=== PATIENT | male | born 1965 | race Caucasian/White ===

== ENCOUNTER 2020-09-17 09:24 | Emergency (ER) | payer MEDICAID, SELFPAY ==
[2020-09-17] VITALS (9 sets, daily range): BP systolic 116–136; BP diastolic 60–85; PULSE 80–105; RESP 14–22; TEMP 37.3; O2SAT 94–98; BMI 25.7
--- NOTE | 2020-09-17 09:34 | ED_ITS ---
HPI - Recheck/Abnormal Lab/Rx General Chief Complaint: Recheck/Abnormal Lab/Rx Stated Complaint: low potassium? Time Seen by Provider: 09/17/20 09:34 Source: patient Mode of arrival: ambulatory Limitations: no limitations History of Present Illness HPI narrative: patient told he has low potassium and that he needs to come in. patient is an alcoholic with a goiter Initial visit (ago): week(s) Symptoms since prior visit: no new symptoms Associated symptoms: none Related Data Allergies Allergy/AdvReac Type Severity Reaction Status Date / Time aspirin [ASPIRIN] Allergy Unknown BLOOD IN Unverified 01/10/20 17:15 STOOL Review of Systems Constitutional: Constitutional: Reports no additional constitutional complaints Eyes: Eyes: Reports no additional eye complaints ENT: Denies dizziness Cardiovascular: Cardiovascular: Reports no additional cardiovascular complaints Respiratory: Respiratory: Reports as per HPI Gastrointestinal: Gastrointestinal: Reports no additional gastrointestinal complaints Musculoskeletal: Musculoskeletal: Reports no additional musculoskeletal complaints Integumentary/Breasts: Skin/Breast: Denies rash Neurologic: Reports system reviewed and no additional complaints, except as documented, Denies dizziness and Denies Sensory deficit (Neuro) Psychiatric: Psychiatric: Denies anxiety [facility] Social History Social History Alcohol intake: current Alcohol intake frequency: a few times a week Alcohol type: beer Patient Tobacco Use Status: Never used Tobacco Use of substances other than those prescribed or required for medical reasons: No Advance Directives: Yes Advance Directives Information Provided: Yes Advance Directives on File: No Physical Exam Vital Signs: Vital Signs: Last Vital Signs Temp 99.2 F 09/17/20 14:25 Pulse 105 H 09/17/20 14:25 Resp 18 09/17/20 14:25 BP 135/82 09/17/20 14:25 Pulse Ox 98 09/17/20 14:25 Body Mass Index 25.7 Const: Other: chronically ill male with huge goiter Orientation/consciousness: oriented to person and patient oriented x3 Limitations: no limitations HENMT: Head: Yes normal to inspection Ears: external ears normal General nose exam: Normal external nose present Mouth: Normal oral and palatal mucosa present and oropharynx normal Throat: Yes posterior oropharynx normal Eyes: General: appearance normal, both eyes and all related structures Neck: Other: supple, huge goiter Chest: Chest palpation & inspection: normal inspection of the chest Resp: Auscultation: clear to auscultation bilaterally Cardio: Jugular venous distension: no JVD Rate: regular rate Rhythm: regular rhythm Heart sounds: S1 normal heart sound present and S2 normal heart sound present GI: Inspection: Yes normal to inspection Palpation (GI): Soft to palpation, nontender and No hepatosplenomegaly present Auscultation: normal bowel sounds : General: Yes no CVA tenderness Back/Spine/Pelvis: Back: no CVA tenderness Skin: General skin exam: no rashes or lesions noted Neuro: General: oriented to person and patient oriented x3 Cranial nerves: Yes CN's II-XII intact bilaterally Motor exam (neuro): 5/5 motor strength present throughout Sensory Exam: No Sensory deficit (Neuro) Extrem: Other: 3+ edema good pulses Psych: Appearance: grossly normal Course Course Course Narrative: patient looking well, resting comfortably. Awaiting repeat labs. Signed out to Dr. Urban [facility] - Recheck/Abnormal Lab/Rx Lab Data Result diagrams: 09/17/20 10:04 09/17/20 10:03 Labs: Lab Results 09/17/20 09/17/20 Range/Units 10:03 10:04 WBC 3.5 L (4.8-10.8) X10*3/uL RBC 3.37 L (4.60-5.80) X10*6/uL Hgb 12.8 L (14.0-18.0) g/dl Hct 36.6 L (42-52) % MCV 108.6 H (80-98) fL MCH 38.0 H (27.0-33.0) pg MCHC 35.0 (31.0-36.0) g/dl RDW 13.5 (11.0-16.0) % Plt Count 45 L (160-400) X10*3/uL MPV 9.5 (9.4-12.4) fL Immature Gran % (Auto) 0.6 H (0.0-0.4) % Neut % (Auto) 73.1 H (45-73) % Lymph % (Auto) 13.6 L (20-40) % [place] % (Auto) 11.6 H (2-11) % Eos % (Auto) 0.3 (0-4) % Baso % (Auto) 0.8 (0-2) % Lymph # (Auto) 0.5 L (1.2-4.9) X10*3/uL [place] # (Auto) 0.4 (0.1-1.2) X10*3/uL Eos # (Auto) 0.0 (0.0-0.4) X10*3/uL Baso # (Auto) 0.0 (0.0-0.2) X10*3/uL Abs Immat Gran (auto) 0.02 (0.00-0.03) X10*3/uL Absolute Neuts (auto) 2.6 (2.0-8.3) X10*3/uL Absolute Nucleated RBC 0.000 (0.0-0.012) X10*3/uL Nucleated RBC % (auto) 0.0 (0.0-0.2) /100WBC Smear Tech's Comments VERIFIED Sodium 138 (135-145) mmol/L Potassium 2.6 L (3.3-5.1) mmol/L Chloride 92 L (96-108) mmol/L Carbon Dioxide 30 H (22-29) mmol/L Anion Gap 19 (12-20) BUN 4 L (9-16) mg/dL Creatinine 0.63 (0.5-1.4) mg/dL Estim Creat Clear Calc TNP Estimated GFR > 60 Random Glucose 130 H (60-115) mg/dL Calcium 8.2 L (8.4-10.2) mg/dL Magnesium 1.2 L* (1.6-2.6) mg/dL Total Bilirubin 3.1 H (0.0-1.0) mg/dL Direct Bilirubin 1.6 H (0.0-0.5) mg/dL AST 170 H (5-37) U/L ALT 35 (0-40) U/L Alkaline Phosphatase 145 H (39-117) U/L Total Protein 7.0 (6.5-8.0) g/dL Albumin 3.0 L (3.5-5.0) g/dL
--- NOTE | 2020-09-17 10:00 | PC.NURSE ---
Heplock inserted in left upper forearm with a 20 gauge insyte. Blood drawn for labs, site secured and flushed with normal saline. Pt tolerated well. Pt is alert and oriented. denies any pain, fatigue, dizziness, sob or palpitations.
[2020-09-17 10:22] LABS: Basophils Percent Auto 0.8 % (0-2); Eosinophils Percent Auto 0.3 % (0-4); Hematocrit 36.6 % (42-52); Hemoglobin 12.8 g/dl (14.0-18.0); Imm Gran Abs Auto 0.02 X10*3/uL (0.00-0.03); Imm Gran Pct Auto 0.6 % (0.0-0.4); Lymphocytes Absolute Auto 0.5 X10*3/uL (1.2-4.9); Lymphocytes Percent Auto 13.6 % (20-40); MANUAL DIFF FLAG SCAN; Mean Corpuscular Volume 108.6 fL (80-98); Mean Platelet Volume 9.5 fL (9.4-12.4); Monocytes Absolute Auto 0.4 X10*3/uL (0.1-1.2); Monocytes Percent Auto 11.6 % (2-11); Neutrophils Absolute Auto 2.6 X10*3/uL (2.0-8.3); Neutrophils Percent Auto 73.1 % (45-73); Platelet Count 45 X10*3/uL (160-400); Red Blood Count 3.37 X10*6/uL (4.60-5.80); Red Cell Distribution Width 13.5 % (11.0-16.0); SCAN SMEAR FLAG 1; White Blood Count 3.5 X10*3/uL (4.8-10.8)
[2020-09-17 10:46] LABS: SLIDE REVIEW VERIFIED
[2020-09-17 10:51] LABS: Alanine Aminotransferase 35 U/L (0-40); Alkaline Phosphatase 145 U/L (39-117); Anion Gap 19 (12-20); Aspartate Amino Transferase 170 U/L (5-37); Bilirubin Direct 1.6 mg/dL (0.0-0.5); Bilirubin Total 3.1 mg/dL (0.0-1.0); Blood Urea Nitrogen 4 mg/dL (9-16); Calcium 8.2 mg/dL (8.4-10.2); Carbon Dioxide 30 mmol/L (22-29); Chloride 92 mmol/L (96-108); Estimated Glomerular Filt Rate > 60; Glucose Random 130 mg/dL (60-115); Magnesium 1.2 mg/dL (1.6-2.6); Potassium 2.6 mmol/L (3.3-5.1); Sodium 138 mmol/L (135-145)
[2020-09-17] MEDS: Magnesium Sulfate/H2O 2 GM/50 ML PIGGYBACK IV ×2 (13:00→23:28)
[2020-09-17] MEDS: KCl 40 mEq in 0.9 % Sodium Chl 40 MEQ/1,000 ML IV.SOLN 100 MEQ IVCONT ×2 (13:35→23:13)
--- NOTE | 2020-09-17 17:05 | PC.NURSE ---
Pt is resting quietly in no distress. Potassium continues to infuse. Pt denies any pain or discomfort. Blood drawn for repeat labs.
[2020-09-17 17:43] LABS: Anion Gap 13 (12-20); Blood Urea Nitrogen 4 mg/dL (9-16); Carbon Dioxide 33 mmol/L (22-29); Chloride 93 mmol/L (96-108); Creatinine Clr Calc Pharmacy 106.2; Estimated Glomerular Filt Rate > 60; Glucose Random 130 mg/dL (60-115); Magnesium 1.5 mg/dL (1.6-2.6); Potassium 2.4 mmol/L (3.3-5.1); Sodium 137 mmol/L (135-145)
--- NOTE | 2020-09-17 17:45 | ECG_ITS ---
Test Reason : ABNORMAL LABS Blood Pressure : / mmHG Vent. Rate : 100 BPM Atrial Rate : 100 BPM P-R Int : 146 ms QRS Dur : 110 ms QT Int : 414 ms P-R-T Axes : 034 -26 036 degrees QTc Int : 534 ms Sinus rhythm with occasional Premature ventricular complexes Incomplete right bundle branch block Cannot rule out Inferior infarct (cited on or before 16-NOV-2017) Prolonged QT Abnormal ECG When compared with ECG of 07-OCT-2018 09:44, Premature ventricular complexes are now Present QT has lengthened Referred By: Shaw Urban Electronically Signed By:BISI LIM
--- NOTE | 2020-09-17 17:48 | PC.NURSE ---
Doctor at bedside. Verbal order received to increase NS 1L with 40 meq of Potassium rate to 250 ml/h. Rate changed per doctors request. Pt is alert and oriented. Pt denies any pain. Pt is vomiting x2. Pt states vomiting is due to stress at home.
[2020-09-17] MEDS: Potassium Bicarbonate/Cit AC 25 MEQ TABLET.EFF 50 MEQ PO (18:01)
--- NOTE | 2020-09-17 23:28 | PC.NURSE ---
MAGNESIUM UP AND RUNNING ON PUMP, MED IS LATE D/T PREVIOUS NURSE UNABLE TO GET PUMP CONTINUALLY WORKING. SITE INTACT AND MAG RUNNING W/O DIFFICULTY.
[2020-09-18] MEDS: ondansetron HCL 4 MG/2 ML VIAL IVPUSH (00:42)
[2020-09-18 00:52] LABS: Anion Gap 12 (12-20); Blood Urea Nitrogen 5 mg/dL (9-16); Calcium 7.7 mg/dL (8.4-10.2); Carbon Dioxide 33 mmol/L (22-29); Chloride 98 mmol/L (96-108); Estimated Glomerular Filt Rate > 60; Glucose Random 145 mg/dL (60-115); Potassium 2.8 mmol/L (3.3-5.1); Sodium 140 mmol/L (135-145)
[2020-09-18] MEDS: Potassium Bicarbonate/Cit AC 25 MEQ TABLET.EFF 50 MEQ PO (01:34)
[2020-09-18] MEDS: Famotidine/PF 20 MG/2 ML VIAL IVPUSH (01:34)
[2020-09-18] MEDS: Potassium Chloride/H20 10 MEQ/100 ML PIGGYBACK 100 MEQ IV (01:34)
[2020-09-18 01:44] VITALS: BP 127/76; PULSE 96; RESP 16
[2020-09-18 02:00] VITALS: BP 122/74; PULSE 82; RESP 16
[2020-09-18 04:00] VITALS: BP 128/78; PULSE 86; RESP 16
--- NOTE | 2020-09-18 04:35 | PC.NURSE ---
COVID SWAB OBTAINED TO LAB. PT RESTING QUIETLY IN STRETCHER IN NAD.
--- NOTE | 2020-09-18 04:40 | PC.NURSE ---
COVID SWAB OBTAINED TO LAB.
--- NOTE | 2020-09-18 04:57 | PC.NURSE ---
REPEAT LABS DRAWN TO LAB FOR EVAL.
[2020-09-18 05:09] LABS: Anion Gap 12 (12-20); Carbon Dioxide 32 mmol/L (22-29); Chloride 98 mmol/L (96-108); Potassium 3.3 mmol/L (3.3-5.1); Sodium 139 mmol/L (135-145)
[2020-09-18 05:23] VITALS: BP 132/82; PULSE 87; RESP 16
== END 2020-09-18 06:55 | disposition home or self-care (01) ==
PROVIDERS: Internal Medicine; Emergency Provider Emergency Medicine; PCP Internal Medicine
DX: E04.9 Nontoxic goiter, unspecified (principal); Z79.82 Long term (current) use of aspirin; Z79.899 Other long term (current) drug therapy
CPT/HCPCS: 36415; 80048; 80051; 80076; 83735; 85025; 93005; 96361; 96365; 96375; 99285; J2405; J3475

== ENCOUNTER 2021-03-10 09:06 | Inpatient (IN) | payer MEDICAID, SELFPAY ==
[2021-03-10] VITALS (16 sets, daily range): BP systolic 82–119; BP diastolic 51–70; PULSE 85–130; RESP 12–24; TEMP 36.6–39.4; O2SAT 97–100; BMI 26.5
--- NOTE | 2021-03-10 | ECG_ITS ---
Test Reason : lightheadedness Blood Pressure : / mmHG Vent. Rate : 136 BPM Atrial Rate : 136 BPM P-R Int : 118 ms QRS Dur : 092 ms QT Int : 298 ms P-R-T Axes : 046 -15 055 degrees QTc Int : 448 ms Poor data quality Sinus tachycardia with frequent Premature ventricular complexes Inferior infarct (cited on or before 16-NOV-2017) Abnormal ECG When compared with ECG of 17-SEP-2020 17:53, Heart rate has increased Premature ventricular complexes are now more frequent Referred By: Generic ED Physician Electronically Signed By:ANDI KIDD MD
--- NOTE | ~2021-03-10 | MR_ITS ---
EXAMINATION: MRI BRAIN WITHOUT CONTRAST CLINICAL INFORMATION: Left eye hemianopsia. COMPARISON: No relevant prior imaging. TECHNIQUE: Multiplanar MR imaging of the brain was performed without contrast. FINDINGS: There are scattered nonspecific foci of T2 FLAIR show hyperintensity within the periventricular white matter. No acute territorial infarct. No pathological magnetic susceptibility artifact. Intracranial vascular flow voids are maintained. There is no intracranial mass effect or midline shift. No abnormal extra-axial collection. Lateral and third ventricles are proportionate to the subarachnoid spaces. No hydrocephalus. Midline structures including the cervicomedullary junction are normal. No acute bone marrow signal changes. There is no mastoid or middle ear effusion. Mild paranasal sinus mucosal thickening within ethmoid air cells and maxillary sinuses. Globes and orbits are symmetric. MR/MR head/brain wo con IMPRESSION: There are scattered chronic small vessel ischemic changes within the periventricular white matter. Otherwise unremarkable examination. No evidence of acute territorial infarct or hemorrhage. Symmetric deposition of subcutaneous fat within the neck may represent a manifestation of Madelung disease or exogenous corticosteroid use.
--- NOTE | ~2021-03-10 | XR_ITS ---
EXAMINATION: XR CHEST CLINICAL INFORMATION: Question pneumonia COMPARISON: Previous chest x-ray most recent April 2018 TECHNIQUE: Frontal view of the chest was obtained. FINDINGS: The cardiac and mediastinal contours are stable. The lungs are clear. There is no pleural effusion or pneumothorax. There are degenerative changes of the spine. XR/XR chest 1V IMPRESSION: No evidence for acute disease in the chest.
--- NOTE | ~2021-03-10 | CT_ITS ---
EXAMINATION: CT ABDOMEN AND PELVIS WITH CONTRAST CLINICAL INFORMATION: Abdominal pain. Past medical history of Crohn's disease and diverticulitis. COMPARISON: CT abdomen and pelvis 10/07/2018 TECHNIQUE: Multidetector volumetric images were obtained from the superior aspect of the liver through the pubic symphysis following administration 85 mL of Omnipaque 350 intravenous contrast. Sagittal and coronal reformatted images were obtained on the technologist's workstation. Oral contrast: No. This CT examination was performed using dose optimization techniques as appropriate, variously including the following: *Automated exposure control *Adjustment of mA and/or kV according to patient size (this includes techniques or standardized protocols for targeted exams where dose is matched to indication/reason for exam; i.e. extremities or head) *Use of iterative reconstruction technique DLP: 581 mGy-cm FINDINGS: LUNG BASES: The visualized lung bases are unremarkable. LIVER, GALLBLADDER, AND BILIARY TREE: The liver is mildly enlarged in AP dimension with lobulation and decreased attenuation. There is a punctate hypodensity in the right hepatic lobe segment 7, likely simple cyst. There are additional small hypodense lesions scattered in the left and right hepatic lobe, likely tiny cysts. No intrahepatic ductal dilatation. There are multiple radiopaque gallstones without wall thickening. PANCREAS: Unremarkable. SPLEEN: Unremarkable. ADRENAL GLANDS: Unremarkable. KIDNEYS AND URETERS: The kidneys are normal in size, shape, and attenuation. There is punctate 2 mm calcification midpole right kidney, likely small stone. There is no caliectasis or hydronephrosis. BLADDER: Unremarkable. GASTROINTESTINAL TRACT: There is diffuse mural thickening involving the ascending colon and sigmoid colon with a few scattered diverticula in the distal descending and sigmoid colon. The terminal ileum and ileocecal junction appears normal. The rest of the small bowel loops are normal caliber. Appendix is normal. There is a right perihepatic fluid collection and mild left pericolic fat stranding distal descending colon. ABDOMINAL WALL: There is a small umbilical hernia containing fat. LYMPH NODES: Normal. VASCULAR: There is mild arthroscopic calcification of the abdominal aorta without aneurysmal dilatation. PELVIC VISCERA: Unremarkable. OSSEOUS STRUCTURES: No lytic or sclerotic process seen. CT/CT abdomen pelvis w con IMPRESSION: There is diffuse mural thickening involving sigmoid and ascending colon suggestive of colitis likely inflammatory or infectious etiology. A few scattered diverticula are seen in the distal descending and ascending colon but diverticulitis is not suspected. Suspect mild cirrhosis with perihepatic and perisplenic small fluid collection. Cholelithiasis without wall thickening. Nonobstructive 2 mm radiopaque calculi midpole right kidney.
--- NOTE | ~2021-03-10 | US_ITS ---
EXAMINATION: US EXTRACRANIAL CAROTID DUPLEX, BILATERAL CLINICAL INFORMATION: Blurred vision-left eye. COMPARISON: None TECHNIQUE: Technically difficult study due to extreme swelling to the patient's neck. Real-time ultrasound and Doppler techniques (integrating B-mode 2-D vascular images, Doppler spectral analysis and color-flow Doppler imaging) were utilized to interrogate the extracranial carotid arteries, the vertebral arteries and proximal subclavian arteries bilaterally. The degree of stenosis is determined by criteria similar to NASCET. FINDINGS: Right Side: 1. There is no significant atherosclerotic plaque seen in the bifurcation/proximal ICA region. 2. The common carotid artery PSV proximally is 100 cm/s and distally 99 cm/s. 3. The proximal internal carotid artery velocities are 91 cm/s systolic and 18 cm/s diastolic. 4. The proximal external carotid artery PSV is 116 cm/s. 5. The vertebral artery shows antegrade flow. 6. The subclavian artery waveforms are normal. Left Side: 1. There is no significant atherosclerotic plaque seen in the bifurcation/proximal ICA region. 2. The common carotid artery PSV proximally is 101 cm/s and distally 106 cm/s. 3. The proximal internal carotid artery velocities are 72 cm/s systolic and 27 cm/s diastolic. 4. The proximal external carotid artery PSV is 98 cm/s. 5. The vertebral artery shows antegrade flow. 6. The subclavian artery waveforms are normal. US/US carotid duplex BI IMPRESSION: 1. RIGHT: Normal right internal carotid artery without atherosclerotic plaque or hemodynamically significant stenosis. 2. LEFT: Normal left internal carotid artery without atherosclerotic plaque or hemodynamically significant stenosis.
[2021-03-10] MEDS: 0.9 % Sodium Chloride 1,000 ML 999 ML IV ×2 (10:43→16:14)
[2021-03-10] MEDS: Acetaminophen 325 MG TABLET 650 MG PO (10:50)
[2021-03-10 10:51] LABS: Basophils Percent Auto 0.5 % (0-2); Hematocrit 23.3 % (42.0-52.0); Hemoglobin 7.3 g/dl (14.0-18.0); Imm Gran Abs Auto 0.05 X10*3/uL (0.00-0.03); Imm Gran Pct Auto 1.4 % (0.0-0.4); Lymphocytes Absolute Auto 0.2 X10*3/uL (1.2-4.9); Lymphocytes Percent Auto 5.4 % (20-40); MANUAL DIFF FLAG SCAN; Mean Corpuscular HGB Conc 31.3 g/dl (31.0-36.0); Mean Corpuscular Hemoglobin 34.3 pg (27.0-33.0); Mean Corpuscular Volume 109.4 fL (80.0-98.0); Mean Platelet Volume 9.1 fL (9.4-12.4); Monocytes Absolute Auto 0.1 X10*3/uL (0.1-1.2); Monocytes Percent Auto 2.5 % (2-11); Neutrophils Absolute Auto 3.3 x10*3/uL (2.0-8.3); Neutrophils Percent Auto 90.2 % (45-73); SCAN SMEAR FLAG 1; White Blood Count 3.7 X10*3/uL (4.8-10.8)
[2021-03-10 10:53] LABS: Platelet Count 61 X10*3/uL (160-400); Red Blood Count 2.13 X10*6/uL (4.60-5.80)
[2021-03-10 10:57] LABS: INTERNATIONAL NORM RATIO 2.1 (0.9-1.1); Prothrombin Time 24.2 SEC (9.9-13.0)
[2021-03-10 11:00] LABS: Partial Thromboplastin Time 28.7 SEC (24.1-38.0)
[2021-03-10 11:08] LABS: Alanine Aminotransferase 21 U/L (0-40); Alkaline Phosphatase 107 U/L (39-117); Anion Gap 21 (12-20); Aspartate Amino Transferase 64 U/L (5-37); Bilirubin Total 2.9 mg/dL (0.0-1.0); Blood Urea Nitrogen 8 mg/dL (9-16); Calcium 7.5 mg/dL (8.4-10.2); Carbon Dioxide 13 mmol/L (22-29); Chloride 103 mmol/L (96-108); Creatinine Clr Calc Pharmacy 68.3; Estimated Glomerular Filt Rate > 60; Glucose Random 94 mg/dL (60-115); Potassium 3.6 mmol/L (3.3-5.1); Sodium 133 mmol/L (135-145); Total Protein 5.5 g/dL (6.5-8.0)
[2021-03-10 11:09] LABS: Lactic Acid 11.2 mmol/L (0.5-2.0)
[2021-03-10 11:20] LABS: SLIDE REVIEW VERIFIED
[2021-03-10 11:32] LABS: TSH reflex Free T4 2.43 uIU/mL (0.32-4.0)
[2021-03-10 11:52] LABS: Influenza A PCR NEGATIVE (Negative); Influenza B PCR NEGATIVE (Negative); Resp Syncy Virus RNA Qual PCR NEGATIVE (Negative); SARS COV2 PCR INHOUSE NEGATIVE (Negative)
[2021-03-10] MEDS: iohexoL 350 MG/ML 100 ML INFUS..BTL 85 ML IV (12:10)
[2021-03-10] MEDS: methylPREDNISolone Sod Succ 125 MG/2 ML VIAL IVPUSH (12:11)
[2021-03-10] MEDS: levoFLOXacin/D5W 750 MG/150 ML PIGGYBACK 100 MG IV (12:12)
[2021-03-10] MEDS: 0.9 % Sodium Chloride 2,041.17 ML 2041.17 ML IV (12:13)
--- NOTE | 2021-03-10 12:36 | ED_ITS ---
HPI - General Adult General Chief complaint: Fever Stated complaint: dizziness, chills, weakness Time Seen by Provider: 03/10/21 10:43 Source: patient Mode of arrival: ambulatory Limitations: no limitations History of Present Illness HPI narrative: 55-year-old male with known history of goiter presents to ED for fever and lethargic. Patient denies any coughing, chest pain, shortness of breath, abdominal pain, blood in stool, diarrhea, increased swelling of the neck, drooling, shortness of breath, chest pain. Patient was not forthcoming with COVID vaccination status. In for further inquiry into medical history seems not to know much. Patient was informed by his PCP seen at goiter extraction of thyroid surgery should not be done due to risk of injury to neck vessels. Related Data Home Medications Medication Instructions Recorded Confirmed albuterol sulfate 90 mcg/actuation 2 puff INHALATION Q6H PRN 03/10/21 03/10/21 aerosol inhaler (ProAir HFA) cyanocobalamin (vitamin B-12) 1,000 mcg PO DAILY 03/10/21 03/10/21 1,000 mcg tablet famotidine 40 mg tablet 40 mg PO DAILY 03/10/21 03/10/21 fluticasone propionate 110 2 puff INHALATION BID 03/10/21 03/10/21 mcg/actuation HFA aerosol inhaler (Flovent HFA) folic acid 1 mg tablet 1 mg PO DAILY 03/10/21 03/10/21 magnesium oxide 400 mg (241.3 mg 1,200 mg PO DAILY 03/10/21 03/10/21 magnesium) tablet mesalamine 1.2 gram tablet,delayed 4 tab PO DAILY 03/10/21 03/10/21 release (Lialda) metoprolol succinate 25 mg 0.5 tab PO DAILY 03/10/21 03/10/21 tablet,extended release 24 hr potassium chloride 10 mEq 20 meq PO BEDTIME 03/10/21 03/10/21 tablet,extended release(part/cryst) potassium chloride 10 mEq 30 meq PO BID@0900,1200 03/10/21 03/10/21 tablet,extended release(part/cryst) thiamine mononitrate (vit B1) 100 100 mg PO DAILY 03/10/21 03/10/21 mg tablet (Vitamin B-1 (mononitrate)) Allergies Allergy/AdvReac Type Severity Reaction Status Date / Time aspirin [ASPIRIN] Allergy Unknown BLOOD IN Unverified 01/10/20 17:15 STOOL Review of Systems Review of Systems: Yes all other systems are reviewed and are negative Constitutional: Constitutional: Reports as per HPI, Reports no additional constitutional complaints and Reports fever(s) Comments: lethargy Eyes: Eyes: Reports as per HPI and Reports no additional eye complaints ENT: Reports system reviewed and no additional complaints, except as documented and Reports as per HPI Comments: chronic neck swelling due to goiter Cardiovascular: Cardiovascular: Reports as per HPI and Reports no additional cardiovascular complaints Respiratory: Respiratory: Reports as per HPI and Reports no additional respiratory complaints Gastrointestinal: Gastrointestinal: Reports as per HPI and Reports no additional gastrointestinal complaints Genitourinary: Genitourinary: Reports no additional male genitourinary comp laints and Reports as per HPI Musculoskeletal: Musculoskeletal: Reports no additional musculoskeletal complaints and Reports as per HPI Neurologic: Reports system reviewed and no additional complaints, except as documented and Reports as per HPI Psychiatric: Psychiatric: Reports no additional psychiatric complaints and Reports as per HPI [facility] Past Medical History Medical History (Updated 03/10/21 @ 17:27 by MAGALY Larios) Asthma Cirrhosis Liver disease Liver disease Social History Social History Alcohol intake: current Alcohol intake frequency: a few times a week Alcohol type: beer Patient Tobacco Use Status: Never used Tobacco Advance Directives: No Physical Exam Vital Signs: Vital Signs: Last Vital Signs Temp 98 F 03/10/21 16:52 Pulse 91 03/10/21 16:21 Resp 19 03/10/21 16:21 BP 96/58 L 03/10/21 16:21 Pulse Ox 100 03/10/21 16:21 Body Mass Index 26.5 Const: General: cooperative, healthy appearing, comfortable, no acute distress, well developed, alert, awake and Physically active Orientation/consciousness: patient oriented x3 HENMT: Head: Yes normal to inspection, Yes No palpable skull fracture present, Yes normocephalic, Yes atraumatic and No abrasion Eyes: General: appearance normal, both eyes and all related structures Neck: Other: Neck swollen for 2 years as per patient due to goiter. Chest: Chest palpation & inspection: normal inspection of the chest and normal palpation of entire chest wall Resp: Effort & Inspection: normal respiratory effort and able to speak in complete sentences Auscultation: clear to auscultation bilaterally Cardio: Jugular venous distension: no JVD Heart sounds: S1 normal heart sound present and S2 normal heart sound present GI: Inspection: Yes normal to inspection and No abdominal wall ecchymosis Palpation (GI): Tenderness to palpation present (GI) in the LLQ : General: No CVA tenderness and Yes no CVA tenderness Back/Spine/Pelvis: Back: no CVA tenderness, No CVA tenderness and No back tenderness Skin: General skin exam: no rashes or lesions noted and elasticity normal Neuro: General: patient oriented x3, gait normal and CN's II-XI intact bilaterally Cranial nerves: Yes CN's II-XII intact bilaterally Extrem: General: Yes normal to inspection, Yes full ROM and Yes capillary refill normal Psych: Appearance: grossly normal, well kempt and not disheveled Course Course Course Narrative: Will look for source of infection. UA, chest x-ray, COVID swab ordered. Labs ordered. And fluids. Reevaluation(s) Reevaluation #1: Patient lactic and [place]. Nurse during came informed me that patient told him that he was having abdominal pain and history of diverticulitis and Crohn's disease. Patient also informed nurse multiple episodes of diarrhea. has normal x-ray negative for pneumonia patient sent for CT scan to rule out any Crohn's abscesses or diverticulitis. Flagyl metronidazole ordered. Steroids ordered. TSH came back normal which indicates there is no thyroid storm with thyroiditis. Patient denies any neck pain or increased swelling of neck. Time: 13:04 Reevaluation #2: Patient has drop in hemoglobin/hematocrit from 12 to 7. Rectal exam negative for black stool. Rectal exam shows brown stool. Patient does have hemorrhoid with slight bleeding. Negative for black stool. Reevaluation #3: CT scan shows colitis. Case discussed with Dr. Shine wrote who states patient should receive 1 unit of blood. He states elevated MCV most likely due to B12 and folate deficiency from alcohol abuse but due to patient stating on evaluation by Dr. Shine order he felt lightheaded and weak when he walk with decrease in hemoglobin/hematocrit patient should receive 1 unit of bl ood. Patient also to be admitted for pants cytopenia. Waiting for records from coli taken since. Will consult Gastroenterology. Additional Reevaluation(s): Dr. Sotelo agreed the patient should receive 1 unit of blood and be admitted. Also recommend low-dose Protonix. Patient to be admitted hospitalist Dr. Underwood for sub the colitis and symptomatic anemia. Waiting for blood blank blood to come. Still waiting for results from include leslie hardin. 17:20. Nagi Umana since paperwork came to the ER and was evaluated by Dr. Underwood and I which shows patient has pmh of hypokalemia, portal hypertesion, cirrhosis, and hypomagnesmia. Also patient had normal MRCP. Patient sign consent for blood Medical Decision Making MDM Narrative Medical decision making narrative: Symptomatic anemia. Septic colitis. Lab Data Result diagrams: 03/10/21 10:40 03/10/21 10:40 Labs: Lab Results 03/10/21 03/10/21 03/10/21 Range/Units 10:40 10:40 10:40 WBC (4.8-10.8) X10*3/uL RBC (4.60-5.80) X10*6/uL Hgb (14.0-18.0) g/dl Hct (42.0-52.0) % MCV (80.0-98.0) fL MCH (27.0-33.0) pg MCHC (31.0-36.0) g/dl RDW (11.0-16.0) % Plt Count (160-400) X10*3/uL MPV (9.4-12.4) fL Immature Gran % (Auto) (0.0-0.4) % Neut % (Auto) (45-73) % Lymph % (Auto) (20-40) % [place] % (Auto) (2-11) % Eos % (Auto) (0-4) % Baso % (Auto) (0-2) % Lymph # (Auto) (1.2-4.9) X10*3/uL [place] # (Auto) (0.1-1.2) X10*3/uL Eos # (Auto) (0.0-0.4) X10*3/uL Baso # (Auto) (0.0-0.2) X10*3/uL Abs Immat Gran (auto) (0.00-0.03) X10*3/uL Absolute Neuts (auto) (2.0-8.3) x10*3/uL Absolute Nucleated RBC (0.0-0.012) X10*3/uL Nucleated RBC % (auto) (0.0-0.2) /100WBC Smear Tech's Comments Smear Path Review PT (9.9-13.0) SEC INR (0.9-1.1) APTT (24.1-38.0) SEC Sodium (135-145) mmol/L Potassium (3.3-5.1) mmol/L Chloride (96-108) mmol/L Carbon Dioxide (22-29) mmol/L Anion Gap (12-20) BUN (9-16) mg/dL Creatinine (0.5-1.4) mg/dL Estim Creat Clear Calc Estimated GFR Random Glucose (60-115) mg/dL Lactic Acid 11.2 H* (0.5-2.0) mmol/L Lactic Acid Fup @ 2Hr (0.5-2.0) mmol/L Calcium (8.4-10.2) mg/dL Total Bilirubin (0.0-1.0) mg/dL AST (5-37) U/L ALT (0-40) U/L Alkaline Phosphatase (39-117) U/L Total Protein (6.5-8.0) g/dL Albumin (3.5-5.0) g/dL Vitamin B12 (200-900) pg/mL Folate (> or = 4.0) ng/mL TSH 2.43 (0.32-4.0) uIU/mL Stool Occult Blood (NEGATIVE) Influenza Type A (PCR) NEGATIVE (Negative) Influenza Type B (PCR) NEGATIVE (Negative) RSV RNA Qual (PCR) NEGATIVE (Negative) SARS-CoV-2 RNA (RT-PCR) NEGATIVE (Negative) Crossmatch 03/10/21 03/10/21 03/10/21 Range/Units 10:40 10:40 10:40 WBC 3.7 L (4.8-10.8) X10*3/uL RBC 2.13 L (4.60-5.80) X10*6/uL Hgb 7.3 L (14.0-18.0) g/dl Hct 23.3 L (42.0-52.0) % MCV 109.4 H (80.0-98.0) fL MCH 34.3 H (27.0-33.0) pg MCHC 31.3 (31.0-36.0) g/dl RDW 16.0 (11.0-16.0) % Plt Count 61 L (160-400) X10*3/uL MPV 9.1 L (9.4-12.4) fL Immature Gran % (Auto) 1.4 H (0.0-0.4) % Neut % (Auto) 90.2 H (45-73) % Lymph % (Auto) 5.4 L (20-40) % [place] % (Auto) 2.5 (2-11) % Eos % (Auto) 0.0 (0-4) % Baso % (Auto) 0.5 (0-2) % Lymph # (Auto) 0.2 L (1.2-4.9) X10*3/uL [place] # (Auto) 0.1 (0.1-1.2) X10*3/uL Eos # (Auto) 0.0 (0.0-0.4) X10*3/uL Baso # (Auto) 0.0 (0.0-0.2) X10*3/uL Abs Immat Gran (auto) 0.05 H (0.00-0.03) X10*3/uL Absolute Neuts (auto) 3.3 (2.0-8.3) x10*3/uL Absolute Nucleated RBC 0.000 (0.0-0.012) X10*3/uL Nucleated RBC % (auto) 0.0 (0.0-0.2) /100WBC Smear Tech's Comments VERIFIED Smear Path Review SEE NOTE PT 24.2 H (9.9-13.0) SEC INR 2.1 H (0.9-1.1) APTT 28.7 (24.1-38.0) SEC Sodium 133 L (135-145) mmol/L Potassium 3.6 (3.3-5.1) mmol/L Chloride 103 (96-108) mmol/L Carbon Dioxide 13 L (22-29) mmol/L Anion Gap 21 H (12-20) BUN 8 L D (9-16) mg/dL Creatinine 0.96 (0.5-1.4) mg/dL Estim Creat Clear Calc 68.3 Estimated GFR > 60 Random Glucose 94 D (60-115) mg/dL Lactic Acid (0.5-2.0) mmol/L Lactic Acid Fup @ 2Hr (0.5-2.0) mmol/L Calcium 7.5 L (8.4-10.2) mg/dL Total Bilirubin 2.9 H (0.0-1.0) mg/dL AST 64 H (5-37) U/L ALT 21 (0-40) U/L Alkaline Phosphatase 107 D (39-117) U/L Total Protein 5.5 L D (6.5-8.0) g/dL Albumin 2.0 L D (3.5-5.0) g/dL Vitamin B12 (200-900) pg/mL Folate (> or = 4.0) ng/mL TSH (0.32-4.0) uIU/mL Stool Occult Blood (NEGATIVE) Influenza Type A (PCR) (Negative) Influenza Type B (PCR) (Negative) RSV RNA Qual (PCR) (Negative) SARS-CoV-2 RNA (RT-PCR) (Negative) Crossmatch 03/10/21 03/10/21 03/10/21 Range/Units 10:40 13:14 13:18 WBC (4.8-10.8) X10*3/uL RBC (4.60-5.80) X10*6/uL Hgb (14.0-18.0) g/dl Hct (42.0-52.0) % MCV (80.0-98.0) fL MCH (27.0-33.0) pg MCHC (31.0-36.0) g/dl RDW (11.0-16.0) % Plt Count (160-400) X10*3/uL MPV (9.4-12.4) fL Immature Gran % (Auto) (0.0-0.4) % Neut % (Auto) (45-73) % Lymph % (Auto) (20-40) % [place] % (Auto) (2-11) % Eos % (Auto) (0-4) % Baso % (Auto) (0-2) % Lymph # (Auto) (1.2-4.9) X10*3/uL [place] # (Auto) (0.1-1.2) X10*3/uL Eos # (Auto) (0.0-0.4) X10*3/uL Baso # (Auto) (0.0-0.2) X10*3/uL Abs Immat Gran (auto) (0.00-0.03) X10*3/uL Absolute Neuts (auto) (2.0-8.3) x10*3/uL Absolute Nucleated RBC (0.0-0.012) X10*3/uL Nucleated RBC % (auto) (0.0-0.2) /100WBC Smear Tech's Comments Smear Path Review PT (9.9-13.0) SEC INR (0.9-1.1) APTT (24.1-38.0) SEC Sodium (135-145) mmol/L Potassium (3.3-5.1) mmol/L Chloride (96-108) mmol/L Carbon Dioxide (22-29) mmol/L Anion Gap (12-20) BUN (9-16) mg/dL Creatinine (0.5-1.4) mg/dL Estim Creat Clear Calc Estimated GFR Random Glucose (60-115) mg/dL Lactic Acid (0.5-2.0) mmol/L Lactic Acid Fup @ 2Hr 6.0 H* (0.5-2.0) mmol/L Calcium (8.4-10.2) mg/dL Total Bilirubin (0.0-1.0) mg/dL AST (5-37) U/L ALT (0-40) U/L Alkaline Phosphatase (39-117) U/L Total Protein (6.5-8.0) g/dL Albumin (3.5-5.0) g/dL Vitamin B12 1678 H (200-900) pg/mL Folate > 20.0 (> or = 4.0) ng/mL TSH (0.32-4.0) uIU/mL Stool Occult Blood POSITIVE (NEGATIVE) Influenza Type A (PCR) (Negative) Influenza Type B (PCR) (Negative) RSV RNA Qual (PCR) (Negative) SARS-CoV-2 RNA (RT-PCR) (Negative) Crossmatch 03/10/21 Range/Units 16:41 WBC (4.8-10.8) X10*3/uL RBC (4.60-5.80) X10*6/uL Hgb (14.0-18.0) g/dl Hct (42.0-52.0) % MCV (80.0-98.0) fL MCH (27.0-33.0) pg MCHC (31.0-36.0) g/dl RDW (11.0-16.0) % Plt Count (160-400) X10*3/uL MPV (9.4-12.4) fL Immature Gran % (Auto) (0.0-0.4) % Neut % (Auto) (45-73) % Lymph % (Auto) (20-40) % [place] % (Auto) (2-11) % Eos % (Auto) (0-4) % Baso % (Auto) (0-2) % Lymph # (Auto) (1.2-4.9) X10*3/uL [place] # (Auto) (0.1-1.2) X10*3/uL Eos # (Auto) (0.0-0.4) X10*3/uL Baso # (Auto) (0.0-0.2) X10*3/uL Abs Immat Gran (auto) (0.00-0.03) X10*3/uL Absolute Neuts (auto) (2.0-8.3) x10*3/uL Absolute Nucleated RBC (0.0-0.012) X10*3/uL Nucleated RBC % (auto) (0.0-0.2) /100WBC Smear Tech's Comments Smear Path Review PT (9.9-13.0) SEC INR (0.9-1.1) APTT (24.1-38.0) SEC Sodium (135-145) mmol/L Potassium (3.3-5.1) mmol/L Chloride (96-108) mmol/L Carbon Dioxide (22-29) mmol/L Anion Gap (12-20) BUN (9-16) mg/dL Creatinine (0.5-1.4) mg/dL Estim Creat Clear Calc Estimated GFR Random Glucose (60-115) mg/dL Lactic Acid (0.5-2.0) mmol/L Lactic Acid Fup @ 2Hr (0.5-2.0) mmol/L Calcium (8.4-10.2) mg/dL Total Bilirubin (0.0-1.0) mg/dL AST (5-37) U/L ALT (0-40) U/L Alkaline Phosphatase (39-117) U/L Total Protein (6.5-8.0) g/dL Albumin (3.5-5.0) g/dL Vitamin B12 (200-900) pg/mL Folate (> or = 4.0) ng/mL TSH (0.32-4.0) uIU/mL Stool Occult Blood (NEGATIVE) Influenza Type A (PCR) (Negative) Influenza Type B (PCR) (Negative) RSV RNA Qual (PCR) (Negative) SARS-CoV-2 RNA (RT-PCR) (Negative) Crossmatch See Detail Discharge Plan Discharge Clinical Impression: Sepsis, Colitis, Symptomatic anemia Prescriptions: No Action famotidine 40 mg tablet 40 mg PO DAILY RF: 0 cyanocobalamin (vitamin B-12) 1,000 mcg Tablet 1,000 mcg PO DAILY RF: 0 magnesium oxide 400 mg (241.3 mg magnesium) tablet 1,200 mg PO DAILY RF: 0 folic acid 1 mg tablet 1 mg PO DAILY RF: 0 metoprolol succinate 25 mg tablet extended release 24 hr 0.5 tab PO DAILY RF: 0 albuterol sulfate [ProAir HFA] 90 mcg/actuation HFA aerosol inhaler 2 puff inhalation Q6H PRN (Reason: wheezing) RF: 0 Flovent HFA 110 mcg/actuation HFA aerosol inhaler 2 puff inhalation BID RF: 0 potassium chloride 10 mEq tablet,ER particles/crystals 30 meq PO BID@0900,1200 RF: 0 potassium chloride 10 mEq tablet,ER particles/crystals 20 meq PO BEDTIME RF: 0 mesalamine [Lialda] 1.2 gram tablet,delayed release (DR/EC) 4 tab PO DAILY RF: 0 thiamine mononitrate (vit B1) [Vitamin B-1 (mononitrate)] 100 mg tablet 100 mg PO DAILY RF: 0
[2021-03-10 12:48] LABS: Reflex Lactate? Lactic Acid Added
[2021-03-10 13:34] LABS: OBS Int Ctl Valid YES; OBS1 POSITIVE (NEGATIVE)
[2021-03-10] MEDS: metroNIDAZOLE/NS 500 MG/100 ML PIGGYBACK 100 MG IV ×2 (14:08→22:47)
--- NOTE | 2021-03-10 14:44 | PHA.MEDREC ---
Pharmacy Consult ? Medication Reconciliation Pharmacy has completed the medication reconciliation. Patient reports taking mag oxide 3 tablets once a day instead of 1 tab TID. Patient was able to confirm the rest of medications which matched his claim history. Danielle Taylor, PharmD
[2021-03-10 15:31] LABS: Reflex Lactate? 2 Y
[2021-03-10 15:34] LABS: Folate > 20.0 ng/mL (> or = 4.0); Vitamin B12 1678 pg/mL (200-900)
[2021-03-10] MEDS: Pantoprazole Sodium 40 MG/10 ML VIAL IVPUSH ×2 (15:38→20:44)
[2021-03-10 17:26] LABS: Ferritin 274 ng/mL (20-250)
--- NOTE | 2021-03-10 17:30 | PM.IMHP ---
History of Present Illness Date of Service: 03/10/21 Attending physician on admission: Christelle Underwood Chief Complaint: Sepsis, colitis, anemia symptomatic. 55-year-old male with history of liver disease with portal hypertension, alcoholic last drink was 2 weeks ago,very poor historian, hypertension, pancytopenia, Crohn disease history, asthma-he was including [facility] in December due to jaundice which was thought to be related to liver disease and alcohol use, also had MRCP-which did not show any obstruction so was given steroids for 28 days-his liver function seems to be improving afterwards, his last H&H was around January 08: Around 9.8/27.5. He says like from last few days he is feeling lightheaded, tired, pale, but did not had any vomiting with blood or any sandhya blood in the stool. He is unsure about melena, also has some on and off diarrhea but he could not provide much history about that also. he has some chills on and off from 2 days. Has abdominal pain mostly in the ascending colon area right-sided. Denies any new complaint of chest pain or shortness of breath or nausea or vomiting Denies any cough Denies any weakness or numbness. ED: In addition to abdominal pain found to have pancytopenia, mild hyponatremia, bilirubin 2.9, AST 64(which seems to be improved from December bilirubin was around 8, AST was around 160) Potassium is around 3.6, also added magnesium level CT abdomen:There is diffuse mural thickening involving sigmoid and ascending colon suggestive of colitis likely inflammatory or infectious etiology Has microcytic anemia Ferritin normal, B12 and folate also normal. Patient received antibiotics and steroids in ED-admission was requested for sepsis/colitis : In the ED was given IV fluid, antibiotics-also type and cross and PRBC ordered. As per ED physician on rectal examination noted little blood otherwise negative Review of Systems Review of Systems: As above. Yes all other systems are reviewed and are negative [facility] Medical History Asthma Cirrhosis Liver disease Liver disease Pertinent family history: His father also had Crohn disease. Social History Alcohol intake: current Alcohol intake frequency: a few times a week Alcohol type: beer Patient Tobacco Use Status: Never used Tobacco Advance Directives: No Meds Allergies Allergy/AdvReac Type Severity Reaction Status Date / Time aspirin [ASPIRIN] Allergy Unknown BLOOD IN Unverified 01/10/20 17:15 STOOL Active Medications: Current Medications Cyanocobalamin (Cyanocobalamin (Vitamin B-12) 1,000 Mcg Tablet) 1,000 mcg PO DAILY [facility] Folic Acid (Folic Acid 1 Mg Tablet) 1 mg PO DAILY [facility] Magnesium Oxide (Magnesium Oxide 400 Mg Tablet) 1,200 mg PO DAILY JOHN Non-Formulary Medication (Mesalamine [Lialda]) 4 tab PO DAILY JONH Non-Formulary Medication (Potassium Chloride) 20 meq PO BEDTIME JOHN Non-Formulary Medication (Potassium Chloride) 30 meq PO BID@0900,1200 JOHN Pantoprazole Sodium (Pantoprazole Sodium 40 Mg/10 Ml Vial) 40 mg IVPUSH BID [facility] Sodium Chloride (0.9 % Sodium Chloride Flush 3 Ml Syringe) 3 ml IVFLUSH QSHIFT [facility] Thiamine HCl (Thiamine Hcl 100 Mg Tablet) 100 mg PO DAILY [facility] Home Medications Medication Instructions Recorded Confirmed Last Taken Type albuterol sulfate 90 mcg/actuation 2 puff INHALATION Q6H PRN 03/10/21 03/10/21 03/09/21 History aerosol inhaler (ProAir HFA) cyanocobalamin (vitamin B-12) 1,000 mcg PO DAILY 03/10/21 03/10/21 03/09/21 History 1,000 mcg tablet famotidine 40 mg tablet 40 mg PO DAILY 03/10/21 03/10/21 03/09/21 History fluticasone propionate 110 2 puff INHALATION BID 03/10/21 03/10/21 03/09/21 History mcg/actuation HFA aerosol inhaler (Flovent HFA) folic acid 1 mg tablet 1 mg PO DAILY 03/10/21 03/10/21 03/09/21 History magnesium oxide 400 mg (241.3 mg 1,200 mg PO DAILY 03/10/21 03/10/21 03/09/21 History magnesium) tablet mesalamine 1.2 gram tablet,delayed 4 tab PO DAILY 03/10/21 03/10/21 03/09/21 History release (Lialda) metoprolol succinate 25 mg 0.5 tab PO DAILY 03/10/21 03/10/21 03/09/21 History tablet,extended release 24 hr potassium chloride 10 mEq 20 meq PO BEDTIME 03/10/21 03/10/21 03/09/21 History tablet,extended release(part/cryst) potassium chloride 10 mEq 30 meq PO BID@0900,1200 03/10/21 03/10/21 03/09/21 History tablet,extended release(part/cryst) thiamine mononitrate (vit B1) 100 100 mg PO DAILY 03/10/21 03/10/21 03/09/21 History mg tablet (Vitamin B-1 (mononitrate)) Physical Exam Vital Signs and Narrative: Vital Signs: Last Vital Signs Temp 98 F 03/10/21 16:52 Pulse 91 03/10/21 16:21 Resp 19 03/10/21 16:21 BP 96/58 L 03/10/21 16:21 Pulse Ox 100 03/10/21 16:21 Body Mass Index 26.5 Physical exam: Appearance: Alert.? Oriented X3.? not in distress.? Eyes: Pupils equal, round and reactive to light.? Sclera mild icteric, pale.? ENT: Pharynx normal.? Moist mucous membranes. cvs: rrr, [id number] , no murmur res: clear to auscultation ,no rhonchii or wheezing abd: no rebound or guarding , has right sided abd pain moderate, bs present. ext pulses present , no cyanosis ,Gait well balanced well coordinated. neuro: axo3 , nonfocal.` Results Labs CBC and Chem 7: 03/10/21 10:40 03/10/21 10:40 Labs: Laboratory Results - last 24 hr 03/10/21 03/10/21 03/10/21 10:40 10:40 10:40 MCV MCH MCHC RDW Plt Count MPV Immature Gran % (Auto) Neut % (Auto) Lymph % (Auto) Dickinson % (Auto) Eos % (Auto) Baso % (Auto) Lymph # (Auto) Dickinson # (Auto) Eos # (Auto) Baso # (Auto) Abs Immat Gran (auto) Absolute Neuts (auto) Absolute Nucleated RBC Nucleated RBC % (auto) Smear Tech's Comments Smear Path Review PT INR APTT Anion Gap Estim Creat Clear Calc Estimated GFR Random Glucose Lactic Acid 11.2 H* Lactic Acid Fup @ 2Hr Calcium Ferritin Total Bilirubin AST ALT Alkaline Phosphatase Total Protein Albumin Vitamin B12 Folate TSH 2.43 Stool Occult Blood Influenza Type A (PCR) NEGATIVE Influenza Type B (PCR) NEGATIVE RSV RNA Qual (PCR) NEGATIVE SARS-CoV-2 RNA (RT-PCR) NEGATIVE Blood Type Antibody Screen Crossmatch 03/10/21 03/10/21 03/10/21 10:40 10:40 10:40 MCV 109.4 H MCH 34.3 H MCHC 31.3 RDW 16.0 Plt Count 61 L MPV 9.1 L Immature Gran % (Auto) 1.4 H Neut % (Auto) 90.2 H Lymph % (Auto) 5.4 L Dickinson % (Auto) 2.5 Eos % (Auto) 0.0 Baso % (Auto) 0.5 Lymph # (Auto) 0.2 L Dickinson # (Auto) 0.1 Eos # (Auto) 0.0 Baso # (Auto) 0.0 Abs Immat Gran (auto) 0.05 H Absolute Neuts (auto) 3.3 Absolute Nucleated RBC 0.000 Nucleated RBC % (auto) 0.0 Smear Tech's Comments VERIFIED Smear Path Review SEE NOTE PT 24.2 H INR 2.1 H APTT 28.7 Anion Gap 21 H Estim Creat Clear Calc 68.3 Estimated GFR > 60 Random Glucose 94 D Lactic Acid Lactic Acid Fup @ 2Hr Calcium 7.5 L Ferritin Total Bilirubin 2.9 H AST 64 H ALT 21 Alkaline Phosphatase 107 D Total Protein 5.5 L D Albumin 2.0 L D Vitamin B12 Folate TSH Stool Occult Blood Influenza Type A (PCR) Influenza Type B (PCR) RSV RNA Qual (PCR) SARS-CoV-2 RNA (RT-PCR) Blood Type Antibody Screen Crossmatch 03/10/21 03/10/21 03/10/21 10:40 13:14 13:18 MCV MCH MCHC RDW Plt Count MPV Immature Gran % (Auto) Neut % (Auto) Lymph % (Auto) Dickinson % (Auto) Eos % (Auto) Baso % (Auto) Lymph # (Auto) Dickinson # (Auto) Eos # (Auto) Baso # (Auto) Abs Immat Gran (auto) Absolute Neuts (auto) Absolute Nucleated RBC Nucleated RBC % (auto) Smear Tech's Comments Smear Path Review PT INR APTT Anion Gap Estim Creat Clear Calc Estimated GFR Random Glucose Lactic Acid Lactic Acid Fup @ 2Hr 6.0 H* Calcium Ferritin Total Bilirubin AST ALT Alkaline Phosphatase Total Protein Albumin Vitamin B12 1678 H Folate > 20.0 TSH Stool Occult Blood POSITIVE Influenza Type A (PCR) Influenza Type B (PCR) RSV RNA Qual (PCR) SARS-CoV-2 RNA (RT-PCR) Blood Type Antibody Screen Crossmatch 03/10/21 03/10/21 16:41 16:41 MCV MCH MCHC RDW Plt Count MPV Immature Gran % (Auto) Neut % (Auto) Lymph % (Auto) Dickinson % (Auto) Eos % (Auto) Baso % (Auto) Lymph # (Auto) Dickinson # (Auto) Eos # (Auto) Baso # (Auto) Abs Immat Gran (auto) Absolute Neuts (auto) Absolute Nucleated RBC Nucleated RBC % (auto) Smear Tech's Comments Smear Path Review PT INR APTT Anion Gap Estim Creat Clear Calc Estimated GFR Random Glucose Lactic Acid Lactic Acid Fup @ 2Hr Calcium Ferritin 274 H Total Bilirubin AST ALT Alkaline Phosphatase Total Protein Albumin Vitamin B12 Folate TSH Stool Occult Blood Influenza Type A (PCR) Influenza Type B (PCR) RSV RNA Qual (PCR) SARS-CoV-2 RNA (RT-PCR) Blood Type A Positive Antibody Screen NEGATIVE Crossmatch See Detail Imaging Radiologist's Impressions: Impressions Chest X-Ray 03/10/21 10:17 IMPRESSION: No evidence for acute disease in the chest. Abdomen/Pelvis CT 03/10/21 11:20 IMPRESSION: There is diffuse mural thickening involving sigmoid and ascending colon suggestive of colitis likely inflammatory or infectious etiology. A few scattered diverticula are seen in the distal descending and ascending colon but diverticulitis is not suspected. Suspect mild cirrhosis with perihepatic and perisplenic small fluid collection. Cholelithiasis without wall thickening. Nonobstructive 2 mm radiopaque calculi midpole right kidney. Assessment and Plan (1) Sepsis: Status: Acute (2) Colitis: Status: Acute (3) Symptomatic anemia: Status: Acute 1.`sepsis sec to colitis vs crohn dis : stool studies tachycardia and fevers improving, blood cultures tsent sepsis exam completed continue iv levaquin/flagyl Lactic acidosis improving with fluids-seems multifactorial: Anemia, colitis/sepsis, decreased p.o. intake. gi eval 2. pancytopenia :? Unclear etiology FOBT positive ED had ordered blood Monitor for any bleeding, added Ppi. Hold steroids for now. May need hematology evaluation if GI workup negative. 3. htn: Hold blood pressure medications. 4. Asthma: No shortness of breath, no wheezing, stable Will use ipratropium since has lactic acidosis. DVT prophylaxis with mechanical devices. Above management discussed with the patient in detail length including code status-patient is in agreement with the plan and full code. Quality Stroke Does the patient have a stroke diagnosis?: No VTE Prior VTE?: No VTE Risk Level:: Medical - moderate - high VTE Device Contraindication: N/A - Device Ordered VTE Drug Contraindication: Treatment Not Tolerated
[2021-03-10 18:17] LABS: Magnesium 1.1 mg/dL (1.6-2.6)
[2021-03-10 18:34] LABS: ~Lactic Acid-LAB USE ONLY 3.6 mmol/L (0.5-2.0)
--- NOTE | 2021-03-10 20:04 | PM.GICN ---
History of Present Illness Data of Consult Service Date: 03/10/21 Requesting physician: Christelle Underwood Primary Care Provider: Thierno Browne MD [facility] Reason for consult: pancytopenia 55-year-old male with history of alcoholic liver disease, asthma and crohns disease who I am seeing for evaluation of anemia. Patient normally follows with [facility] at [facility] and has had many EGD and colonoscopies for his liver disease and crohns. Says he has never had needed banding and is only on Lialda for crohns but has chronic diarrhea. He now comes with general malaise and tiredness. No abdominal pain, no overt GI bleeding, and denies melena. denies fever, and does not take nsaids. He denies alcohol for 2 weeks but normally takes 7-9 beers a week. Denies chest pain or shortness of breath or nausea or vomiting. Last HGB was 9.8 g/dl 12/2020.\\ On admission: Labs: pancytopenia, mild hyponatremia, bilirubin 2.9, AST 64 (December bilirubin was around 8, AST was around 160). macrocytosis with nml ferritin, b12, folate CT imaging with difuse mural thickening of sigmoid, ascending colon suggestive of colitis. rectal exam by ED staff-- no sandhya blood, brown stool. Review of Systems Review of Systems: As above. Yes all other systems are reviewed and are negative Constitutional: Constitutional: Reports as per HPI, Reports no additional constitutional complaints and Reports fever(s) Eyes: Eyes: Reports as per HPI and Reports no additional eye complaints ENT: Reports system reviewed and no additional complaints, except as documented and Reports as per HPI Cardiovascular: Cardiovascular: Reports as per HPI and Reports no additional cardiovascular complaints Respiratory: Respiratory: Reports as per HPI and Reports no additional respiratory complaints Gastrointestinal: Gastrointestinal: Reports as per HPI and Reports no additional gastrointestinal complaints Genitourinary: Genitourinary: Reports no additional male genitourinary complaints and Reports as per HPI Musculoskeletal: Musculoskeletal: Reports no additional musculoskeletal complaints and Reports as per HPI Neurologic: Reports system reviewed and no additional complaints, except as documented and Reports as per HPI Psychiatric: Psychiatric: Reports no additional psychiatric complaints and Reports as per HPI [facility] Past Medical History Medical History Asthma Cirrhosis Liver disease Liver disease Family History Pertinent family history: His father also had Crohn disease. Social History Social History Alcohol intake: current Alcohol intake frequency: a few times a week Alcohol type: beer Patient Tobacco Use Status: Never used Tobacco Advance Directives: No Meds Allergies Allergy/AdvReac Type Severity Reaction Status Date / Time aspirin [ASPIRIN] Allergy Unknown BLOOD IN Unverified 01/10/20 17:15 STOOL Active Medications: Current Medications Cyanocobalamin (Cyanocobalamin (Vitamin B-12) 1,000 Mcg Tablet) 1,000 mcg PO DAILY JOHN Folic Acid (Folic Acid 1 Mg Tablet) 1 mg PO DAILY JOHN Levofloxacin (Levaquin) 500 mg in 100 mls @ 100 mls/hr IV Q24H JOHN Metronidazole (Flagyl) 500 mg in 100 mls @ 100 mls/hr IV Q8H JOHN Sodium Chloride (Ns) 1,000 mls @ 100 mls/hr IVCONT .Q10H JOHN Albumin Human (Kedbumin 25 %) 100 mls @ 100 mls/hr IV Q1H JOHN Stop: 03/10/21 21:14 Phytonadione 10 mg/ Sodium (Chloride) 51 mls @ 51 mls/hr IV ONCE ONE Stop: 03/10/21 20:07 Ipratropium [place] (Ipratropium [place] 0.5 Mg/2.5 Ml Solution) 0.5 mg INHALE RQ4H WHILE AWAKE [facility] Magnesium Oxide (Magnesium Oxide 400 Mg Tablet) 1,200 mg PO DAILY [facility] Non-Formulary Medication (Mesalamine [Lialda]) 4 tab PO DAILY [facility] Pantoprazole Sodium (Pantoprazole Sodium 40 Mg/10 Ml Vial) 40 mg IVPUSH BID JOHN Potassium Chloride (Potassium Chloride Er 10 Meq Capsule.Er) 20 meq PO BEDTIME JOHN Potassium Chloride (Potassium Chloride Er 10 Meq Capsule.Er) 30 meq PO BID@0900,1200 [facility] Sodium Chloride (0.9 % Sodium Chloride Flush 3 Ml Syringe) 3 ml IVFLUSH QSHIFT [facility] Thiamine HCl (Thiamine Hcl 100 Mg Tablet) 100 mg PO DAILY [facility] Home Medications Medication Instructions Recorded Confirmed Last Taken Type albuterol sulfate 90 mcg/actuation 2 puff INHALATION Q6H PRN 03/10/21 03/10/21 03/09/21 History aerosol inhaler (ProAir HFA) cyanocobalamin (vitamin B-12) 1,000 mcg PO DAILY 03/10/21 03/10/21 03/09/21 History 1,000 mcg tablet famotidine 40 mg tablet 40 mg PO DAILY 03/10/21 03/10/21 03/09/21 History fluticasone propionate 110 2 puff INHALATION BID 03/10/21 03/10/21 03/09/21 History mcg/actuation HFA aerosol inhaler (Flovent HFA) folic acid 1 mg tablet 1 mg PO DAILY 03/10/21 03/10/21 03/09/21 History magnesium oxide 400 mg (241.3 mg 1,200 mg PO DAILY 03/10/21 03/10/21 03/09/21 History magnesium) tablet mesalamine 1.2 gram tablet,delayed 4 tab PO DAILY 03/10/21 03/10/21 03/09/21 History release (Lialda) metoprolol succinate 25 mg 0.5 tab PO DAILY 03/10/21 03/10/21 03/09/21 History tablet,extended release 24 hr potassium chloride 10 mEq 20 meq PO BEDTIME 03/10/21 03/10/21 03/09/21 History tablet,extended release(part/cryst) potassium chloride 10 mEq 30 meq PO BID@0900,1200 03/10/21 03/10/21 03/09/21 History tablet,extended release(part/cryst) thiamine mononitrate (vit B1) 100 100 mg PO DAILY 03/10/21 03/10/21 03/09/21 History mg tablet (Vitamin B-1 (mononitrate)) Physical Exam Vital Signs: Vital Signs: Last Vital Signs Temp 98.6 F 03/10/21 18:40 Pulse 90 03/10/21 18:40 Resp 12 03/10/21 18:40 BP 88/59 L 03/10/21 18:40 Pulse Ox 99 03/10/21 18:01 Body Mass Index 26.5 Const: General: cooperative, comfortable, no acute distress, alert, awake and Physically active Orientation/consciousness: patient oriented x3 HENMT: Head: Yes normal to inspection, Yes No palpable skull fracture present, Yes normocephalic, Yes atraumatic and No abrasion Eyes: General: appearance normal, both eyes and all related structures Neck: Other: Neck swollen for 2 years as per patient due to goiter. Chest: Chest palpation & inspection: normal inspection of the chest and normal palpation of entire chest wall Resp: Effort & Inspection: normal respiratory effort and able to speak in complete sentences Auscultation: clear to auscultation bilaterally Cardio: Jugular venous distension: no JVD Heart sounds: S1 normal heart sound present and S2 normal heart sound present GI: Inspection: Yes normal to inspection and No abdominal wall ecchymosis Palpation (GI): Tenderness to palpation present (GI) in the LLQ : General: No CVA tenderness and Yes no CVA tenderness Back/Spine/Pelvis: Back: no CVA tenderness, No CVA tenderness and No back tenderness Skin: General skin exam: no rashes or lesions noted and elasticity normal Neuro: General: patient oriented x3, gait normal and CN's II-XI intact bilaterally Cranial nerves: Yes CN's II-XII intact bilaterally Extrem: General: Yes normal to inspection, Yes full ROM and Yes capillary refill normal Psych: Appearance: grossly normal Results Labs CBC & Chem 7: 03/10/21 10:40 03/10/21 10:40 Labs: Short CBC 03/10/21 Range/Units 10:40 WBC 3.7 L (4.8-10.8) X10*3/uL Hgb 7.3 L (14.0-18.0) g/dl Hct 23.3 L (42.0-52.0) % Plt Count 61 L (160-400) X10*3/uL BMP 03/10/21 10:40 Sodium 133 L Potassium 3.6 Chloride 103 Carbon Dioxide 13 L BUN 8 L D Creatinine 0.96 Calcium 7.5 L Liver Function 03/10/21 Range/Units 10:40 Total Bilirubin 2.9 H (0.0-1.0) mg/dL AST 64 H (5-37) U/L ALT 21 (0-40) U/L Alkaline Phosphatase 107 D (39-117) U/L Albumin 2.0 L D (3.5-5.0) g/dL Assessment and Plan (1) Colitis: Status: Acute (2) Symptomatic anemia: Status: Acute 1/ Pancytopenia with macrocytosis with nml ferritin, b12 and folate. May be due to splenic sequestration from portal HTN or hemolysis from alcoholic hepatitis or underlying hemtological d/o such as aplastic anemia. 2/ Colitis, with hx of crohns, may be contributing to 1/ above due to malabsorption or chronic blood loss from colitis. PLAN: 1/ Await erika test, consider hematology review 2/ If overt GI bleeding then EGD and possible colonoscopy 3/ check c diff, if neg and diarrhea persists then will consider colonoscopy for bx of colitis and trial of steroids, cont empirical abx for the meantime, alos check zinc level since def can be asscoiated wt anemia, check vit c level 4/ await all old notes from [facility] Date of Service Date of Service: 03/10/21
[2021-03-10] MEDS: Magnesium Sulfate/D5W 1 GM/100 ML PIGGYBACK IV (20:12)
[2021-03-10] MEDS: Magnesium Oxide 400 MG TABLET 800 MG PO (20:12)
[2021-03-10] MEDS: 0.9 % Sodium Chloride 1,000 ML 100 ML IVCONT (20:12)
[2021-03-10] MEDS: Albumin Human 25 % 100 ML IV ×2 (20:32→21:43)
[2021-03-10] MEDS: Ipratropium Bromide 0.5 MG/2.5 ML SOLUTION INHALE (21:22)
[2021-03-10] MEDS: Phytonadione (Vit K1) 10 MG in 0.9 % Sodium Chloride 50 ML 51 MG IV (21:45)
--- NOTE | 2021-03-10 22:14 | MHC.CM.PN ---
CM met with admitted patient with bed assignment pending. A&Ox3. Independent. No IMM necessary. 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 Lives with girlfriend/HCP, Rose (Aranza Fentonchristina ([phone]). HCP on file. PCP is Dr. Thierno Browne. Pt is followed by Dr. Kenney at [facility]. Fully vaccinated with Moderna. Uses no DME or services. D/C plan is home without services. Rose to provide transportation home. CM to follow for d/c needs.
[2021-03-11] VITALS (20 sets, daily range): BP systolic 80–110; BP diastolic 6–68; PULSE 67–101; RESP 14–20; TEMP 36.4–37.1; O2SAT 96–99; BMI 25.4
--- NOTE | 2021-03-11 00:54 | PC.NURSE ---
Jalen presented to the ED for evaluation of dizziness and lightheadedness, primarily with position changes. I assisted Jalen KNOX to a bedside commode. He required 1 stand by assist but was steady and able to transfer self from stretcher to commode and back with minimal assistance from me. He will remain on fall precautions here in the ED>
[2021-03-11] MEDS: 0.9 % Sodium Chloride Flush 3 ML SYRINGE IVFLUSH ×4 (01:05→20:21)
[2021-03-11 03:42] LABS: Appearance Urine CLEAR; Color Urine YELLOW; Glucose Urine UA NEG (NEG); Leukocyte Esterase Urine NEG (NEG); Specific Gravity - Urine 1.025 (1.005-1.025); Urine Blood NEG (NEG); Urine Ketones NEG (NEG); Urine Protein NEG (NEG-TRACE)
--- NOTE | 2021-03-11 03:56 | PC.NURSE ---
Since I assumed care of this patient at 1900 he has remained alert and oriented x 3, calm and cooperative, speech clear and appropriate, respirations non-labored. he has not had any complaints of chest pain or SOB. I obtained a 2nd peripheral IV access in order to infuse numerous requested meds. As I assumed care Unit #1 of [facility]'s were infusing. After additional IV access obtained the pt received 2 bottles of albumin, Vitamin K, IV Magnesium. The pt has tolerated these meds without any adverse reactions. The pt has transferred from stretcher to bedside commode twice since I assumed care. He has done this mostly independently with one stand by assist to assist with monitor cables and IV tubing. Although he admitted to some mild lightheadedness upon sitting from a supin position, his gait was steady [facility] NSR remained on bedside monitor throughout. Pt has had two episodes of a small amount of liquid brown stool. Spec obtained and sent to lab. pt has been voiding into urinal - urine appears dark michael. Spec obtained and sent to lab.Nursing report has been given to [facility] and pt is en route to inpatient bed assignment,.
[2021-03-11 04:01] LABS: Nitrite Urine NEG (NEG); UACC Culture Trigger NO
[2021-03-11 04:31] LABS: Leukocytes Stool Qualitative MOD: 3-9/OIF (NEGATIVE)
--- NOTE | 2021-03-11 04:48 | PC.NURSE ---
received pt on the unit at approx 0315. When getting report from ED RN there was an order for FFP that was placed at 1900 and had not been given. When I asked about this the RN said he did not see it. Blood bank notified, to which they reported the previous shift had not told them about it. Blood consent had been signed, currently awaiting plasma to thaw in order to administer.
[2021-03-11 05:36] LABS: CDiff Toxin Negative (Negative)
[2021-03-11 05:37] LABS: CDIFF Internal ctrl Dots and bkg OK (V)
[2021-03-11 05:39] LABS: CDiff Gene PCR POSITIVE (Negative)
[2021-03-11] MEDS: 0.9 % Sodium Chloride 1,000 ML 100 ML IVCONT ×2 (05:58→16:53)
[2021-03-11] MEDS: metroNIDAZOLE/NS 500 MG/100 ML PIGGYBACK 100 MG IV ×3 (05:58→22:19)
[2021-03-11] MEDS: vancomycin HCL 125 MG CAPSULE PO ×4 (06:06→20:21)
[2021-03-11 06:50] LABS: Mean Corpuscular Volume 106.4 fL (80.0-98.0); Mean Platelet Volume 9.7 fL (9.4-12.4); Red Blood Count 1.88 X10*6/uL (4.60-5.80); Red Cell Distribution Width 17.7 % (11.0-16.0); White Blood Count 5.2 X10*3/uL (4.8-10.8)
[2021-03-11 07:09] LABS: Anion Gap 14 (12-20); Blood Urea Nitrogen 10 mg/dL (9-16); Calcium 7.3 mg/dL (8.4-10.2); Carbon Dioxide 16 mmol/L (22-29); Chloride 108 mmol/L (96-108); Creatinine Clr Calc Pharmacy 86.3; Estimated Glomerular Filt Rate > 60; Glucose Random 115 mg/dL (60-115); Magnesium 1.5 mg/dL (1.6-2.6); Potassium 3.8 mmol/L (3.3-5.1); Sodium 134 mmol/L (135-145)
[2021-03-11 07:16] LABS: Hemoglobin 6.4 g/dl (14.0-18.0); Platelet Count 47 X10*3/uL (160-400)
--- NOTE | 2021-03-11 07:57 | P.CDIC_ITS ---
CDI Concurrent Query Documentation Clarification: PHYSICIAN'S DOCUMENTATION REQUEST Date of Query: 03/11/21 0758 Patient Name: Jalen Pemberton Admit Date: 03/10/21 Dear Doctor, A review of the medical record indicates additional documentation may be needed. Please review below and update the documentation accordingly. Clinical Indicators: Risk Factors/Clinical Indicators/Treatments LAB FINDINGS: magnesium 1.1 1.5 IV Magnesium sulfate/D5w Based on the above, could you clarify in the Progress Notes the appropriate diagnosis, if significant, that supports the above abnormalities and additional evaluation, monitoring, and/or treatment rendered: LABS: Hypomagnesemia Electrolyte deficiency or other * Labs indicate a diagnosis of (please specify) * Other (please specify) * Unable to determine Use of terms such as suspected, likely, concern for, or probable (associated with a specific diagnosis that is being evaluated, monitored, or treated as if it exists) are acceptable and can be coded in the inpatient setting, when documented at the time of discharge. Thank you, Cathy Osman [facility], CDIS Extension: [phone] Please use your independent medical judgment in providing your response. THIS QUERY IS PART OF THE PERMANENT MEDICAL RECORD Provider Response: Other Other Diagnosis: Hypomagnesemia.
--- NOTE | 2021-03-11 08:03 | MHC.CDI.CONC ---
CDI Concurrent Query Documentation Clarification: PHYSICIAN'S DOCUMENTATION REQUEST Date of Query: 03/11/21 0803 Patient Name: Jalen Pemberton Admit Date: 03/10/21 Dear Doctor, A review of the medical record indicates additional documentation may be needed. Please review below and update the documentation accordingly. Based on the clinical indicators below please provide a diagnosis associated with lab findings: Risk Factors/Clinical Indicators/Treatments LAB FINDINGS: albumin 2.0 plan is to give albumin STAT then monitor, BP low ? ICU. Based on the above, could you clarify in the Progress Notes the appropriate diagnosis, if significant, that supports the above abnormalities and additional evaluation, monitoring, and/or treatment rendered: LABS: Hypoalbuminemia Labs indicate a diagnosis of (please specify) Other (please specify) Unable to determine Use of terms such as suspected, likely, concern for, or probable (associated with a specific diagnosis that is being evaluated, monitored, or treated as if it exists) are acceptable and can be coded in the inpatient setting, when documented at the time of discharge. Thank you, Cathy Osman [facility], CDIS Extension: [phone] Please use your independent medical judgment in providing your response. THIS QUERY IS PART OF THE PERMANENT MEDICAL RECORD Provider Response: Other Other Diagnosis: Hypoalbuminemia.
[2021-03-11] MEDS: Ipratropium Bromide 0.5 MG/2.5 ML SOLUTION INHALE ×2 (08:29→11:47)
[2021-03-11] MEDS: Phytonadione (Vit K1) 10 MG in 0.9 % Sodium Chloride 50 ML 51 MG IV (09:14)
[2021-03-11] MEDS: Magnesium Oxide 400 MG TABLET 1200 MG PO (11:16)
[2021-03-11] MEDS: Folic Acid 1 MG TABLET PO (11:17)
[2021-03-11] MEDS: Cyanocobalamin (Vitamin B-12) 1,000 MCG TABLET 1000 MCG PO (11:17)
[2021-03-11] MEDS: Pantoprazole Sodium 40 MG/10 ML VIAL IVPUSH ×2 (11:18→20:20)
[2021-03-11 11:41] LABS: Haptoglobin 8 mg/dL (43-212)
[2021-03-11] MEDS: Magnesium Sulfate/D5W 1 GM/100 ML PIGGYBACK IV (11:47)
--- NOTE | 2021-03-11 13:38 | MHC.CM.PN ---
Male 55 DX Anemia Sepsis Colitis No discharge today. Patient is receiving a blood transfusion today. DP home with S.O assist and transport.
--- NOTE | 2021-03-11 13:50 | MHC.CLN ---
Addendum entered by Yuliya Archer RD 03/11/21 14:16: AGREE WITH PROVIDER'S ASSESSMENT BELOW Original Note: RE: CONSULT PT'S WT HISTORY IS FOLLOWS: 2019: 67.2 KG 09/17/20: 68.039 KG (NON SIGNIFICANT 4.4% WT LOSS X 6 MONTHS) PT NEEDS EXTRA CALORIES R/T CDIFF PT IS CURRENTLY ON A CLEAR LIQUID DIET RECOMMEND ENSURE CLEAR SUPPLEMENT BID FOR EXTRA CALORIES SUPPLEMENT PROVIDES 408 KCALS AND 16 GRAMS PROTEIN
--- NOTE | 2021-03-11 13:53 | PM.EVENT ---
Chart reviewed, full Hematology consultation to follow. Patient has pancytopenia related to underlying liver disease, alcoholic liver cirrhosis, portal hypertension and splenomegaly/hypersplenism. Macrocytosis related to liver disease. He appears to have Leonarda negative hemolysis. He also hemoccult positive and has a history of esophageal viruses. Anemia is probably multifactorial. His kidney functions are stable. He is being treated for bacteremia. Submit LFTs, monitor bilirubin and LDH. Agree with blood transfusion, keep hemoglobin around 8 gram/dL. Further recommendations to follow.
[2021-03-11 14:48] LABS: Alanine Aminotransferase 19 U/L (0-40); Albumin Level 2.4 g/dL (3.5-5.0); Alkaline Phosphatase 64 U/L (39-117); Aspartate Amino Transferase 59 U/L (5-37); Bilirubin Direct 2.8 mg/dL (0.0-0.5); Bilirubin Total 7.7 mg/dL (0.0-1.0); Lactate Dehydrogenase 205 U/L (118-273); Total Protein 4.9 g/dL (6.5-8.0)
[2021-03-11] MEDS: levoFLOXacin/D5W 500 MG/100 ML PIGGYBACK 100 MG IV (14:55)
[2021-03-11] MEDS: Albumin Human 25 % 50 ML 100 ML IV (16:53)
--- NOTE | 2021-03-11 17:04 | P.PNIM_ITS ---
Subjective Subjective Date of Service: 03/11/21 Interval History: Anemia, cdiff colitis Review of Systems Abdominal pain is more on the left lower quadrant area now Denies any nausea vomiting or fever chills or cough or phlegm Physical Exam Vital Signs: Vital Signs: Last Vital Signs Temp 98 F 03/11/21 15:57 Pulse 93 03/11/21 15:57 Resp 15 03/11/21 15:57 BP 100/64 03/11/21 15:57 Pulse Ox 99 03/11/21 15:57 Body Mass Index 25.4 Appearance: Alert.? Oriented X3.? not in distress.? Eyes: Pupils equal, round and reactive to light.? Sclera mild icteric.? ENT: Pharynx normal.? Moist mucous membranes. cvs: rrr, [id number] , no murmur res: clear to auscultation ,no rhonchii or wheezing abd: no rebound or guarding , left lower quadrent pain, bs present. ext pulses present , no cyanosis ,Gait well balanced well coordinated. neuro: axo3 , nonfocal.` Objective Data Active Medications Cyanocobalamin (Cyanocobalamin (Vitamin B-12) 1,000 Mcg Tablet) 1,000 mcg PO DAILY [facility] Last Admin: 03/11/21 11:17 Dose: 1,000 mcg Documented by: CAMERON Folic Acid (Folic Acid 1 Mg Tablet) 1 mg PO DAILY [facility] Last Admin: 03/11/21 11:17 Dose: 1 mg Documented by: CAMERON Levofloxacin (Levaquin) 500 mg in 100 mls @ 100 mls/hr IV Q24H [facility] Last Admin: 03/11/21 14:55 Dose: 100 mls/hr Documented by: CAMERON Metronidazole (Flagyl) 500 mg in 100 mls @ 100 mls/hr IV Q8H [facility] Last Admin: 03/11/21 16:51 Dose: 100 mls/hr Documented by: CAMERON Sodium Chloride (Ns) 1,000 mls @ 100 mls/hr IVCONT .Q10H [facility] Last Admin: 03/11/21 16:53 Dose: 100 mls/hr Documented by: CAMERON Ipratropium [place] (Ipratropium [place] 0.5 Mg/2.5 Ml Solution) 0.5 mg INHALE RQ4H WHILE AWAKE [facility] Last Admin: 03/11/21 15:27 Dose: Not Given Documented by: SALLY Non-Admin Reason: Patient Refused Magnesium Oxide (Magnesium Oxide 400 Mg Tablet) 1,200 mg PO DAILY [facility] Last Admin: 03/11/21 11:16 Dose: 1,200 mg Documented by: CAMERON Non-Formulary Medication (Mesalamine [Lialda]) 4 tab PO DAILY [facility] Pantoprazole Sodium (Pantoprazole Sodium 40 Mg/10 Ml Vial) 40 mg IVPUSH BID [facility] Last Admin: 03/11/21 11:18 Dose: 40 mg Documented by: CAMERON Pharmacy Consult (Consult Rx Perform Med Rec) 1 each MISCELLANE ONCE PRN PRN Reason: Consult order Potassium Chloride (Potassium Chloride Er 10 Meq Capsule.Er) 20 meq PO BEDTIME [facility] Last Admin: 03/10/21 20:31 Dose: 20 meq Documented by: GABINO Potassium Chloride (Potassium Chloride Er 10 Meq Capsule.Er) 30 meq PO BID@0900,1200 [facility] Last Admin: 03/11/21 14:54 Dose: 30 meq Documented by: CAMERON Sodium Chloride (0.9 % Sodium Chloride Flush 3 Ml Syringe) 3 ml IVFLUSH QSHIFT [facility] Last Admin: 03/11/21 16:53 Dose: 3 ml Documented by: CAMERON Vancomycin HCl (Vancomycin Hcl 125 Mg Capsule) 125 mg PO Q6H [facility] Last Admin: 03/11/21 16:53 Dose: 125 mg Documented by: CAMERON Labs CBC & Chem 7: 03/11/21 05:49 03/11/21 05:49 Labs: Laboratory Results - last 24 hr 03/10/21 03/10/21 03/10/21 10:40 16:41 16:41 MCV MCH MCHC RDW Plt Count MPV Absolute Nucleated RBC Nucleated RBC % (auto) Haptoglobin 8 L Anion Gap Estim Creat Clear Calc Estimated GFR Random Glucose Lactic Acid Fup @ 4Hr Calcium Magnesium 1.1 L* Ferritin Total Bilirubin Direct Bilirubin AST ALT Alkaline Phosphatase Lactate Dehydrogenase Total Protein Albumin Urine Color Urine Appearance Urine pH Ur Specific [place] Urine Protein Urine Glucose (UA) Urine Ketones Urine Blood Urine Nitrite Ur Leukocyte Esterase Stool Leukocytes, Qual C. difficile Tox B Gene C. difficile Toxin A&B C. difficile Interpret Blood Type A Positive Antibody Screen NEGATIVE NIK, Polyspecific Positive NIK Work-up Crossmatch See Detail 03/10/21 03/10/21 03/10/21 16:41 16:41 18:16 MCV MCH MCHC RDW Plt Count MPV Absolute Nucleated RBC Nucleated RBC % (auto) Haptoglobin Anion Gap Estim Creat Clear Calc Estimated GFR Random Glucose Lactic Acid Fup @ 4Hr 3.6 H* Calcium Magnesium Ferritin 274 H Total Bilirubin Direct Bilirubin AST ALT Alkaline Phosphatase Lactate Dehydrogenase Total Protein Albumin Urine Color Urine Appearance Urine pH Ur Specific [place] Urine Protein Urine Glucose (UA) Urine Ketones Urine Blood Urine Nitrite Ur Leukocyte Esterase Stool Leukocytes, Qual C. difficile Tox B Gene C. difficile Toxin A&B C. difficile Interpret Blood Type Antibody Screen NIK, Polyspecific NEGATIVE Positive NIK Work-up TNP Crossmatch 03/11/21 03/11/21 03/11/21 03:33 03:33 03:33 MCV MCH MCHC RDW Plt Count MPV Absolute Nucleated RBC Nucleated RBC % (auto) Haptoglobin Anion Gap Estim Creat Clear Calc Estimated GFR Random Glucose Lactic Acid Fup @ 4Hr Calcium Magnesium Ferritin Total Bilirubin Direct Bilirubin AST ALT Alkaline Phosphatase Lactate Dehydrogenase Total Protein Albumin Urine Color YELLOW Urine Appearance CLEAR Urine pH 6.0 Ur Specific [place] 1.025 Urine Protein NEG Urine Glucose (UA) NEG Urine Ketones NEG Urine Blood NEG Urine Nitrite NEG Ur Leukocyte Esterase NEG Stool Leukocytes, Qual MOD: 3-9/OIF C. difficile Tox B Gene POSITIVE A* C. difficile Toxin A&B Negative C. difficile Interpret SEE NOTE Blood Type Antibody Screen NIK, Polyspecific Positive NIK Work-up Crossmatch 03/11/21 03/11/21 05:49 05:49 MCV 106.4 H MCH 34.0 H MCHC 32.0 RDW 17.7 H Plt Count 47 L MPV 9.7 Absolute Nucleated RBC 0.000 Nucleated RBC % (auto) 0.0 Haptoglobin Anion Gap 14 Estim Creat Clear Calc 86.3 Estimated GFR > 60 Random Glucose 115 Lactic Acid Fup @ 4Hr Calcium 7.3 L Magnesium 1.5 L Ferritin Total Bilirubin 7.7 H Direct Bilirubin 2.8 H AST 59 H ALT 19 Alkaline Phosphatase 64 D Lactate Dehydrogenase 205 Total Protein 4.9 L Albumin 2.4 L Urine Color Urine Appearance Urine pH Ur Specific [place] Urine Protein Urine Glucose (UA) Urine Ketones Urine Blood Urine Nitrite Ur Leukocyte Esterase Stool Leukocytes, Qual C. difficile Tox B Gene C. difficile Toxin A&B C. difficile Interpret Blood Type Antibody Screen NIK, Polyspecific Positive NIK Work-up Crossmatch Microbiology Microbiology Results: Microbiology 03/10/21 10:40 Blood Culture - Preliminary Blood - Venous Prelim: GPC Gram Stain only 03/10/21 10:29 Blood Culture - Preliminary Blood - Venous No growth after 24 hours. Assessment and Plan (1) Sepsis: Status: Acute (2) Colitis: Status: Acute (3) Symptomatic anemia: Status: Acute Assessment and Plan: ?1.`sepsis sec to colitis vs crohn dis : stool studies-c diff positive tachycardia and fevers seems improved , blood cultures: gram positive cocci 1/2 . changed po vanco/flagyl Lactic acidosis improving with fluids-seems multifactorial:? Anemia, colitis/sepsis, decreased p.o. intake. h/h 6.4 -given prb , 1 pletelets , vitamin k repeat h/h. 2. pancytopenia :?? Unclear etiology FOBT positive ED had ordered blood hem Monitor for any bleeding, added Ppi. Hold steroids for now. hematology evaluation-multifactorial:pancytopenia related to underlying liver disease, alcoholic liver cirrhosis, portal hypertension and splenomegaly/hypersplenism. moniter h/h-?keep hemoglobin around 8 gram/dL.repeat h/h this evening 3. htn:? Hold blood pressure medications. 4. Asthma:? No shortness of breath, no wheezing, stable continue ipratropium Quality Stroke Does the patient have a stroke diagnosis?: No VTE Prior VTE?: No VTE Risk Level:: Medical - moderate - high VTE Device Contraindication: N/A - Device Ordered VTE Drug Contraindication: Treatment Not Tolerated
--- NOTE | 2021-03-11 17:37 | PM.HEMONCCN ---
Subjective - Subjective Chief complaint: Shaking chills and rigors at home Patient: new to practice Consult date: 03/11/21 Requesting Physician: Dr. Underwood Primary Care Provider: Thierno Browne MD HPI - Consult Narrative Reason for consult: Worsening anemia Narrative: Jalen Pemberton is a 55 year old male who has been admitted for sepsis and anemia. He presented with chills, dizziness and weakness along with pain in the right side of his abdomen. 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 He was recently admitted to [facility] for electrolyte abnormalities according to him. He says he received steroids for a month and his liver functions improved. He also states that he gets iritis of his eye. He is not able to see well although he received new prescription glasses. He follows closely with Dr. Curry. However he started to feel poorly at home for 2 days prior to admission. He denies cough, shortness of breath or blood in stool. He reports swelling of both his legs. Workup revealed pancytopenia and CT abdomen showed diffuse mural thickening involving sigmoid and descending colon suggestive of colitis. Review of Systems - Constitutional Reports as per HPI, Reports no additional constitutional complaints - Cardiovascular Reports no additional cardiovascular complaints - Respiratory Reports no additional respiratory complaints - Gastrointestinal Reports no additional gastrointestinal complaints - Neurologic Reports no additional neurologic complaints, Reports as per HPI Oncology Screenings - ECOG Performance Status ECOG Performance Status: 2 [facility] Medical History: Medical History (Last Reviewed 03/11/21 @ 05:23 by Jennifer Betancourt RN) Asthma Cirrhosis Liver disease Liver disease Social History: Social History (Last Reviewed 03/10/21 @ 17:40 by Christelle Underwood MD) Living Situation History: Household Members: Significant Other Housing: House Housing Other:: duplex Do you presently have visiting nurse or other home services: No Alcohol History: Alcohol intake: current Alcohol History Details: Alcohol intake frequency: a few times a week Alcohol type: beer Tobacco History: Patient Tobacco Use Status: Never used Tobacco Substance Use History: Substance Use Type: Marijuana Occupation Assessmet: service: No Current occupational status: employed Home Medications and Allergies Current Medications: Current Medications Cyanocobalamin (Cyanocobalamin (Vitamin B-12) 1,000 Mcg Tablet) 1,000 mcg PO DAILY [facility] Last Admin: 03/11/21 11:17 Dose: 1,000 mcg Documented by: Fluticasone Propionate (Fluticasone Propionate 100 Mcg Blst.W.Dev) 2 puff INHALE RBID [facility] Folic Acid (Folic Acid 1 Mg Tablet) 1 mg PO DAILY [facility] Last Admin: 03/11/21 11:17 Dose: 1 mg Documented by: Metronidazole (Flagyl) 500 mg in 100 mls @ 100 mls/hr IV Q8H [facility] Last Admin: 03/11/21 16:51 Dose: 100 mls/hr Documented by: Sodium Chloride (Ns) 1,000 mls @ 100 mls/hr IVCONT .Q10H [facility] Last Admin: 03/11/21 16:53 Dose: 100 mls/hr Documented by: Vancomycin HCl 1,000 mg/ (Sodium Chloride) 270 mls @ 180 mls/hr IV Q12H [facility] Ipratropium Felicity (Ipratropium Felicity 0.5 Mg/2.5 Ml Solution) 0.5 mg INHALE Q4H PRN PRN Reason: shortness of breath Magnesium Oxide (Magnesium Oxide 400 Mg Tablet) 1,200 mg PO DAILY [facility] Last Admin: 03/11/21 11:16 Dose: 1,200 mg Documented by: Non-Formulary Medication (Mesalamine [Lialda]) 4 tab PO DAILY [facility] Pantoprazole Sodium (Pantoprazole Sodium 40 Mg/10 Ml Vial) 40 mg IVPUSH BID [facility] Last Admin: 03/11/21 11:18 Dose: 40 mg Documented by: Pharmacy Consult (Consult Rx Perform Med Rec) 1 each MISCELLANE ONCE PRN PRN Reason: Consult order Pharmacy Consult (Consult Rx Vancomycin Dosing) 1 each MISCELLANE DAILY PRN PRN Reason: Consult order Potassium Chloride (Potassium Chloride Er 10 Meq Capsule.Er) 20 meq PO BEDTIME [facility] Last Admin: 03/10/21 20:31 Dose: 20 meq Documented by: Potassium Chloride (Potassium Chloride Er 10 Meq Capsule.Er) 30 meq PO BID@0900,1200 [facility] Last Admin: 03/11/21 14:54 Dose: 30 meq Documented by: Sodium Chloride (0.9 % Sodium Chloride Flush 3 Ml Syringe) 3 ml IVFLUSH QSHIFT [facility] Last Admin: 03/11/21 16:53 Dose: 3 ml Documented by: Vancomycin HCl (Vancomycin Hcl 125 Mg Capsule) 125 mg PO Q6H [facility] Last Admin: 03/11/21 16:53 Dose: 125 mg Documented by: Home Medications Medication Instructions Recorded Confirmed Type albuterol sulfate 90 mcg/actuation 2 puff INHALATION Q6H PRN 03/10/21 03/10/21 History aerosol inhaler (ProAir HFA) cyanocobalamin (vitamin B-12) 1,000 mcg PO DAILY 03/10/21 03/10/21 History 1,000 mcg tablet famotidine 40 mg tablet 40 mg PO DAILY 03/10/21 03/10/21 History fluticasone propionate 110 2 puff INHALATION BID 03/10/21 03/10/21 History mcg/actuation HFA aerosol inhaler (Flovent HFA) folic acid 1 mg tablet 1 mg PO DAILY 03/10/21 03/10/21 History magnesium oxide 400 mg (241.3 mg 1,200 mg PO DAILY 03/10/21 03/10/21 History magnesium) tablet mesalamine 1.2 gram tablet,delayed 4 tab PO DAILY 03/10/21 03/10/21 History release (Lialda) metoprolol succinate 25 mg 0.5 tab PO DAILY 03/10/21 03/10/21 History tablet,extended release 24 hr potassium chloride 10 mEq 20 meq PO BEDTIME 03/10/21 03/10/21 History tablet,extended release(part/cryst) potassium chloride 10 mEq 30 meq PO BID@0900,1200 03/10/21 03/10/21 History tablet,extended release(part/cryst) thiamine mononitrate (vit B1) 100 100 mg PO DAILY 03/10/21 03/10/21 History mg tablet (Vitamin B-1 (mononitrate)) Allergies Allergy/AdvReac Type Severity Reaction Status Date / Time aspirin [ASPIRIN] AdvReac Unknown BLOOD IN Verified 03/11/21 09:34 STOOL Physical Exam Vital signs: Vital Signs Temp 98 F 03/11/21 15:57 Pulse 93 03/11/21 15:57 Resp 15 03/11/21 15:57 BP 100/64 03/11/21 15:57 Pulse Ox 99 03/11/21 15:57 Intake & Output 03/10/21 03/11/21 03/11/21 18:59 06:59 18:59 Intake Total 0 / 6428.837 6428.837 / 6428.837 1865 / 1865 Balance 0 / 6428.837 6428.837 / 6428.837 1864 Intake: Intake, Oral Amount 360 / 360 Intake (Blood Product) Amount 0 / 350 350 / 350 614 / 614 Plt Aph Pas Pathreduced(E8342) 0 / 0 Unit [id number] Red Blood Cells (E0382) Unit 0 / 350 350 / 350 [id number] Red Blood Cells (E0382) Unit 350 / 350 [id number] Thawed Plasma (E2720) Unit 0 / 0 264 / 264 [id number] Intake, IV Amount 5718.837 / 5718.837 1251 / 1251 0.9 % Sodium Chloride 2,041.17 4041.17 / 4041.17 ml @ 2041.17 mls/hr IV .Q1H [facility] Rx#:[id number] Albumin Human 25 % 100 ml @ 100 200 / 200 mls/hr IV Q1H [facility] Rx#: [id number] Magnesium Sulfate/D5W 1 gm In 100 / 100 100 / 100 100 ml @ 100 mls/hr IV ONCE [facility] Rx#:[id number] Phytonadione (Vit K1) 10 mg In 51 / 51 51 / 51 0.9 % Sodium Chloride 50 ml @ 51 mls/hr IV ONCE ONE Rx#: [id number] levoFLOXacin/D5W 750 mg In 150 150 / 150 ml @ 100 mls/hr IV ONCE [facility] Rx# :[id number] metroNIDAZOLE/NS 500 mg In 100 200 / 200 100 / 100 ml @ 100 mls/hr IV Q8H [facility] Rx#: [id number] 0.9 % Sodium Chloride 1,000 ml 976.667 / 025.112 6020 / 1000 @ 100 mls/hr IVCONT .Q10H [facility] Rx#:[id number] Other: Number of Unmeasured Voids 1 1 Number of Bowel Movements 1 Urine Bedside Commode Bedside Commode Last Bowel Movement 03/11/21 03/11/21 Stool Bedside Commode Stool Amount Moderate Stool Color Green Stool Consistency Liquid Weight 68.039 kg 65 kg Weight in Grams 94540 Weight 65 kg - Constitutional Present: no acute distress - Routine HEENT Exam Head: Present: normal inspection Eye: Present: conjunctivae pale, scleral icterus - Routine Neck Exam Present: swelling - Routine Respiratory Exam Present: CTAB - Routine Cardiovascular Exam Cardiovascular: Present: S1, S2 - Routine Abdominal Exam Present: diminished bowel sounds, distended, soft - Routine Extremities Exam Present: pedal edema - Routine Skin Exam Present: intact - Routine Neurological Exam Present: alert, oriented X3 Hem/Onc Consult Result - Labs CBC & Chem 7: 03/11/21 05:49 03/11/21 05:49 Labs: Short CBC 03/11/21 Range/Units 05:49 WBC 5.2 (4.8-10.8) X10*3/uL Hgb 6.4 L* (14.0-18.0) g/dl Hct 20.0 L* (42.0-52.0) % Plt Count 47 L (160-400) X10*3/uL BMP 03/11/21 05:49 Sodium 134 L Potassium 3.8 Chloride 108 Carbon Dioxide 16 L BUN 10 Creatinine 0.76 Calcium 7.3 L Liver Function 03/11/21 Range/Units 05:49 Total Bilirubin 7.7 H (0.0-1.0) mg/dL Direct Bilirubin 2.8 H (0.0-0.5) mg/dL AST 59 H (5-37) U/L ALT 19 (0-40) U/L Alkaline Phosphatase 64 D (39-117) U/L Albumin 2.4 L (3.5-5.0) g/dL Urine 03/11/21 Range/Units 03:33 Urine Color YELLOW Urine Appearance CLEAR Urine pH 6.0 (5.0-8.0) Ur Specific Merkel 1.025 (1.005-1.025) Urine Protein NEG (NEG-TRACE) MG/DL Urine Glucose (UA) NEG (NEG) MG/DL Assessment and Plan Patient Active problem list reviewed?: Yes (1) Symptomatic anemia Status: Acute Assessment and plan: 1. This is a 55-year-old male with worsening anemia, chronic pancytopenia secondary to liver cirrhosis and hypersplenism. Workup shows Coomb's negative hemolytic anemia. Elevated bilirubin with can conjugated hyperbilirubinemia, normal LDH, decreased haptoglobin. His kidney functions are stable, his platelets are at baseline. Etiology of hemolytic anemia is most likely infectious. He has gram positive cocci from his blood cultures. He is receiving antibiotics. Certain medications and antibiotics can also cause Leonarda negative hemolysis. Check DIC profile. Myelophthisic process less likely. Continue with current management. Await blood cultures. Transfuse blood to keep his hemoglobin around 8 gram/dL. I thank you for this consultation, will follow with you. - Time Spent With Patient Time Spent with Patient (in minutes): 20
[2021-03-11 18:43] LABS: Hematocrit 21.4 % (42.0-52.0); Hemoglobin 7.2 g/dl (14.0-18.0)
[2021-03-11] MEDS: vancomycin HCL 1,000 MG in 0.9 % Sodium Chloride 250 ML 180 MG IV (20:20)
[2021-03-11] MEDS: Fluticasone Propionate 100 MCG BLST.W.DEV 2 PUFF INHALE (20:54)
[2021-03-12] VITALS (7 sets, daily range): BP systolic 93–119; BP diastolic 53–70; PULSE 74–84; RESP 17–20; TEMP 36.4–37.5; O2SAT 97–100
[2021-03-12] MEDS: metroNIDAZOLE/NS 500 MG/100 ML PIGGYBACK 100 MG IV ×3 (05:40→21:42)
[2021-03-12] MEDS: vancomycin HCL 125 MG CAPSULE PO ×4 (05:40→21:42)
[2021-03-12 06:50] LABS: Hematocrit 25.3 % (42.0-52.0); Hemoglobin 8.4 g/dl (14.0-18.0); Mean Corpuscular HGB Conc 33.2 g/dl (31.0-36.0); Mean Corpuscular Hemoglobin 33.1 pg (27.0-33.0); Mean Corpuscular Volume 99.6 fL (80.0-98.0); Mean Platelet Volume 9.7 fL (9.4-12.4); Red Blood Count 2.54 X10*6/uL (4.60-5.80); White Blood Count 6.4 X10*3/uL (4.8-10.8)
[2021-03-12 06:51] LABS: Platelet Count 53 X10*3/uL (160-400)
[2021-03-12 07:08] LABS: Alanine Aminotransferase 21 U/L (0-40); Albumin Level 2.3 g/dL (3.5-5.0); Alkaline Phosphatase 62 U/L (39-117); Anion Gap 10 (12-20); Aspartate Amino Transferase 55 U/L (5-37); Bilirubin Direct 2.1 mg/dL (0.0-0.5); Bilirubin Total 5.8 mg/dL (0.0-1.0); Blood Urea Nitrogen 12 mg/dL (9-16); Calcium 7.5 mg/dL (8.4-10.2); Carbon Dioxide 20 mmol/L (22-29); Chloride 109 mmol/L (96-108); Creatinine Clr Calc Pharmacy 111.1; Estimated Glomerular Filt Rate > 60; Glucose Random 102 mg/dL (60-115); Lactate Dehydrogenase 220 U/L (118-273); Potassium 3.5 mmol/L (3.3-5.1); Sodium 135 mmol/L (135-145); Total Protein 4.8 g/dL (6.5-8.0)
[2021-03-12] MEDS: Magnesium Oxide 400 MG TABLET 1200 MG PO (08:19)
[2021-03-12] MEDS: Cyanocobalamin (Vitamin B-12) 1,000 MCG TABLET 1000 MCG PO (08:19)
[2021-03-12] MEDS: Folic Acid 1 MG TABLET PO (08:24)
[2021-03-12] MEDS: Pantoprazole Sodium 40 MG/10 ML VIAL IVPUSH ×2 (08:30→21:42)
[2021-03-12] MEDS: 0.9 % Sodium Chloride Flush 3 ML SYRINGE IVFLUSH ×3 (08:30→21:42)
[2021-03-12] MEDS: vancomycin HCL 1,000 MG in 0.9 % Sodium Chloride 250 ML 180 MG IV (08:30)
[2021-03-12] MEDS: Ipratropium Bromide 0.5 MG/2.5 ML SOLUTION INHALE (09:34)
[2021-03-12 09:40] LABS: Fibrinogen 215 MG/DL (259-690); INTERNATIONAL NORM RATIO 2.1 (0.9-1.1); Prothrombin Time 23.7 SEC (9.9-13.0)
[2021-03-12 09:43] LABS: Partial Thromboplastin Time 36.4 SEC (24.1-38.0)
--- NOTE | 2021-03-12 14:31 | HO.PM.IMPN ---
Subjective Subjective Date of Service: 03/12/21 Interval History: Anemia, cdiff? colitis Review of Systems Denies any nausea vomiting or fever chills or cough or phlegm Abdominal pain is more on the left lower quadrant area improving Physical Exam Vital Signs: Vital Signs: Last Vital Signs Temp 99.5 F 03/12/21 11:50 Pulse 82 03/12/21 11:50 Resp 18 03/12/21 11:50 BP 108/66 03/12/21 11:50 Pulse Ox 98 03/12/21 11:50 Body Mass Index 25.4 Appearance: Alert.? Oriented X3.? not in distress.? Eyes: Pupils equal, round and reactive to light.? Sclera mild icteric.? ENT: Pharynx normal.? Moist mucous membranes. cvs: rrr, [id number] , no murmur res: clear to auscultation ,no rhonchii or wheezing abd: no rebound or guarding , left lower quadrent pain improving, bs present. ext pulses present , no cyanosis ,Gait well balanced well coordinated. neuro: axo3 , nonfocal.` Objective Data Active Medications Cyanocobalamin (Cyanocobalamin (Vitamin B-12) 1,000 Mcg Tablet) 1,000 mcg PO DAILY [facility] Last Admin: 03/12/21 08:19 Dose: 1,000 mcg Documented by: CAMERON Fluticasone Propionate (Fluticasone Propionate 100 Mcg Blst.W.Dev) 2 puff INHALE RBID [facility] Last Admin: 03/12/21 07:48 Dose: Not Given Documented by: GALE Non-Admin Reason: Patient Refused Folic Acid (Folic Acid 1 Mg Tablet) 1 mg PO DAILY [facility] Last Admin: 03/12/21 08:24 Dose: 1 mg Documented by: CAMERON Metronidazole (Flagyl) 500 mg in 100 mls @ 100 mls/hr IV Q8H [facility] Last Infusion: 03/12/21 08:26 Dose: 0 mls/hr Documented by: CAMERON Sodium Chloride (Ns) 1,000 mls @ 100 mls/hr IVCONT .Q10H [facility] Last Infusion: 03/11/21 17:52 Dose: 0 mls/hr Documented by: CAMERON Vancomycin HCl 1,000 mg/ (Sodium Chloride) 270 mls @ 180 mls/hr IV Q12H [facility] Last Infusion: 03/12/21 10:07 Dose: 0 mls/hr Documented by: CAMERON Ipratropium [place] (Ipratropium [place] 0.5 Mg/2.5 Ml Solution) 0.5 mg INHALE Q4H PRN PRN Reason: shortness of breath Last Admin: 03/12/21 09:34 Dose: 0.5 mg Documented by: GALE Magnesium Oxide (Magnesium Oxide 400 Mg Tablet) 1,200 mg PO DAILY [facility] Last Admin: 03/12/21 08:19 Dose: 1,200 mg Documented by: CAMERON Mesalamine (Mesalamine 250 Mg Capsule.Er) 1,000 mg PO TID [facility] Pantoprazole Sodium (Pantoprazole Sodium 40 Mg/10 Ml Vial) 40 mg IVPUSH BID [facility] Last Admin: 03/12/21 08:30 Dose: 40 mg Documented by: CAMERON Pharmacy Consult (Consult Rx Perform Med Rec) 1 each MISCELLANE ONCE PRN PRN Reason: Consult order Pharmacy Consult (Consult Rx Vancomycin Dosing) 1 each MISCELLANE DAILY PRN PRN Reason: Consult order Potassium Chloride (Potassium Chloride Er 10 Meq Capsule.Er) 20 meq PO BEDTIME [facility] Last Admin: 03/11/21 20:20 Dose: 20 meq Documented by: ANTOIC Potassium Chloride (Potassium Chloride Er 10 Meq Capsule.Er) 30 meq PO BID@0900,1200 [facility] Last Admin: 03/12/21 08:23 Dose: 30 meq Documented by: CAMERON Sodium Chloride (0.9 % Sodium Chloride Flush 3 Ml Syringe) 3 ml IVFLUSH QSHIFT [facility] Last Admin: 03/12/21 08:30 Dose: 3 ml Documented by: CAMERON Vancomycin HCl (Vancomycin Hcl 125 Mg Capsule) 125 mg PO Q6H [facility] Last Admin: 03/12/21 10:59 Dose: 125 mg Documented by: CAMERON Labs CBC & Chem 7: 03/12/21 05:39 03/12/21 05:39 Labs: Laboratory Results - last 24 hr 03/10/21 03/11/21 03/12/21 16:41 05:49 05:39 MCV MCH MCHC RDW Plt Count MPV Absolute Nucleated RBC Nucleated RBC % (auto) PT INR APTT Fibrinogen Anion Gap 10 L Estim Creat Clear Calc 111.1 Estimated GFR > 60 Random Glucose 102 Calcium 7.5 L Total Bilirubin 7.7 H 5.8 H Direct Bilirubin 2.8 H 2.1 H AST 59 H 55 H ALT 19 21 Alkaline Phosphatase 64 D 62 Lactate Dehydrogenase 205 220 Total Protein 4.9 L 4.8 L Albumin 2.4 L 2.3 L Blood Type A Positive Antibody Screen NEGATIVE Crossmatch See Detail 03/12/21 03/12/21 05:39 08:45 MCV 99.6 H D MCH 33.1 H MCHC 33.2 RDW 18.0 H Plt Count 53 L MPV 9.7 Absolute Nucleated RBC 0.000 Nucleated RBC % (auto) 0.0 PT 23.7 H INR 2.1 H APTT 36.4 D Fibrinogen 215 L Anion Gap Estim Creat Clear Calc Estimated GFR Random Glucose Calcium Total Bilirubin Direct Bilirubin AST ALT Alkaline Phosphatase Lactate Dehydrogenase Total Protein Albumin Blood Type Antibody Screen Crossmatch Microbiology Microbiology Results: Microbiology 03/10/21 10:29 Blood Culture - Preliminary Blood - Venous No growth after 48 hours. 03/10/21 10:40 Blood Culture - Final Blood - Venous Coag negative Staphylococcus 03/11/21 03:33 Stool Culture - Preliminary Stool Culture in progress. Assessment and Plan (1) Sepsis: Status: Acute (2) Colitis: Status: Acute (3) Symptomatic anemia: Status: Acute Assessment and Plan: ?1.sepsis sec to colitis vs crohn dis : stool studies-c diff positive tachycardia and fevers seems improved , blood cultures: gram positive cocci 1/2- grew staph coagulase neg changed po vanco/flagyl, will dc iv vanco since blood culture grew staph coagulase neg. Lactic acidosis improving with fluids-seems multifactorial:? Anemia, colitis/sepsis, decreased p.o. intake. received 3 prbc , 2 ffp, 1 pletelets sofar h/h in rage 8.4 platlets 53 . 2. anemia /pancytopenia :?? Unclear etiology-multifactorial FOBT positive continue Ppi. Hold steroids for now. hematology evaluation-multifactorial:pancytopenia related to underlying liver disease, alcoholic liver cirrhosis, portal hypertension and splenomegaly/hypersplenism. possible erika neg hemolysis pt/ptt/inr/fibrinogen:23.7/2.1/36.4/215-d/w hematology:most likely multifactorial -liver dis, infection. moniter h/h-?keep hemoglobin around 8 gram/dL.repeat h/h this evening 3. htn:? Hold blood pressure medications. 4. Asthma:? No shortness of breath, no wheezing, stable continue? ipratropium Quality Stroke Does the patient have a stroke diagnosis?: No VTE Prior VTE?: No VTE Risk Level:: Medical - moderate - high VTE Device Contraindication: N/A - Device Ordered VTE Drug Contraindication: Treatment Not Tolerated
[2021-03-12] MEDS: Mesalamine 250 MG CAPSULE.ER 1000 MG PO ×2 (14:39→21:41)
[2021-03-12] MEDS: Butalb/Acetamin/Caff 50/325/40 TABLET 1 TAB PO (17:22)
[2021-03-13 03:16] VITALS: BP 100/53; PULSE 82; RESP 20; TEMP 36.6; O2SAT 96
[2021-03-13] MEDS: vancomycin HCL 125 MG CAPSULE PO ×4 (04:35→20:58)
[2021-03-13] MEDS: metroNIDAZOLE/NS 500 MG/100 ML PIGGYBACK 100 MG IV ×3 (04:35→20:58)
[2021-03-13 07:03] LABS: Hematocrit 26.7 % (42.0-52.0); Hemoglobin 8.9 g/dl (14.0-18.0); Mean Corpuscular HGB Conc 33.3 g/dl (31.0-36.0); Mean Corpuscular Hemoglobin 33.5 pg (27.0-33.0); Mean Corpuscular Volume 100.4 fL (80.0-98.0); Mean Platelet Volume 10.1 fL (9.4-12.4); Red Blood Count 2.66 X10*6/uL (4.60-5.80); Red Cell Distribution Width 17.6 % (11.0-16.0); White Blood Count 3.4 X10*3/uL (4.8-10.8)
[2021-03-13 07:16] LABS: Platelet Count 54 X10*3/uL (160-400)
[2021-03-13 07:28] LABS: Anion Gap 8 (12-20); Blood Urea Nitrogen 8 mg/dL (9-16); Calcium 7.5 mg/dL (8.4-10.2); Carbon Dioxide 20 mmol/L (22-29); Chloride 110 mmol/L (96-108); Creatinine Clr Calc Pharmacy 107.5; Estimated Glomerular Filt Rate > 60; Glucose Random 89 mg/dL (60-115); Potassium 3.4 mmol/L (3.3-5.1); Sodium 135 mmol/L (135-145)
[2021-03-13 08:00] VITALS: BP 85/50; PULSE 85; RESP 18; TEMP 37; O2SAT 95
[2021-03-13 08:33] VITALS: BP 102/58
[2021-03-13] MEDS: Albumin Human 25 % 100 ML IV ×2 (09:16→10:47)
[2021-03-13] MEDS: Mesalamine 250 MG CAPSULE.ER 1000 MG PO ×3 (09:18→20:48)
[2021-03-13] MEDS: Pantoprazole Sodium 40 MG/10 ML VIAL IVPUSH ×2 (09:18→20:48)
[2021-03-13] MEDS: 0.9 % Sodium Chloride Flush 3 ML SYRINGE IVFLUSH ×2 (09:19→20:49)
[2021-03-13] MEDS: Folic Acid 1 MG TABLET PO (09:19)
[2021-03-13] MEDS: Cyanocobalamin (Vitamin B-12) 1,000 MCG TABLET 1000 MCG PO (09:19)
[2021-03-13] MEDS: Magnesium Oxide 400 MG TABLET 1200 MG PO (09:19)
--- NOTE | 2021-03-13 09:39 | PC.NURSE ---
Skin assessment completed today. Patient has a large goiter in neck. Scattered bruising on arms. Some redness in anal area from diarrhea. No other skin issues noted at this time.
[2021-03-13] MEDS: Fluorescein Sodium STRIP 1 STRIP EYE-LEFT (11:20)
[2021-03-13] MEDS: Tetracaine HCl/PF 0.5% Oph Sol 4 ML DROPS 1 DROP EYE-LEFT (11:20)
[2021-03-13 12:00] VITALS: BP 119/70; PULSE 97; RESP 20; TEMP 36.4; O2SAT 100
[2021-03-13 12:17] LABS: Alanine Aminotransferase 21 U/L (0-40); Albumin Level 2.1 g/dL (3.5-5.0); Alkaline Phosphatase 65 U/L (39-117); Aspartate Amino Transferase 52 U/L (5-37); Bilirubin Direct 1.6 mg/dL (0.0-0.5); Bilirubin Total 3.2 mg/dL (0.0-1.0); Magnesium 1.3 mg/dL (1.6-2.6); Total Protein 4.7 g/dL (6.5-8.0)
[2021-03-13] MEDS: 0.9 % Sodium Chloride 1,000 ML 100 ML IVCONT (14:55)
[2021-03-13 15:26] VITALS: BP 118/71; PULSE 97; RESP 18; TEMP 37.1; O2SAT 100
--- NOTE | 2021-03-13 15:43 | P.PNIM_ITS ---
Subjective Subjective Date of Service: 03/13/21 Interval History: pancytopenia , cdiff colitis , left eye blurriness Review of Systems Says dizziness is slightly better but has left eye blurriness ( retrospectively says that since last Tuesday he has blurry vision yesterday). Denies any nausea or vomiting or abdominal pain or cough or phlegm. Denies any new weakness or numbness Physical Exam Vital Signs: Vital Signs: Last Vital Signs Temp 98.7 F 03/13/21 15:26 Pulse 97 03/13/21 15:26 Resp 18 03/13/21 15:26 BP 118/71 03/13/21 15:26 Pulse Ox 100 03/13/21 15:26 Body Mass Index 25.4 Appearance: Alert.? Oriented X3.? not in distress.? Heent: left eye: blurried vision especiall lower half of the eye.? ENT: Pharynx normal.? Moist mucous membranes. cvs: rrr, [id number] , no murmur res: clear to auscultation ,no rhonchii or wheezing abd: no rebound or guarding , left lower quadrent pain improving, bs present. ext pulses present , no cyanosis ,Gait well balanced well coordinated. neuro: axo3 , nonfocal. Objective Data Active Medications Cyanocobalamin (Cyanocobalamin (Vitamin B-12) 1,000 Mcg Tablet) 1,000 mcg PO DAILY [facility] Last Admin: 03/13/21 09:19 Dose: 1,000 mcg Documented by: CHRISTOPHE Fluticasone Propionate (Fluticasone Propionate 100 Mcg Blst.W.Dev) 2 puff INHALE RBID [facility] Last Admin: 03/13/21 08:11 Dose: Not Given Documented by: BISHNU Non-Admin Reason: Patient Refused Folic Acid (Folic Acid 1 Mg Tablet) 1 mg PO DAILY [facility] Last Admin: 03/13/21 09:19 Dose: 1 mg Documented by: CHRISTOPHE Metronidazole (Flagyl) 500 mg in 100 mls @ 100 mls/hr IV Q8H [facility] Last Admin: 03/13/21 14:53 Dose: 100 mls/hr Documented by: CHRISTOPHE Sodium Chloride (Ns) 1,000 mls @ 100 mls/hr IVCONT .Q10H [facility] Last Admin: 03/13/21 14:55 Dose: 100 mls/hr Documented by: CHRISTOPHE Ipratropium [place] (Ipratropium [place] 0.5 Mg/2.5 Ml Solution) 0.5 mg INHALE Q4H PRN PRN Reason: shortness of breath Last Admin: 03/12/21 09:34 Dose: 0.5 mg Documented by: GALE Magnesium Oxide (Magnesium Oxide 400 Mg Tablet) 1,200 mg PO DAILY [facility] Last Admin: 03/13/21 09:19 Dose: 1,200 mg Documented by: CHRISTOPHE Mesalamine (Mesalamine 250 Mg Capsule.Er) 1,000 mg PO TID [facility] Last Admin: 03/13/21 15:03 Dose: 1,000 mg Documented by: CHRISTOPHE Pantoprazole Sodium (Pantoprazole Sodium 40 Mg/10 Ml Vial) 40 mg IVPUSH BID [facility] Last Admin: 03/13/21 09:18 Dose: 40 mg Documented by: CHRISTOPHE Pharmacy Consult (Consult Rx Perform Med Rec) 1 each MISCELLANE ONCE PRN PRN Reason: Consult order Pharmacy Consult (Consult Rx Vancomycin Dosing) 1 each MISCELLANE DAILY PRN PRN Reason: Consult order Potassium Chloride (Potassium Chloride Er 10 Meq Capsule.Er) 20 meq PO BEDTIME [facility] Last Admin: 03/12/21 21:42 Dose: 20 meq Documented by: LEONCIO Potassium Chloride (Potassium Chloride Er 10 Meq Capsule.Er) 30 meq PO BID@090 0,1200 [facility] Last Admin: 03/13/21 10:59 Dose: 30 meq Documented by: CHRISTOPHE Sodium Chloride (0.9 % Sodium Chloride Flush 3 Ml Syringe) 3 ml IVFLUSH QSHIFT [facility] Last Admin: 03/13/21 15:25 Dose: Not Given Documented by: CHRISTOPHE Non-Admin Reason: IV Running Vancomycin HCl (Vancomycin Hcl 125 Mg Capsule) 125 mg PO Q6H [facility] Last Admin: 03/13/21 15:03 Dose: 125 mg Documented by: CHRISTOPHE Labs CBC & Chem 7: 03/13/21 05:48 03/13/21 05:48 Labs: Laboratory Results - last 24 hr 03/13/21 03/13/21 05:48 05:48 MCV 100.4 H MCH 33.5 H MCHC 33.3 RDW 17.6 H Plt Count 54 L MPV 10.1 Absolute Nucleated RBC 0.000 Nucleated RBC % (auto) 0.0 Anion Gap 8 L Estim Creat Clear Calc 107.5 Estimated GFR > 60 Random Glucose 89 Calcium 7.5 L Magnesium 1.3 L* Total Bilirubin 3.2 H Direct Bilirubin 1.6 H AST 52 H ALT 21 Alkaline Phosphatase 65 Total Protein 4.7 L Albumin 2.1 L Microbiology Microbiology Results: Microbiology 03/11/21 03:33 Stool Culture - Preliminary Stool Culture in progress. 03/10/21 10:29 Blood Culture - Preliminary Blood - Venous No growth after 48 hours. 03/10/21 10:40 Blood Culture - Final Blood - Venous Coag negative Staphylococcus Assessment and Plan (1) Sepsis: Status: Acute (2) Colitis: Status: Acute (3) Symptomatic anemia: Status: Acute Assessment and Plan: 1.sepsis sec to colitis vs crohn dis : stool studies-c diff positive tachycardia and fevers seems improved , blood cultures: gram positive cocci 1/2- grew staph coagulase neg changed po vanco/flagyl, will dc iv vanco since blood culture grew staph coagulase neg. Lactic acidosis improving with fluids-seems multifactorial:? Anemia, colitis/sepsis, decreased p.o. intake. received 3 prbc , 2 ffp, 1 pletelets sofar ?h/h in range wbc: 3.4 , h/h :8.9 platlets 54 . 2. anemia /pancytopenia :?? Unclear etiology-multifactorial FOBT positive continue Ppi. hematology evaluation-multifactorial:pancytopenia related to underlying liver disease, alcoholic liver cirrhosis, portal hypertension and splenomega ly/hypersplenism. possible erika neg hemolysis pt/ptt/inr/fibrinogen:23.7/2.1/36.4/215-d/w hematology:most likely multifactorial -liver dis, infection. moniter h/h-?keep hemoglobin around 8 gram/dL.repeat h/h this evening 3. htn:? Hold blood pressure medications. 4. Asthma:? No shortness of breath, no wheezing, stable continue? ipratropium 5.Blurred vision: left eye:lower half eye mri neg for cva ED physician jean - measured eye pressure seems normal, Isaura sent exam does not show and any foreign body grossly. Patient id does not have any injection or erythema, patient denies any flashes or any trauma to the eye patient has this vision loss from at least 6-7 days. Seen by sound effects person: limited exam pinlight: pupil are equal and reactive, trace NS visualized w/hemorrage superior vessel - differentail ? hollenhorst plaque vs vein occulsion recommended carotid duplex and echocardiogram. Patient will be revaluated out patiently after for discharge. Pt eval Quality Stroke Does the patient have a stroke diagnosis?: No VTE Prior VTE?: No VTE Risk Level:: Medical - moderate - high VTE Device Contraindication: N/A - Device Ordered VTE Drug Contraindication: Treatment Not Tolerated
--- NOTE | 2021-03-13 16:13 | P.CNNE_ITS ---
History of Present Illness Data of Consult Service Date: 03/13/21 Primary Care Provider: Thierno Browne MD HPI Reason for consult: Visual disturbance, colitis, alcohol abuse This is a 55-year-old man with a history of chronic alcohol abuse who has had to problems with colitis and long-term steroid use and was seen in consultation because he is complaining of some altered to would in a visual problem in his left high. He is just had a beddside eye exam which apparently did not show any rretinal problems. Review of Systems Review of Systems: Says dizziness is slightly better but has left eye blurriness ( retrospectively says that since last Tuesday he has blurry vision yesterday). Denies any nausea or vomiting or abdominal pain or cough or phlegm. Denies any new weakness or numbness Yes all other systems are reviewed and are negative Constitutional: Constitutional: Reports as per HPI, Reports no additional constitutional complaints and Reports fever(s) Eyes: Eyes: Reports as per HPI and Reports no additional eye complaints ENT: Reports system reviewed and no additional complaints, except as documented and Reports as per HPI Cardiovascular: Cardiovascular: Reports as per HPI and Reports no additional cardiovascular complaints Respiratory: Respiratory: Reports as per HPI and Reports no additional respiratory complaints Gastrointestinal: Gastrointestinal: Reports as per HPI and Reports no additional gastrointestinal complaints Genitourinary: Genitourinary: Reports no additional male genitourinary complaints and Reports as per HPI Musculoskeletal: Musculoskeletal: Reports no additional musculoskeletal complaints and Reports as per HPI Neurologic: Reports system reviewed and no additional complaints, except as documented and Reports as per HPI Psychiatric: Psychiatric: Reports no additional psychiatric complaints and Reports as per HPI [facility] Past Medical History Medical History Asthma Cirrhosis Liver disease Liver disease Family History Pertinent family history: His father also had Crohn disease. Social History Social History Household Members: Significant Other Housing: House Housing Other:: duplex Do you presently have visiting nurse or other home services: No Alcohol intake: current Alcohol intake frequency: a few times a week Alcohol type: beer Patient Tobacco Use Status: Never used Tobacco Substance Use Type: Marijuana service: No Current occupational status: employed Meds Allergies Allergy/AdvReac Type Severity Reaction Status Date / Time aspirin [ASPIRIN] AdvReac Unknown BLOOD IN Verified 03/11/21 09:34 STOOL Active Medications: Current Medications Cyanocobalamin (Cyanocobalamin (Vitamin B-12) 1,000 Mcg Tablet) 1,000 mcg PO DAILY [facility] Last Admin: 03/13/21 09:19 Dose: 1,000 mcg Documented by: Fluticasone Propionate (Fluticasone Propionate 100 Mcg Blst.W.Dev) 2 puff INHALE RBID [facility] Last Admin: 03/13/21 08:11 Dose: Not Given Documented by: Folic Acid (Folic Acid 1 Mg Tablet) 1 mg PO DAILY [facility] Last Admin: 03/13/21 09:19 Dose: 1 mg Documented by: Metronidazole (Flagyl) 500 mg in 100 mls @ 100 mls/hr IV Q8H [facility] Last Infusion: 03/13/21 15:59 Dose: Infused Documented by: Sodium Chloride (Ns) 1,000 mls @ 100 mls/hr IVCONT .Q10H [facility] Last Admin: 03/13/21 14:55 Dose: 100 mls/hr Documented by: Ipratropium [place] (Ipratropium [place] 0.5 Mg/2.5 Ml Solution) 0.5 mg INHALE Q4H PRN PRN Reason: shortness of breath Last Admin: 03/12/21 09:34 Dose: 0.5 mg Documented by: Magnesium Oxide (Magnesium Oxide 400 Mg Tablet) 1,200 mg PO DAILY [facility] Last Admin: 03/13/21 09:19 Dose: 1,200 mg Documented by: Mesalamine (Mesalamine 250 Mg Capsule.Er) 1,000 mg PO TID [facility] Last Admin: 03/13/21 15:03 Dose: 1,000 mg Documented by: Pantoprazole Sodium (Pantoprazole Sodium 40 Mg/10 Ml Vial) 40 mg IVPUSH BID [facility] Last Admin: 03/13/21 09:18 Dose: 40 mg Documented by: Pharmacy Consult (Consult Rx Perform Med Rec) 1 each MISCELLANE ONCE PRN PRN Reason: Consult order Pharmacy Consult (Consult Rx Vancomycin Dosing) 1 each MISCELLANE DAILY PRN PRN Reason: Consult order Potassium Chloride (Potassium Chloride Er 10 Meq Capsule.Er) 20 meq PO BEDTIME [facility] Last Admin: 03/12/21 21:42 Dose: 20 meq Documented by: Potassium Chloride (Potassium Chloride Er 10 Meq Capsule.Er) 30 meq PO BID@0900,1200 [facility] Last Admin: 03/13/21 10:59 Dose: 30 meq Documented by: Sodium Chloride (0.9 % Sodium Chloride Flush 3 Ml Syringe) 3 ml IVFLUSH QSHIFT [facility] Last Admin: 03/13/21 15:25 Dose: Not Given Documented by: Vancomycin HCl (Vancomycin Hcl 125 Mg Capsule) 125 mg PO Q6H [facility] Last Admin: 03/13/21 15:03 Dose: 125 mg Documented by: Home Medications Medication Instructions Recorded Confirmed Last Taken Type albuterol sulfate 90 mcg/actuation 2 puff INHALATION Q6H PRN 03/10/21 03/10/21 03/09/21 History aerosol inhaler (ProAir HFA) cyanocobalamin (vitamin B-12) 1,000 mcg PO DAILY 03/10/21 03/10/21 03/09/21 History 1,000 mcg tablet famotidine 40 mg tablet 40 mg PO DAILY 03/10/21 03/10/21 03/09/21 History fluticasone propionate 110 2 puff INHALATION BID 03/10/21 03/10/21 03/09/21 History mcg/actuation HFA aerosol inhaler (Flovent HFA) folic acid 1 mg tablet 1 mg PO DAILY 03/10/21 03/10/21 03/09/21 History magnesium oxide 400 mg (241.3 mg 1,200 mg PO DAILY 03/10/21 03/10/21 03/09/21 History magnesium) tablet mesalamine 1.2 gram tablet,delayed 4 tab PO DAILY 03/10/21 03/10/21 03/09/21 H istory release (Lialda) metoprolol succinate 25 mg 0.5 tab PO DAILY 03/10/21 03/10/21 03/09/21 History tablet,extended release 24 hr potassium chloride 10 mEq 20 meq PO BEDTIME 03/10/21 03/10/21 03/09/21 History tablet,extended release(part/cryst) potassium chloride 10 mEq 30 meq PO BID@0900,1200 03/10/21 03/10/21 03/09/21 History tablet,extended release(part/cryst) thiamine mononitrate (vit B1) 100 100 mg PO DAILY 03/10/21 03/10/21 03/09/21 History mg tablet (Vitamin B-1 (mononitrate)) Physical Exam Vital Signs: Vital Signs: Last Vital Signs Temp 98.7 F 03/13/21 15:26 Pulse 97 03/13/21 15:26 Resp 18 03/13/21 15:26 BP 118/71 03/13/21 15:26 Pulse Ox 100 03/13/21 15:26 Body Mass Index 25.4 Const: General: cooperative, healthy appearing, comfortable, no acute distress, well developed, alert, awake and Physically active [place] ation/consciousness: patient oriented x3 HENMT: Head: Yes normal to inspection, Yes No palpable skull fracture present, Yes normocephalic, Yes atraumatic and No abrasion Eyes: General: appearance normal, both eyes and all related structures Neck: Other: Neck swollen for 2 years as per patient due to goiter. Chest: Chest palpation & inspection: normal inspection of the chest and normal palpation of entire chest wall Resp: Effort & Inspection: normal respiratory effort and able to speak in com plete sentences Auscultation: clear to auscultation bilaterally Cardio: Jugular venous distension: no JVD Heart sounds: S1 normal heart sound present and S2 normal heart sound present GI: Inspection: Yes normal to inspection and No abdominal wall ecchymosis Palpation (GI): Tenderness to palpation present (GI) in the LLQ : General: No CVA tenderness and Yes no CVA tenderness Back/Spine/Pelvis: Back: no CVA tenderness, No CVA tenderness and No back tenderness Skin: General skin exam: no rashes or lesions noted and elasticity normal Neuro: Other: Nonfocal examination with no evidence of visual field cut General: patient oriented x3, gait normal and CN's II-XI intact bilaterally Cranial nerves: Yes CN's II-XII intact bilaterally Extrem: General: Yes normal to inspection, Yes full ROM and Yes capillary refill normal Psych: Appearance: grossly normal, well kempt and not disheveled Results Labs CBC & Chem 7: 03/13/21 05:48 03/13/21 05:48 Labs: Short CBC 03/13/21 Range/Units 05:48 WBC 3.4 L (4.8-10.8) X10*3/uL Hgb 8.9 L (14.0-18.0) g/dl Hct 26.7 L (42.0-52.0) % Plt Count 54 L (160-400) X10*3/uL BMP 03/13/21 05:48 Sodium 135 Potassium 3.4 Chloride 110 H Carbon Dioxide 20 L BUN 8 L Creatinine 0.61 Calcium 7.5 L Liver Function 03/13/21 Range/Units 05:48 Total Bilirubin 3.2 H (0.0-1.0) mg/dL Direct Bilirubin 1.6 H (0.0-0.5) mg/dL AST 52 H (5-37) U/L ALT 21 (0-40) U/L Alkaline Phosphatase 65 (39-117) U/L Albumin 2.1 L (3.5-5.0) g/dL Microbiology Microbiology Results: Microbiology 03/11/21 03:33 Stool Stool Culture - Preliminary Culture in progress. 03/10/21 10:29 Blood - Venous Blood Culture - Preliminary No growth after 48 hours. 03/10/21 10:40 Blood - Venous Blood Culture - Final Coag negative Staphylococcus Assessment and Plan (1) Sepsis: Status: Acute (2) Colitis: Status: Acute (3) Symptomatic anemia: Status: Acute (4) Visual disturbance: Status: Acute I did not find any obvious abnormality on his eye examination or visual field to suggest that there's been a stroke. MRI of the brain shows mild microvascular white matter disease. No evidence of acute stroke. No further neurological workup necessary. Follow up with clothing pattern preparer 1.sepsis sec to colitis vs crohn dis : stool studies-c diff positive tachycardia and fevers seems improved , blood cultures: gram positive cocci 1/2- grew staph coagulase neg changed po vanco/flagyl, will dc iv vanco since blood culture grew staph coagulase neg. Lactic acidosis improving with fluids-seems multifactorial:? Anemia, colitis/sepsis, decreased p.o. intake. received 3 prbc , 2 ffp, 1 pletelets sofar ?h/h in range wbc: 3.4 , h/h :8.9 platlets 54 . 2. anemia /pancytopenia :?? Unclear etiology-multifactorial FOBT positive continue Ppi. hematology evaluation-multifactorial:pancytopenia related to underlying liver disease, alcoholic liver cirrhosis, portal hypertension and splenomegaly/hypersplenism. possible erika neg hemolysis pt/ptt/inr/fibrinogen:23.7/2.1/36.4/215-d/w hematology:most likely multifactorial -liver dis, infection. moniter h/h-?keep hemoglobin around 8 gram/dL.repeat h/h this evening 3. htn:? Hold blood pressure medications. 4. Asthma:? No shortness of breath, no wheezing, stable continue? ipratropium 5.Blurred vision: left eye:lower half eye mri neg for cva ED physician jean - measured eye pressure seems normal, Isaura sent exam does not show and any foreign body grossly. Patient id does not have any injection or erythema, patient denies any flashes or any trauma to the eye patient has this vision loss from at least 6-7 days. Seen by clothing pattern preparer: limited exam pinlight: pupil are equal and reactive, trace NS visualized w/hemorrage superior vessel - differentail ? hollenhorst plaque vs vein occulsion recommended carotid duplex and echocardiogram. Patient will be revaluated out patiently after for discharge. Pt eval Procedures Date of Service Date of Service: 03/13/21
[2021-03-13] MEDS: Magnesium Sulfate/D5W 1 GM/100 ML PIGGYBACK IV (18:36)
--- NOTE | 2021-03-13 21:28 | W.PM.IDCN ---
History of Present Illness Data of Consult Service Date: 03/13/21 Requesting physician: Christelle Underwood Primary Care Provider: Thierno Browne MD HPI Reason for consult: Cdiff diarrhea He presents with one week diarrhea although poor historian He says he has diarrhea for six years He has no blood in stool. No one else is ill. Review of Systems Review of Systems: Yes all other systems are reviewed and are negative [facility] Past Medical History Medical History Asthma Cirrhosis Liver disease Liver disease Social History Social History Household Members: Significant Other Housing: House Housing Other:: duplex Do you presently have visiting nurse or other home services: No Alcohol intake: current Alcohol intake frequency: a few times a week Alcohol type: beer Patient Tobacco Use Status: Never used Tobacco Substance Use Type: Marijuana service: No Current occupational status: employed Meds Allergies Allergy/AdvReac Type Severity Reaction Status Date / Time aspirin [ASPIRIN] AdvReac Unknown BLOOD IN Verified 03/11/21 09:34 STOOL Active Medications: Current Medications Cyanocobalamin (Cyanocobalamin (Vitamin B-12) 1,000 Mcg Tablet) 1,000 mcg PO DAILY [facility] Last Admin: 03/13/21 09:19 Dose: 1,000 mcg Documented by: Fluticasone Propionate (Fluticasone Propionate 100 Mcg Blst.W.Dev) 2 puff INHALE RBID [facility] Last Admin: 03/13/21 20:29 Dose: Not Given Documented by: Folic Acid (Folic Acid 1 Mg Tablet) 1 mg PO DAILY [facility] Last Admin: 03/13/21 09:19 Dose: 1 mg Documented by: Metronidazole (Flagyl) 500 mg in 100 mls @ 100 mls/hr IV Q8H [facility] Last Admin: 03/13/21 20:58 Dose: 100 mls/hr Documented by: Sodium Chloride (Ns) 1,000 mls @ 100 mls/hr IVCONT .Q10H [facility] Last Admin: 03/13/21 14:55 Dose: 100 mls/hr Documented by: Ipratropium [place] (Ipratropium [place] 0.5 Mg/2.5 Ml Solution) 0.5 mg INHALE Q4H PRN PRN Reason: shortness of breath Last Admin: 03/12/21 09:34 Dose: 0.5 mg Documented by: Magnesium Oxide (Magnesium Oxide 400 Mg Tablet) 1,200 mg PO DAILY [facility] Last Admin: 03/13/21 09:19 Dose: 1,200 mg Documented by: Mesalamine (Mesalamine 250 Mg Capsule.Er) 1,000 mg PO TID [facility] Last Admin: 03/13/21 20:48 Dose: 1,000 mg Documented by: Pharmacy Consult (Consult Rx Perform Med Rec) 1 each MISCELLANE ONCE PRN PRN Reason: Consult order Pharmacy Consult (Consult Rx Vancomycin Dosing) 1 each MISCELLANE DAILY PRN PRN Reason: Consult order Potassium Chloride (Potassium Chloride Er 10 Meq Capsule.Er) 20 meq PO BEDTIME [facility] Last Admin: 03/13/21 20:48 Dose: 20 meq Documented by: Potassium Chloride (Potassium Chloride Er 10 Meq Capsule.Er) 30 meq PO BID@0900,1200 [facility] Last Admin: 03/13/21 10:59 Dose: 30 meq Documented by: Sodium Chloride (0.9 % Sodium Chloride Flush 3 Ml Syringe) 3 ml IVFLUSH QSHIFT [facility] Last Admin: 03/13/21 20:49 Dose: 3 ml Documented by: Vancomycin HCl (Vancomycin Hcl 125 Mg Capsule) 125 mg PO Q6H [facility] Last Admin: 03/13/21 20:58 Dose: 125 mg Documented by: Home Medications Medication Instructions Recorded Confirmed Last Taken Type albuterol sulfate 90 mcg/actuation 2 puff INHALATION Q6H PRN 03/10/21 03/10/21 03/09/21 History aerosol inhaler (ProAir HFA) cyanocobalamin (vitamin B-12) 1,000 mcg PO DAILY 03/10/21 03/10/21 03/09/21 History 1,000 mcg tablet famotidine 40 mg tablet 40 mg PO DAILY 03/10/21 03/10/21 03/09/21 History fluticasone propionate 110 2 puff INHALATION BID 03/10/21 03/10/21 03/09/21 History mcg/actuation HFA aerosol inhaler (Flovent HFA) folic acid 1 mg tablet 1 mg PO DAILY 03/10/21 03/10/21 03/09/21 History magnesium oxide 400 mg (241.3 mg 1,200 mg PO DAILY 03/10/21 03/10/2121 History magnesium) tablet mesalamine 1.2 gram tablet,delayed 4 tab PO DAILY 03/10/21 03/10/21 03/09/21 History release (Lialda) metoprolol succinate 25 mg 0.5 tab PO DAILY 03/10/21 03/10/21 03/09/21 History tablet,extended release 24 hr potassium chloride 10 mEq 20 meq PO BEDTIME 03/10/21 03/10/21 03/09/21 History tablet,extended release(part/cryst) potassium chloride 10 mEq 30 meq PO BID@0900,1200 03/10/21 03/10/21 03/09/21 History tablet,extended release(part/cryst) thiamine mononitrate (vit B1) 100 100 mg PO DAILY 03/10/21 03/10/21 03/09/21 History mg tablet (Vitamin B-1 (mononitrate)) Physical Exam Vital Signs: Vital Signs: Last Vital Signs Temp 98.7 F 03/13/21 15:26 Pulse 97 03/13/21 15:26 Resp 18 03/13/21 15:26 BP 118/71 03/13/21 15:26 Pulse Ox 100 03/13/21 15:26 Body Mass Index 25.4 Const: General: cooperative Eyes: General: appearance normal, both eyes and all related structures Resp: Effort & Inspection: normal respiratory effort Cardio: Rate: regular rate Rhythm: regular rhythm GI: Palpation (GI): Soft to palpation and nontender Skin: General skin exam: no rashes or lesions noted Results Labs CBC & Chem 7: 03/13/21 05:48 03/13/21 05:48 Labs: Short CBC 03/13/21 Range/Units 05:48 WBC 3.4 L (4.8-10.8) X10*3/uL Hgb 8.9 L (14.0-18.0) g/dl Hct 26.7 L (42.0-52.0) % Plt Count 54 L (160-400) X10*3/uL BMP 03/13/21 05:48 Sodium 135 Potassium 3.4 Chloride 110 H Carbon Dioxide 20 L BUN 8 L Creatinine 0.61 Calcium 7.5 L Liver Function 03/13/21 Range/Units 05:48 Total Bilirubin 3.2 H (0.0-1.0) mg/dL Direct Bilirubin 1.6 H (0.0-0.5) mg/dL AST 52 H (5-37) U/L ALT 21 (0-40) U/L Alkaline Phosphatase 65 (39-117) U/L Albumin 2.1 L (3.5-5.0) g/dL Microbiology Microbiology Results: Microbiology 03/11/21 03:33 Stool Stool Culture - Preliminary Culture in progress. 03/10/21 10:29 Blood - Venous Blood Culture - Preliminary No growth after 48 hours. 03/10/21 10:40 Blood - Venous Blood Culture - Final Coag negative Staphylococcus Assessment and Plan (1) Sepsis: Status: Acute coagulase negative staph is contaminant (2) Colitis: Status: Acute Cdiff can use IV Flagyl and stop tomorrow if improved po Vancomycin 10 day
[2021-03-14] VITALS (8 sets, daily range): BP systolic 102–133; BP diastolic 55–83; PULSE 90–106; RESP 18–20; TEMP 36.1–37.2; O2SAT 95–100
[2021-03-14] MEDS: vancomycin HCL 125 MG CAPSULE PO ×4 (05:45→20:19)
[2021-03-14] MEDS: metroNIDAZOLE/NS 500 MG/100 ML PIGGYBACK 100 MG IV (05:45)
[2021-03-14 06:31] LABS: Anion Gap 10 (12-20); Blood Urea Nitrogen 4 mg/dL (9-16); Calcium 7.5 mg/dL (8.4-10.2); Carbon Dioxide 20 mmol/L (22-29); Chloride 110 mmol/L (96-108); Estimated Glomerular Filt Rate > 60; Glucose Random 94 mg/dL (60-115); Magnesium 1.3 mg/dL (1.6-2.6); Potassium 3.5 mmol/L (3.3-5.1); Sodium 136 mmol/L (135-145)
--- NOTE | 2021-03-14 06:34 | PC.NURSE ---
Addendum entered by Jennifer Betancourt RN 03/14/21 06:35: 2gm Magnesium IV ordered. Original Note: Critical magnesium of 1.3. notified. No new orders at this time.
[2021-03-14] MEDS: Magnesium Sulfate/H2O 2 GM/50 ML PIGGYBACK IV ×2 (08:00→16:05)
[2021-03-14] MEDS: Mesalamine 250 MG CAPSULE.ER 1000 MG PO ×3 (09:44→19:59)
[2021-03-14] MEDS: Throat Lozenge, Medicated LOZENGE 1 LOZENGE MUCOUS MEM (09:45)
[2021-03-14] MEDS: Folic Acid 1 MG TABLET PO (09:45)
[2021-03-14] MEDS: Magnesium Oxide 400 MG TABLET 1200 MG PO ×2 (09:45→16:03)
[2021-03-14] MEDS: Acetaminophen 325 MG TABLET 650 MG PO (09:45)
[2021-03-14] MEDS: Cyanocobalamin (Vitamin B-12) 1,000 MCG TABLET 1000 MCG PO (09:45)
[2021-03-14] MEDS: Potassium Chloride Packet 20 MEQ PACKET PO ×2 (09:45→20:00)
--- NOTE | 2021-03-14 13:34 | P.PNIM_ITS ---
Subjective Subjective Date of Service: 03/15/21 Interval History: C diff colitis, left eye vision loss Review of Systems Denies any chest pain shortness of breath or fever or chills or cough or phlegm Abdominal pain seems to be improving Physical Exam Vital Signs: Vital Signs: Last Vital Signs Temp 97.0 F 03/14/21 11:30 Pulse 90 03/14/21 11:30 Resp 20 03/14/21 11:30 BP 106/68 03/14/21 11:30 Pulse Ox 99 03/14/21 11:30 Body Mass Index 25.4 Appearance: Alert.? Oriented X3.? not in distress.? Heent: left eye: blurried vision especiall lower half of the eye.? ENT: Pharynx normal.? Moist mucous membranes. cvs: rrr, [id number] , no murmur res: clear to auscultation ,no rhonchii or wheezing abd: no rebound or guarding , left lower quadrent pain improving significantly, bs present. ext pulses present , no cyanosis ,Gait well balanced well coordinated. neuro: axo3 , nonfocal. Objective Data Active Medications Benzocaine (Throat Lozenge, Medicated Lozenge) 1 lozenge MUCOUS MEM Q2H PRN PRN Reason: Sore Throat Last Admin: 03/14/21 09:45 Dose: 1 lozenge Documented by: BARRINGTON Cyanocobalamin (Cyanocobalamin (Vitamin B-12) 1,000 Mcg Tablet) 1,000 mcg PO DAILY [facility] Last Admin: 03/14/21 09:45 Dose: 1,000 mcg Documented by: BARRINGTON Fluticasone Propionate (Fluticasone Propionate 100 Mcg Blst.W.Dev) 2 puff INHALE RBID [facility] Last Admin: 03/14/21 07:26 Dose: Not Given Documented by: BISHNU Non-Admin Reason: Patient Refused Folic Acid (Folic Acid 1 Mg Tablet) 1 mg PO DAILY [facility] Last Admin: 03/14/21 09:45 Dose: 1 mg Documented by: BARRINGTON Sodium Chloride (Ns) 1,000 mls @ 100 mls/hr IVCONT .Q10H [facility] Last Admin: 03/14/21 09:48 Dose: Not Given Documented by: BARRINGTON Non-Admin Reason: No Access Ipratropium [place] (Ipratropium [place] 0.5 Mg/2.5 Ml Solution) 0.5 mg INHALE Q4H PRN PRN Reason: shortness of breath Last Admin: 03/12/21 09:34 Dose: 0.5 mg Documented by: [place] Magnesium Oxide (Magnesium Oxide 400 Mg Tablet) 1,200 mg PO DAILY [facility] Last Admin: 03/14/21 09:45 Dose: 1,200 mg Documented by: BARRINGTON Mesalamine (Mesalamine 250 Mg Capsule.Er) 1,000 mg PO TID [facility] Last Admin: 03/14/21 09:44 Dose: 1,000 mg Documented by: BARRINGTON Pharmacy Consult (Consult Rx Perform Med Rec) 1 each MISCELLANE ONCE PRN PRN Reason: Consult order Pharmacy Consult (Consult Rx Vancomycin Dosing) 1 each MISCELLANE DAILY PRN PRN Reason: Consult order Potassium Chloride (Potassium Chloride Er 10 Meq Capsule.Er) 30 meq PO BID@0900,1200 [facility] Last Admin: 03/14/21 09:44 Dose: 30 meq Documented by: BARRINGTON Potassium Chloride (Potassium Chloride Packet 20 Meq Packet) 20 meq PO BEDTIME [facility] Sodium Chloride (0.9 % Sodium Chloride Flush 3 Ml Syringe) 3 ml IVFLUSH QSHIFT [facility] Last Admin: 03/14/21 09:48 Dose: Not Given Documented by: [place] Non-Admin Reason: No Access Vancomycin HCl (Vancomycin Hcl 125 Mg Capsule) 125 mg PO Q6H [facility] Last Admin: 03/14/21 09:45 Dose: 125 mg Documented by: BARRINGTON Labs CBC & Chem 7: 03/13/21 05:48 03/15/21 10:35 Labs: Laboratory Results - last 24 hr 03/14/21 05:35 Anion Gap 10 L Estim Creat Clear Calc 113.0 Estimated GFR > 60 Random Glucose 94 Calcium 7.5 L Magnesium 1.3 L* Microbiology Microbiology Results: Microbiology 03/11/21 03:33 Stool Culture - Final Stool Assessment and Plan (1) Colitis: Status: Acute (2) Symptomatic anemia: Status: Acute Assessment and Plan: stool studies-c diff positive tachycardia and fevers seems improved , blood cultures: gram positive cocci 1/2- grew staph coagulase neg changed po vanco/flagyl, will dc iv vanco since blood culture grew staph coagul ase neg. Lactic acidosis improving with fluids-seems multifactorial:? Anemia, colitis/sepsis, decreased p.o. intake. received 3 prbc , 2 ffp, 1 pletelets sofar ?h/h in range wbc: 3.4 , h/h :8.9 platlets 54 . 2. anemia /pancytopenia :?? Unclear etiology-multifactorial FOBT positive continue Ppi. hematology evaluation-multifactorial:pancytopenia related to underlying liver disease, alcoholic liver cirrhosis, portal hypertension and splenomegaly/hypersplenism. possible erika neg hemolysis pt/ptt/inr/fibrinogen:23.7/2.1/36.4/215-d/w hematology:most likely multifactorial -liver dis, infection. 3. htn:? stable without blood pressure medications. 4. Asthma:? No shortness of breath, no wheezing, stable continue? ipratropium 5.Blurred vision: left eye:lower half eye mri neg for cva ?ED physician jean - measured eye pressure seems normal, Isaura sent exam does not show and any foreign body grossly. ? Patient id does not have any injection or erythema, patient denies any flashes or any trauma to the eye ?patient has this vision loss from at least 6-7 days. ?? Seen by rehab consultant:? limited exam pinlight: pupil are equal and reactive, trace NS visualized w/hemorrage superior vessel - differentail ? hollenhorst plaque vs vein occulsion ? carotid duplex seems fine echocardiogram to complete workup. ? Patient will be revaluated b y opthamlology out patiently after for discharge. out to bed. Pt eval Quality Stroke Does the patient have a stroke diagnosis?: No VTE Prior VTE?: No VTE Risk Level:: Medical - moderate - high VTE Device Contraindication: N/A - Device Ordered VTE Drug Contraindication: Treatment Not Tolerated
[2021-03-14 13:52] LABS: Potassium 3.6 mmol/L (3.3-5.1)
[2021-03-14 13:55] LABS: Magnesium 1.4 mg/dL (1.6-2.6)
[2021-03-14] MEDS: Omeprazole 20 MG CAPSULE.DR PO (17:01)
[2021-03-14] MEDS: 0.9 % Sodium Chloride 1,000 ML 100 ML IVCONT (20:00)
[2021-03-14] MEDS: 0.9 % Sodium Chloride Flush 3 ML SYRINGE IVFLUSH (20:01)
--- NOTE | 2021-03-14 20:11 | P.EN_ITS ---
Event Note Date of Service: 03/14/21 Event Note: pt developing lower extremity edema and concerned about volume ove rload. will stop fluid as his Lactic acidosis improving pt not hypoxic, sating 100% on RA. no respiratory distress.
[2021-03-15] MEDS: vancomycin HCL 125 MG CAPSULE PO ×4 (03:49→20:26)
[2021-03-15 03:50] VITALS: BP 122/74; PULSE 97; RESP 18; TEMP 37.1; O2SAT 97
[2021-03-15] MEDS: Omeprazole 20 MG CAPSULE.DR PO ×2 (06:26→16:09)
[2021-03-15 07:30] VITALS: BP 106/66; PULSE 90; RESP 20; TEMP 37; O2SAT 99
[2021-03-15] MEDS: Throat Lozenge, Medicated LOZENGE 1 LOZENGE MUCOUS MEM (08:11)
[2021-03-15] MEDS: Magnesium Sulfate/H2O 2 GM/50 ML PIGGYBACK IV (08:11)
[2021-03-15] MEDS: 0.9 % Sodium Chloride Flush 3 ML SYRINGE IVFLUSH ×3 (08:11→20:26)
[2021-03-15] MEDS: Cyanocobalamin (Vitamin B-12) 1,000 MCG TABLET 1000 MCG PO (08:12)
[2021-03-15] MEDS: Folic Acid 1 MG TABLET PO (08:12)
[2021-03-15] MEDS: Magnesium Oxide 400 MG TABLET 1200 MG PO ×2 (08:12→16:09)
[2021-03-15] MEDS: Mesalamine 250 MG CAPSULE.ER 1000 MG PO ×3 (08:12→20:26)
[2021-03-15 11:05] VITALS: BP 119/78; PULSE 90; RESP 20; TEMP 37.3; O2SAT 100
[2021-03-15 11:10] LABS: Anion Gap 13 (12-20); Blood Urea Nitrogen 4 mg/dL (9-16); Calcium 7.9 mg/dL (8.4-10.2); Carbon Dioxide 17 mmol/L (22-29); Chloride 106 mmol/L (96-108); Creatinine Clr Calc Pharmacy 100.9; Estimated Glomerular Filt Rate > 60; Glucose Random 105 mg/dL (60-115); Potassium 4.4 mmol/L (3.3-5.1); Sodium 132 mmol/L (135-145)
[2021-03-15] MEDS: Triamcinolone Acet 0.1 % Cream 15 GM TUBE 1 APPL TOPICAL ×2 (12:52→20:32)
--- NOTE | 2021-03-15 13:16 | P.PNIM_ITS ---
Subjective Subjective Date of Service: 03/15/21 Interval History: colitis , left eye vision unchanged Review of Systems Denies any chest pain or shortness of breath or abdominal pain or fever or chills or cough or phlegm. Physical Exam Vital Signs: Vital Signs: Last Vital Signs Temp 99.2 F 03/15/21 11:05 Pulse 90 03/15/21 11:05 Resp 20 03/15/21 11:05 BP 119/78 03/15/21 11:05 Pulse Ox 100 03/15/21 11:05 Body Mass Index 25.4 Appearance: Alert.? Oriented X3.? not in distress.? left eye: blurried vision left eye similar unchanged.? ENT: Pharynx normal.? Moist mucous membranes. cvs: rrr, [id number] , no murmur res: clear to auscultation ,no rhonchii or wheezing abd: no rebound or guarding , left lower quadrent pain improving, bs present. ext pulses present , no cyanosis ,Gait well balanced well coordinated. neuro: axo3 , nonfocal Objective Data Active Medications Albuterol Sulfate (Albuterol Sulfate 90 Mcg 8 Gm Inhaler) 2 puff INHALE Q6H PRN PRN Reason: wheezing Benzocaine (Throat Lozenge, Medicated Lozenge) 1 lozenge MUCOUS MEM Q2H PRN PRN Reason: Sore Throat Last Admin: 03/15/21 08:11 Dose: 1 lozenge Documented by: HERMAN Cyanocobalamin (Cyanocobalamin (Vitamin B-12) 1,000 Mcg Tablet) 1,000 mcg PO DAILY [facility] Last Admin: 03/15/21 08:12 Dose: 1,000 mcg Documented by: HERMAN Folic Acid (Folic Acid 1 Mg Tablet) 1 mg PO DAILY [facility] Last Admin: 03/15/21 08:12 Dose: 1 mg Documented by: HERMAN Ipratropium [place] (Ipratropium [place] 0.5 Mg/2.5 Ml Solution) 0.5 mg INHALE Q4H PRN PRN Reason: shortness of breath Last Admin: 03/12/21 09:34 Dose: 0.5 mg Documented by: GALE Magnesium Oxide (Magnesium Oxide 400 Mg Tablet) 1,200 mg PO BIDPC [facility] Last Admin: 03/15/21 08:12 Dose: 1,200 mg Documented by: HERMAN Mesalamine (Mesalamine 250 Mg Capsule.Er) 1,000 mg PO TID [facility] Last Admin: 03/15/21 08:12 Dose: 1,000 mg Documented by: HERMAN Patient Own Med ( Flovent Hfa 110mcg Inhaler) 2 each PO BID [facility] Last Admin: 03/15/21 12:51 Dose: 2 each Documented by: HERMAN Omeprazole (Omeprazole 20 Mg Capsule.Dr) 20 mg PO BID@0630,1630 [facility] Last Admin: 03/15/21 06:26 Dose: 20 mg Documented by: ANTANGIE Pharmacy Consult (Consult Rx Perform Med Rec) 1 each MISCELLANE ONCE PRN PRN Reason: Consult order Pharmacy Consult (Consult Rx Vancomycin Dosing) 1 each MISCELLANE DAILY PRN PRN Reason: Consult order Potassium Chloride (Potassium Chloride Er 10 Meq Capsule.Er) 30 meq PO BID@0900,1200 [facility] Last Admin: 03/15/21 12:50 Dose: 30 meq Documented by: HERMAN Potassium Chloride (Potassium Chloride Packet 20 Meq Packet) 20 meq PO BEDTIME [facility] Last Admin: 03/14/21 20:00 Dose: 20 meq Documented by: BOUBACAR Sodium Chloride (0.9 % Sodium Chloride Flush 3 Ml Syringe) 3 ml IVFLUSH QSHIFT [facility] Last Admin: 03/15/21 08:11 Dose: 3 ml Documented by: HERMAN Triamcinolone Acetonide (Triamcinolone Acet 0.1 % Cream 15 Gm Tube) 1 appl TOPICAL BID [facility]; Protocol Last Admin: 03/15/21 12:52 Dose: 1 appl Documented by: HERMAN Vancomycin HCl (Vancomycin Hcl 125 Mg Capsule) 125 mg PO Q6H [facility] Last Admin: 03/15/21 10:19 Dose: 125 mg Documented by: HERMAN Labs CBC & Chem 7: 03/13/21 05:48 03/15/21 10:35 Labs: Laboratory Results - last 24 hr 03/14/21 03/15/21 13:05 10:35 Anion Gap 13 Estim Creat Clear Calc 100.9 Estimated GFR > 60 Random Glucose 105 Calcium 7.9 L Magnesium 1.4 L* Microbiology Microbiology Results: Microbiology 03/10/21 10:29 Blood Culture - Final Blood - Venous No growth after 5 days. 11/17/21 03:33 Stool Culture - Final Stool Assessment and Plan (1) Visual disturbance: Status: Acute (2) Sepsis: Status: Acute (3) Colitis: Status: Acute (4) Symptomatic anemia: Status: Acute (5) Hypomagnesemia: Status: Acute Assessment and Plan: 1.sepsis sec to colitis vs crohn dis : stool studies-c diff positive tachycardia and fevers seems improved , blood cultures: gram positive cocci 1/2- grew staph coagulase neg changed po vanco/flagyl, will dc iv vanco since blood culture grew staph coagulase neg. Lactic acidosis improving with fluids-seems multifactorial:? Anemia, colitis/sepsis, decreased p.o. intake. received 3 prbc , 2 ffp, 1 pletelets sofar ?h/h in range wbc: 3.4 , h/h :8.9 platlets 54 . 2. anemia /pancytopenia :?? Unclear etiology-multifactorial FOBT positive continue Ppi. hematology evaluation-multifactorial:pancytopenia related to underlying liver disease, alcoholic liver cirrhosis, portal hypertension and splenomega ly/hypersplenism. possible erika neg hemolysis pt/ptt/inr/fibrinogen:23.7/2.1/36.4/215-d/w hematology:most likely multifactorial -liver dis, infection. moniter h/h-?keep hemoglobin around 8 gram/dL.repeat h/h this evening 3. htn:? Hold blood pressure medications. 4. Asthma:? No shortness of breath, no wheezing, stable continue? ipratropium 5.Blurred vision: left eye:lower half eye mri neg for cva ?ED physician jean - measured eye pressure seems normal, Isaura sent exam does not show and any foreign body grossly. ? Patient id does not have any injection or erythema, patient denies any flashes or any trauma to the eye ?patient has this vision loss from at least 6-7 days. ?? Seen by command and control officer:? limited exam pinlight: pupil are equal and reactive, trace NS visualized w/hemorrage superior vessel - differentail ? hollenhorst plaque vs vein occulsion ? recommended carotid duplex -which seems fine and echocardiogram pending to be done in am. ? Patient will be revaluated out patiently after for discharge. 6. persistent hypomagnesmia: repeletd iv and also adjusted po magnesium Pt eval-home with no services Quality Stroke Does the patient have a stroke diagnosis?: No VTE Prior VTE?: No VTE Risk Level:: Medical - moderate - high VTE Device Contraindication: N/A - Device Ordered VTE Drug Contraindication: Treatment Not Tolerated
[2021-03-15 13:47] LABS: Magnesium 2.2 mg/dL (1.6-2.6)
[2021-03-15] MEDS: Furosemide 20 MG/2 ML VIAL IVPUSH (14:39)
[2021-03-15 15:14] VITALS: BP 121/73; PULSE 101; RESP 18; TEMP 37.6; O2SAT 100
--- NOTE | 2021-03-15 19:21 | PC.NURSE ---
PT CALLED RN BEDSIDE TO SHOW NEW SCROTUM/PENILE SWELLING. NO BURNING OR ISSUES WITH VOIDING. MD NOTIFIED AND BEDSIDE TO ASSESS. PASSED INFORMATION ON TO ONCOMING RN. WILL CONTINUE TO MONITOR.
[2021-03-15 19:29] VITALS: BP 126/66; PULSE 103; RESP 18; TEMP 37.2; O2SAT 98
[2021-03-15] MEDS: Albumin Human 25 % 100 ML IV ×2 (20:24→21:23)
[2021-03-15] MEDS: Potassium Chloride Packet 20 MEQ PACKET PO (20:27)
[2021-03-15 23:34] VITALS: BP 117/66; PULSE 104; RESP 18; TEMP 37.4; O2SAT 99
[2021-03-16] VITALS (7 sets, daily range): BP systolic 97–138; BP diastolic 55–80; PULSE 68–97; RESP 18–20; TEMP 36.3–37.5; O2SAT 98–100
[2021-03-16] MEDS: Omeprazole 20 MG CAPSULE.DR PO ×2 (05:16→17:56)
[2021-03-16] MEDS: Acetaminophen 325 MG TABLET 650 MG PO (05:16)
[2021-03-16] MEDS: vancomycin HCL 125 MG CAPSULE PO ×4 (05:16→19:51)
--- NOTE | 2021-03-16 07:30 | CA_ITS ---
Transthoracic Echocardiogram Patient (Last, First, Middle): Jalen Pemberton, Gender: Male Date of : 1965 Age: 55 Procedure Date: 03/16/2021 Procedure Type: Transthoracic [place] [facility] [place]: 160.02 cm Weight: 64.86 kg BSA: 1.68 m2 Heart Rate: bpm BP: 97 / 55 mmHg Cue Worker: FRED Morales MD: Christelle Underwood MD Facility Maintenance Manager: Paul Ahumada MD Symptoms: left eye vision loss Study Quality: Good ECG Rhythm: Sinus Conclusions: - 1. Normal LV systolic function with grade 1 diastolic dysfunction with underlying regional wall motion abnormality suggestive of coronary artery disease 2. Normal cardiac valvular Doppler 3. Normal RV systolic pressure 4. No gross pericardial effusion Findings Left Ventricle Normal left ventricular size, thickness, and systolic function. The visually estimated ejection fraction is between 55-60%. There is evidence of regional wall motion abnormalities. Spectral Doppler is indicative of an impaired relaxation filling pattern. E/E prime ratio is <8, consistent with normal filling pressures. Evidence suggests grade I (mild) diastolic dysfunction. Wall Motion Rest Echo Findings The mid inferior, apical septum, and basal inferolateral segments are hypokinetic. The basal inferior and basal inferoseptal segments are akinetic. All other scored wall segments showed normal motion. Right Ventricle Normal right ventricular cavity size and systolic function. Atria The left atrium is mildly dilated. Interatrial shunt cannot be excluded. The right atrium is normal in size. Aortic Valve Normal aortic valve structure and function. There is no aortic valve stenosis. There is no aortic valve regurgitation. Mitral Valve Normal mitral valve structure and function. There is trace mitral valve regurgitation. There is no mitral valve stenosis. Pulmonic Valve The pulmonic valve was not well visualized. Tricuspid Valve Normal tricuspid valve structure. There is trace tricuspid valve regurgitation. The right ventricular systolic pressure is normal. The right ventricular systolic pressure is 30 mmHg. Normal right atrial pressure. There is no evidence of pulmonary hypertension. Great Vessels All visible segments of the aorta are normal in size. The pulmonary artery was not well visualized. Venous The inferior vena cava is normal in size and collapses greater than 50% with inspiration. Pericardium/Pleural There is no evidence of pericardial effusion. Prior Study Comparison No prior study available for comparison. Measurements 2D Linear Measurements IVSd: 1.00 0.6-0.9/0.6-1.0 cm LVIDd: 5.06 3.9-5.3/4.2-5.9 cm LVIDd Index: 3.01 2.4-3.2/2.2-3.1 cm/m2 LVIDs: 3.88 2.0-3.6 cm LVPWd: 0.97 0.7-1.1 cm Ao Root: 3.80 2.1-3.5 cm LA Diam: 4.40 2.7-3.8/3.0-4.0 cm LAIDs Index: 2.62 1.5-2.3 cm/m2 LV Mass: 227.05 67-162/88-224 g LV Mass Index: 135.15 43-95/49-115 g/m2 LVOT Diam: 2.30 3.0+(-)1.3 cm 2D Systolic Function EF 4C: 62.70 >55% EF 2C: 54.00 >55% EF BiP: 60.00 >55% Mitral Valve E'Lateral: 10.60 E'Medial: 7.18 Aortic Valve AoV Pk Len: 1.70 AoV Mn Len: 1.25 AoV VTI: 0.37 AoV Pk Grad: 12.00 Aov Mn Grad: 7.00 MARGARETTE Cont.VTI: 2.85 LVOT LVOT Pk Len: 1.15 LVOT Mn Len: 0.80 LVOT VTI: 0.26 LVOT Pk Grad: 5.00 LVOT Mn Grad: 3.00 LVOT Diam: 2.30 LVOT Area: 4.15 Diastolic Function E'Medial: 7.18 E' Laterial: 10.60 Right Ventricle TAPSE (mm): 2.61 TVS' Len: 18.00 Tricuspid Valve TR Pk Len: 2.61 TR Pk Grad: 27.00 RA Press: 3.00 RVSP: 30.00 Great Vessels Aorta Ao Root-2D: 3.80 2.0-3.7 cm Ao Asc: 3.40 2.1-3.4 cm Updated in Other Vendor System with Status of Final Paul Ahumada MD electronically signed on 03/16/2021 11:54:58 AM with status of Final
[2021-03-16] MEDS: Folic Acid 1 MG TABLET PO (10:26)
[2021-03-16] MEDS: Magnesium Oxide 400 MG TABLET 1200 MG PO ×2 (10:26→17:56)
[2021-03-16] MEDS: Triamcinolone Acet 0.1 % Cream 15 GM TUBE 1 APPL TOPICAL ×2 (10:27→19:48)
[2021-03-16] MEDS: Mesalamine 250 MG CAPSULE.ER 1000 MG PO ×3 (10:27→19:45)
[2021-03-16] MEDS: Cyanocobalamin (Vitamin B-12) 1,000 MCG TABLET 1000 MCG PO (10:27)
[2021-03-16] MEDS: 0.9 % Sodium Chloride Flush 3 ML SYRINGE IVFLUSH ×3 (10:28→23:38)
--- NOTE | 2021-03-16 12:12 | MHC.CM.PN ---
PER HOSPITALIST PT AWAITING ECHO AND UROLOGY CONSULT AND SHOULD BE ABLE TO D/C LATER TODAY. DCP: [facility] HOME TODAY NO SERVICES, GF FOR TRANSPORT
--- NOTE | 2021-03-16 12:52 | HO.PM.IMPN ---
Subjective Subjective Date of Service: 03/16/21 Interval History: colitis , left eye vision unchanged Review of Systems Denies any new complaint of chest pain or shortness of breath or abdominal pain or fever or chills or nausea or vomiting Denies any cough Denies any weakness or numbness. Has some scrotal and pannis skin mild swelling Physical Exam Vital Signs: Vital Signs: Last Vital Signs Temp 99.0 F 03/16/21 11:25 Pulse 95 03/16/21 11:25 Resp 20 03/16/21 11:25 BP 126/80 03/16/21 11:25 Pulse Ox 99 03/16/21 11:25 Body Mass Index 25.4 Appearance: Alert.? Oriented X3.? not in distress.? left eye: blurried vision left eye similar unchanged.? ENT: Pharynx normal.? Moist mucous membranes. cvs: rrr, [id number] , no murmur res: clear to auscultation ,no rhonchii or wheezing abd: no rebound or guarding , left lower quadrent pain improving, bs present. ext pulses present , no cyanosis ,Gait well balanced well coordinated. neuro: axo3 , nonfocal Objective Data Active Medications Albuterol Sulfate (Albuterol Sulfate 90 Mcg 8 Gm Inhaler) 2 puff INHALE Q6H PRN PRN Reason: wheezing Benzocaine (Throat Lozenge, Medicated Lozenge) 1 lozenge MUCOUS MEM Q2H PRN PRN Reason: Sore Throat Last Admin: 03/15/21 08:11 Dose: 1 lozenge Documented by: HERMAN Cyanocobalamin (Cyanocobalamin (Vitamin B-12) 1,000 Mcg Tablet) 1,000 mcg PO DAILY [facility] Last Admin: 03/16/21 10:27 Dose: 1,000 mcg Documented by: JESÚS Folic Acid (Folic Acid 1 Mg Tablet) 1 mg PO DAILY [facility] Last Admin: 03/16/21 10:26 Dose: 1 mg Documented by: JESÚS Ipratropium [place] (Ipratropium [place] 0.5 Mg/2.5 Ml Solution) 0.5 mg INHALE Q4H PRN PRN Reason: shortness of breath Last Admin: 03/12/21 09:34 Dose: 0.5 mg Documented by: GALE Magnesium Oxide (Magnesium Oxide 400 Mg Tablet) 1,200 mg PO BIDPC [facility] Last Admin: 03/16/21 10:26 Dose: 1,200 mg Documented by: JESÚS Mesalamine (Mesalamine 250 Mg Capsule.Er) 1,000 mg PO TID [facility] Last Admin: 03/16/21 10:27 Dose: 1,000 mg Documented by: JESÚS Metoprolol Tartrate (Metoprolol Tartrate 12.5 Mg Halftab) 12.5 mg PO BID [facility]; Protocol Patient Own Med ( Flovent Hfa 110mcg Inhaler) 2 each PO BID [facility] Last Admin: 03/16/21 10:37 Dose: 2 each Documented by: JESÚS Omeprazole (Omeprazole 20 Mg Capsule.Dr) 20 mg PO BID@0630,1630 [facility] Last Admin: 03/16/21 05:16 Dose: 20 mg Documented by: ANTANGIE Pharmacy Consult (Consult Rx Perform Med Rec) 1 each MISCELLANE ONCE PRN PRN Reason: Consult order Pharmacy Consult (Consult Rx Vancomycin Dosing) 1 each MISCELLANE DAILY PRN PRN Reason: Consult order Potassium Chloride (Potassium Chloride Er 10 Meq Capsule.Er) 30 meq PO BID@0900,1200 [facility] Last Admin: 03/16/21 10:26 Dose: 30 meq Documented by: JESÚS Potassium Chloride (Potassium Chloride Packet 20 Meq Packet) 20 meq PO BEDTIME [facility] Last Admin: 03/15/21 20:27 Dose: 20 meq Documented by: BOUBACAR Sodium Chloride (0.9 % Sodium Chloride Flush 3 Ml Syringe) 3 ml IVFLUSH QSHIFT [facility] Last Admin: 03/16/21 10:28 Dose: 3 ml Documented by: JESÚS Triamcinolone Acetonide (Triamcinolone Acet 0.1 % Cream 15 Gm Tube) 1 appl TOPICAL BID [facility]; Protocol Last Admin: 03/16/21 10:27 Dose: 1 appl Documented by: JESÚS Vancomycin HCl (Vancomycin Hcl 125 Mg Capsule) 125 mg PO Q6H [facility] Last Admin: 03/16/21 10:26 Dose: 125 mg Documented by: JESÚS Labs CBC & Chem 7: 03/13/21 05:48 03/16/21 14:00 Labs: Laboratory Results - last 24 hr 03/15/21 10:35 Magnesium 2.2 Microbiology Microbiology Results: Microbiology 03/10/21 10:29 Blood Culture - Final Blood - Venous No growth after 5 days. Assessment and Plan (1) Hypomagnesemia: Status: Acute (2) Colitis: Status: Acute (3) Symptomatic anemia: Status: Acute Assessment and Plan: 1.sepsis sec to colitis vs crohn dis : stool studies-c diff positive tachycardia and fevers seems improved , blood cultures: gram positive cocci 1/2- grew staph coagulase neg on po vancoday6 , off iv vanco since blood culture grew staph coagulase neg. Lactic acidosis improving with fluids-seems multifactorial:? Anemia, colitis/sepsis, decreased p.o. intake. received 3 prbc , 2 ffp, 1 pletelets sofar ?h/h in range wbc: 3.4 , h/h :8.9 platlets 54 . 2. anemia /pancytopenia :?? Unclear etiology-multifactorial FOBT positive continue Ppi. hematology evaluation-multifactorial:pancytopenia related to underlying liver disease, alcoholic liver cirrhosis, portal hypertension and splenomegaly/hypersplenism. possible erika neg hemolysis pt/ptt/inr/fibrinogen:23.7/2.1/36.4/215-d/w hematology:most likely multifactorial -liver dis, infection. moniter h/h-?keep hemoglobin around 8 gram/dL.repeat h/h this evening 3. htn:? Hold blood pressure medications. 4. Asthma:? No shortness of breath, no wheezing, stable continue? ipratropium 5.Blurred vision: left eye:lower half eye mri neg for cva ?ED physician jean - measured eye pressure seems normal, Isaura sent exam does not show and any foreign body grossly. ? Patient id does not have any injection or erythema, patient denies any flashes or any trauma to the eye ?patient has this vision loss from at least 6-7 days. ?? Seen by sales communications manager:? limited exam pinlight: pupil are equal and reactive, trace NS visualized w/hemorrage superior vessel - differentail ? hollenhorst plaque vs vein occulsion ? recommended carotid duplex -which seems fine and echocardiogram pending to be done in am. ? Patient will be revaluated out patiently after for discharge. 6. persistent hypomagnesmia:improving repeletd iv and also adjusted po magnesium 7. Abnormal Echo: Has wall motion abnormalities, patient is currently asymptomatic. Will check lipid panel in the morning Cardio evaluation 8. Has scrotal swelling: According to the patient when he got fluids in [place] he also had some swelling in his scrotum question related to that-urology consult pending. Pt eval-home with no services Quality Stroke Does the patient have a stroke diagnosis?: No VTE Prior VTE?: No VTE Risk Level:: Medical - moderate - high VTE Device Contraindication: N/A - Device Ordered VTE Drug Contraindication: Treatment Not Tolerated
[2021-03-16 14:13] LABS: Potassium 3.7 mmol/L (3.3-5.1)
[2021-03-16 14:26] LABS: Anion Gap 9 (12-20); Blood Urea Nitrogen 5 mg/dL (9-16); Calcium 8.5 mg/dL (8.4-10.2); Carbon Dioxide 25 mmol/L (22-29); Chloride 106 mmol/L (96-108); Creatinine Clr Calc Pharmacy 100.9; Estimated Glomerular Filt Rate > 60; Glucose Random 140 mg/dL (60-115); Magnesium 1.5 mg/dL (1.6-2.6); Potassium 3.9 mmol/L (3.3-5.1); Sodium 136 mmol/L (135-145)
[2021-03-16] MEDS: Metoprolol Tartrate 12.5 MG HALFTAB PO ×2 (14:44→19:45)
[2021-03-16] MEDS: Potassium Chloride Packet 20 MEQ PACKET PO ×2 (14:45→19:45)
[2021-03-16] MEDS: Magnesium Sulfate/H2O 2 GM/50 ML PIGGYBACK IV (14:46)
[2021-03-16 17:49] LABS: Hematocrit 28.6 % (42.0-52.0); Hemoglobin 9.2 g/dl (14.0-18.0)
[2021-03-16] MEDS: Albumin Human 25 % 100 ML IV (18:16)
[2021-03-17 05:19] VITALS: BP 116/59; PULSE 71; RESP 20; TEMP -13.2; TEMP 8.2; O2SAT 98
[2021-03-17] MEDS: Omeprazole 20 MG CAPSULE.DR PO (05:27)
[2021-03-17] MEDS: vancomycin HCL 125 MG CAPSULE PO ×2 (05:27→09:59)
[2021-03-17 07:07] LABS: Cholesterol 62 mg/dL; HDL Cholesterol 15 mg/dL; LDL Cholesterol Calculated 37 mg/dl; Triglycerides 50 mg/dL
[2021-03-17 07:34] VITALS: BP 103/56; PULSE 65; RESP 18; TEMP 37.2; O2SAT 97
[2021-03-17] MEDS: Mesalamine 250 MG CAPSULE.ER 1000 MG PO ×2 (09:59→13:45)
[2021-03-17 10:00] VITALS: BP 103/56; PULSE 65
[2021-03-17] MEDS: Metoprolol Tartrate 12.5 MG HALFTAB PO (10:00)
[2021-03-17] MEDS: 0.9 % Sodium Chloride Flush 3 ML SYRINGE IVFLUSH ×2 (10:00→13:46)
[2021-03-17] MEDS: Triamcinolone Acet 0.1 % Cream 15 GM TUBE 1 APPL TOPICAL (10:00)
[2021-03-17] MEDS: Folic Acid 1 MG TABLET PO (10:00)
[2021-03-17] MEDS: Cyanocobalamin (Vitamin B-12) 1,000 MCG TABLET 1000 MCG PO (10:00)
[2021-03-17] MEDS: Magnesium Oxide 400 MG TABLET 1200 MG PO (10:00)
--- NOTE | 2021-03-17 10:10 | P.CONCA_ITS ---
History of Present Illness History of Present Illness Date of Service: 03/17/21 Requesting physician: Christelle Underwood Chief complaint: Abnormal echocardiogram s/o of old inferior [place] Narrative: I was consulted on Jalen for cardiology consultation as he underwent echocardiogram yesterday for workup of visual field abnormality. Echocardiogram showed wall motion abnormality in the inferior wall. No prior history of coronary artery disease or known myocardial infarction. Patient does not recall ever being told that he had prior myocardial infarction. He does have risk for vascular disease. However is admitted for symptomatic anemia as well as colitis and electrolyte abnormality. He says he has kidney and liver issues. He has history of alcohol abuse, he says he is going to give a. He has not had any chest pain at any point in time. Denies any palpitations, shortness of breath, lightheadedness, syncope, orthopnea, PND. Says with fluid he has developed leg edema bilaterally as well as scrotal swelling. Review of Systems Constitutional: Constitutional: Reports no additional constitutional complaints Eyes: Eyes: Reports loss of vision ENT: Reports system reviewed and no additional complaints, except as documented Cardiovascular: Cardiovascular: Reports no additional cardiovascular complaints Respiratory: Respiratory: Reports no additional respiratory complaints Gastrointestinal: Gastrointestinal: Reports no additional gastrointestinal complaints Genitourinary: Genitourinary: Reports no additional male genitourinary complaints Musculoskeletal: Musculoskeletal: Reports no additional musculoskeletal complaints Integumentary/Breasts: Skin/Breast: Reports system reviewed and no additional complaints, except as docu Neurologic: Reports system reviewed and no additional complaints, except as documented and Reports loss of vision Psychiatric: Psychiatric: Reports no additional psychiatric complaints [facility] Past Medical History Medical History Asthma Cirrhosis Liver disease Liver disease Social History Social History Household Members: Significant Other Housing: House Housing Other:: duplex Do you presently have visiting nurse or other home services: No Alcohol intake: current Alcohol intake frequency: a few times a week Alcohol type: beer Patient Tobacco Use Status: Never used Tobacco Substance Use Type: Marijuana service: No Current occupational status: employed Meds Allergies Allergy/AdvReac Type Severity Reaction Status Date / Time aspirin [ASPIRIN] AdvReac Unknown BLOOD IN Verified 03/11/21 09:34 STOOL Active Medications: Current Medications Albuterol Sulfate (Albuterol Sulfate 90 Mcg 8 Gm Inhaler) 2 puff INHALE Q6H PRN PRN Reason: wheezing Benzocaine (Throat Lozenge, Medicated Lozenge) 1 lozenge MUCOUS MEM Q2H PRN PRN Reason: Sore Throat Last Admin: 03/15/21 08:11 Dose: 1 lozenge Documented by: Cyanocobalamin (Cyanocobalamin (Vitamin B-12) 1,000 Mcg Tablet) 1,000 mcg PO DAILY [facility] Last Admin: 03/17/21 10:00 Dose: 1,000 mcg Documented by: Folic Acid (Folic Acid 1 Mg Tablet) 1 mg PO DAILY [facility] Last Admin: 03/17/21 10:00 Dose: 1 mg Documented by: Ipratropium Ogilvie (Ipratropium Ogilvie 0.5 Mg/2.5 Ml Solution) 0.5 mg INHALE Q4H PRN PRN Reason: shortness of breath Last Admin: 03/12/21 09:34 Dose: 0.5 mg Documented by: Magnesium Oxide (Magnesium Oxide 400 Mg Tablet) [facility] Last Admin: 03/17/21 10:00 Dose: 1,200 mg Documented by: Mesalamine (Mesalamine 250 Mg Capsule.Er) 1,000 mg PO TID [facility] Last Admin: 03/17/21 09:59 Dose: 1,000 mg Documented by: Metoprolol Tartrate (Metoprolol Tartrate 12.5 Mg Halftab) 12.5 mg PO BID [facility]; Protocol Last Admin: 03/17/21 10:00 Dose: 12.5 mg Documented by: Patient Own Med ( Flovent Hfa 110mcg Inhaler) 2 each PO BID [facility] Last Admin: 03/17/21 10:00 Dose: 2 each Documented by: Omeprazole (Omeprazole 20 Mg Capsule.Dr) 20 mg PO BID@0630,1630 [facility] Last Admin: 03/17/21 05:27 Dose: 20 mg Documented by: Pharmacy Consult (Consult Rx Perform Med Rec) 1 each MISCELLANE ONCE PRN PRN Reason: Consult order Pharmacy Consult (Consult Rx Vancomycin Dosing) 1 each MISCELLANE DAILY PRN PRN Reason: Consult order Potassium Chloride (Potassium Chloride Er 10 Meq Capsule.Er) 30 meq PO BI D@0900,1200 [facility] Last Admin: 03/17/21 09:59 Dose: 30 meq Documented by: Potassium Chloride (Potassium Chloride Packet 20 Meq Packet) 20 meq PO BEDTIME [facility] Last Admin: 03/16/21 19:45 Dose: 20 meq Documented by: Sodium Chloride (0.9 % Sodium Chloride Flush 3 Ml Syringe) 3 ml IVFLUSH QSHIFT [facility] Last Admin: 03/17/21 10:00 Dose: 3 ml Documented by: Triamcinolone Acetonide (Triamcinolone Acet 0.1 % Cream 15 Gm Tube) 1 appl TOPICAL BID JOHN; Protocol Last Admin: 03/17/21 10:00 Dose: 1 appl Documented by: Vancomycin HCl (Vancomycin Hcl 125 Mg Capsule) 125 mg PO Q6H [facility] Last Admin: 03/17/21 09:59 Dose: 125 mg Documented by: Home Medications Medication Instructions Recorded Confirmed Last Taken Type albuterol sulfate 90 mcg/actuation 2 puff INHALATION Q6H PRN 03/10/21 03/10/21 03/09/21 History aerosol inhaler (ProAir HFA) cyanocobalamin (vitamin B-12) 1,000 mcg PO DAILY 03/10/21 03/10/21 03/09/21 History 1,000 mcg tablet famotidine 40 mg tablet 40 mg PO DAILY 03/10/21 03/10/21 03/09/21 History fluticasone propionate 110 2 puff INHALATION BID 03/10/21 03/10/21 03/09/21 History mcg/actuation HFA aerosol inhaler (Flovent HFA) folic acid 1 mg tablet 1 mg PO DAILY 03/10/21 03/10/21 03/09/21 History magnesium oxide 400 mg (241.3 mg 1,200 mg PO DAILY 03/10/21 03/10/21 03/09/21 History magnesium) tablet mesalamine 1.2 gram tablet,delayed 4 tab PO DAILY 03/10/21 03/10/21 03/09/21 History release (Lialda) metoprolol succinate 25 mg 0.5 tab PO DAILY 03/10/21 03/10/21 03/09/21 History tablet,extended release 24 hr potassium chloride 10 mEq 20 meq PO BEDTIME 03/10/21 03/10/21 03/09/21 History tablet,extended release(part/cryst) potassium chloride 10 mEq 30 meq PO BID@0900,1200 03/10/21 03/10/21 03/09/21 History tablet,extended release(part/cryst) thiamine mononitrate (vit B1) 100 100 mg PO DAILY 03/10/21 03/10/21 03/09/21 History mg tablet (Vitamin B-1 (mononitrate)) triamcinolone acetonide 0.1 % 1 appl TOPICAL BID 03/15/21 03/15/21 Unknown History topical cream Physical Exam Vital Signs: Vital Signs: Last Vital Signs Temp 99.0 F 03/17/21 07:34 Pulse 65 03/17/21 10:00 Resp 18 03/17/21 07:34 BP 103/56 L 03/17/21 10:00 Pulse Ox 97 03/17/21 07:34 Body Mass Index 25.4 Const: General: cooperative, comfortable, no acute distress, alert and awake Nutritional Appearance: overweight Orientation/consciousness: patient or iented x3 HENMT: Head: Yes normocephalic and Yes atraumatic Neck: Neck: Yes other (Large anterior mass) Resp: Effort & Inspection: normal respiratory effort Auscultation: clear to auscultation bilaterally Cardio: Jugular venous distension: no JVD Palpation: normal PMI Rate: regular rate Rhythm: regular rhythm Heart sounds: S1 normal heart sound pr esent, S2 normal heart sound present, no click, no gallops and no murmurs GI: Inspection: Yes obesity Auscultation: normal bowel sounds Skin: General skin exam: no rashes or lesions noted and ecchymosis Neuro: General: patient oriented x3 and no focal motor deficits Extrem: General: No clubbing, No cyanosis and Yes edema Objective Labs and Meds Result diagrams: 03/16/21 17:38 03/16/21 14:00 Lab results: Laboratory Results - last 24 hr 03/16/21 03/16/21 03/16/21 14:00 14:00 17:38 Hgb 9.2 L Hct 28.6 L Sodium 136 Potassium 3.9 3.7 Chloride 106 Carbon Dioxide 25 Anion Gap 9 L BUN 5 L Creatinine 0.65 Estim Creat Clear Calc 100.9 Estimated GFR > 60 Random Glucose 140 H Calcium 8.5 D Magnesium 1.5 L Triglycerides Cholesterol LDL Cholesterol, Calc HDL Cholesterol 03/17/21 05:48 Hgb Hct Sodium Potassium Chloride Carbon Dioxide Anion Gap BUN Creatinine Estim Creat Clear Calc Estimated GFR Random Glucose Calcium Magnesium Triglycerides 50 Cholesterol 62 LDL Cholesterol, Calc 37 HDL Cholesterol 15 recent EKG is poor quality with sinus tachycardia with inferior Q-waves. EKG from August shows normal sinus rhythm with Q-waves in lead 3 and AVF suggestive of possible prior inferior [place] Assessment and Plan (1) CAD (coronary artery disease): Status: Acute Coronary artery disease with no symptoms with echocardiogram suggestive prior inferior myocardial infarction confirmed by EKG. However is not a cand idate for any medical therapy as he has active bleeding issues due to colitis and cannot take antiplatelets as per him. Would avoid using aspirin or Plavix. His LDL is 37, however his LFTs elevated would avoid statin therapy as well. He has no symptoms and currently his blood pressure is on low side and would also avoid metoprolol therapy. He will require outpatient ischemic workup at some point in time. He did not realize that he had prior myocardial infarction with low surprised. However he is very scattered in his thinking pattern and not sure if he understands the gravity of this. Will set up for outpatient stress test once discharge and follow-up. Procedures Date of Service Date of Service: 03/17/21
[2021-03-17 11:36] VITALS: BP 121/71; PULSE 72; RESP 20; TEMP 37.5; O2SAT 99
--- NOTE | 2021-03-17 15:27 | PM.DS ---
DS: Providers Provider Date of Service: 03/17/21 Date of admission: 03/10/21 17:23 Primary care physician: Thierno Browne MD Consults: 03/10/21 17:57 Consult to Gastroenterology Routine Consulting Provider: Alex Swenson Reason for consultation: gi bleed Has provider been notified: No 03/11/21 07:26 Consult to Hematology / Oncology Routine Consulting Provider: Galina Marti Reason for consultation: Pancytopenia Has provider been notified: No 03/13/21 11:44 Consult to Neurology Routine Consulting Provider: [facility] Reason for consultation: left hemianiopsia , dizziness -? posterior cva Has provider been notified: No 03/13/21 12:57 Consult to Infectious Diseases Routine Consulting Provider: Elizabeth Muse Reason for consultation: cdiff Has provider been notified: No 03/15/21 19:13 Consult to Urology Routine Consulting Provider: Everette Magaña Reason for consultation: scrotal swellin Has provider been notified: No 03/16/21 12:51 Consult to Cardiology Routine Consulting Provider: Paul Ahumada Reason for consultation: abnormal echo-wall motion abnormalities Has provider been notified: No DS: Diagnosis Discharge Diagnosis (1) CAD (coronary artery disease): Status: Acute DS: Summary Hospital Course Hospital Course: Chief Complaint: Sepsis, colitis, anemia symptomatic. 55-year-old male with history of liver disease with portal hypertension, alcoholic last drink was 2 weeks ago,very poor historian, hypertension, pancytopenia, Crohn disease history, asthma-he was including [facility] in December due to jaundice which was thought to be related to liver disease and alcohol use, also had MRCP-which did not show any obstruction so was given steroids for 28 days-his liver function seems to be improving afterwards, his last H&H was around December 16:? Around 9.8/27.5. He says like from last few days he is feeling lightheaded, tired, pale, but did not had any vomiting with blood or any sandhya blood in the stool. He is unsure about melena, also has some on and off diarrhea but he could not provide much history about that also. ?he has some chills on and off from 2 days. Has abdominal pain mostly in the ascending colon area right-sided. Denies any new complaint of chest pain or shortness of breath or nausea or vomiting Denies any cough Denies any weakness or numbness. ED:? In addition to abdominal pain found to have pancytopenia, mild hyponatremia, bilirubin 2.9, AST 64(which seems to be improved from December bilirubin was around 8, AST was around 160) Potassium is around 3.6, also added magnesium level CT abdomen:There is diffuse mural thickening involving sigmoid and ascending colon suggestive of colitis likely inflammatory or infectious etiology Has microcytic anemia Ferritin normal, B12 and folate also normal. Patient received antibiotics and steroids in ED-admission was requested for sepsis/colitis :? In the ED was given IV fluid, antibiotics-also type and cross and PRBC ordered. As per ED physician on rectal examination noted little? blood otherwise negative Hospital course: 1.sepsis due to C dif colitis, treated with Oral Vancomycin and will treat for 14 days, diarrhea has improved. 2. Pancytopenia with anemia hemoglobin 20 on 03/11, has been transfused 3 unit and as of 03/16 hematocrit was 28, s/p 1 unit of platlets, ranges from 45 to 61, hematology suggest this multifactorial liver disease as major contributing factor. 3 HTN--blood pressure has been ok without BP meds 4. Asthma:? No shortness of breath, no wheezing, stable continue? ipratropium 5. Blur vision--on around 03/13 was evaluated for blur vision, reported this has been ongoing for nearly a week. ?? He was evaluated by neurologist Dr. Cook with the following findings and comments I did not find any obvious abnormality on his eye examination or visual field to suggest that there's been a stroke.? MRI of the brain shows mild microvascular white matter disease.? No evidence of acute stroke.? No further neurological workup necessary.? Follow up with front end mechanic When I saw the patient, on 03/17--there was no such complaint and exam was unremarkable. He was previously instructed to follow up with an eye doctor 6. persistent hypomagnesmia:improving repeletd iv and po magnesium 7. Abnormal Echo:? Has wall motion abnormalities, patient is currently asymptomatic.--evaluated by cardiology and no further work up indicated at this time, and outpatient follow up, he has no cardiac complaint. 8. Has scrotal swelling: According to the patient when he got fluids in [place] he also had some swelling in his scrotum question related to that--Urology was to see him but he elected to leave before Of note while still in the process of reviewing his hospitalization, meds, consult, and event of past 7 days, I was told abruptly that patient no longer wanted to stay in the hospital and infact by the time I arrived to talk to him he had already left, prescription for oral Vancomycin for cdif sent to his pharmacy and RN informed him that if he did not want to stay to call and arrange for follow up appointment Time Spent with Patient Time attestation: Total time spent providing and/or coordinating discharge services: Discharge coordination time: Greater than 30 minutes Quality: Stroke Does the patient have a stroke diagnosis?: No Physical Exam Vital Signs: Vital Signs: Last Vital Signs Temp 99.5 F 03/17/21 11:36 Pulse 72 03/17/21 11:36 Resp 20 03/17/21 11:36 BP 121/71 03/17/21 11:36 Pulse Ox 99 03/17/21 11:36 Body Mass Index 25.4 DS: Data Data Completed and Pending Labs on day of discharge: Laboratory Results - last 24 hr 03/16/21 03/17/21 17:38 05:48 Hgb 9.2 L Hct 28.6 L Triglycerides 50 Cholesterol 62 LDL Cholesterol, Calc 37 HDL Cholesterol 15 Discharge Plan Discharge Anticipated Discharge Date/Time: 03/17/21 14:30 Patient Disposition: Left Against Medical Advice Discharge Diagnosis: C dif sepsis, colitis Referrals: Thierno Browne MD [Primary Care Provider] - 1 Week Discharge Medications: New vancomycin 125 mg Capsule 125 mg PO Q6H Qty: 30 RF: 0 omeprazole 20 mg Capsule,Delayed Release(Dr/Ec) 20 mg PO BID@0630,1630 Qty: 30 RF: 0 Continued famotidine 40 mg tablet 40 mg PO DAILY RF: 0 cyanocobalamin (vitamin B-12) 1,000 mcg Tablet 1,000 mcg PO DAILY RF: 0 magnesium oxide 400 mg (241.3 mg magnesium) tablet 1,200 mg PO DAILY RF: 0 folic acid 1 mg tablet 1 mg PO DAILY RF: 0 metoprolol succinate 25 mg tablet extended release 24 hr 0.5 tab PO DAILY RF: 0 albuterol sulfate [ProAir HFA] 90 mcg/actuation HFA aerosol inhaler 2 puff inhalation Q6H PRN (Reason: wheezing) RF: 0 Flovent HFA 110 mcg/actuation HFA aerosol inhaler 2 puff inhalation BID RF: 0 potassium chloride 10 mEq tablet,ER particles/crystals 30 meq PO BID@0900,1200 RF: 0 potassium chloride 10 mEq tablet,ER particles/crystals 20 meq PO BEDTIME RF: 0 mesalamine [Lialda] 1.2 gram tablet,delayed release (DR/EC) 4 tab PO DAILY RF: 0 thiamine mononitrate (vit B1) [Vitamin B-1 (mononitrate)] 100 mg tablet 100 mg PO DAILY RF: 0 triamcinolone acetonide 0.1 % cream 1 appl topical BID RF: 0 Discharge Orders: Discharge Order (Routine); Ordered 03/17/21 Ordered By: Brett Frye Diet: advance to usual diet Activity on Discharge: As tolerated Care Plan Goals: Clearance of C dif Health Concerns: Cdif Plan of Treatment: Take Vancomycin as recommended and follow up with your Doctor in a week Assessment: as above
--- NOTE | 2021-03-17 15:43 | MHC.CM.PN ---
Male 55 DX Anemia Colitis Sepsis Left today AMA.
--- NOTE | 2021-03-17 16:29 | PC.NURSE ---
Patient wanting to leave AMA. agitated in room. Patient educated on risks and consequences of leaving AMA. Patient alert and oriented, verbally understood all risks. MD notified. IV access removed with no complications. property assessment monitor removed. AMA paper signed with witness at bedside. Patient ambulated independently to front [facility].
== END 2021-03-17 17:02 | disposition left against medical advice (07) | DRG 720 ==
LOC: HO.ED 12:03 → HO.EDOVER 17:41 → HO.IMC 03-11 02:50
PROVIDERS: Internal Medicine; Physician Assistant; Admitting Provider Internal Medicine; Emergency Provider Emergency Medicine Emergency Medical Services; PCP Internal Medicine; Visit Provider Internal Medicine
DX: A41.9 Sepsis, unspecified organism (principal); D61.818 Other pancytopenia; K76.6 Portal hypertension; A04.72 Enterocolitis due to Clostridium difficile, not specified as recurrent; E87.1 Hypo-osmolality and hyponatremia; E88.09 Other disorders of plasma-protein metabolism, not elsewhere classified; K70.30 Alcoholic cirrhosis of liver without ascites; K50.90 Crohn's disease, unspecified, without complications; E83.42 Hypomagnesemia; H53.8 Other visual disturbances; E04.9 Nontoxic goiter, unspecified; I25.10 Atherosclerotic heart disease of native coronary artery without angina pectoris; I25.2 Old myocardial infarction; F10.20 Alcohol dependence, uncomplicated; I10 Essential (primary) hypertension; J45.909 Unspecified asthma, uncomplicated; Z20.822 Contact with and (suspected) exposure to COVID-19; Z79.51 Long term (current) use of inhaled steroids; Z79.899 Other long term (current) drug therapy
CPT/HCPCS: 0241U; 36415; 36430; 70551; 71045; 74177; 80048; 80053; 80061; 80076; 81003; 82272; 82607; 82728; 82746; 83010; 83605; 83615; 83735; 84132; 84443; 85014; 85018; 85025; 85027; 85384; 85610; 85730; 86850; 86880; 86900; 86901; 86923; 87040; 87045; 87046; 87077; 87147; 87205; 87324; 87493; 89055; 93005; 93306; 93880; 94640; 96361; 96365; 96367; 96375; 97161; 99285; J1940; J1956; J2930; J3370; J3430; J3475; P9016; P9017; P9047; P9073; Q9967

== ENCOUNTER 2021-03-18 10:50 | Outpatient (REF) | payer MEDICAID, SELFPAY ==
[2021-03-18 11:08] LABS: MANUAL DIFF FLAG NO
[2021-03-18 11:47] LABS: Basophils Percent Auto 0.5 % (0-2); Eosinophils Absolute Auto 0.1 X10*3/uL (0.0-0.4); Eosinophils Percent Auto 1.6 % (0-4); Hematocrit 28.1 % (42.0-52.0); Hemoglobin 8.8 g/dl (14.0-18.0); Imm Gran Abs Auto 0.08 X10*3/uL (0.00-0.03); Imm Gran Pct Auto 2.1 % (0.0-0.4); Lymphocytes Absolute Auto 0.8 X10*3/uL (1.2-4.9); Lymphocytes Percent Auto 20.7 % (20-40); Mean Corpuscular HGB Conc 31.3 g/dl (31.0-36.0); Mean Corpuscular Hemoglobin 32.8 pg (27.0-33.0); Mean Corpuscular Volume 104.9 fL (80.0-98.0); Mean Platelet Volume 9.9 fL (9.4-12.4); Monocytes Absolute Auto 0.6 X10*3/uL (0.1-1.2); Monocytes Percent Auto 14.7 % (2-11); Neutrophils Absolute Auto 2.3 x10*3/uL (2.0-8.3); Neutrophils Percent Auto 60.4 % (45-73); Red Blood Count 2.68 X10*6/uL (4.60-5.80); Red Cell Distribution Width 16.1 % (11.0-16.0); White Blood Count 3.8 X10*3/uL (4.8-10.8)
[2021-03-18 11:49] LABS: Platelet Count 72 X10*3/uL (160-400)
[2021-03-18 12:12] LABS: C Reactive Protein 0.26 mg/dL (< or = 0.50)
[2021-03-18 12:44] LABS: Erythrocyte Sedimentation Rate 13 MM/HR (0-15)
== END 2021-03-18 10:51 | disposition home or self-care (01) ==
LOC: HO.LAB 10:50
PROVIDERS: PCP Internal Medicine; Visit Provider Ophthalmology
DX: H46.9 Unspecified optic neuritis (principal)
CPT/HCPCS: 36415; 85025; 85652; 86140

== ENCOUNTER 2021-03-20 09:14 | Emergency (ER) | payer MEDICAID, SELFPAY ==
--- NOTE | ~2021-03-20 | XR_ITS ---
EXAMINATION: CHEST. BILATERAL TIBIA AND FIBULA. CLINICAL INFORMATION: Fluid overload. COMPARISON: None TECHNIQUE: Chest one view. 2 views each fibula. FINDINGS: There is mild cardiomegaly with slight increased parahilar vascularity suspicious mild pulmonary vascular congestion or overload. The lungs are expanded without any acute pneumonic process. Left tibia and fibula: No visible fracture or periosteal reaction. There is mild bilateral malleolar ankle joint soft tissue swelling. Right tibia and fibula: There is bimalleolar soft tissue swelling. No visible bony abnormality or periosteal thickening. The ankle mortise is normal. XR/XR chest 1V IMPRESSION: Mild prominence of bilateral pulmonary vascularity question mild congestion or volume overload. Bimalleolar soft tissue swelling likely edema.
--- NOTE | ~2021-03-20 | XR_ITS ---
EXAMINATION: CHEST. BILATERAL TIBIA AND FIBULA. CLINICAL INFORMATION: Fluid overload. COMPARISON: None TECHNIQUE: Chest one view. 2 views each fibula. FINDINGS: There is mild cardiomegaly with slight increased parahilar vascularity suspicious mild pulmonary vascular congestion or overload. The lungs are expanded without any acute pneumonic process. Left tibia and fibula: No visible fracture or periosteal reaction. There is mild bilateral malleolar ankle joint soft tissue swelling. Right tibia and fibula: There is bimalleolar soft tissue swelling. No visible bony abnormality or periosteal thickening. The ankle mortise is normal. XR/XR tibia fibula LT 2V IMPRESSION: Mild prominence of bilateral pulmonary vascularity question mild congestion or volume overload. Bimalleolar soft tissue swelling likely edema.
--- NOTE | ~2021-03-20 | XR_ITS ---
EXAMINATION: CHEST. BILATERAL TIBIA AND FIBULA. CLINICAL INFORMATION: Fluid overload. COMPARISON: None TECHNIQUE: Chest one view. 2 views each fibula. FINDINGS: There is mild cardiomegaly with slight increased parahilar vascularity suspicious mild pulmonary vascular congestion or overload. The lungs are expanded without any acute pneumonic process. Left tibia and fibula: No visible fracture or periosteal reaction. There is mild bilateral malleolar ankle joint soft tissue swelling. Right tibia and fibula: There is bimalleolar soft tissue swelling. No visible bony abnormality or periosteal thickening. The ankle mortise is normal. XR/XR tibia fibula RT 2V IMPRESSION: Mild prominence of bilateral pulmonary vascularity question mild congestion or volume overload. Bimalleolar soft tissue swelling likely edema.
--- NOTE | ~2021-03-20 | US_ITS ---
EXAMINATION: US VENOUS ULTRASOUND WITH DOPPLER LOWER EXTREMITY, BILATERAL CLINICAL INFORMATION: Bilateral lower extremity swelling. COMPARISON: None TECHNIQUE: Ultrasound of the deep veins is performed from the hip to the calf with compression sonography and color and pulse Doppler assessment. Spectral analysis with color-flow imaging is performed. FINDINGS: RIGHT: There is normal venous compression and respiratory variation and augmented flow. The visualized common femoral vein, superficial femoral vein, profunda femoral vein, popliteal vein, and the trifurcation region shows no evidence of deep venous thrombosis. There is no significant popliteal fossa cyst. There is mild edema in the right calf LEFT: There is normal venous compression and respiratory variation and augmented flow. The visualized common femoral vein, superficial femoral vein, profunda femoral vein, popliteal vein, and the trifurcation region shows no evidence of deep venous thrombosis. There is no significant popliteal fossa cyst. Minimal edema seen in left calf. If the patient's symptoms persist, followup ultrasound in 5 days 7 days might be of value to exclude proximal propagation from a non-visualized calf vein. US/US venous duplex LE BI IMPRESSION: No DVT demonstrated in the bilateral lower extremity. Mild superficial soft tissue swelling bilateral calf.
[2021-03-20 09:20] VITALS: BP 117/60; PULSE 81; RESP 19; TEMP 36.6; O2SAT 99; BMI 25.4
--- NOTE | 2021-03-20 10:29 | ED.GENADULT ---
HPI - General Adult General Chief complaint: General Medical Stated complaint: swollen legs Time Seen by Provider: 03/20/21 09:31 Source: patient Mode of arrival: ambulatory Limitations: no limitations History of Present Illness HPI narrative: 55-year-old male with past medical history portal hypertension, hypertension, and pancytopenia, Crohn's disease, asthma, presents to ED for lower extremity swelling. Patient was recently admitted for colitis caused by C diff. Patient signed out against medical advice 2 days ago before receiving vancomycin prescription. Patient denies any chest pain or shortness of breath. Patient denies any redness of lower extremities, fever, or chills. Patient receive many fluids during hospital stay. Related Data Home Medications Medication Instructions Recorded Confirmed albuterol sulfate 90 mcg/actuation 2 puff INHALATION Q6H PRN 03/10/21 03/10/21 aerosol inhaler (ProAir HFA) cyanocobalamin (vitamin B-12) 1,000 mcg PO DAILY 03/10/21 03/10/21 1,000 mcg tablet famotidine 40 mg tablet 40 mg PO DAILY 03/10/21 03/10/21 fluticasone propionate 110 2 puff INHALATION BID 03/10/21 03/10/21 mcg/actuation HFA aerosol inhaler (Flovent HFA) folic acid 1 mg tablet 1 mg PO DAILY 03/10/21 03/10/21 magnesium oxide 400 mg (241.3 mg 1,200 mg PO DAILY 03/10/21 03/10/21 magnesium) tablet mesalamine 1.2 gram tablet,delayed 4 tab PO DAILY 03/10/21 03/10/21 release (Lialda) metoprolol succinate 25 mg 0.5 tab PO DAILY 03/10/21 03/10/21 tablet,extended release 24 hr potassium chloride 10 mEq 20 meq PO BEDTIME 03/10/21 03/10/21 tablet,extended release(part/cryst) potassium chloride 10 mEq 30 meq PO BID@0900,1200 03/10/21 03/10/21 tablet,extended release(part/cryst) thiamine mononitrate (vit B1) 100 100 mg PO DAILY 03/10/21 03/10/21 mg tablet (Vitamin B-1 (mononitrate)) triamcinolone acetonide 0.1 % 1 appl TOPICAL BID 11/21/21 11/21/21 topical cream Previous Rx's Medication Instructions Recorded furosemide 40 mg tablet (Lasix) 40 mg PO DAILY 14 Days #14 tab 03/20/21 Allergies Allergy/AdvReac Type Severity Reaction Status Date / Time aspirin [ASPIRIN] AdvReac Unknown BLOOD IN Verified 03/11/21 09:34 STOOL Review of Systems Review of Systems: Yes all other systems are reviewed and are negative Constitutional: Constitutional: Reports as per HPI and Reports no additional constitutional complaints Eyes: Eyes: Reports as per HPI and Reports no additional eye complaints ENT: Reports system reviewed and no additional complaints, except as documented and Reports as per HPI Cardiovascular: Cardiovascular: Reports as per HPI and Reports no additional cardiovascular complaints Respiratory: Respiratory: Reports as per HPI and Reports no additional respiratory complaints Gastrointestinal: Gastrointestinal: Reports as per HPI and Reports no additional gastrointestinal complaints Genitourinary: Genitourinary: Reports no additional male genitourinary complaints and Reports as per HPI Musculoskeletal: Musculoskeletal: Reports no additional musculoskeletal complaints and Reports as per HPI Comments: Bilateral leg swelling pitting edema PMFSH Past Medical History Medical History (Updated 03/20/21 @ 14:31 by MAGALY Larios) Anemia Asthma Cirrhosis Glaucoma Liver disease Liver disease Social History Social History Household Members: Significant Other Housing: House Housing Other:: duplex Do you presently have visiting nurse or other home services: No Alcohol intake: current Alcohol intake frequency: does not drink Alcohol type: beer Patient Tobacco Use Status: Never used Tobacco Use of substances other than those prescribed or required for medical reasons: No Substance Use Type: Marijuana Advance Directives: No service: No Current occupational status: employed Physical Exam Vital Signs: Vital Signs: Last Vital Signs Temp 98.8 F 03/20/21 11:12 Pulse 75 03/20/21 14:08 Resp 16 03/20/21 14:08 BP 124/63 03/20/21 14:08 Pulse Ox 100 03/20/21 14:08 Body Mass Index 25.4 Const: General: cooperative, healthy appearing, comfortable, no acute distress, well developed, alert, awake and Physically active Orientation/consciousness: patient oriented x3 HENMT: Other: Chronic neck swelling Head: Yes normal to inspection, Yes No palpable skull fracture present, Yes normocephalic and Yes atraumatic Eyes: General: appearance normal, both eyes and all related structures Neck: Other: Chronic neck swelling for years. Neck: Yes normal visual inspection, Yes full ROM, Yes no lymphadenopathy, Yes no meningeal signs, Yes trachea midline, Yes supple, No anterior neck swelling and No tender Chest: Chest palpation & inspection: normal inspection of the chest and normal palpation of entire chest wall Resp: Effort & Inspection: normal respiratory effort and able to speak in complete sentences Auscultation: clear to auscultation bilaterally Cardio: Jugular venous distension: no JVD Heart sounds: S1 normal heart sound present and S2 normal heart sound present GI: Inspection: Yes normal to inspection and No abdominal wall ecchymosis Palpation (GI): Soft to palpation, not firm, nontender, no guarding and not rigid : General: No CVA tenderness and Yes no CVA tenderness Back/Spine/Pelvis: Back: no CVA tenderness, No CVA tenderness and No back tenderness Skin: General skin exam: no rashes or lesions noted and elasticity normal Neuro: General: patient oriented x3, gait normal, no meningeal signs and CN's II-XI intact bilaterally Cranial nerves: Yes CN's II-XII intact bilaterally Extrem: Other: Bilateral lower extremity swelling with pitting edema. Negative for any erythema or calf tenderness. Negative for warmth. Motor/neuro/vascular exam bilaterally intact. General: Yes normal to inspection and Yes full ROM Psych: Appearance: grossly normal, well kempt and not disheveled Course Course Course Narrative: Patient vital signs stable. Due to recent admission for long amount of days patient will be sent for lower extremity ultrasound to rule out DVT. BNP sent to rule out for CHF. Chest x-ray will be done to show for fluid overload due to patient received blood and fluids during ED visit. does has history of cirrhosis ascites. Patient states at the time abomdne has been the same size for 2 years and has not increased. Reevaluation(s) Reevaluation #1: Patient troponin came back negative. EKG negative STEMI. Bilateral lower extremity x-rays negative for any fracture or osteomyelitis. Bilateral venous ultrasounds negative for DVT. Patient's vital signs are stable. Patient is not in any respiratory distress. Chest x-ray shows mild pulmonary congestion versus mild fluid overload. BNP only 324. Patient may be discharged with oral Lasix but will contact hospitalist due to patient recently signed out AMA 2 days ago to see if she would be readmitted although patient not in respiratory distress. Swelling of legs may be due to receiving too much IV fluids during admission, new onset CHF, or due to cirrhosis. Time: 12:40 Reevaluation #2: Spoke with hospitalist Jagruti and she was informed of patient's history, physical exam, and diagnostics. She states patient could be discharged with oral Lasix due to patient not being in any respiratory distress. She states patient had the same leg swelling during hospitalization. Patient agree with plan. Patient is safe for discharge Time: 14:22 Medical Decision Making MDM Narrative Medical decision making narrative: Lower extremity pedal edema Lab Data Result diagrams: 03/20/21 11:19 03/20/21 11:19 Labs: Lab Results 03/20/21 03/20/21 03/20/21 Range/Units 11:19 11:19 11:19 WBC 4.3 L (4.8-10.8) X10*3/uL RBC 2.74 L (4.60-5.80) X10*6/uL Hgb 9.1 L (14.0-18.0) g/dl Hct 28.6 L (42.0-52.0) % MCV 104.4 H (80.0-98.0) fL MCH 33.2 H (27.0-33.0) pg MCHC 31.8 (31.0-36.0) g/dl RDW 15.7 (11.0-16.0) % Plt Count 72 L (160-400) X10*3/uL MPV 9.8 (9.4-12.4) fL Immature Gran % (Auto) 0.7 H (0.0-0.4) % Neut % (Auto) 67.7 (45-73) % Lymph % (Auto) 17.1 L (20-40) % [place] % (Auto) 11.3 H (2-11) % Eos % (Auto) 2.5 (0-4) % Baso % (Auto) 0.7 (0-2) % Lymph # (Auto) 0.7 L (1.2-4.9) X10*3/uL [place] # (Auto) 0.5 (0.1-1.2) X10*3/uL Eos # (Auto) 0.1 (0.0-0.4) X10*3/uL Baso # (Auto) 0.0 (0.0-0.2) X10*3/uL Abs Immat Gran (auto) 0.03 (0.00-0.03) X10*3/uL Absolute Neuts (auto) 2.9 (2.0-8.3) x10*3/uL Absolute Nucleated RBC 0.000 (0.0-0.012) X10*3/uL Nucleated RBC % (auto) 0.0 (0.0-0.2) /100WBC Sodium 135 (135-145) mmol/L Potassium 4.6 D (3.3-5.1) mmol/L Chloride 107 (96-108) mmol/L Carbon Dioxide 22 (22-29) mmol/L Anion Gap 11 L (12-20) BUN 7 L (9-16) mg/dL Creatinine 0.63 (0.5-1.4) mg/dL Estim Creat Clear Calc 108.3 Estimated GFR > 60 Random Glucose 98 (60-115) mg/dL Calcium 8.7 (8.4-10.2) mg/dL Total Bilirubin 2.1 H (0.0-1.0) mg/dL AST 58 H (5-37) U/L ALT 16 (0-40) U/L Alkaline Phosphatase 72 (39-117) U/L Troponin I High Sens (<3.5-35.0) ng/L B-Natriuretic Peptide 394 H (<100) pg/mL Total Protein 6.5 D (6.5-8.0) g/dL Albumin 3.0 L D (3.5-5.0) g/dL 03/20/21 Range/Units 12:20 WBC (4.8-10.8) X10*3/uL RBC (4.60-5.80) X10*6/uL Hgb (14.0-18.0) g/dl Hct (42.0-52.0) % MCV (80.0-98.0) fL MCH (27.0-33.0) pg MCHC (31.0-36.0) g/dl RDW (11.0-16.0) % Plt Count (160-400) X10*3/uL MPV (9.4-12.4) fL Immature Gran % (Auto) (0.0-0.4) % Neut % (Auto) (45-73) % Lymph % (Auto) (20-40) % [place] % (Auto) (2-11) % Eos % (Auto) (0-4) % Baso % (Auto) (0-2) % Lymph # (Auto) (1.2-4.9) X10*3/uL [place] # (Auto) (0.1-1.2) X10*3/uL Eos # (Auto) (0.0-0.4) X10*3/uL Baso # (Auto) (0.0-0.2) X10*3/uL Abs Immat Gran (auto) (0.00-0.03) X10*3/uL Absolute Neuts (auto) (2.0-8.3) x10*3/uL Absolute Nucleated RBC (0.0-0.012) X10*3/uL Nucleated RBC % (auto) (0.0-0.2) /100WBC Sodium (135-145) mmol/L Potassium (3.3-5.1) mmol/L Chloride (96-108) mmol/L Carbon Dioxide (22-29) mmol/L Anion Gap (12-20) BUN (9-16) mg/dL Creatinine (0.5-1.4) mg/dL Estim Creat Clear Calc Estimated GFR Random Glucose (60-115) mg/dL Calcium (8.4-10.2) mg/dL Total Bilirubin (0.0-1.0) mg/dL AST (5-37) U/L ALT (0-40) U/L Alkaline Phosphatase (39-117) U/L Troponin I High Sens 4.9 (<3.5-35.0) ng/L B-Natriuretic Peptide (<100) pg/mL Total Protein (6.5-8.0) g/dL Albumin (3.5-5.0) g/dL ECG Data Interpretation: Normal sinus rhythm. Ventricular rate 67. IA interval 114. QRS 94. QTC 450. Negative STEMI Discharge Plan Discharge Clinical Impression: Leg swelling Patient Disposition: Home, Self-Care Instructions: Leg Edema (ED) Additional Instructions: You will be discharged with Lasix to help discard fluid in your legs.n. Return to the ED for any chest pain, shortness of breath, worsening swelling of extremities, weakness, dizziness, fever, chills, redness and lower extremity, calf pain, coughing up blood, or any other concerning symptoms. Please follow-up with your primary care provider. 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 Prescriptions: New furosemide [Lasix] 40 mg tablet 40 mg PO DAILY 14 Days Qty: 14 RF: 0 No Action famotidine 40 mg tablet 40 mg PO DAILY RF: 0 cyanocobalamin (vitamin B-12) 1,000 mcg Tablet 1,000 mcg PO DAILY RF: 0 magnesium oxide 400 mg (241.3 mg magnesium) tablet 1,200 mg PO DAILY RF: 0 folic acid 1 mg tablet 1 mg PO DAILY RF: 0 metoprolol succinate 25 mg tablet extended release 24 hr 0.5 tab PO DAILY RF: 0 albuterol sulfate [ProAir HFA] 90 mcg/actuation HFA aerosol inhaler 2 puff inhalation Q6H PRN (Reason: wheezing) RF: 0 Flovent HFA 110 mcg/actuation HFA aerosol inhaler 2 puff inhalation BID RF: 0 potassium chloride 10 mEq tablet,ER particles/crystals 30 meq PO BID@0900,1200 RF: 0 potassium chloride 10 mEq tablet,ER particles/crystals 20 meq PO BEDTIME RF: 0 mesalamine [Lialda] 1.2 gram tablet,delayed release (DR/EC) 4 tab PO DAILY RF: 0 thiamine mononitrate (vit B1) [Vitamin B-1 (mononitrate)] 100 mg tablet 100 mg PO DAILY RF: 0 triamcinolone acetonide 0.1 % cream 1 appl topical BID RF: 0 Interventions: ED Discharge Assessment Last Done: 03/20/21 14:46 Discharge Date/Time: 03/20/21 14:46 Print Language: [place]
--- NOTE | 2021-03-20 10:34 | ECG_ITS ---
Test Reason : GEN MED Blood Pressure : / mmHG Vent. Rate : 067 BPM Atrial Rate : 067 BPM P-R Int : 114 ms QRS Dur : 094 ms QT Int : 426 ms P-R-T Axes : 022 -09 028 degrees QTc Int : 450 ms Normal sinus rhythm Low voltage QRS RSR' or QR pattern in V1 suggests right ventricular conduction delay Left axis deviation Nonspecific T wave abnormality Abnormal ECG When compared with ECG of 10-MAR-2021 09:38, Premature ventricular complexes are no longer Present Vent. rate has decreased BY 69 BPM Referred By: Gonzalo Cho Electronically Signed By:ANDI KIDD MD
[2021-03-20 11:12] VITALS: BP 127/69; PULSE 68; RESP 18; TEMP 37.1; O2SAT 99
[2021-03-20 11:21] LABS: MANUAL DIFF FLAG NO
[2021-03-20 11:24] LABS: Basophils Percent Auto 0.7 % (0-2); Eosinophils Absolute Auto 0.1 X10*3/uL (0.0-0.4); Eosinophils Percent Auto 2.5 % (0-4); Hematocrit 28.6 % (42.0-52.0); Hemoglobin 9.1 g/dl (14.0-18.0); Imm Gran Abs Auto 0.03 X10*3/uL (0.00-0.03); Imm Gran Pct Auto 0.7 % (0.0-0.4); Lymphocytes Absolute Auto 0.7 X10*3/uL (1.2-4.9); Lymphocytes Percent Auto 17.1 % (20-40); Mean Corpuscular HGB Conc 31.8 g/dl (31.0-36.0); Mean Corpuscular Hemoglobin 33.2 pg (27.0-33.0); Mean Corpuscular Volume 104.4 fL (80.0-98.0); Mean Platelet Volume 9.8 fL (9.4-12.4); Monocytes Absolute Auto 0.5 X10*3/uL (0.1-1.2); Monocytes Percent Auto 11.3 % (2-11); Neutrophils Absolute Auto 2.9 x10*3/uL (2.0-8.3); Neutrophils Percent Auto 67.7 % (45-73); Red Blood Count 2.74 X10*6/uL (4.60-5.80); Red Cell Distribution Width 15.7 % (11.0-16.0); White Blood Count 4.3 X10*3/uL (4.8-10.8)
[2021-03-20 11:25] LABS: Platelet Count 72 X10*3/uL (160-400)
[2021-03-20 11:53] LABS: B Type Natriuretic Peptide 394 pg/mL (<100)
[2021-03-20 11:54] LABS: Alanine Aminotransferase 16 U/L (0-40); Alkaline Phosphatase 72 U/L (39-117); Anion Gap 11 (12-20); Aspartate Amino Transferase 58 U/L (5-37); Bilirubin Total 2.1 mg/dL (0.0-1.0); Blood Urea Nitrogen 7 mg/dL (9-16); Calcium 8.7 mg/dL (8.4-10.2); Carbon Dioxide 22 mmol/L (22-29); Chloride 107 mmol/L (96-108); Creatinine Clr Calc Pharmacy 108.3; Estimated Glomerular Filt Rate > 60; Glucose Random 98 mg/dL (60-115); Potassium 4.6 mmol/L (3.3-5.1); Sodium 135 mmol/L (135-145); Total Protein 6.5 g/dL (6.5-8.0)
[2021-03-20 12:28] VITALS: BP 110/56; PULSE 70
[2021-03-20] MEDS: Furosemide 20 MG/2 ML VIAL IVPUSH (12:28)
[2021-03-20 12:47] LABS: Troponin-I High Sensitivity 4.9 ng/L (<3.5-35.0)
[2021-03-20 14:08] VITALS: BP 124/63; PULSE 75; RESP 16; O2SAT 100
== END 2021-03-20 14:46 | disposition home or self-care (01) ==
PROVIDERS: Physician Assistant; Emergency Provider Emergency Medicine; PCP Internal Medicine
DX: R60.0 Localized edema (principal); I10 Essential (primary) hypertension
CPT/HCPCS: 36415; 71045; 73590; 80053; 83880; 84484; 85025; 93005; 93970; 96374; 99284; J1940

== ENCOUNTER → 2021-04-09 09:14 | Outpatient (REF) | payer MEDICAID, SELFPAY | LOC: HO.CARD 09:14 | PROVIDERS: PCP Internal Medicine; Visit Provider Internal Medicine Cardiovascular Disease | DX: Z13.89 Encounter for screening for other disorder (principal) ==

== ENCOUNTER → 2021-05-01 07:47 | Outpatient (REF) | payer MEDICAID, SELFPAY ==
--- NOTE | ~2021-05-01 | NM_ITS ---
Myocardial perfusion study Indication: Anemia, CAD to evaluate for myocardial ischemia Technique: The patient was brought in for a Lexiscan perfusion study on 05/01/2021. Patient performed low-level exercise and was injected 0.4 mg of Lexiscan intravenously. Within a minute of injection, 25 mCi of sestamibi was given intravenously. Images were obtained using the SPECT gamma camera interlaced with the gating device. Images were obtained in supine position. Resting perfusion study was performed on 05/04/2021. Patient was administered 25 mCi of sestamibi intravenously at rest. Images were then obtained in supine position. Images obtained with and without CT attenuation. Total DLP 86 mGy-cm. Images were processed with the software and compared side to side in short axis, horizontal long axis and vertical long axis views. Findings: The stress perfusion study showed non attenuated images show mildly reduced uptake in the wall and moderately reduced uptake in the basal inferior wall of the LV myocardium. Remainder of the LV myocardium is normally perfused. Attenuation corrected images show normal uptake of radiotracer in all segments of LV myocardium. The gated study shows reduced LV systolic function with calculated LVEF of 46%. LV cavity is moderately dilated size. The gated study shows diffusely reduced wall thickening and contraction of all segments. Resting study shows non attenuated images show moderately reduced uptake in the basal inferior wall of the LV myocardium. Attenuation corrected images show diffuse reduced minimally reduced uptake in all segments of LV myocardium.. Gating at rest reveals diffuse hypokinesis with ejection fraction at 39%. The findings are consistent with no clear reversible defect suggestive of ischemia.. NM/NM asad perf SPECT rest & str Impression: 1. Myocardial perfusion imaging study shows no ischemia 2. Gated LVEF is 46% 3. Transient ischemic dilatation not present but LV cavity is dilated EKG is nondiagnostic for ischemia
--- NOTE | 2021-05-01 07:49 | CA_ITS ---
Acquisition Time: 2021-05-01 07:58:22 Total Exercise Time: 00:02:00 Test Indications: ABN ECHO, CAD Medications: SEE CHART Protocol: LEXISCAN Max HR: 097 BPM 59% of Pred: 163 BPM Max BP: 120/060 mmHG Max Work Load: 1.0 METS Pharmacological stress test with Lexiscan injection while sitting and kicking his legs, without anginal symptoms, with isolated PVC, with normotensive response to injection, with nondiagnostic EKG for ischemia. In recovery he reported nausea that was treated with Aminophylline 75mg IVP with resolution of symptom. Nuclear images pending. Test reviewed with Dr Ahumada. Referred By: Paul Ahumada Overread By: SUSAN RUBIO
== END ==
LOC: HO.CARD 07:47
PROVIDERS: PCP Internal Medicine; Visit Provider Internal Medicine Cardiovascular Disease
DX: I25.10 Atherosclerotic heart disease of native coronary artery without angina pectoris (principal); D64.9 Anemia, unspecified
CPT/HCPCS: 78452; 93017; A9500; J0280; J2785

== ENCOUNTER 2021-05-28 10:09 | Outpatient (REF) | payer MEDICAID, SELFPAY ==
[2021-05-28 11:04] LABS: Potassium 4.8 mmol/L (3.3-5.1)
== END 2021-05-28 10:10 | disposition home or self-care (01) ==
LOC: HO.LAB 10:09
PROVIDERS: PCP Internal Medicine; Visit Provider Internal Medicine
DX: E87.6 Hypokalemia (principal)
CPT/HCPCS: 36415; 84132

== ENCOUNTER 2021-06-18 09:57 | Outpatient (REF) | payer MEDICAID, SELFPAY ==
[2021-06-18 10:28] LABS: MANUAL DIFF FLAG NO
[2021-06-18 10:49] LABS: Basophils Percent Auto 0.9 % (0-2); Eosinophils Percent Auto 0.6 % (0-4); Hematocrit 29.7 % (42.0-52.0); Hemoglobin 9.9 g/dl (14.0-18.0); Imm Gran Abs Auto 0.04 X10*3/uL (0.00-0.03); Imm Gran Pct Auto 1.1 % (0.0-0.4); Lymphocytes Absolute Auto 0.6 X10*3/uL (1.2-4.9); Lymphocytes Percent Auto 18.1 % (20-40); Mean Corpuscular HGB Conc 33.3 g/dl (31.0-36.0); Mean Corpuscular Hemoglobin 35.4 pg (27.0-33.0); Mean Corpuscular Volume 106.1 fL (80.0-98.0); Mean Platelet Volume 10.2 fL (9.4-12.4); Monocytes Absolute Auto 0.6 X10*3/uL (0.1-1.2); Monocytes Percent Auto 16.6 % (2-11); Neutrophils Absolute Auto 2.2 x10*3/uL (2.0-8.3); Neutrophils Percent Auto 62.7 % (45-73); Red Cell Distribution Width 17.5 % (11.0-16.0); White Blood Count 3.5 X10*3/uL (4.8-10.8)
[2021-06-18 10:50] LABS: Platelet Count 33 X10*3/uL (160-400)
[2021-06-18 11:34] LABS: Alanine Aminotransferase 27 U/L (0-40); Albumin Level 2.6 g/dL (3.5-5.0); Alkaline Phosphatase 130 U/L (39-117); Anion Gap 13 (12-20); Aspartate Amino Transferase 112 U/L (5-37); Bilirubin Total 12.2 mg/dL (0.0-1.0); Blood Urea Nitrogen 3 mg/dL (9-16); Calcium 8.3 mg/dL (8.4-10.2); Carbon Dioxide 31 mmol/L (22-29); Chloride 94 mmol/L (96-108); Estimated Glomerular Filt Rate > 60; Glucose Random 143 mg/dL (60-115); Magnesium 1.3 mg/dL (1.6-2.6); Potassium 3.4 mmol/L (3.3-5.1); Sodium 135 mmol/L (135-145)
== END 2021-06-18 09:58 | disposition home or self-care (01) ==
LOC: HO.LAB 09:57
PROVIDERS: PCP Internal Medicine; Visit Provider Internal Medicine
DX: D69.6 Thrombocytopenia, unspecified (principal); R17 Unspecified jaundice; R79.0 Abnormal level of blood mineral
CPT/HCPCS: 36415; 80053; 83735; 85025

== ENCOUNTER → 2021-07-17 11:39 | Outpatient (BNVA) | payer MEDICAID, SELFPAY | PROVIDERS: PCP Internal Medicine; Referring Provider Internal Medicine; Visit Provider Internal Medicine Cardiovascular Disease | DX: I25.10 Atherosclerotic heart disease of native coronary artery without angina pectoris (principal) | CPT/HCPCS: 99212 ==

== ENCOUNTER 2021-07-20 09:45 | Inpatient (IN) | payer MEDICAID, SELFPAY ==
--- NOTE | ~2021-07-20 | US_ITS ---
EXAMINATION: US ABDOMEN LIMITED CLINICAL INFORMATION: Check portal vein flow. COMPARISON: CT of the abdomen and pelvis 07/20/2021 and abdominal ultrasound from yesterday TECHNIQUE: Portal vein Doppler exam including color Doppler imaging and waveform spectral analysis FINDINGS: The appearance of the portal veins by ultrasound is similar to yesterday's exam. The splenic vein and extrahepatic portal vein patent with reversed hepatofugal flow. The main and right portal veins appear occluded by ultrasound. US/US abdomen limited IMPRESSION: Similar portal vein Doppler findings to yesterday's ultrasound. The main, right and left portal veins appear occluded by ultrasound. The extrahepatic portal vein and splenic vein are patent with reversed hepatofugal flow.
--- NOTE | ~2021-07-20 | CT_ITS ---
EXAMINATION: CT ABDOMEN AND PELVIS WITH CONTRAST CLINICAL INFORMATION: Left lower quadrant pain COMPARISON: Previous CT of the abdomen and pelvis February 2021 TECHNIQUE: Multidetector volumetric images were obtained from the superior aspect of the liver through the pubic symphysis following administration 85 mL of Omnipaque 350 intravenous contrast. Sagittal and coronal reformatted images were obtained on the technologist's workstation. Oral contrast: Yes This CT examination was performed using dose optimization techniques as appropriate, variously including the following: *Automated exposure control *Adjustment of mA and/or kV according to patient size (this includes techniques or standardized protocols for targeted exams where dose is matched to indication/reason for exam; i.e. extremities or head) *Use of iterative reconstruction technique DLP: 464 mGy-cm FINDINGS: LUNG BASES: The visualized lung bases are unremarkable. LIVER, GALLBLADDER, AND BILIARY TREE: The liver is cirrhotic appearing. The liver demonstrates heterogeneous enhancement. There is a 7 mm low-attenuation lesion in the posterior segment of the right lobe of the liver axial image 24 series 3. Stable from previous exam and probably represents a cyst. There are additional smaller low-attenuation liver lesions that are difficult to characterize. There is no biliary duct dilatation. There are gallstones in the gallbladder. The gallbladder is upper normal in size. PANCREAS: Unremarkable. SPLEEN: Spleen is slightly enlarged and measures 13.6 cm in length. ADRENAL GLANDS: Unremarkable. KIDNEYS AND URETERS: There is a 2 mm stone in the right kidney. The kidneys are otherwise normal. BLADDER: Not optimally distended. GASTROINTESTINAL TRACT: There is diverticulosis of the colon. No evidence of diverticulitis is seen. There is question of mild wall thickening of the cecum and proximal right colon and Small and large bowel is otherwise unremarkable. The appendix is unremarkable. Stomach is nondistended. Mild proximal gastric wall thickening. ABDOMINAL WALL: There are small umbilical and left inguinal hernias containing fat and ascitic fluid. LYMPH NODES: Normal. VASCULAR: The hepatic veins and portal veins are patent. There are varices in the splenic hilum and likely a spontaneous left splenorenal shunt. There is a small amount of ascites. Atherosclerotic disease. PELVIC VISCERA: Unremarkable. OSSEOUS STRUCTURES: There are mild degenerative changes of the spine. CT/CT abdomen pelvis w con IMPRESSION: Cirrhotic appearing liver, varices, splenomegaly and small amount of ascites. Stable 7 mm low-attenuation lesion in the right lobe the liver probably representing a cyst. Heterogeneous enhancement of the liver. Follow-up liver MRI should be considered for better evaluation. Gallstones and upper normal-size gallbladder. No intra or extrahepatic biliary duct dilatation. Diverticulosis of the colon. No evidence of diverticulitis. Question mild wall thickening of the cecum and proximal right colon. This may be related to liver disease in the low albumin. Mild colitis cannot be excluded. Small right renal stone. Fleischner guidelines were followed.
--- NOTE | ~2021-07-20 | US_ITS ---
EXAMINATION: US ABDOMEN LIMITED AND ABDOMINAL DOPPLER EXAM CLINICAL INFORMATION: Cirrhosis and ascites. COMPARISON: Previous CT of the abdomen and pelvis from yesterday. TECHNIQUE: Real-time imaging of the right upper quadrant abdominal viscera. FINDINGS: PANCREAS: Not well visualized. LIVER: Liver echotexture is increased and heterogeneous suggestive of hepatocellular disease. The contour of the liver is irregular suggestive of cirrhosis. There is a 1 cm cyst in the right lobe of the liver. GALLBLADDER: The gallbladder is normal in size. There are gallstones in the gallbladder. The gallbladder wall appears thickened and edematous measuring 0.7 cm. COMMON BILE DUCT: Normal in caliber measuring 0.3 cm in diameter. RIGHT KIDNEY: There may be increased renal cortical echogenicity. No hydronephrosis. No renal calculi or focal parenchymal lesions. The kidney measures 11.6 cm in maximum dimension. FREE FLUID: There is a small amount of ascites. The spleen is enlarged and measures 15.5 cm in length. ABDOMINAL DOPPLER EXAM: No flow can be detected in the right, left or main portal veins. The vessels appear patent when compared with ultrasound from yesterday. The splenic vein is patent with reversed hepatofugal flow. There is a recannulized paraumbilical vein. There are splenorenal varices. The hepatic veins and IVC are patent with normal waveforms. Hepatic arteries not well evaluated. US/US duplex arterial venous comp IMPRESSION: Cirrhotic-appearing liver, splenomegaly and a small amount of ascites. Gallstones. The gallbladder wall is thickened and edematous. This may be related to the patient's liver disease. If there is clinical suspicion of cholecystitis, HIDA scan would be recommended. Small liver cyst. Question mild increased renal cortical echogenicity. Limited Doppler exam. No flow can be detected in the main, right or left portal veins by ultrasound. These veins appear patent on yesterday's CT scan. Reversed hepatofugal flow in the splenic vein and recanalized paraumbilical vein. Varices and probable spontaneous splenorenal shunt. Splenomegaly and small amount of ascites. Short-term followup liver Doppler exam for reevaluation of the portal vein is recommended.
[2021-07-20 10:28] VITALS: BP 117/71; PULSE 99; RESP 18; TEMP 38.2; O2SAT 97
[2021-07-20 10:33] VITALS: BMI 24.9
--- NOTE | 2021-07-20 11:43 | ED.ABDPAIN ---
HPI - Abdominal Pain General Chief Complaint: Abdominal Pain Stated Complaint: abd pain Time Seen by Provider: 07/20/21 11:40 Source: patient and old records reviewed Mode of arrival: ambulatory Limitations: no limitations History of Present Illness HPI narrative: still drinking but not as much, states he hasn't drank in about a week, notes he is eating more fruit ?diverticulitis. States his stools are actually more formed since he stopped drinking reports he hasn't really followed up with GI because they kept it a secret from me what I had here. I explained it was ETOH hepatitis and he nodded his head in understanding. MD elicited complaint: abdominal pain Pertinent past history: diverticulitis Onset (ago): day(s) (few) Pain Consistency: constant Location: groin (left groin) Severity: moderate Quality: aching Radiation: none Migration to: no migration Exacerbating factors: movement Relieving factors: nothing Context: history of similar episodes Associated symptoms: nausea, fever and chills Related Data Home Medications Medication Instructions Recorded Confirmed albuterol sulfate 90 mcg/actuation 2 puff INHALATION Q6H PRN 03/10/21 07/17/21 aerosol inhaler (ProAir HFA) cyanocobalamin (vitamin B-12) 1,000 mcg PO DAILY 03/10/21 07/17/21 1,000 mcg tablet famotidine 40 mg tablet 40 mg PO DAILY 03/10/21 07/17/21 fluticasone propionate 110 2 puff INHALATION BID 03/10/21 07/17/21 mcg/actuation HFA aerosol inhaler (Flovent HFA) folic acid 1 mg tablet 1 mg PO DAILY 03/10/21 07/17/21 magnesium oxide 400 mg (241.3 mg 1,200 mg PO DAILY 03/10/21 07/17/21 magnesium) tablet mesalamine 1.2 gram tablet,delayed 4 tab PO DAILY 03/10/21 07/17/21 release (Lialda) thiamine mononitrate (vit B1) 100 100 mg PO DAILY 03/10/21 07/17/21 mg tablet (Vitamin B-1 (mononitrate)) triamcinolone acetonide 0.1 % 1 appl TOPICAL BID 03/15/21 07/17/21 topical cream metoprolol succinate 25 mg 12.5 mg PO DAILY 07/17/21 07/17/21 tablet,extended release 24 hr potassium chloride 10 mEq 120 meq PO BID@0900,1200 tab 07/17/21 07/17/21 tablet,extended release(part/cryst) Allergies Allergy/AdvReac Type Severity Reaction Status Date / Time aspirin [ASPIRIN] AdvReac Unknown BLOOD IN Verified 03/11/21 09:34 STOOL Review of Systems Review of Systems Constitutional : No Weight loss, pos Fever, No Chills, pos malaise ENT/Mouth : No sore throat, No Rhinorrhea Eyes: No Swelling, No Redness Cardiovascular : No Chest Pain, No SOB, NoEdema Respiratory : No Cough, No Sputum, No Wheezing Gastrointestinal : Positive Nausea, no Vomiting, no Diarrhea, positive abdominal Pain, No Hematochezia, No Melena Genitourinary : No Dysuria, No Urinary Frequency, No Hematuria, No Urgency Musculoskeletal : No joint pain, No Myalgias, No Joint Swelling Skin : No Skin Lesions, No rash Neuro : pos Weakness, No Numbness, No Dizziness, No Headache Psych : No Anxiety/Panic, No Depression Heme/Lymph: No Bruising, No Lymphadenopathy Endocrine : No Polyuria, No Polydipsia All other systems reviewed and are negative. [facility] Past Medical History Attestation statement: The following information was validated with the patient. Source: old records reviewed Medical History Anemia Asthma CAD (coronary artery disease) Cirrhosis Glaucoma Liver disease Liver disease Social History Social History Household Members: Significant Other Housing: House Housing Other:: duplex Do you presently have visiting nurse or other home services: No Alcohol intake: current Alcohol intake frequency: does not drink Alcohol type: beer Patient Tobacco Use Status: Never used Tobacco Substance Use Type: Marijuana Advance Directives: Yes Advance Directives Information Provided: Yes Advance Directives on File: No service: No Current occupational status: employed Physical Exam ED Vital Signs: Vital Signs - 24 hr 07/20/21 10:28 07/20/21 12:22 07/20/21 13:30 Temperature 100.7 F H 99.1 F Pulse Rate 99 122 H Respiratory Rate 18 14 14 Blood Pressure 117/71 122/72 Pulse Oximetry 97 07/20/21 15:02 Temperature 98.6 F Pulse Rate 106 H Respiratory Rate 16 Blood Pressure 109/63 Pulse Oximetry 95 BMI result Body Mass Index 24.9 Appearance: Alert. Oriented X3. No acute distress. Eyes: Pupils equal, round and reactive to light. Scleral icterus ENT: Pharynx normal. Neck: Normal inspection. Neck supple. large under chin area is swollen / boggy but not firm or erythematous states this is chronic CVS: Normal heart rate and rhythm. Pulses normal. Respiratory: No respiratory distress. Breath sounds normal. Abdomen: Soft and mild ttp in L groin / pelvic area no actual abdominal ttp + ascites : normal scrotum no penis Skin: Skin warm and dry. jaundice skin color. Normal skin turgor. Extremities: trace pitting lower extremity edema. No calf ttp Neuro: Oriented X 3. No motor deficit. No sensory deficit. Course Course Course Narrative: infection suspected 1pm - cultures/lactic acid ordered, empiric ceftriaxone ordered, small amount of ascites not amenable to bedside diagnostic paracentesis GI involved and has seen patient at bedside agrees with plan and empiric ceftriaxone MDM - Abdominal Pain MDM Narrative Medical decision making narrative: 55 yo male with hx of CAD, HTN, GIB, diverticulitis, ETOH hepatitis who still drinks comes in with c/o L groin pain and feels a bump. I do not appreciate a bump. He reports feeling more tired and weak over the past 7 days and is not drinking anymore since he hasn't been feeling well. At this time he has a fever. He has no abdominal pain to palpation will need labs, cultures, lactic acid, IV morphine for pain, CT scan to look for colitis/infection. Given no pain to actual abdomen SBP seems unlikely. Lab Data Result diagrams: 07/20/21 12:13 07/20/21 12:14 Labs: Lab Results 07/20/21 07/20/21 07/20/21 Range/Units 12:13 12:14 12:14 WBC 6.4 (4.8-10.8) X10*3/uL RBC 2.23 L D (4.60-5.80) X10*6/uL Hgb 8.8 L (14.0-18.0) g/dl Hct 26.2 L (42.0-52.0) % MCV 117.5 H (80.0-98.0) fL MCH 39.5 H (27.0-33.0) pg MCHC 33.6 (31.0-36.0) g/dl RDW 15.4 (11.0-16.0) % Plt Count 26 L (160-400) X10*3/uL MPV 8.6 L (9.4-12.4) fL Immature Gran % (Auto) 4.5 H (0.0-0.4) % Neut % (Auto) 64.7 (45-73) % Lymph % (Auto) 16.8 L (20-40) % Petroleum % (Auto) 13.5 H (2-11) % Eos % (Auto) 0.5 (0-4) % Baso % (Auto) 0.0 (0-2) % Lymph # (Auto) 1.1 L (1.2-4.9) X10*3/uL Petroleum # (Auto) 0.9 (0.1-1.2) X10*3/uL Eos # (Auto) 0.0 (0.0-0.4) X10*3/uL Baso # (Auto) 0.0 (0.0-0.2) X10*3/uL Abs Immat Gran (auto) 0.29 H (0.00-0.03) X10*3/uL Absolute Neuts (auto) 4.1 (2.0-8.3) x10*3/uL Absolute Nucleated RBC 0.000 (0.0-0.012) X10*3/uL Nucleated RBC % (auto) 0.0 (0.0-0.2) /100WBC PT (9.9-13.0) SEC INR (0.9-1.1) APTT (24.1-38.0) SEC Sodium 135 (135-145) mmol/L Potassium 3.2 L (3.3-5.1) mmol/L Chloride 98 (96-108) mmol/L Carbon Dioxide 31 H (22-29) mmol/L Anion Gap 9 L (12-20) BUN 8 L D (9-16) mg/dL Creatinine 0.69 (0.5-1.4) mg/dL Estim Creat Clear Calc 98.9 Estimated GFR > 60 Random Glucose 97 (60-115) mg/dL Lactic Acid 1.9 (0.5-2.0) mmol/L Calcium 8.7 (8.4-10.2) mg/dL Magnesium 1.5 L (1.6-2.6) mg/dL Total Bilirubin 16.7 H (0.0-1.0) mg/dL Direct Bilirubin 7.6 H (0.0-0.5) mg/dL AST 62 H (5-37) U/L ALT 40 (0-40) U/L Alkaline Phosphatase 131 H (39-117) U/L Ammonia (13-55) umol/L Total Protein 5.9 L (6.5-8.0) g/dL Albumin 2.5 L (3.5-5.0) g/dL Lipase 107 H (8-78) U/L Ethyl Alcohol mg/dL COVID-19 (ROXY) (Negative) COVID-19 Clin Com 07/20/21 07/20/21 07/20/21 Range/Units 12:14 12:16 13:24 WBC (4.8-10.8) X10*3/uL RBC (4.60-5.80) X10*6/uL Hgb (14.0-18.0) g/dl Hct (42.0-52.0) % MCV (80.0-98.0) fL MCH (27.0-33.0) pg MCHC (31.0-36.0) g/dl RDW (11.0-16.0) % Plt Count (160-400) X10*3/uL MPV (9.4-12.4) fL Immature Gran % (Auto) (0.0-0.4) % Neut % (Auto) (45-73) % Lymph % (Auto) (20-40) % Petroleum % (Auto) (2-11) % Eos % (Auto) (0-4) % Baso % (Auto) (0-2) % Lymph # (Auto) (1.2-4.9) X10*3/uL Petroleum # (Auto) (0.1-1.2) X10*3/uL Eos # (Auto) (0.0-0.4) X10*3/uL Baso # (Auto) (0.0-0.2) X10*3/uL Abs Immat Gran (auto) (0.00-0.03) X10*3/uL Absolute Neuts (auto) (2.0-8.3) x10*3/uL Absolute Nucleated RBC (0.0-0.012) X10*3/uL Nucleated RBC % (auto) (0.0-0.2) /100WBC PT 37.8 H (9.9-13.0) SEC INR 3.2 H (0.9-1.1) APTT 37.6 (24.1-38.0) SEC Sodium (135-145) mmol/L Potassium (3.3-5.1) mmol/L Chloride (96-108) mmol/L Carbon Dioxide (22-29) mmol/L Anion Gap (12-20) BUN (9-16) mg/dL Creatinine (0.5-1.4) mg/dL Estim Creat Clear Calc Estimated GFR Random Glucose (60-115) mg/dL Lactic Acid (0.5-2.0) mmol/L Calcium (8.4-10.2) mg/dL Magnesium (1.6-2.6) mg/dL Total Bilirubin (0.0-1.0) mg/dL Direct Bilirubin (0.0-0.5) mg/dL AST (5-37) U/L ALT (0-40) U/L Alkaline Phosphatase (39-117) U/L Ammonia (13-55) umol/L Total Protein (6.5-8.0) g/dL Albumin (3.5-5.0) g/dL Lipase (8-78) U/L Ethyl Alcohol < 10 mg/dL COVID-19 (ROXY) Negative (Negative) COVID-19 Clin Com See Note 07/20/21 Range/Units 13:24 WBC (4.8-10.8) X10*3/uL RBC (4.60-5.80) X10*6/uL Hgb (14.0-18.0) g/dl Hct (42.0-52.0) % MCV (80.0-98.0) fL MCH (27.0-33.0) pg MCHC (31.0-36.0) g/dl RDW (11.0-16.0) % Plt Count (160-400) X10*3/uL MPV (9.4-12.4) fL Immature Gran % (Auto) (0.0-0.4) % Neut % (Auto) (45-73) % Lymph % (Auto) (20-40) % Petroleum % (Auto) (2-11) % Eos % (Auto) (0-4) % Baso % (Auto) (0-2) % Lymph # (Auto) (1.2-4.9) X10*3/uL Petroleum # (Auto) (0.1-1.2) X10*3/uL Eos # (Auto) (0.0-0.4) X10*3/uL Baso # (Auto) (0.0-0.2) X10*3/uL Abs Immat Gran (auto) (0.00-0.03) X10*3/uL Absolute Neuts (auto) (2.0-8.3) x10*3/uL Absolute Nucleated RBC (0.0-0.012) X10*3/uL Nucleated RBC % (auto) (0.0-0.2) /100WBC PT (9.9-13.0) SEC INR (0.9-1.1) APTT (24.1-38.0) SEC Sodium (135-145) mmol/L Potassium (3.3-5.1) mmol/L Chloride (96-108) mmol/L Carbon Dioxide (22-29) mmol/L Anion Gap (12-20) BUN (9-16) mg/dL Creatinine (0.5-1.4) mg/dL Estim Creat Clear Calc Estimated GFR Random Glucose (60-115) mg/dL Lactic Acid (0.5-2.0) mmol/L Calcium (8.4-10.2) mg/dL Magnesium (1.6-2.6) mg/dL Total Bilirubin (0.0-1.0) mg/dL Direct Bilirubin (0.0-0.5) mg/dL AST (5-37) U/L ALT (0-40) U/L Alkaline Phosphatase (39-117) U/L Ammonia 48 (13-55) umol/L Total Protein (6.5-8.0) g/dL Albumin (3.5-5.0) g/dL Lipase (8-78) U/L Ethyl Alcohol mg/dL COVID-19 (ROXY) (Negative) COVID-19 Clin Com Discharge Plan Discharge Clinical Impression: Weakness, Acute hypokalemia, Hypomagnesemia, Cirrhosis, Fever Patient Disposition: Admitted As Inpatient
[2021-07-20 12:19] LABS: MANUAL DIFF FLAG NO
[2021-07-20 12:21] LABS: Eosinophils Percent Auto 0.5 % (0-4); Hematocrit 26.2 % (42.0-52.0); Hemoglobin 8.8 g/dl (14.0-18.0); Imm Gran Abs Auto 0.29 X10*3/uL (0.00-0.03); Imm Gran Pct Auto 4.5 % (0.0-0.4); Lymphocytes Absolute Auto 1.1 X10*3/uL (1.2-4.9); Lymphocytes Percent Auto 16.8 % (20-40); Mean Corpuscular HGB Conc 33.6 g/dl (31.0-36.0); Mean Corpuscular Hemoglobin 39.5 pg (27.0-33.0); Mean Platelet Volume 8.6 fL (9.4-12.4); Monocytes Absolute Auto 0.9 X10*3/uL (0.1-1.2); Monocytes Percent Auto 13.5 % (2-11); Neutrophils Absolute Auto 4.1 x10*3/uL (2.0-8.3); Neutrophils Percent Auto 64.7 % (45-73); Red Blood Count 2.23 X10*6/uL (4.60-5.80); Red Cell Distribution Width 15.4 % (11.0-16.0); White Blood Count 6.4 X10*3/uL (4.8-10.8)
[2021-07-20 12:22] VITALS: RESP 14
[2021-07-20] MEDS: Morphine Sulfate 4 MG/ML CARTRIDGE IVPUSH (12:22)
[2021-07-20] MEDS: ondansetron HCL 4 MG/2 ML VIAL IVPUSH (12:22)
[2021-07-20] MEDS: 0.9 % Sodium Chloride 1,000 ML 999 ML IVCONT (12:23)
[2021-07-20 12:28] LABS: Mean Corpuscular Volume 117.5 fL (80.0-98.0)
[2021-07-20 12:29] LABS: Platelet Count 26 X10*3/uL (160-400)
[2021-07-20 12:34] LABS: Ethanol < 10 mg/dL
[2021-07-20 12:41] LABS: Lactic Acid 1.9 mmol/L (0.5-2.0)
[2021-07-20 12:47] LABS: COVID-19 Test Negative (Negative)
[2021-07-20 12:53] LABS: Alanine Aminotransferase 40 U/L (0-40); Albumin Level 2.5 g/dL (3.5-5.0); Alkaline Phosphatase 131 U/L (39-117); Anion Gap 9 (12-20); Aspartate Amino Transferase 62 U/L (5-37); Bilirubin Direct 7.6 mg/dL (0.0-0.5); Bilirubin Total 16.7 mg/dL (0.0-1.0); Blood Urea Nitrogen 8 mg/dL (9-16); Calcium 8.7 mg/dL (8.4-10.2); Carbon Dioxide 31 mmol/L (22-29); Chloride 98 mmol/L (96-108); Creatinine Clr Calc Pharmacy 98.9; Estimated Glomerular Filt Rate > 60; Glucose Random 97 mg/dL (60-115); Lipase 107 U/L (8-78); Magnesium 1.5 mg/dL (1.6-2.6); Potassium 3.2 mmol/L (3.3-5.1); Sodium 135 mmol/L (135-145); Total Protein 5.9 g/dL (6.5-8.0)
[2021-07-20] MEDS: iohexoL 350 MG/ML 100 ML INFUS..BTL IV (13:23)
[2021-07-20] MEDS: Magnesium Sulfate/H2O 2 GM/50 ML PIGGYBACK IV (13:26)
[2021-07-20] MEDS: Potassium Chloride ER 20 MEQ TAB.ER.PRT 40 MEQ PO (13:28)
[2021-07-20 13:30] VITALS: BP 122/72; PULSE 122; RESP 14; TEMP 37.3
[2021-07-20 13:47] LABS: Partial Thromboplastin Time 37.6 SEC (24.1-38.0)
[2021-07-20 13:55] LABS: Ammonia 48 umol/L (13-55)
[2021-07-20 14:15] LABS: INTERNATIONAL NORM RATIO 3.2 (0.9-1.1); Prothrombin Time 37.8 SEC (9.9-13.0)
[2021-07-20] MEDS: cefTRIAXone sodium 1 GM in 0.9 % Sodium Chloride 50 ML IV (14:26)
[2021-07-20 15:02] VITALS: BP 109/63; PULSE 106; RESP 16; TEMP 37; O2SAT 95
[2021-07-20 15:18] LABS: Appearance Urine CLEAR; Color Urine DK YELLOW; Glucose Urine UA NEG (NEG); Leukocyte Esterase Urine TRACE (NEG); Nitrite Urine POS (NEG); PH 5.5 (5.0-8.0); Specific Gravity - Urine <= 1.005 (1.005-1.025); UACC Culture Trigger YES; Urine Blood 2+ (NEG); Urine Ketones NEG (NEG); Urine Protein NEG (NEG-TRACE)
[2021-07-20 15:34] LABS: Bacteria Urine TRACE /LPF; Calcium Oxalate Crystals Urine 2+ /LPF; Granular Casts Urine 0-2 /LPF; Mucus Urine TRACE /LPF; Squamous Epithelial Cell Urine 1+ /LPF; WBC Clumps Urine NOTED
--- NOTE | 2021-07-20 15:55 | P.HPHOSP_ITS ---
History of Present Illness Date of Service: 07/20/21 Chief Complaint: Lower abdominal pain 55-year-old male with history of known alcohol abuse and liver failure secondary cyst cirrhosis presents with 2-3 days of lower abdominal pain specifically left groin pain. He states his pain is fine when he is laying down but the minute he gets up to ambulate it it is 9/10. He denies nausea vomiting diarrhea. He states his last alcoholic beverage was approximately 1 week ago. He denies fever and chills. CT scan done in the emergency room revealed cirrhotic liver with varices splenomegaly and a small amount ascites otherwise unremarkable. He was seen by GI will follow and advise ceftriaxone. Review of Systems Review of Systems: Denies chest pain Denies shortness of breath Denies nausea vomiting diarrhea Denies fever chills PMF Medical History Anemia Asthma CAD (coronary artery disease) Cirrhosis Glaucoma Liver disease Liver disease Social History Household Members: Significant Other Housing: House Housing Other:: duplex Do you presently have visiting nurse or other home services: No Alcohol intake: current Alcohol intake frequency: does not drink Alcohol type: beer Patient Tobacco Use Status: Never used Tobacco Substance Use Type: Marijuana Advance Directives: Yes Advance Directives Information Provided: Yes Advance Directives on File: No service: No Current occupational status: employed Meds Allergies Allergy/AdvReac Type Severity Reaction Status Date / Time aspirin [ASPIRIN] AdvReac Unknown BLOOD IN Verified 03/11/21 09:34 STOOL Active Medications: Current Medications Albuterol Sulfate (Albuterol Sulfate 90 Mcg 8 Gm Inhaler) 2 puff INHALE Q6H PRN PRN Reason: wheezing Cyanocobalamin (Cyanocobalamin (Vitamin B-12) 1,000 Mcg Tablet) 1,000 mcg PO DAILY JOHN Enoxaparin Sodium (Enoxaparin Sodium 40 Mg/0.4 Ml Syringe) 40 mg SUBCUT Q24H JOHN Famotidine (Famotidine 20 Mg Tablet) 40 mg PO DAILY JOHN Folic Acid (Folic Acid 1 Mg Tablet) 1 mg PO DAILY JOHN Dextrose/Sodium Chloride (D51/2ns) 1,000 mls @ 100 mls/hr IVCONT .Q10H JOHN Magnesium Oxide (Magnesium Oxide 400 Mg Tablet) 1,600 mg PO DAILY [facility] Non-Formulary Medication (Fluticasone Propionate [Flovent Hfa]) 2 puff INHALE BID [facility] Pharmacy Consult (Consult Rx Perform Med Rec) 1 each MISCELLANE ONCE PRN PRN Reason: Consult order Prednisone (Prednisone 20 Mg Tablet) 40 mg PO DAILY [facility] Sodium Chloride (0.9 % Sodium Chloride Flush 3 Ml Syringe) 3 ml IVFLUSH QSHIFT [facility] Thiamine HCl (Thiamine Hcl 100 Mg Tablet) 100 mg PO DAILY [facility] Home Medications Medication Instructions Recorded Confirmed Last Taken Type albuterol sulfate 90 mcg/actuation 2 puff INHALATION Q6H PRN 03/10/21 07/20/21 03/09/21 History aerosol inhaler (ProAir HFA) cyanocobalamin (vitamin B-12) 1,000 mcg PO DAILY 03/10/21 07/20/21 03/09/21 History 1,000 mcg tablet famotidine 40 mg tablet 40 mg PO DAILY 03/10/21 07/20/21 07/19/21 History fluticasone propionate 110 2 puff INHALATION BID 03/10/21 07/20/21 03/09/21 History mcg/actuation HFA aerosol inhaler (Flovent HFA) folic acid 1 mg tablet 1 mg PO DAILY 03/10/21 07/20/21 07/19/21 History magnesium oxide 400 mg (241.3 mg 1,600 mg PO DAILY 03/10/21 07/20/21 07/19/21 History magnesium) tablet mesalamine 1.2 gram tablet,delayed 4 tab PO DAILY 03/10/21 07/17/21 03/09/21 History release (Lialda) thiamine mononitrate (vit B1) 100 100 mg PO DAILY 03/10/21 07/20/21 07/19/21 History mg tablet (Vitamin B-1 (mononitrate)) metoprolol succinate 25 mg 12.5 mg PO DAILY 07/17/21 07/17/21 Unknown History tablet,extended release 24 hr potassium chloride 10 mEq 120 meq PO BID@0900,1200 tab 07/17/21 07/17/21 Unknown History tablet,extended release(part/cryst) prednisone 10 mg tablet 40 mg PO DAILY 07/20/21 07/20/21 07/19/21 History Physical Exam Vital Signs and Narrative: Vital Signs: Last Vital Signs Temp 98.6 F 07/20/21 15:02 Pulse 106 H 07/20/21 15:02 Resp 16 07/20/21 15:02 BP 109/63 07/20/21 15:02 Pulse Ox 95 07/20/21 15:02 BMI result Body Mass Index 24.9 Const: Other: Awake alert oriented x3. Resting quietly on the stretcher Neck: Other: Fluid-filled mass around circumference of his neck submandibular in origin. Patient states this has been there for ??years Resp: Other: Clear to auscultation bilaterally no rales rhonchi or wheezes Cardio: Other: No S4; is positive S1-S2; no S3 murmurs rubs or gallops GI: Other: Distended soft nontender normoactive bowel sounds. No appreciable fluid wave. There is a fullness in the left inguinal area that is very tender to touch Extrem: Other: No edema bilaterally Results Labs CBC and Chem 7: 07/20/21 12:13 07/20/21 12:14 Labs: Laboratory Results - last 24 hr 07/20/21 07/20/21 07/20/21 12:13 12:14 12:14 MCV 117.5 H MCH 39.5 H MCHC 33.6 RDW 15.4 Plt Count 26 L MPV 8.6 L Immature Gran % (Auto) 4.5 H Neut % (Auto) 64.7 Lymph % (Auto) 16.8 L [place] % (Auto) 13.5 H Eos % (Auto) 0.5 Baso % (Auto) 0.0 Lymph # (Auto) 1.1 L [place] # (Auto) 0.9 Eos # (Auto) 0.0 Baso # (Auto) 0.0 Abs Immat Gran (auto) 0.29 H Absolute Neuts (auto) 4.1 Absolute Nucleated RBC 0.000 Nucleated RBC % (auto) 0.0 PT INR APTT Anion Gap 9 L Estim Creat Clear Calc 98.9 Estimated GFR > 60 Random Glucose 97 Lactic Acid 1.9 Calcium 8.7 Magnesium 1.5 L Total Bilirubin 16.7 H Direct Bilirubin 7.6 H AST 62 H ALT 40 Alkaline Phosphatase 131 H Ammonia Total Protein 5.9 L Albumin 2.5 L Lipase 107 H Urine Color Urine Appearance Urine pH Ur Specific [place] Urine Protein Urine Glucose (UA) Urine Ketones Urine Blood Urine Nitrite Ur Leukocyte Esterase Urine RBC Urine WBC Urine WBC Clumps Ur Squamous Epith Cells Calcium Oxalate Crystal Urine Bacteria Granular Casts Urine Mucus Ethyl Alcohol COVID-19 (ROXY) COVID-19 Clin Com 07/20/21 07/20/21 07/20/21 12:14 12:16 13:24 MCV MCH MCHC RDW Plt Count MPV Immature Gran % (Auto) Neut % (Auto) Lymph % (Auto) [place] % (Auto) Eos % (Auto) Baso % (Auto) Lymph # (Auto) [place] # (Auto) Eos # (Auto) Baso # (Auto) Abs Immat Gran (auto) Absolute Neuts (auto) Absolute Nucleated RBC Nucleated RBC % (auto) PT 37.8 H INR 3.2 H APTT 37.6 Anion Gap Estim Creat Clear Calc Estimated GFR Random Glucose Lactic Acid Calcium Magnesium Total Bilirubin Direct Bilirubin AST ALT Alkaline Phosphatase Ammonia Total Protein Albumin Lipase Urine Color Urine Appearance Urine pH Ur Specific [place] Urine Protein Urine Glucose (UA) Urine Ketones Urine Blood Urine Nitrite Ur Leukocyte Esterase Urine RBC Urine WBC Urine WBC Clumps Ur Squamous Epith Cells Calcium Oxalate Crystal Urine Bacteria Granular Casts Urine Mucus Ethyl Alcohol < 10 COVID-19 (ROXY) Negative COVID-19 Clin Com See Note 07/20/21 07/20/21 13:24 14:11 MCV MCH MCHC RDW Plt Count MPV Immature Gran % (Auto) Neut % (Auto) Lymph % (Auto) [place] % (Auto) Eos % (Auto) Baso % (Auto) Lymph # (Auto) [place] # (Auto) Eos # (Auto) Baso # (Auto) Abs Immat Gran (auto) Absolute Neuts (auto) Absolute Nucleated RBC Nucleated RBC % (auto) PT INR APTT Anion Gap Estim Creat Clear Calc Estimated GFR Random Glucose Lactic Acid Calcium Magnesium Total Bilirubin Direct Bilirubin AST ALT Alkaline Phosphatase Ammonia 48 Total Protein Albumin Lipase Urine Color DK YELLOW Urine Appearance CLEAR Urine pH 5.5 Ur Specific [place] <= 1.005 Urine Protein NEG Urine Glucose (UA) NEG Urine Ketones NEG Urine Blood 2+ H Urine Nitrite POS H Ur Leukocyte Esterase TRACE H Urine RBC 5-9 H Urine WBC 1-4 Urine WBC Clumps NOTED Ur Squamous Epith Cells 1+ Calcium Oxalate Crystal 2+ Urine Bacteria TRACE Granular Casts 0-2 Urine Mucus TRACE Ethyl Alcohol COVID-19 (ROXY) COVID-19 Clin Com Imaging Radiologist's Impressions: Impressions Abdomen/Pelvis CT 07/20/21 13:24 IMPRESSION: Cirrhotic appearing liver, varices, splenomegaly and small amount of ascites. Stable 7 mm low-attenuation lesion in the right lobe the liver probably representing a cyst. Heterogeneous enhancement of the liver. Follow-up liver MRI should be considered for better evaluation. Gallstones and upper normal-size gallbladder. No intra or extrahepatic biliary duct dilatation. Diverticulosis of the colon. No evidence of diverticulitis. Question mild wall thickening of the cecum and proximal right colon. This may be related to liver disease in the low albumin. Mild colitis cannot be excluded. Small right renal stone. Fleischner guidelines were followed. Assessment and Plan (1) Abdominal pain: Status: Acute (2) Cirrhosis: Qualifiers: Ascites presence: with ascites Hepatic cirrhosis type: alcoholic cirrhosis Qualified Code(s): K70.31 - Alcoholic cirrhosis of liver with ascites Status: Acute (3) Acute hypokalemia: Status: Acute (4) CAD (coronary artery disease): Status: Acute Plan 55-year-old male with known history of cirrhosis presents with lower abdominal pain and mild ascites. He states his last drink was 2 weeks ago. He denies history of withdrawal seizures. Seen by GI who advises admit IV ceftriaxone 1Abdominal Pain(and backdrop of cirrhosis with mild ascites) -admit to [facility]; gentle IV fluids -IV ceftriaxone -GI to follow -pain management 2. Alcohol abuse by history -observed on CIWA scale 3. Coronary artery disease (asymptomatic) -continue outpatient therapies -adjust as clinically indicated Full code Lovenox Anticipate 2 midnights going forward for treatment of abdominal pain and workup of etiology Quality Stroke Does the patient have a stroke diagnosis?: No VTE Prior VTE?: No VTE Risk Level:: Medical - moderate - high VTE Device Contraindication: Treatment Not Indicated VTE Drug Contraindication: N/A - Med Ordered
--- NOTE | 2021-07-20 16:02 | PHA.MEDREC ---
MED REC COMPLETE, NO ISSUES Pharmacy Consult ? Medication Reconciliation Pharmacy has completed the medication reconciliation.
[2021-07-20] MEDS: 0.9 % Sodium Chloride Flush 3 ML SYRINGE IVFLUSH (16:23)
[2021-07-20] MEDS: Dextrose 5 % and 0.45 % NaCl 1,000 ML 100 ML IVCONT (16:24)
[2021-07-20] MEDS: Phytonadione (Vit K1) 10 MG in 0.9 % Sodium Chloride 50 ML 51 MG IV (16:54)
[2021-07-20] MEDS: Thiamine HCL 100 MG TABLET PO (17:03)
[2021-07-20] MEDS: Magnesium Oxide 400 MG TABLET 1600 MG PO (17:03)
[2021-07-20] MEDS: predniSONE 20 MG TABLET 40 MG PO (17:03)
[2021-07-20] MEDS: Folic Acid 1 MG TABLET PO (17:04)
[2021-07-20 18:35] VITALS: BP 114/64; PULSE 105; RESP 15; TEMP 37.2; O2SAT 94
--- NOTE | 2021-07-20 18:53 | P.CNGI_ITS ---
History of Present Illness Data of Consult Service Date: 07/20/21 Requesting physician: Sabino Jackson Primary Care Provider: Thierno Browne MD HPI Reason for consult: abdominal pain, worsening LFT 55-year-old male with history of alcohol abuse and alcohol related cirrhosis who I am seeing for assessment of abdominal pain. Patient noted few days of worsening left groin pain, which he can localize, 9/10 in severity and worse with standing, ok with lying down. Not worse with food. Denies nausea, vomiting, diarrhea, blood in stool. melena. No fevers or chills. Vague on alcohol intake recently but says last beer was [address] imaging: cirrhotic liver with varices splenomegaly and a small amount ascites incl fluid and strading around the left inguinal area, no hernia noted Labs with worsening LFT as compared to last admission, BILI 16, alk phos 130, INR 3.2 HGB around 9 g/dl Review of Systems Review of Systems: Denies chest pain Denies shortness of breath Denies nausea vomiting diarrhea Denies fever chills PMFSH Past Medical History Medical History Anemia Asthma CAD (coronary artery disease) Cirrhosis Glaucoma Liver disease Liver disease Social History Social History Household Members: Significant Other Housing: House Housing Other:: duplex Do you presently have visiting nurse or other home services: No Alcohol intake: current Alcohol intake frequency: does not drink Alcohol type: beer Patient Tobacco Use Status: Never used Tobacco Substance Use Type: Marijuana Advance Directives: Yes Advance Directives Information Provided: Yes Advance Directives on File: No service: No Current occupational status: employed Meds Allergies Allergy/AdvReac Type Severity Reaction Status Date / Time aspirin [ASPIRIN] AdvReac Unknown BLOOD IN Verified 03/11/21 09:34 STOOL Active Medications: Current Medications Albuterol Sulfate (Albuterol Sulfate 90 Mcg 8 Gm Inhaler) 2 puff INHALE Q6H PRN PRN Reason: wheezing Cyanocobalamin (Cyanocobalamin (Vitamin B-12) 1,000 Mcg Tablet) 1,000 mcg PO DAILY JOHN Enoxaparin Sodium (Enoxaparin Sodium 40 Mg/0.4 Ml Syringe) 40 mg SUBCUT Q24H JOHN Famotidine (Famotidine 20 Mg Tablet) 40 mg PO DAILY [facility] Fluticasone Propionate (Fluticasone Propionate 100 Mcg Blst.W.Dev) 2 puff INHALE RBID [facility] Folic Acid (Folic Acid 1 Mg Tablet) 1 mg PO DAILY [facility] Last Admin: 07/20/21 17:04 Dose: 1 mg Documented by: Dextrose/Sodium Chloride (D51/2ns) 1,000 mls @ 100 mls/hr IVCONT .Q10H [facility] Last Admin: 07/20/21 16:24 Dose: 100 mls/hr Documented by: Ceftriaxone Sodium 1 gm/ (Sodium Chloride) 50 mls @ 100 mls/hr IV Q24H [facility] Magnesium Oxide (Magnesium Oxide 400 Mg Tablet) 1,600 mg PO DAILY [facility] Last Admin: 07/20/21 17:03 Dose: 1,600 mg Documented by: Oxycodone HCl (Oxycodone Hcl Immed Release 5 Mg Tablet) 5 mg PO Q6H PRN PRN Reason: Pain, Moderate (Pain Scale 4-6 Pharmacy Consult (Consult Rx Perform Med Rec) 1 each MISCELLANE ONCE PRN PRN Reason: Consult order Prednisone (Prednisone 20 Mg Tablet) 40 mg PO DAILY [facility] Last Admin: 07/20/21 17:03 Dose: 40 mg Documented by: Sodium Chloride (0.9 % Sodium Chloride Flush 3 Ml Syringe) 3 ml IVFLUSH QSHIFT [facility] Last Admin: 07/20/21 16:23 Dose: 3 ml Documented by: Thiamine HCl (Thiamine Hcl 100 Mg Tablet) 100 mg PO DAILY [facility] Last Admin: 07/20/21 17:03 Dose: 100 mg Documented by: Home Medications Medication Instructions Recorded Confirmed Last Taken Type albuterol sulfate 90 mcg/actuation 2 puff INHALATION Q6H PRN 03/10/21 07/20/21 03/09/21 History aerosol inhaler (ProAir HFA) cyanocobalamin (vitamin B-12) 1,000 mcg PO DAILY 03/10/21 07/20/21 03/09/21 History 1,000 mcg tablet famotidine 40 mg tablet 40 mg PO DAILY 03/10/21 07/20/21 07/19/21 History fluticasone propionate 110 2 puff INHALATION BID 03/10/21 07/20/21 03/09/21 History mcg/actuation HFA aerosol inhaler (Flovent HFA) folic acid 1 mg tablet 1 mg PO DAILY 03/10/21 07/20/21 07/19/21 History magnesium oxide 400 mg (241.3 mg 1,600 mg PO DAILY 03/10/21 07/20/21 07/19/21 History magnesium) tablet mesalamine 1.2 gram tablet,delayed 4 tab PO DAILY 03/10/21 07/20/21 07/19/21 History release (Lialda) thiamine mononitrate (vit B1) 100 100 mg PO DAILY 03/10/21 07/20/21 07/19/21 History mg tablet (Vitamin B-1 (mononitrate)) metoprolol succinate 25 mg 12.5 mg PO DAILY 07/17/21 07/20/21 07/19/21 History tablet,extended release 24 hr potassium chloride 10 mEq 120 meq PO DAILY tab 07/17/21 07/20/21 07/19/21 Hi story tablet,extended release(part/cryst) prednisone 10 mg tablet 40 mg PO DAILY 07/20/21 07/20/21 07/19/21 History Physical Exam Vital Signs: Vital Signs: Last Vital Signs Temp 98.9 F 07/20/21 18:35 Pulse 105 H 07/20/21 18:35 Resp 15 07/20/21 18:35 BP 114/64 07/20/21 18:35 Pulse Ox 94 07/20/21 18:35 BMI result Body Mass Index 24.9 Const: Other: Awake alert oriented x3. Resting quietly on the stretcher Orientation/consciousness: patient oriented x3 Neck: Other: Fluid-filled mass around circumference of his neck submandibular in origin. Resp: Other: Clear to auscultation bilaterally no rales rhonchi or wheezes Cardio: Other: No S4; is positive S1-S2; no S3 murmurs rubs or gallops GI: Other: Distended soft nontender normoactive bowel sounds. No appreciable fluid wave. No obvious hernia seen but patient lying flat in bed, v tender over inguinal c anal Neuro: General: patient oriented x3 Extrem: Other: No edema bilaterally General: Yes normal to inspection Psych: Appearance: grossly normal Results Labs CBC & Chem 7: 07/20/21 12:13 07/20/21 12:14 Labs: Short CBC 07/20/21 Range/Units 12:13 WBC 6.4 (4.8-10.8) X10*3/uL Hgb 8.8 L (14.0-18.0) g/dl Hct 26.2 L (42.0-52.0) % Plt Count 26 L (160-400) X10*3/uL BMP 07/20/21 12:14 Sodium 135 Potassium 3.2 L Chloride 98 Carbon Dioxide 31 H BUN 8 L D Creatinine 0.69 Calcium 8.7 Liver Function 07/20/21 Range/Units 12:14 Total Bilirubin 16.7 H (0.0-1.0) mg/dL Direct Bilirubin 7.6 H (0.0-0.5) mg/dL AST 62 H (5-37) U/L ALT 40 (0-40) U/L Alkaline Phosphatase 131 H (39-117) U/L Albumin 2.5 L (3.5-5.0) g/dL Urine 07/20/21 Range/Units 14:11 Urine Color DK YELLOW Urine Appearance CLEAR Urine pH 5.5 (5.0-8.0) Ur Specific [place] <= 1.005 (1.005-1.025) Urine Protein NEG (NEG-TRACE) MG/DL Urine Glucose (UA) NEG (NEG) MG/DL Imaging CT scan - abdomen: Attestation: I personally reviewed and interpreted this imaging study as follows: My impression: small pockets of ascites incl left inguinal canal, cirrhosis, varices Assessment and Plan (1) Abdominal pain: Status: Acute (2) Cirrhosis: Qualifiers: Ascites presence: with ascites Hepatic cirrhosis type: alcoholic cirrhosis Qualified Code(s): K70.31 - Alcoholic cirrhosis of liver with ascites Status: Acute Plan 1/ Worsening liver tests with rising bili and INR, maybe due to ongoing alcohol use ddx; superimposed viral hep, other drug toxicity, bud chairi, HCC, sepsis 2/ Left inguinal pain and fluid on CT< may have an inguinal hernia which reduces on lying flat ddx; myofacial, pain, groin sprain PLAN: 1/ chec liver serologies, incl hep screen for A,B,C, E, acetaminophen level, slicylates, 2/ US doppler and US liver 3/ if can tap ascites would be better, if not then empirical ceftriaxone for 5 d and assess response 4/ monitor for inguinal hernia, check UA 5/ vit K 10 mg IV for 3 d and assess response 6/ alcohol withdrawal protocol wt thiamine and Multi vitamin Procedures Date of Service Date of Service: 07/20/21
[2021-07-20 20:05] LABS: Acetaminophen LAB < 1 mcg/mL (<30); Lactate Dehydrogenase 396 U/L (118-273); Salicylate < 5.0 mg/dL (15-30)
[2021-07-20] MEDS: oxyCODONE HCl Immed Release 5 MG TABLET PO (21:26)
--- NOTE | 2021-07-20 22:35 | MHC.CM.PN ---
CM met with admitted patient with bed assignment pending. A&Ox3. Lives at times with mother and at times with girlfriend. HCP on file. HCP/girlfriend Rose(Dionne) Pippa ([phone]). HCP#2 Isaura [place] (mother) [phone]). Fully vaccinated and boosted with Moderna. D/C plan is home without services. CARE/recovery team prior to D/C-alcohol misuse disorder. Pt to arrange transportation home. CM to follow for d/c needs.
[2021-07-20 22:52] VITALS: BP 128/67; PULSE 89; RESP 16; TEMP 36.7; O2SAT 99
[2021-07-21] VITALS (11 sets, daily range): BP systolic 107–130; BP diastolic 47–79; PULSE 78–110; RESP 16–18; TEMP 36.6–37.3; O2SAT 96–98
[2021-07-21] MEDS: Dextrose 5 % and 0.45 % NaCl 1,000 ML 100 ML IVCONT ×2 (03:37→11:06)
[2021-07-21 09:07] LABS: Baso%MD 0.2 %; Eos%MD 0.2 %; Hematocrit 23.3 % (42.0-52.0); Hemoglobin 7.9 g/dl (14.0-18.0); IG%MD 4.9 %; Immature Retic Fraction 15.8 % (2.3-13.4); Lymph%MD 9.8 %; Mean Corpuscular HGB Conc 33.9 g/dl (31.0-36.0); Mean Corpuscular Hemoglobin 39.9 pg (27.0-33.0); Mean Corpuscular Volume 117.7 fL (80.0-98.0); Mean Platelet Volume 9.3 fL (9.4-12.4); Mono%MD 10.1 %; Neut%MD 74.8 %; Red Blood Count 1.98 X10*6/uL (4.60-5.80); Red Cell Distribution Width 15.1 % (11.0-16.0); Retic HGB Equivalent 39.1 pg (30.0-35.0); Reticulocyte Percent 8.1 % (0.5-1.8); Reticulocytes Absolute 0.159 X10*6/uL (0.026-0.095); White Blood Count 6.5 X10*3/uL (4.8-10.8)
[2021-07-21] MEDS: Famotidine 20 MG TABLET 40 MG PO (09:07)
[2021-07-21] MEDS: Fluticasone Propionate 100 MCG BLST.W.DEV 2 PUFF INHALE (09:07)
[2021-07-21 09:08] LABS: Platelet Count 24 X10*3/uL (160-400)
[2021-07-21] MEDS: Folic Acid 1 MG TABLET PO (09:08)
[2021-07-21] MEDS: predniSONE 20 MG TABLET 40 MG PO (09:08)
[2021-07-21] MEDS: Thiamine HCL 100 MG TABLET PO (09:08)
[2021-07-21] MEDS: Cyanocobalamin (Vitamin B-12) 1,000 MCG TABLET 1000 MCG PO (09:08)
[2021-07-21] MEDS: Magnesium Oxide 400 MG TABLET 1600 MG PO (09:08)
[2021-07-21 09:15] LABS: Prothrombin Time 34.5 SEC (9.9-13.0)
[2021-07-21 09:22] LABS: Alanine Aminotransferase 33 U/L (0-40); Albumin Level 2.2 g/dL (3.5-5.0); Alkaline Phosphatase 97 U/L (39-117); Anion Gap 11 (12-20); Aspartate Amino Transferase 46 U/L (5-37); Bilirubin Total 18.2 mg/dL (0.0-1.0); Blood Urea Nitrogen 10 mg/dL (9-16); Calcium 7.8 mg/dL (8.4-10.2); Carbon Dioxide 29 mmol/L (22-29); Chloride 99 mmol/L (96-108); Creatinine Clr Calc Pharmacy 103.4; Estimated Glomerular Filt Rate > 60; Glucose Fasting 140 mg/dL (60-99); Magnesium 1.8 mg/dL (1.6-2.6); Potassium 3.8 mmol/L (3.3-5.1); Sodium 135 mmol/L (135-145); Total Protein 5.2 g/dL (6.5-8.0)
[2021-07-21 09:36] LABS: Band Neutrophils Percent 7 % (3-5); Lymphocytes Absolute Manual 0.1 X10*3/uL (1.2-4.9); Lymphocytes Percent Manual 2 % (20-40); Monocytes Absolute Manual 0.4 X10*3/uL (0.1-1.2); Monocytes Percent Manual 6 % (2-11); Neutrophils Percent Manual 85 % (45-73)
[2021-07-21 09:38] LABS: RBC Morphology NOTED
[2021-07-21 09:39] LABS: Macrocytosis 1+ (5-14) /OIF; Polychromasia 2+ (3-5) /OIF
[2021-07-21 09:40] LABS: Hypochromasia 1+ (5-14) /OIF; Platelet Estimate DECREASED (NORMAL); Platelet Morphology Comment NORMAL
[2021-07-21] MEDS: Phytonadione (Vit K1) 10 MG in 0.9 % Sodium Chloride 50 ML 51 MG IV ×2 (09:43→21:30)
[2021-07-21 09:47] LABS: HBS Num1 1.48 mIU/mL (0-7.99); HBc Num1 0.24 S/CO (0.00-0.79); HBsAGNum1 0.21 S/CO (0.00-0.99); Hepatitis B Core Antibody Nonreactive (Nonreactive); Hepatitis B Surface Antigen Negative (Negative); ~Hepatitis B Surface Antibody NONREACTIVE (Nonreactive)
[2021-07-21 09:49] LABS: ~HepC Num1 0.18 S/CO (0.00-0.79); ~Hepatitis C Antibody Nonreactive (Nonreactive)
[2021-07-21] MEDS: Morphine Sulfate 2 MG/ML CARTRIDGE IVPUSH ×2 (11:38→15:41)
[2021-07-21] MEDS: cefTRIAXone sodium 1 GM in 0.9 % Sodium Chloride 50 ML IV (14:30)
--- NOTE | 2021-07-21 14:35 | PC.NURSE ---
Pt a/o. Resting in the hospital bed. Pt c/o some lower abdominal pain. Medicated per JUN. pt independent to the bedside commode. IVFs continued. Pt provided with vitK infusion. Offering no other complaints at this time. belongings and callbell within reach. pt uses callbell appropriatly.
--- NOTE | 2021-07-21 15:02 | P.PNIM_ITS ---
Subjective Subjective Date of Service: 07/21/21 Interval History: Ongoing L groin pain No withdrawal symptoms No N/V Review of Systems Review of Systems: Yes all other systems are reviewed and are negative Physical Exam Vital Signs: Vital Signs: Last Vital Signs Temp 99.2 F 07/21/21 05:33 Pulse 98 07/21/21 12:40 Resp 16 07/21/21 12:40 BP 112/59 L 07/21/21 12:40 Pulse Ox 97 07/21/21 12:40 BMI result Body Mass Index 24.9 Gen: in no acute distress HEENT: sclera anicteric, moist mucus membranes Neck: supple, extensive lipodystrophy Lungs: clear to auscultation bilaterally Heart: regular rate and rhythm, no murmurs Abd: soft, non-tender, non-distended, tender L groin Ext: trace edema Skin: warm/well-perfused Neuro: alert and oriented x3, no focal findings Psych: appropriate affect Objective Data Active Medications Albuterol Sulfate (Albuterol Sulfate 90 Mcg 8 Gm Inhaler) 2 puff INHALE Q6H PRN PRN Reason: wheezing Cyanocobalamin (Cyanocobalamin (Vitamin B-12) 1,000 Mcg Tablet) 1,000 mcg PO DAILY [facility] Last Admin: 07/21/21 09:08 Dose: 1,000 mcg Documented by: TRAM Enoxaparin Sodium (Enoxaparin Sodium 40 Mg/0.4 Ml Syringe) 40 mg SUBCUT Q24H [facility] Last Admin: 07/20/21 19:33 Dose: Not Given Documented by: GABINO Non-Admin Reason: See Note Famotidine (Famotidine 20 Mg Tablet) 40 mg PO DAILY [facility] Last Admin: 07/21/21 09:07 Dose: 40 mg Documented by: TRAM Fluticasone Propionate (Fluticasone Propionate 100 Mcg Blst.W.Dev) 2 puff INHALE RBID [facility] Last Admin: 07/21/21 09:07 Dose: 2 puff Documented by: SALLY Folic Acid (Folic Acid 1 Mg Tablet) 1 mg PO DAILY [facility] Last Admin: 07/21/21 09:08 Dose: 1 mg Documented by: TRAM Dextrose/Sodium Chloride (D51/2ns) 1,000 mls @ 100 mls/hr IVCONT .Q10H [facility] Last Admin: 07/21/21 11:06 Dose: 100 mls/hr Documented by: TRAM Ceftriaxone Sodium 1 gm/ (Sodium Chloride) 50 mls @ 100 mls/hr IV Q24H [facility] Last Admin: 07/21/21 14:30 Dose: 100 mls/hr Documented by: MARLEY Phytonadione 10 mg/ Sodium (Chloride) 51 mls @ 51 mls/hr IV DAILY [facility] Stop: 07/22/21 09:59 Last Infusion: 07/21/21 10:50 Dose: 0 mls/hr Documented by: TRAM Magnesium Oxide (Magnesium Oxide 400 Mg Tablet) 1,600 mg PO DAILY [facility] Last Admin: 07/21/21 09:08 Dose: 1,600 mg Documented by: TRAM Morphine Sulfate (Morphine Sulfate 2 Mg/Ml Cartridge) 2 mg IVPUSH Q4H PRN; Prot ocol PRN Reason: severe pain Last Admin: 07/21/21 11:38 Dose: 2 mg Documented by: TRAM Oxycodone HCl (Oxycodone Hcl Immed Release 5 Mg Tablet) 5 mg PO Q6H PRN PRN Reason: Pain, Moderate (Pain Scale 4-6 Last Admin: 07/20/21 21:26 Dose: 5 mg Documented by: GABION Pharmacy Consult (Consult Rx Perform Med Rec) 1 each MISCELLANE ONCE PRN PRN Reason: Consult order Prednisone (Prednisone 20 Mg Tablet) 40 mg PO DAILY [facility] Last Admin: 07/21/21 09:08 Dose: 40 mg Documented by: TRAM Sodium Chloride (0.9 % Sodium Chloride Flush 3 Ml Syringe) 3 ml IVFLUSH QSHIFT [facility] Last Admin: 07/21/21 14:39 Dose: Not Given Documented by: TRAM Non-Admin Reason: IV Running Thiamine HCl (Thiamine Hcl 100 Mg Tablet) 100 mg PO DAILY [facility] Last Admin: 07/21/21 09:08 Dose: 100 mg Documented by: TRAM Labs CBC & Chem 7: 07/21/21 08:49 07/21/21 08:49 Labs: Laboratory Results - last 24 hr 07/20/21 07/20/21 07/21/21 12:14 14:11 08:49 MCV MCH MCHC RDW Plt Count MPV Absolute Nucleated RBC Nucleated RBC % (auto) Neutrophils % (Manual) Band Neutrophils % Lymphocytes % (Manual) Monocytes % (Manual) Abs Neuts (Manual) Lymphocytes # (Manual) Monocytes # (Manual) Platelet Estimate Plt Morphology Comment RBC Morphology Polychromasia Hypochromasia Macrocytosis Absolute Retic Percent Retic Immature Retic Fraction Retic Hgb Equivalent PT INR Anion Gap Estim Creat Clear Calc Estimated GFR Fasting Glucose Calcium Magnesium Total Bilirubin AST ALT Alkaline Phosphatase Lactate Dehydrogenase 396 H Total Protein Albumin Urine Color DK YELLOW Urine Appearance CLEAR Urine pH 5.5 Ur Specific [place] <= 1.005 Urine Protein NEG Urine Glucose (UA) NEG Urine Ketones NEG Urine Blood 2+ H Urine Nitrite POS H Ur Leukocyte Esterase TRACE H Urine RBC 5-9 H Urine WBC 1-4 Urine WBC Clumps NOTED Ur Squamous Epith Cells 1+ Calcium Oxalate Crystal 2+ Urine Bacteria TRACE Granular Casts 0-2 Urine Mucus TRACE Salicylates < 5.0 L Acetaminophen < 1 Hep Bs Antigen Negative Hep Bs Antibody NONREACTIVE Hep B Core Total Ab Nonreactive Hepatitis C Ab (EIA) Nonreactive NIK, Polyspecific Positive NIK Work-up 07/21/21 07/21/21 07/21/21 08:49 08:49 08:49 MCV 117.7 H MCH 39.9 H MCHC 33.9 RDW 15.1 Plt Count 24 L MPV 9.3 L Absolute Nucleated RBC 0.000 Nucleated RBC % (auto) 0.0 Neutrophils % (Manual) 85 H Band Neutrophils % 7 H Lymphocytes % (Manual) 2 L Monocytes % (Manual) 6 Abs Neuts (Manual) 6.0 Lymphocytes # (Manual) 0.1 L Monocytes # (Manual) 0.4 Platelet Estimate DECREASED Plt Morphology Comment NORMAL RBC Morphology NOTED Polychromasia 2+ (3-5) Hypochromasia 1+ (5-14) Macrocytosis 1+ (5-14) Absolute Retic 0.159 H Percent Retic 8.1 H Immature Retic Fraction 15.8 H Retic Hgb Equivalent 39.1 H PT 34.5 H INR 3.0 H Anion Gap 11 L Estim Creat Clear Calc 103.4 Estimated GFR > 60 Fasting Glucose 140 H Calcium 7.8 L D Magnesium 1.8 Total Bilirubin 18.2 H AST 46 H ALT 33 Alkaline Phosphatase 97 D Lactate Dehydrogenase Total Protein 5.2 L Albumin 2.2 L Urine Color Urine Appearance Urine pH Ur Specific [place] Urine Protein Urine Glucose (UA) Urine Ketones Urine Blood Urine Nitrite Ur Leukocyte Esterase Urine RBC Urine WBC Urine WBC Clumps Ur Squamous Epith Cells Calcium Oxalate Crystal Urine Bacteria Granular Casts Urine Mucus Salicylates Acetaminophen Hep Bs Antigen Hep Bs Antibody Hep B Core Total Ab Hepatitis C Ab (EIA) NIK, Polyspecific Positive NIK Work-up 07/21/21 11:56 MCV MCH MCHC RDW Plt Count MPV Absolute Nucleated RBC Nucleated RBC % (auto) Neutrophils % (Manual) Band Neutrophils % Lymphocytes % (Manual) Monocytes % (Manual) Abs Neuts (Manual) Lymphocytes # (Manual) Monocytes # (Manual) Platelet Estimate Plt Morphology Comment RBC Morphology Polychromasia Hypochromasia Macrocytosis Absolute Retic Percent Retic Immature Retic Fraction Retic Hgb Equivalent PT INR Anion Gap Estim Creat Clear Calc Estimated GFR Fasting Glucose Calcium Magnesium Total Bilirubin AST ALT Alkaline Phosphatase Lactate Dehydrogenase Total Protein Albumin Urine Color Urine Appearance Urine pH Ur Specific [place] Urine Protein Urine Glucose (UA) Urine Ketones Urine Blood Urine Nitrite Ur Leukocyte Esterase Urine RBC Urine WBC Urine WBC Clumps Ur Squamous Epith Cells Calcium Oxalate Crystal Urine Bacteria Granular Casts Urine Mucus Salicylates Acetaminophen Hep Bs Antigen Hep Bs Antibody Hep B Core Total Ab Hepatitis C Ab (EIA) NIK, Polyspecific NEGATIVE Positive NIK Work-up TNP Microbiology Microbiology Results: Microbiology 07/20/21 13:24 Blood Culture - Preliminary Blood - Venous Prelim: GPC Gram Stain only 07/20/21 Unknown Urine Culture - Preliminary Urine clean catch - Urine falk top Staphylococcus species Assessment and Plan (1) Abdominal pain: Status: Acute Plan hospital d#2 55yo M with EtOH cirrhosis presenting with groin/lower abd pain, mild ascites # abd/groin pain - suspect due to hernia- surgery consult pending- but on ceftriaxone d#2 for possible SBP though ascites seems too small to tap # bacteremia - 1/2 BCx + for GPCs in clusters, also Staph growing in urine. start vanco, follow ID/susceptibilities # EtOH hepatitis - continue prednisone. GI following. - US abd + Dopplers pending # hemolytic anemia - ?Zieve syndrome- check lipid panel # coagulopathy - vit K, monitor INR # CAD - hold metoprolol in case of SBP # AUD - out of withdrawal window, no seizures - continue vitamins # VTE ppx - LMWH In my clinical judgment, the patient requires continued hospitalization for the following reasons: pain, IV ABX Quality Stroke Does the patient have a stroke diagnosis?: No VTE Prior VTE?: No VTE Risk Level:: Medical - moderate - high VTE Device Contraindication: Treatment Not Indicated VTE Drug Contraindication: N/A - Med Ordered
--- NOTE | 2021-07-21 17:08 | P.CONGS_ITS ---
History of Present Illness Consult details Consult date: 07/21/21 Narrative: 55-year-old male patient presenting for evaluation of a left inguinal hernia.? He has a known history of cirrhosis due to alcohol abuse as well as a history of diverticulitis with complaints of pain in the left groin.? He denied nausea, vomiting, fever, or chills.? CT of the abdomen and pelvis revealed cirrhotic liver with varices, splenomegaly, and ascites.? A small fluid-filled umbilical and left inguinal hernia was identified.? No bowel was noted within the hernia sacs.? He denies a previous history of hernias or hernia surgery.? He is currently being treated with antibiotics.? He reports moving his bowels earlier today. Review of Systems Review of Systems: Yes all other systems are reviewed and are negative Constitutional: Constitutional: Denies chills, Denies fever(s) and Denies headache(s) ENT: Denies headache(s) Cardiovascular: Cardiovascular: Denies chest pain, Denies chest pain with activity and Denies irregular heart rhythm Respiratory: Respiratory: Denies cough, Denies pain on inspiration and Denies wheezing Gastrointestinal: Gastrointestinal: Reports as per HPI and Reports abdominal pain Integumentary/Breasts: Skin/Breast: Reports system reviewed and no additional complaints, except as docu Neurologic: Denies headache(s) Allergic/Immunologic: Allergic/Immunologic: Denies wheezing PMFSH Past Medical History Medical History Anemia Asthma CAD (coronary artery disease) Cirrhosis Glaucoma Liver disease Liver disease Social History Social History Household Members: Significant Other Housing: House Housing Other:: duplex Do you presently have visiting nurse or other home services: No Alcohol intake: current Alcohol intake frequency: does not drink Alcohol type: beer Patient Tobacco Use Status: Never used Tobacco Substance Use Type: Marijuana Advance Directives: Yes Advance Directives Information Provided: Yes Advance Directives on File: No service: No Current occupational status: unemployed Meds Allergies Allergy/AdvReac Type Severity Reaction Status Date / Time lactose Allergy Gastrointestinal Verified 07/21/21 11:42 Upset aspirin [ASPIRIN] AdvReac Unknown BLOOD IN Verified 03/11/21 09:34 STOOL Active Medications: Current Medications Albuterol Sulfate (Albuterol Sulfate 90 Mcg 8 Gm Inhaler) 2 puff INHALE Q6H PRN PRN Reason: wheezing Cyanocobalamin (Cyanocobalamin (Vitamin B-12) 1,000 Mcg Tablet) 1,000 mcg PO DAILY [facility] Last Admin: 07/21/21 09:08 Dose: 1,000 mcg Documented by: Enoxaparin Sodium (Enoxaparin Sodium 40 Mg/0.4 Ml Syringe) 40 mg SUBCUT Q24H [facility] Last Admin: 07/20/21 19:33 Dose: Not Given Documented by: Famotidine (Famotidine 20 Mg Tablet) 40 mg PO DAILY [facility] Last Admin: 07/21/21 09:07 Dose: 40 mg Documented by: Fluticasone Propionate (Fluticasone Propionate 100 Mcg Blst.W.Dev) 2 puff INHALE RBID [facility] Last Admin: 07/21/21 09:07 Dose: 2 puff Documented by: Folic Acid (Folic Acid 1 Mg Tablet) 1 mg PO DAILY [facility] Last Admin: 07/21/21 09:08 Dose: 1 mg Documented by: Dextrose/Sodium Chloride (D51/2ns) 1,000 mls @ 100 mls/hr IVCONT .Q10H [facility] Last Admin: 07/21/21 11:06 Dose: 100 mls/hr Documented by: Ceftriaxone Sodium 1 gm/ (Sodium Chloride) 50 mls @ 100 mls/hr IV Q24H [facility] Last Infusion: 07/21/21 15:21 Dose: Infused Documented by: Phytonadione 10 mg/ Sodium (Chloride) 51 mls @ 51 mls/hr IV DAILY [facility] Stop: 07/22/21 09:59 Last Infusion: 07/21/21 10:50 Dose: Infused Documented by: Vancomycin HCl 1,500 mg/ (Sodium Chloride) 500 mls @ 333.333 mls/hr IV ONCE ONE Stop: 07/21/21 19:29 Vancomycin HCl 1,000 mg/ (Sodium Chloride) 270 mls @ 270 mls/hr IV Q12H [facility] Magnesium Oxide (Magnesium Oxide 400 Mg Tablet) 1,600 mg PO DAILY [facility] Last Admin: 07/21/21 09:08 Dose: 1,600 mg Documented by: Morphine Sulfate (Morphine Sulfate 2 Mg/Ml Cartridge) 2 mg IVPUSH Q4H PRN; Pro tocol PRN Reason: severe pain Last Admin: 07/21/21 15:41 Dose: 2 mg Documented by: Oxycodone HCl (Oxycodone Hcl Immed Release 5 Mg Tablet) 5 mg PO Q6H PRN PRN Reason: Pain, Moderate (Pain Scale 4-6 Last Admin: 07/20/21 21:26 Dose: 5 mg Documented by: Pharmacy Consult (Consult Rx Perform Med Rec) 1 each MISCELLANE ONCE PRN PRN Reason: Consult order Pharmacy Consult (Consult Rx Vancomycin Dosing) 1 each MISCELLANE DAILY [facility] Prednisone (Prednisone 20 Mg Tablet) 40 mg PO DAILY [facility] Last Admin: 07/21/21 09:08 Dose: 40 mg Documented by: Sodium Chloride (0.9 % Sodium Chloride Flush 3 Ml Syringe) 3 ml IVFLUSH QSHIFT [facility] Last Admin: 07/21/21 14:39 Dose: Not Given Documented by: Thiamine HCl (Thiamine Hcl 100 Mg Tablet) 100 mg PO DAILY [facility] Last Admin: 07/21/21 09:08 Dose: 100 mg Documented by: Home Medications Medication Instructions Recorded Confirmed Last Taken Type albuterol sulfate 90 mcg/actuation 2 puff INHALATION Q6H PRN 03/10/21 07/20/21 03/09/21 History aerosol inhaler (ProAir HFA) cyanocobalamin (vitamin B-12) 1,000 mcg PO DAILY 03/10/21 07/20/21 03/09/21 History 1,000 mcg tablet famotidine 40 mg tablet 40 mg PO DAILY 03/10/21 07/20/21 07/19/21 History fluticasone propionate 110 2 puff INHALATION BID 03/10/21 07/20/21 03/09/21 History mcg/actuation HFA aerosol inhaler (Flovent HFA) folic acid 1 mg tablet 1 mg PO DAILY 03/10/21 07/20/21 07/19/21 History magnesium oxide 400 mg (241.3 mg 1,600 mg PO DAILY 03/10/21 07/20/21 07/19/21 History magnesium) tablet mesalamine 1.2 gram tablet,delayed 4 tab PO DAILY 03/10/21 07/20/21 07/19/21 History release (Lialda) thiamine mononitrate (vit B1) 100 100 mg PO DAILY 03/10/21 07/20/21 07/19/21 History mg tablet (Vitamin B-1 (mononitrate)) metoprolol succinate 25 mg 12.5 mg PO DAILY 07/17/21 07/20/21 07/19/21 History tablet,extended release 24 hr potassium chloride 10 mEq 120 meq PO DAILY tab 07/17/21 07/20/21 07/19/21 History tablet,extended release(part/cryst) prednisone 10 mg tablet 40 mg PO DAILY 07/20/21 07/20/21 07/19/21 History Physical Exam Vital Signs: Vital Signs: Last Vital Signs Temp 99.2 F 07/21/21 05:33 Pulse 98 07/21/21 12:40 Resp 16 07/21/21 12:40 BP 112/59 L 07/21/21 12:40 Pulse Ox 97 07/21/21 12:40 BMI result Body Mass Index 24.9 Const: General: comfortable and no acute distress Nutritional Appearance: obese Orientation/consciousness: patient oriented x3 Limitations: no limitations HEENT: Head: Yes normocephalic and Yes atraumatic Ears: hearing grossly normal bilaterally Neck: Other: Thick neck, unable to appreciate adenopathy. Resp: Other: Breathing comfortably on room air, no respiratory distress GI: Other: Obese, protuberant abdomen, small umbilical hernia, nontender, tenderness in the left groin, small hernia noted with Valsalva maneuver. No scrotal swelling identified. No tenderness in the right groin. Skin: General skin exam: jaundice Neuro: General: patient oriented x3 Extrem: General: Yes edema Results Labs Result diagrams: 07/21/21 08:49 07/21/21 08:49 Labs: Abnormal lab results 07/20/21 07/21/21 07/21/21 Range/Units 12:14 08:49 08:49 RBC 1.98 L (4.60-5.80) X10*6/uL Hgb 7.9 L (14.0-18.0) g/dl Hct 23.3 L (42.0-52.0) % MCV 117.7 H (80.0-98.0) fL MCH 39.9 H (27.0-33.0) pg Plt Count 24 L (160-400) X10*3/uL MPV 9.3 L (9.4-12.4) fL Neutrophils % (Manual) 85 H (45-73) % Band Neutrophils % 7 H (3-5) % Lymphocytes % (Manual) 2 L (20-40) % Lymphocytes # (Manual) 0.1 L (1.2-4.9) X10*3/uL Absolute Retic 0.159 H (0.026-0.095) X10*6/uL Percent Retic 8.1 H (0.5-1.8) % Immature Retic Fraction 15.8 H (2.3-13.4) % Retic Hgb Equivalent 39.1 H (30.0-35.0) pg PT 34.5 H (9.9-13.0) SEC INR 3.0 H (0.9-1.1) Anion Gap (12-20) Fasting Glucose (60-99) mg/dL Calcium (8.4-10.2) mg/dL Total Bilirubin (0.0-1.0) mg/dL AST (5-37) U/L Lactate Dehydrogenase 396 H (118-273) U/L Total Protein (6.5-8.0) g/dL Albumin (3.5-5.0) g/dL Salicylates < 5.0 L (15-30) mg/dL 07/21/21 Range/Units 08:49 RBC (4.60-5.80) X10*6/uL Hgb (14.0-18.0) g/dl Hct (42.0-52.0) % MCV (80.0-98.0) fL MCH (27.0-33.0) pg Plt Count (160-400) X10*3/uL MPV (9.4-12.4) fL Neutrophils % (Manual) (45-73) % Band Neutrophils % (3-5) % Lymphocytes % (Manual) (20-40) % Lymphocytes # (Manual) (1.2-4.9) X10*3/uL Absolute Retic (0.026-0.095) X10*6/uL Percent Retic (0.5-1.8) % Immature Retic Fraction (2.3-13.4) % Retic Hgb Equivalent (30.0-35.0) pg PT (9.9-13.0) SEC INR (0.9-1.1) Anion Gap 11 L (12-20) Fasting Glucose 140 H (60-99) mg/dL Calcium 7.8 L D (8.4-10.2) mg/dL Total Bilirubin 18.2 H (0.0-1.0) mg/dL AST 46 H (5-37) U/L Lactate Dehydrogenase (118-273) U/L Total Protein 5.2 L (6.5-8.0) g/dL Albumin 2.2 L (3.5-5.0) g/dL Salicylates (15-30) mg/dL Short CBC 07/21/21 Range/Units 08:49 WBC 6.5 (4.8-10.8) X10*3/uL Hgb 7.9 L (14.0-18.0) g/dl Hct 23.3 L (42.0-52.0) % Plt Count 24 L (160-400) X10*3/uL BMP 07/21/21 08:49 Sodium 135 Potassium 3.8 Chloride 99 Carbon Dioxide 29 BUN 10 Creatinine 0.66 Calcium 7.8 L D Liver Function 07/21/21 Range/Units 08:49 Total Bilirubin 18.2 H (0.0-1.0) mg/dL AST 46 H (5-37) U/L ALT 33 (0-40) U/L Alkaline Phosphatase 97 D (39-117) U/L Albumin 2.2 L (3.5-5.0) g/dL Urine 07/20/21 Range/Units 14:11 Urine Color DK YELLOW Urine Appearance CLEAR Urine pH 5.5 (5.0-8.0) Ur Specific [place] <= 1.005 (1.005-1.025) Urine Protein NEG (NEG-TRACE) MG/DL Urine Glucose (UA) NEG (NEG) MG/DL All other labs normal. Assessment and Plan (1) Umbilical hernia: Status: Acute (2) Left inguinal hernia: Status: Acute (3) Cirrhosis: Qualifiers: Ascites presence: with ascites Hepatic cirrhosis type: alcoholic cirrhosis Qualified Code(s): K70.31 - Alcoholic cirrhosis of liver with ascites Status: Acute Plan 55-year-old male patient with a known history of cirrhosis and ascites found to have a left inguinal hernia by CT.? Patient is tender in this location although by CT the hernia is very small and contains only fluid.? Findings are consistent with ascites.? Patient also found to have extensive varices and splenomegaly.? I would recommend non operative management of this hernia within the risks with his liver disease for bleeding, infection, and persistent nonhealing following repair.? I discussed the risks and benefits of surgery with him in detail he agrees with non operative management. Procedures Date of Service Date of Service: 07/21/21
[2021-07-21] MEDS: vancomycin HCL 1,500 MG in 0.9 % Sodium Chloride 500 ML 333.33 MG IV (18:02)
[2021-07-21] MEDS: Enoxaparin Sodium 40 MG/0.4 ML SYRINGE SUBCUT (18:03)
--- NOTE | 2021-07-21 19:51 | PM.EVENT ---
Event Note Date of Service: 07/21/21 Event Note: GI bleed: pt had an episode of Black stool. stat CBC IV PPI NPO IV fluids. GI consulted. Notified Dr Swenson-> recommended IV PPI, IV Octreotide, IV vit K, To Switch prednisone to Solumedrol. Vitals stable. Will hold lovenox for now. Anemia/Thrombocytopenia/High INR: Discussed with Hematology Dr Marti. Recommended -2u FFP, 1U platelet, 1u prbc
[2021-07-21 20:14] LABS: MANUAL DIFF FLAG NO
[2021-07-21 20:16] LABS: Basophils Percent Auto 0.1 % (0-2); Hematocrit 22.5 % (42.0-52.0); Hemoglobin 7.4 g/dl (14.0-18.0); Imm Gran Abs Auto 0.36 X10*3/uL (0.00-0.03); Imm Gran Pct Auto 4.9 % (0.0-0.4); Lymphocytes Absolute Auto 0.5 X10*3/uL (1.2-4.9); Lymphocytes Percent Auto 6.9 % (20-40); Mean Corpuscular HGB Conc 32.9 g/dl (31.0-36.0); Mean Corpuscular Hemoglobin 39.2 pg (27.0-33.0); Monocytes Absolute Auto 0.7 X10*3/uL (0.1-1.2); Monocytes Percent Auto 9.1 % (2-11); Neutrophils Absolute Auto 5.8 x10*3/uL (2.0-8.3); Red Blood Count 1.89 X10*6/uL (4.60-5.80); Red Cell Distribution Width 14.8 % (11.0-16.0); White Blood Count 7.4 X10*3/uL (4.8-10.8)
[2021-07-21 20:18] LABS: Platelet Count 27 X10*3/uL (160-400)
[2021-07-21] MEDS: Pantoprazole Sodium 40 MG/10 ML VIAL IVPUSH (21:33)
[2021-07-21] MEDS: Octreotide Acetate 500 MCG in 0.9 % Sodium Chloride 500 ML 25.05 MCG IVCONT (21:34)
[2021-07-22] VITALS (11 sets, daily range): BP systolic 101–130; BP diastolic 59–86; PULSE 80–102; RESP 14–22; TEMP 36.3–37.1; O2SAT 94–98
[2021-07-22 04:13] LABS: MANUAL DIFF FLAG NO
[2021-07-22 04:14] LABS: Basophils Percent Auto 0.2 % (0-2); Eosinophils Percent Auto 0.3 % (0-4); Hematocrit 22.1 % (42.0-52.0); Hemoglobin 7.6 g/dl (14.0-18.0); Imm Gran Abs Auto 0.26 X10*3/uL (0.00-0.03); Lymphocytes Absolute Auto 0.8 X10*3/uL (1.2-4.9); Lymphocytes Percent Auto 11.8 % (20-40); Mean Corpuscular HGB Conc 34.4 g/dl (31.0-36.0); Mean Corpuscular Hemoglobin 38.6 pg (27.0-33.0); Mean Platelet Volume 8.8 fL (9.4-12.4); Monocytes Absolute Auto 0.8 X10*3/uL (0.1-1.2); Monocytes Percent Auto 12.3 % (2-11); Neutrophils Absolute Auto 4.6 x10*3/uL (2.0-8.3); Neutrophils Percent Auto 71.4 % (45-73); Red Blood Count 1.97 X10*6/uL (4.60-5.80); Red Cell Distribution Width 20.2 % (11.0-16.0); White Blood Count 6.4 X10*3/uL (4.8-10.8)
[2021-07-22 04:15] LABS: Mean Corpuscular Volume 112.2 fL (80.0-98.0); Platelet Count 34 X10*3/uL (160-400)
[2021-07-22 04:23] LABS: INTERNATIONAL NORM RATIO 2.3 (0.9-1.1); Prothrombin Time 26.6 SEC (9.9-13.0)
[2021-07-22 04:37] LABS: Alanine Aminotransferase 30 U/L (0-40); Albumin Level 2.2 g/dL (3.5-5.0); Alkaline Phosphatase 87 U/L (39-117); Anion Gap 11 (12-20); Aspartate Amino Transferase 37 U/L (5-37); Blood Urea Nitrogen 10 mg/dL (9-16); Calcium 7.9 mg/dL (8.4-10.2); Carbon Dioxide 26 mmol/L (22-29); Chloride 100 mmol/L (96-108); Cholesterol 109 mg/dL; Creatinine Clr Calc Pharmacy 98.9; Estimated Glomerular Filt Rate > 60; Glucose Fasting 147 mg/dL (60-99); HDL Cholesterol 20 mg/dL; LDL Cholesterol Calculated 73 mg/dl; Potassium 3.7 mmol/L (3.3-5.1); Sodium 133 mmol/L (135-145); Triglycerides 82 mg/dL
--- NOTE | 2021-07-22 05:49 | PC.NURSE ---
This RN assumed care at 1900. This RN noticed sandhya blood and tarry stool in commode, notified hospitalist. CBC showed that patient required a transfusion. This RN placed a 20g IV in Right upper arm, patient tolerated procedure. Patient received 2 units of plasma, 2 unit of platelets, and 1 unit of PRBCs. VSS throughout transfusions. VS recorded and transfusions timed as per TAR. Patient's repeat CBC showed minimal improvement, hospitalist aware, no further orders placed at this time, will continue to monitor.
[2021-07-22 05:53] LABS: Hepatitis A Antibody IgM 0.89 Index (0-0.79)
[2021-07-22] MEDS: vancomycin HCL 1,000 MG in 0.9 % Sodium Chloride 250 ML 270 MG IV ×2 (06:20→17:45)
[2021-07-22] MEDS: Pantoprazole Sodium 40 MG/10 ML VIAL IVPUSH ×2 (06:20→15:10)
[2021-07-22] MEDS: Dextrose 5 % and 0.45 % NaCl 1,000 ML 100 ML IVCONT ×2 (07:31→17:44)
[2021-07-22 07:41] LABS: MANUAL DIFF FLAG NO
[2021-07-22 07:47] LABS: Eosinophils Percent Auto 0.6 % (0-4); Hematocrit 22.7 % (42.0-52.0); Hemoglobin 7.5 g/dl (14.0-18.0); Imm Gran Abs Auto 0.29 X10*3/uL (0.00-0.03); Imm Gran Pct Auto 4.6 % (0.0-0.4); Lymphocytes Absolute Auto 1.1 X10*3/uL (1.2-4.9); Lymphocytes Percent Auto 16.8 % (20-40); Mean Corpuscular Hemoglobin 37.7 pg (27.0-33.0); Mean Platelet Volume 8.8 fL (9.4-12.4); Monocytes Absolute Auto 0.7 X10*3/uL (0.1-1.2); Monocytes Percent Auto 11.8 % (2-11); Neutrophils Absolute Auto 4.1 x10*3/uL (2.0-8.3); Neutrophils Percent Auto 66.2 % (45-73); Red Blood Count 1.99 X10*6/uL (4.60-5.80); Red Cell Distribution Width 20.5 % (11.0-16.0); White Blood Count 6.3 X10*3/uL (4.8-10.8)
[2021-07-22 07:54] LABS: Mean Corpuscular Volume 114.1 fL (80.0-98.0); Platelet Count 35 X10*3/uL (160-400)
--- NOTE | 2021-07-22 08:45 | P.PNGI_ITS ---
Subjective Subjective Date of Service: 07/22/21 Interval History: Left groin pain is improved he is hungry and wants to eat apparently yesterday he had some blood in stools but he denies this he has no abdominal pain overnight he got FFP, 1 unit PRBC, plts, solumedrol Critical Care Time (minutes): 0 Physical Exam Vital Signs: Vital Signs: Last Vital Signs Temp 98.6 F 07/22/21 01:59 Pulse 90 07/22/21 07:34 Resp 16 07/22/21 07:34 BP 114/67 07/22/21 07:34 Pulse Ox 96 07/22/21 07:34 BMI result Body Mass Index 24.9 EXAM: GENERAL: The patient is jaundiced and relaxed VITAL SIGNS:see workflow HEENT: icteric sclerae, PERRLA, EOMI. Oropharynx clear. Moist mucous membranes. Conjunctivae appear well perfused. No thyroid mass. CHEST: Chest wall is nontender. HEART: Regular rate and rhythm without murmurs. LUNGS: Clear to auscultation bilaterally. ABDOMEN: Soft, positive bowel sounds, mildly tender LLQ, no organomegaly.no flank tenderness GENITAL:not done RECTAL: not done SKIN: No rash, no excessive bruising, petechiae, or purpura. NEUROLOGIC: Cranial nerves II-XII intact without motor/sensory deficit. MS: nml affect, no confusion Objective Data Labs CBC & Chem 7: 07/22/21 07:35 07/22/21 04:03 Labs: Laboratory Results - last 24 hr 07/21/21 07/21/21 07/21/21 08:49 08:49 08:49 WBC 6.5 RBC 1.98 L Hgb 7.9 L Hct 23.3 L MCV 117.7 H MCH 39.9 H MCHC 33.9 RDW 15.1 Plt Count 24 L MPV 9.3 L Immature Gran % (Auto) Neut % (Auto) Lymph % (Auto) [place] % (Auto) Eos % (Auto) Baso % (Auto) Lymph # (Auto) [place] # (Auto) Eos # (Auto) Baso # (Auto) Abs Immat Gran (auto) Absolute Neuts (auto) Absolute Nucleated RBC 0.000 Nucleated RBC % (auto) 0.0 Neutrophils % (Manual) 85 H Band Neutrophils % 7 H Lymphocytes % (Manual) 2 L Monocytes % (Manual) 6 Abs Neuts (Manual) 6.0 Lymphocytes # (Manual) 0.1 L Monocytes # (Manual) 0.4 Platelet Estimate DECREASED Plt Morphology Comment NORMAL RBC Morphology NOTED Polychromasia 2+ (3-5) Hypochromasia 1+ (5-14) Macrocytosis 1+ (5-14) Absolute Retic 0.159 H Percent Retic 8.1 H Immature Retic Fraction 15.8 H Retic Hgb Equivalent 39.1 H PT 34.5 H INR 3.0 H Sodium Potassium Chloride Carbon Dioxide Anion Gap BUN Creatinine Estim Creat Clear Calc Estimated GFR Fasting Glucose Calcium Magnesium Total Bilirubin AST ALT Alkaline Phosphatase Total Protein Albumin Triglycerides Cholesterol LDL Cholesterol, Calc HDL Cholesterol Hep Bs Antigen Negative Hep Bs Antibody NONREACTIVE Hep B Core Total Ab Nonreactive Hepatitis C Ab (EIA) Nonreactive Blood Type Antibody Screen NIK, Polyspecific Positive NIK Work-up Crossmatch 07/21/21 07/21/21 07/21/21 08:49 11:56 20:09 WBC 7.4 RBC 1.89 L Hgb 7.4 L Hct 22.5 L MCV 119.0 H MCH 39.2 H MCHC 32.9 RDW 14.8 Plt Count 27 L MPV 9.0 L Immature Gran % (Auto) 4.9 H Neut % (Auto) 79.0 H Lymph % (Auto) 6.9 L [place] % (Auto) 9.1 Eos % (Auto) 0.0 Baso % (Auto) 0.1 Lymph # (Auto) 0.5 L [place] # (Auto) 0.7 Eos # (Auto) 0.0 Baso # (Auto) 0.0 Abs Immat Gran (auto) 0.36 H Absolute Neuts (auto) 5.8 Absolute Nucleated RBC 0.000 Nucleated RBC % (auto) 0.0 Neutrophils % (Manual) Band Neutrophils % Lymphocytes % (Manual) Monocytes % (Manual) Abs Neuts (Manual) Lymphocytes # (Manual) Monocytes # (Manual) Platelet Estimate Plt Morphology Comment RBC Morphology Polychromasia Hypochromasia Macrocytosis Absolute Retic Percent Retic Immature Retic Fraction Retic Hgb Equivalent PT INR Sodium 135 Potassium 3.8 Chloride 99 Carbon Dioxide 29 Anion Gap 11 L BUN 10 Creatinine 0.66 Estim Creat Clear Calc 103.4 Estimated GFR > 60 Fasting Glucose 140 H Calcium 7.8 L D Magnesium 1.8 Total Bilirubin 18.2 H AST 46 H ALT 33 Alkaline Phosphatase 97 D Total Protein 5.2 L Albumin 2.2 L Triglycerides Cholesterol LDL Cholesterol, Calc HDL Cholesterol Hep Bs Antigen Hep Bs Antibody Hep B Core Total Ab Hepatitis C Ab (EIA) Blood Type Antibody Screen NIK, Polyspecific NEGATIVE Positive NIK Work-up TNP Crossmatch 07/21/21 07/22/21 07/22/21 21:17 04:03 04:03 WBC 6.4 RBC 1.97 L Hgb 7.6 L Hct 22.1 L MCV 112.2 H D MCH 38.6 H MCHC 34.4 RDW 20.2 H Plt Count 34 L D MPV 8.8 L Immature Gran % (Auto) 4.0 H Neut % (Auto) 71.4 Lymph % (Auto) 11.8 L [place] % (Auto) 12.3 H Eos % (Auto) 0.3 Baso % (Auto) 0.2 Lymph # (Auto) 0.8 L [place] # (Auto) 0.8 Eos # (Auto) 0.0 Baso # (Auto) 0.0 Abs Immat Gran (auto) 0.26 H Absolute Neuts (auto) 4.6 Absolute Nucleated RBC 0.000 Nucleated RBC % (auto) 0.0 Neutrophils % (Manual) Band Neutrophils % Lymphocytes % (Manual) Monocytes % (Manual) Abs Neuts (Manual) Lymphocytes # (Manual) Monocytes # (Manual) Platelet Estimate Plt Morphology Comment RBC Morphology Polychromasia Hypochromasia Macrocytosis Absolute Retic Percent Retic Immature Retic Fraction Retic Hgb Equivalent PT INR Sodium 133 L Potassium 3.7 Chloride 100 Carbon Dioxide 26 Anion Gap 11 L BUN 10 Creatinine 0.69 Estim Creat Clear Calc 98.9 Estimated GFR > 60 Fasting Glucose 147 H Calcium 7.9 L Magnesium Total Bilirubin 16.0 H AST 37 ALT 30 Alkaline Phosphatase 87 Total Protein 5.0 L Albumin 2.2 L Triglycerides 82 Cholesterol 109 D LDL Cholesterol, Calc 73 HDL Cholesterol 20 D Hep Bs Antigen Hep Bs Antibody Hep B Core Total Ab Hepatitis C Ab (EIA) Blood Type A Positive Antibody Screen NEGATIVE NIK, Polyspecific Positive NIK Work-up Crossmatch See Detail 07/22/21 07/22/21 04:04 07:35 WBC 6.3 RBC 1.99 L Hgb 7.5 L Hct 22.7 L MCV 114.1 H MCH 37.7 H MCHC 33.0 RDW 20.5 H Plt Count 35 L MPV 8.8 L Immature Gran % (Auto) 4.6 H Neut % (Auto) 66.2 Lymph % (Auto) 16.8 L [place] % (Auto) 11.8 H Eos % (Auto) 0.6 Baso % (Auto) 0.0 Lymph # (Auto) 1.1 L [place] # (Auto) 0.7 Eos # (Auto) 0.0 Baso # (Auto) 0.0 Abs Immat Gran (auto) 0.29 H Absolute Neuts (auto) 4.1 Absolute Nucleated RBC 0.000 Nucleated RBC % (auto) 0.0 Neutrophils % (Manual) Band Neutrophils % Lymphocytes % (Manual) Monocytes % (Manual) Abs Neuts (Manual) Lymphocytes # (Manual) Monocytes # (Manual) Platelet Estimate Plt Morphology Comment RBC Morphology Polychromasia Hypochromasia Macrocytosis Absolute Retic Percent Retic Immature Retic Fraction Retic Hgb Equivalent PT 26.6 H INR 2.3 H Sodium Potassium Chloride Carbon Dioxide Anion Gap BUN Creatinine Estim Creat Clear Calc Estimated GFR Fasting Glucose Calcium Magnesium Total Bilirubin AST ALT Alkaline Phosphatase Total Protein Albumin Triglycerides Cholesterol LDL Cholesterol, Calc HDL Cholesterol Hep Bs Antigen Hep Bs Antibody Hep B Core Total Ab Hepatitis C Ab (EIA) Blood Type Antibody Screen NIK, Polyspecific Positive NIK Work-up Crossmatch Microbiology Microbiology Results: Microbiology 07/20/21 13:24 Blood - Venous Blood Culture - Preliminary Staphylococcus aureus 07/20/21 13:24 Blood - Venous Blood Culture - Preliminary Staphylococcus aureus 07/20/21 Unknown Urine clean catch - Urine [place] Urine Culture - Final Staphylococcus aureus Procedures Date of Service Date of Service: 07/22/21 Progress Note: A&P Assessment and plan (1) Cirrhosis: Status: Acute (2) Alcoholic hepatitis with ascites: Status: Acute Plan 1/ Acute on chronic liver failure with 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 he may also have DIC with low plts and high INR, possibly from UTI (pos Gram pos, also pos BC). 2/ Anemia, maybe from hemolysis. He may also have mucosal blood loss from raised INR and low plts He has splenorenal shunt on imaging which shoudl reduce the risk of varices PLAN: 1/ Cont with Abx treatment incl Vanc for the meantime 2/ check FDP, fibrinogen, supportive care with Vit K, consider cryo instead of FFP, HGB target 8-9 g/dl 3/ can cont solumderol 20 mg IV daily and wean down 4/ Would hold on endoscopic evaluation, higher risk of mucosal trauma with low plts and raised INR, can reconsider based on clinical need 5/ prognosis is guarded Fall Risk Details Current Medications: Current Medications Albuterol Sulfate (Albuterol Sulfate 90 Mcg 8 Gm Inhaler) 2 puff INHALE RQ4H PRN PRN Reason: shortness of breath or wheeze Cyanocobalamin (Cyanocobalamin (Vitamin B-12) 1,000 Mcg Tablet) 1,000 mcg PO DAILY [facility] Last Admin: 07/21/21 09:08 Dose: 1,000 mcg Documented by: Enoxaparin Sodium (Enoxaparin Sodium 40 Mg/0.4 Ml Syringe) 40 mg SUBCUT Q24H [facility] Last Admin: 07/21/21 18:03 Dose: 40 mg Documented by: Famotidine (Famotidine 20 Mg Tablet) 40 mg PO DAILY [facility] Last Admin: 07/21/21 09:07 Dose: 40 mg Documented by: Folic Acid (Folic Acid 1 Mg Tablet) 1 mg PO DAILY [facility] Last Admin: 07/21/21 09:08 Dose: 1 mg Documented by: Dextrose/Sodium Chloride (D51/2ns) 1,000 mls @ 100 mls/hr IVCONT .Q10H [facility] Last Admin: 07/22/21 07:31 Dose: 100 mls/hr Documented by: Ceftriaxone Sodium 1 gm/ (Sodium Chloride) 50 mls @ 100 mls/hr IV Q24H [facility] Last Infusion: 07/21/21 15:21 Dose: Infused Documented by: Phytonadione 10 mg/ Sodium (Chloride) 51 mls @ 51 mls/hr IV DAILY [facility] Stop: 07/22/21 09:59 Last Infusion: 07/21/21 10:50 Dose: Infused Documented by: Vancomycin HCl 1,000 mg/ (Sodium Chloride) 270 mls @ 270 mls/hr IV Q12H [facility] Last Infusion: 07/22/21 07:35 Dose: Infused Documented by: Octreotide Acetate 500 mcg/ (Sodium Chloride) 501 mls @ 25.05 mls/hr IVCONT .Q20H [facility] Last Admin: 07/21/21 21:34 Dose: 25 mcg/hr, 25.05 mls/hr Documented by: Magnesium Oxide (Magnesium Oxide 400 Mg Tablet) 1,600 mg PO DAILY [facility] Last Admin: 07/21/21 09:08 Dose: 1,600 mg Documented by: Methylprednisolone Sodium Succinate (Methylprednisolone Sod Succ 40 Mg/Ml Vial) 40 mg IVPUSH Q24H [facility] Morphine Sulfate (Morphine Sulfate 2 Mg/Ml Cartridge) 2 mg IVPUSH Q4H PRN; Protocol PRN Reason: severe pain Last Admin: 07/21/21 15:41 Dose: 2 mg Documented by: Patient Own Med ( (Flovent 110mcg)) 2 each INHALE BID [facility] Oxycodone HCl (Oxycodone Hcl Immed Release 5 Mg Tablet) 5 mg PO Q6H PRN PRN Reason: Pain, Moderate (Pain Scale 4-6 Last Admin: 07/20/21 21:26 Dose: 5 mg Documented by: Pantoprazole Sodium (Pantoprazole Sodium 40 Mg/10 Ml Vial) 40 mg IVPUSH BID@0630,1630 [facility] Last Admin: 07/22/21 06:20 Dose: 40 mg Documented by: Pharmacy Consult (Consult Rx Perform Med Rec) 1 each MISCELLANE ONCE PRN PRN Reason: Consult order Pharmacy Consult (Consult Rx Vancomycin Dosing) 1 each MISCELLANE DAILY [facility] Sodium Chloride (0.9 % Sodium Chloride Flush 3 Ml Syringe) 3 ml IVFLUSH QSHIFT [facility] Last Admin: 07/22/21 00:23 Dose: Not Given Documented by: Thiamine HCl (Thiamine Hcl 100 Mg Tablet) 100 mg PO DAILY [facility] Last Admin: 07/21/21 09:08 Dose: 100 mg Documented by: Time Spent With Patient Time: Total time spent is greater than 50% in coordination of care (as documented) at patient's floor/unit and/or counseling patient: Quality Stroke Does the patient have a stroke diagnosis?: No VTE Prior VTE?: No VTE Risk Level:: Medical - moderate - high VTE Device Contraindication: Treatment Not Indicated VTE Drug Contraindication: N/A - Med Ordered
[2021-07-22] MEDS: Famotidine 20 MG TABLET 40 MG PO (08:57)
[2021-07-22] MEDS: Thiamine HCL 100 MG TABLET PO (08:57)
[2021-07-22] MEDS: methylPREDNISolone Sod Succ 40 MG/ML VIAL IVPUSH (08:57)
[2021-07-22] MEDS: Phytonadione (Vit K1) 10 MG in 0.9 % Sodium Chloride 50 ML 51 MG IV (08:57)
[2021-07-22] MEDS: Folic Acid 1 MG TABLET PO (08:57)
[2021-07-22] MEDS: Magnesium Oxide 400 MG TABLET 1600 MG PO (08:57)
[2021-07-22] MEDS: Cyanocobalamin (Vitamin B-12) 1,000 MCG TABLET 1000 MCG PO (08:57)
[2021-07-22] MEDS: 0.9 % Sodium Chloride Flush 3 ML SYRINGE IVFLUSH (08:58)
--- NOTE | 2021-07-22 09:27 | HE.PHANOTE ---
RE Vancomycin Continue current dose. Next trough is due 07/23 @1335
[2021-07-22 10:01] LABS: ~Hepatitis A Antibody IgM GRAYZONE (Nonreactive)
[2021-07-22 10:08] LABS: Fibrinogen 139 MG/DL (259-690)
[2021-07-22 10:11] LABS: Partial Thromboplastin Time 39.7 SEC (24.1-38.0)
[2021-07-22 10:16] LABS: Lactate Dehydrogenase 296 U/L (118-273)
[2021-07-22] MEDS: Morphine Sulfate 2 MG/ML CARTRIDGE IVPUSH (11:14)
--- NOTE | 2021-07-22 11:21 | PC.NURSE ---
Pt resting in hospital bed. was initially very upset with NPO status. RN educated pt on why he is npo, and pt okay with plan. Pt medicated per JUN. isiah turner administered per order. pt remains on IV fluids.
--- NOTE | 2021-07-22 11:35 | HO.PM.IMPN ---
Subjective Subjective Date of Service: 07/22/21 Interval History: UCx growing MSSA, BCx x2 growing GPCs in clusters Groin pain improved Melena overnight- made NPO and placed on IV PPI + IV octreotide Given 2u FFP, 1u plts, 1u pRBCs Physical Exam Vital Signs: Vital Signs: Last Vital Signs Temp 98.6 F 07/22/21 01:59 Pulse 90 07/22/21 07:34 Resp 16 07/22/21 07:34 BP 114/67 07/22/21 07:34 Pulse Ox 96 07/22/21 07:34 BMI result Body Mass Index 24.9 Gen: in no acute distress HEENT: sclera icteric, moist mucus membranes Neck: supple, extensive lipodystrophy Lungs: clear to auscultation bilaterally Heart: regular rate and rhythm, no murmurs Abd: soft, non-tender, non-distended, tender L groin Ext: trace edema Skin: warm/well-perfused, jaundiced Neuro: alert and oriented x3, no focal findings Psych: appropriate affect Objective Data Active Medications Albuterol Sulfate (Albuterol Sulfate 90 Mcg 8 Gm Inhaler) 2 puff INHALE RQ4H PRN PRN Reason: shortness of breath or wheeze Cyanocobalamin (Cyanocobalamin (Vitamin B-12) 1,000 Mcg Tablet) 1,000 mcg PO DAILY [facility] Last Admin: 07/22/21 08:57 Dose: 1,000 mcg Documented by: TRMA Enoxaparin Sodium (Enoxaparin Sodium 40 Mg/0.4 Ml Syringe) 40 mg SUBCUT Q24H [facility] Last Admin: 07/21/21 18:03 Dose: 40 mg Documented by: TRAM Famotidine (Famotidine 20 Mg Tablet) 40 mg PO DAILY [facility] Last Admin: 07/22/21 08:57 Dose: 40 mg Documented by: TRAM Folic Acid (Folic Acid 1 Mg Tablet) 1 mg PO DAILY [facility] Last Admin: 07/22/21 08:57 Dose: 1 mg Documented by: TRAM Dextrose/Sodium Chloride (D51/2ns) 1,000 mls @ 100 mls/hr IVCONT .Q10H [facility] Last Admin: 07/22/21 07:31 Dose: 100 mls/hr Documented by: TRAM Ceftriaxone Sodium 1 gm/ (Sodium Chloride) 50 mls @ 100 mls/hr IV Q24H [facility] Last Infusion: 07/21/21 15:21 Dose: 0 mls/hr Documented by: TRAM Vancomycin HCl 1,000 mg/ (Sodium Chloride) 270 mls @ 270 mls/hr IV Q12H [facility] Last Infusion: 07/22/21 07:35 Dose: 0 mls/hr Documented by: TRAM Octreotide Acetate 500 mcg/ (Sodium Chloride) 501 mls @ 25.05 mls/hr IVCONT .Q20H [facility] Last Admin: 07/21/21 21:34 Dose: 25 mcg/hr, 25.05 mls/hr Documented by: CHANDLER Magnesium Oxide (Magnesium Oxide 400 Mg Tablet) 1,600 mg PO DAILY [facility] Last Admin: 07/22/21 08:57 Dose: 1,600 mg Documented by: TRAM Methylprednisolone Sodium Succinate (Methylprednisolone Sod Succ 40 Mg/Ml Vial) 40 mg IVPUSH Q24H [facility] Last Admin: 07/22/21 08:57 Dose: 40 mg Documented by: TRAM Morphine Sulfate (Morphine Sulfate 2 Mg/Ml Cartridge) 2 mg IVPUSH Q4H PRN; Protocol PRN Reason: severe pain Last Admin: 07/22/21 11:14 Dose: 2 mg Documented by: TRAM Patient Own Med ( (Flovent 110mcg)) 2 each INHALE BID [facility] Last Admin: 07/22/21 10:01 Dose: Not Given Documented by: TRAM Non-Admin Reason: Med Not Available Oxycodone HCl (Oxycodone Hcl Immed Release 5 Mg Tablet) 5 mg PO Q6H PRN PRN Reason: Pain, Moderate (Pain Scale 4-6 Last Admin: 07/20/21 21:26 Dose: 5 mg Documented by: GABINO Pantoprazole Sodium (Pantoprazole Sodium 40 Mg/10 Ml Vial) 40 mg IVPUSH BID@0630,1630 [facility] Last Admin: 07/22/21 06:20 Dose: 40 mg Documented by: CHANDLER Pharmacy Consult (Consult Rx Perform Med Rec) 1 each MISCELLANE ONCE PRN PRN Reason: Consult order Pharmacy Consult (Consult Rx Vancomycin Dosing) 1 each MISCELLANE DAILY [facility] Sodium Chloride (0.9 % Sodium Chloride Flush 3 Ml Syringe) 3 ml IVFLUSH QSHIFT [facility] Last Admin: 07/22/21 08:58 Dose: 3 ml Documented by: TRAM Thiamine HCl (Thiamine Hcl 100 Mg Tablet) 100 mg PO DAILY [facility] Last Admin: 07/22/21 08:57 Dose: 100 mg Documented by: TRAM Labs CBC & Chem 7: 07/22/21 07:35 07/22/21 04:03 Labs: Laboratory Results - last 24 hr 07/21/21 07/21/21 07/21/21 08:49 11:56 20:09 MCV 119.0 H MCH 39.2 H MCHC 32.9 RDW 14.8 Plt Count 27 L MPV 9.0 L Immature Gran % (Auto) 4.9 H Neut % (Auto) 79.0 H Lymph % (Auto) 6.9 L [place] % (Auto) 9.1 Eos % (Auto) 0.0 Baso % (Auto) 0.1 Lymph # (Auto) 0.5 L [place] # (Auto) 0.7 Eos # (Auto) 0.0 Baso # (Auto) 0.0 Abs Immat Gran (auto) 0.36 H Absolute Neuts (auto) 5.8 Absolute Nucleated RBC 0.000 Nucleated RBC % (auto) 0.0 PT INR APTT Fibrinogen Anion Gap Estim Creat Clear Calc Estimated GFR Fasting Glucose Calcium Total Bilirubin AST ALT Alkaline Phosphatase Lactate Dehydrogenase Total Protein Albumin Triglycerides Cholesterol LDL Cholesterol, Calc HDL Cholesterol Hepatitis A IgM Ab GRAYZONE Blood Type Antibody Screen NIK, Polyspecific NEGATIVE Positive NIK Work-up TNP Crossmatch 07/21/21 07/22/21 07/22/21 21:17 04:03 04:03 MCV 112.2 H D MCH 38.6 H MCHC 34.4 RDW 20.2 H Plt Count 34 L D MPV 8.8 L Immature Gran % (Auto) 4.0 H Neut % (Auto) 71.4 Lymph % (Auto) 11.8 L [place] % (Auto) 12.3 H Eos % (Auto) 0.3 Baso % (Auto) 0.2 Lymph # (Auto) 0.8 L [place] # (Auto) 0.8 Eos # (Auto) 0.0 Baso # (Auto) 0.0 Abs Immat Gran (auto) 0.26 H Absolute Neuts (auto) 4.6 Absolute Nucleated RBC 0.000 Nucleated RBC % (auto) 0.0 PT INR APTT Fibrinogen Anion Gap 11 L Estim Creat Clear Calc 98.9 Estimated GFR > 60 Fasting Glucose 147 H Calcium 7.9 L Total Bilirubin 16.0 H AST 37 ALT 30 Alkaline Phosphatase 87 Lactate Dehydrogenase 296 H Total Protein 5.0 L Albumin 2.2 L Triglycerides 82 Cholesterol 109 D LDL Cholesterol, Calc 73 HDL Cholesterol 20 D Hepatitis A IgM Ab Blood Type A Positive Antibody Screen NEGATIVE NIK, Polyspecific Positive NIK Work-up Crossmatch See Detail 07/22/21 07/22/21 04:04 07:35 MCV 114.1 H MCH 37.7 H MCHC 33.0 RDW 20.5 H Plt Count 35 L MPV 8.8 L Immature Gran % (Auto) 4.6 H Neut % (Auto) 66.2 Lymph % (Auto) 16.8 L [place] % (Auto) 11.8 H Eos % (Auto) 0.6 Baso % (Auto) 0.0 Lymph # (Auto) 1.1 L [place] # (Auto) 0.7 Eos # (Auto) 0.0 Baso # (Auto) 0.0 Abs Immat Gran (auto) 0.29 H Absolute Neuts (auto) 4.1 Absolute Nucleated RBC 0.000 Nucleated RBC % (auto) 0.0 PT 26.6 H INR 2.3 H APTT 39.7 H Fibrinogen 139 L Anion Gap Estim Creat Clear Calc Estimated GFR Fasting Glucose Calcium Total Bilirubin AST ALT Alkaline Phosphatase Lactate Dehydrogenase Total Protein Albumin Triglycerides Cholesterol LDL Cholesterol, Calc HDL Cholesterol Hepatitis A IgM Ab Blood Type Antibody Screen NIK, Polyspecific Positive NIK Work-up Crossmatch Impressions Abdomen Ultrasound 07/21/21 13:24 IMPRESSION: Cirrhotic-appearing liver, splenomegaly and a small amount of ascites. Gallstones. The gallbladder wall is thickened and edematous. This may be related to the patient's liver disease. If there is clinical suspicion of cholecystitis, HIDA scan would be recommended. Small liver cyst. Question mild increased renal cortical echogenicity. Limited Doppler exam. No flow can be detected in the main, right or left portal veins by ultrasound. These veins appear patent on yesterday's CT scan. Reversed hepatofugal flow in the splenic vein and recanalized paraumbilical vein. Varices and probable spontaneous splenorenal shunt. Splenomegaly and small amount of ascites. Short-term followup liver Doppler exam for reevaluation of the portal vein is recommended. Doppler Study Ultrasound 07/21/21 13:24 IMPRESSION: Cirrhotic-appearing liver, splenomegaly and a small amount of ascites. Gallstones. The gallbladder wall is thickened and edematous. This may be related to the patient's liver disease. If there is clinical suspicion of cholecystitis, HIDA scan would be recommended. Small liver cyst. Question mild increased renal cortical echogenicity. Limited Doppler exam. No flow can be detected in the main, right or left portal veins by ultrasound. These veins appear patent on yesterday's CT scan. Reversed hepatofugal flow in the splenic vein and recanalized paraumbilical vein. Varices and probable spontaneous splenorenal shunt. Splenomegaly and small amount of ascites. Short-term followup liver Doppler exam for reevaluation of the portal vein is recommended. Microbiology Microbiology Results: Microbiology 07/20/21 13:24 Blood Culture - Preliminary Blood - Venous Staphylococcus aureus 07/20/21 13:24 Blood Culture - Preliminary Blood - Venous Staphylococcus aureus 07/20/21 Unknown Urine Culture - Final Urine clean catch - Urine falk top Staphylococcus aureus Assessment and Plan (1) Abdominal pain: Status: Acute Plan hospital d#3 55yo M with EtOH cirrhosis presenting with groin/lower abd pain, mild ascites found to have MSSA bacteremia # abd/groin pain - suspect due to hernia- reducible and small- not operative candidate per surgery - on ceftriaxone d#3 for possible SBP though ascites is too small to tap # MSSA bacteremia - vanco d#2, ID consult, TTE, repeat BCx in am # EtOH hepatitis - continue methylprednisolone. GI following. 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 consider cryoprecipitate if FBG low - no portal vein flow detected on Doppler though present on CT. repeat US tomorrow - per GI possible mucosal blood loss. splenorenal shunt on imaging should reduce risk of varices. no EGD for now. # CAD - hold metoprolol in case of SBP # AUD - out of withdrawal window, no seizures - continue vitamins # mild persistent asthma - continue ICS, prn DAYDAY # VTE ppx - SCDs In my clinical judgment, the patient requires continued hospitalization for the following reasons: pain, IV ABX for bacteremia, concern of GI bleeding Quality Stroke Does the patient have a stroke diagnosis?: No VTE Prior VTE?: No VTE Risk Level:: Medical - moderate - high VTE Device Contraindication: Treatment Not Indicated VTE Drug Contraindication: N/A - Med Ordered
[2021-07-22 12:37] LABS: Fibrinogen 148 MG/DL (259-690)
[2021-07-22 12:39] LABS: D Dimer High Sensitivity 845 NG/ML
--- NOTE | 2021-07-22 13:00 | CA_ITS ---
Transthoracic Echocardiogram Patient (Last, First, Middle): Jalen Pemberton, Gender: Male Date of : 1965 Age: 55 Procedure Date: 07/22/2021 Procedure Type: Transthoracic Echocardiogram Location: [facility] [place] Height: 162.56 cm Weight: 65.77 kg BSA: 1.71 m2 Heart Rate: bpm BP: 114 / 67 mmHg Systems Design Engineer: Referring MD: Ceci Kirkpatrick MD Symptoms: MSSA bacteremia Study Quality: Fair ECG Rhythm: Sinus Conclusions: - The left ventricular systolic function is low normal. The calculated ejection fraction is 52% by biplane method. - There is evidence of regional wall motion abnormalities. - Mildly increased right ventricular cavity size. - No obvious valvular pathology seen on this study. Findings Left Ventricle Mildly increased left ventricular cavity size. There is normal left ventricular wall thickness. The left ventricular systolic function is low normal. The calculated ejection fraction is 52% by biplane method. There is evidence of regional wall motion abnormalities. Diastolic function is normal for age. Wall Motion Rest Echo Findings The apical septum and basal inferolateral segments are hypokinetic. The basal inferior segment is akinetic. Right Ventricle Mildly increased right ventricular cavity size. There is normal right ventricular systolic function. Atria The left atrium is mildly dilated. The right atrium is normal in size. Aortic Valve There is a normal trileaflet aortic valve. There is no aortic valve stenosis. There is no aortic valve regurgitation. Mitral Valve The mitral valve appears normal. There is trace mitral valve regurgitation. There is no mitral valve stenosis. Pulmonic Valve The pulmonic valve was not well visualized. Tricuspid Valve Normal tricuspid valve structure. There is trace tricuspid valve regurgitation. The right ventricular systolic pressure is 38 mmHg. Mild pulmonary hypertension is present. Great Vessels The sinuses of valsalva is normal in size. Venous The inferior vena cava is dilated and collapses greater than 50% with inspiration. There is evidence of a dilated coronary sinus. Pericardium/Pleural There is no evidence of pericardial effusion. Prior Study Comparison No significant change compared to prior study dated: 03/16/2021. Recommendations, Care & Conclusions No obvious valvular pathology seen on this study. Measurements 2D Linear Measurements IVSd: 0.93 0.6-0.9/0.6-1.0 cm LVIDd: 5.86 3.9-5.3/4.2-5.9 cm LVIDd Index: 3.43 2.4-3.2/2.2-3.1 cm/m2 LVIDs: 3.55 2.0-3.6 cm LVPWd: 0.91 0.7-1.1 cm LA Diam: 4.50 2.7-3.8/3.0-4.0 cm LAIDs Index: 2.63 1.5-2.3 cm/m2 LV Mass: 265.89 67-162/88-224 g LV Mass Index: 155.49 43-95/49-115 g/m2 LVOT Diam: 2.40 3.0+(-)1.3 cm 2D Systolic Function EF 4C: 56.20 >55% EF 2C: 46.70 >55% EF BiP: 51.60 >55% Mitral Valve MV Pk E: 0.93 MV PK A: 1.20 MV Decel Time: 100.00 E/A: 0.80 E'Lateral: 10.10 E'Medial: 9.25 E/E' Med: 10.00 E/E' Lat: 9.20 PHT: 29.00 MVA PHT: 7.59 Decel [place]: 9.22 Aortic Valve AoV Pk Len: 1.85 AoV Mn Len: 1.20 AoV VTI: 0.39 AoV Pk Grad: 14.00 Aov Mn Grad: 7.00 MARGARETTE Cont.VTI: 3.20 LVOT LVOT Pk Len: 1.23 LVOT Mn Len: 0.84 LVOT VTI: 0.28 LVOT Pk Grad: 6.00 LVOT Mn Grad: 3.00 LVOT Diam: 2.40 LVOT Area: 4.52 Diastolic Function MV Pk E: 0.93 MV Pk A: 1.20 E/A: 0.80 E'Medial: 9.25 E/E' Med: 10.00 E' Laterial: 10.10 E/E' Lat: 9.20 Right Ventricle TAPSE (mm): 34.00 Tricuspid Valve TR Pk Len: 2.74 TR Pk Grad: 30.00 RA Press: 8.00 RVSP: 38.00 Great Vessels Aorta Ao Asc: 3.30 2.1-3.4 cm Pulmonary Valve PV Pk Len: 1.06 Peak PV Grad: 4.00 Updated in Other Vendor System with Status of Final Jose Ramirez MD electronically signed on 07/22/2021 4:39:24 PM with status of Final
--- NOTE | 2021-07-22 13:13 | PM.HEMONCCN ---
Subjective - Subjective Chief complaint: Groin pain Patient: known to practice within the last 3 years Consult date: 07/22/21 Requesting Physician: Dr. Nelson Primary Care Provider: Thierno Browne MD Medical Summary: diagnosis: Chronic pancytopenia/ liver cirrhosis and hypersplenism HPI - Consult Narrative Reason for consult: anemia and thrombocytopenia Narrative: Jalen Pemberton is a 55 year old male with history of liver cirrhosis secondary to alcoholism and chronic pancytopenia presenting with lower abdominal pain and found to have gastrointestinal bleeding. He was admitted on 07/20/2021 for abdominal pain and ascites. He was started on IV ceftriaxone. Labs on admission revealed hemoglobin of 8.8 gram/dL and platelet count of 26 K. he developed sandhya rectal bleeding as well as melanotic stool on 07/21/2021. Blood work showed a hemoglobin of 7.4 gram/dL with platelet count of 27 K. his INR was elevated at 3.0 seconds. At this time patient reports improvement in abdominal pain. He has received blood, platelets and FFP over the course of the night and this morning. He denies any fever or chills. No nausea/ emesis. He is not concerned about rectal bleeding as he states he has hemorrhoids and he has had occasional bleeding in the past. He feels hungry. Review of Systems - Constitutional Reports as per HPI, Reports no additional constitutional complaints - Neurologic Denies headache(s) [facility] Medical History: Medical History (Last Reviewed 07/21/21 @ 17:10 by Jesus Lomeli MD) Anemia Asthma CAD (coronary artery disease) Cirrhosis Glaucoma Liver disease Liver disease Social History: Social History (Last Reviewed 07/21/21 @ 17:10 by Jesus Lomeli MD) Living Situation History: Household Members: Significant Other Housing: House Housing Other:: duplex Do you presently have visiting nurse or other home services: No Tobacco History: Patient Tobacco Use Status: Never used Tobacco Substance Use History: Substance Use Type: Marijuana Advance Directives: Advance Directives: Yes Advance Directives Information Provided: Yes Advance Directives on File: No Occupation Assessmet: service: No Current occupational status: unemployed Home Medications and Allergies Current Medications: Current Medications Albuterol Sulfate (Albuterol Sulfate 90 Mcg 8 Gm Inhaler) 2 puff INHALE RQ4H PRN PRN Reason: shortness of breath or wheeze Cyanocobalamin (Cyanocobalamin (Vitamin B-12) 1,000 Mcg Tablet) 1,000 mcg PO DAILY [facility] Last Admin: 07/22/21 08:57 Dose: 1,000 mcg Documented by: Famotidine (Famotidine 20 Mg Tablet) 40 mg PO DAILY [facility] Last Admin: 07/22/21 08:57 Dose: 40 mg Documented by: Folic Acid (Folic Acid 1 Mg Tablet) 1 mg PO DAILY [facility] Last Admin: 07/22/21 08:57 Dose: 1 mg Documented by: Dextrose/Sodium Chloride (D51/2ns) 1,000 mls @ 100 mls/hr IVCONT .Q10H [facility] Last Admin: 07/22/21 07:31 Dose: 100 mls/hr Documented by: Ceftriaxone Sodium 1 gm/ (Sodium Chloride) 50 mls @ 100 mls/hr IV Q24H [facility] Last Infusion: 07/21/21 15:21 Dose: Infused Documented by: Vancomycin HCl 1,000 mg/ (Sodium Chloride) 270 mls @ 270 mls/hr IV Q12H [facility] Last Infusion: 07/22/21 07:35 Dose: Infused Documented by: Octreotide Acetate 500 mcg/ (Sodium Chloride) 501 mls @ 25.05 mls/hr IVCONT .Q20H [facility] Last Admin: 07/21/21 21:34 Dose: 25 mcg/hr, 25.05 mls/hr Documented by: Magnesium Oxide (Magnesium Oxide 400 Mg Tablet) 1,600 mg PO DAILY [facility] Last Admin: 07/22/21 08:57 Dose: 1,600 mg Documented by: Methylprednisolone Sodium Succinate (Methylprednisolone Sod Succ 40 Mg/Ml Vial) 40 mg IVPUSH Q24H [facility] Last Admin: 07/22/21 08:57 Dose: 40 mg Documented by: Morphine Sulfate (Morphine Sulfate 2 Mg/Ml Cartridge) 2 mg IVPUSH Q4H PRN; Protocol PRN Reason: severe pain Last Admin: 07/22/21 11:14 Dose: 2 mg Documented by: Patient Own Med ( (Flovent 110mcg)) 2 each INHALE BID [facility] Last Admin: 07/22/21 10:01 Dose: Not Given Documented by: Oxycodone HCl (Oxycodone Hcl Immed Release 5 Mg Tablet) 5 mg PO Q6H PRN PRN Reason: Pain, Moderate (Pain Scale 4-6 Last Admin: 07/20/21 21:26 Dose: 5 mg Documented by: Pantoprazole Sodium (Pantoprazole Sodium 40 Mg/10 Ml Vial) 40 mg IVPUSH BID@0630,1630 [facility] Last Admin: 07/22/21 06:20 Dose: 40 mg Documented by: Pharmacy Consult (Consult Rx Perform Med Rec) 1 each MISCELLANE ONCE PRN PRN Reason: Consult order Pharmacy Consult (Consult Rx Vancomycin Dosing) 1 each MISCELLANE DAILY [facility] Sodium Chloride (0.9 % Sodium Chloride Flush 3 Ml Syringe) 3 ml IVFLUSH QSHIFT [facility] Last Admin: 07/22/21 08:58 Dose: 3 ml Documented by: Thiamine HCl (Thiamine Hcl 100 Mg Tablet) 100 mg PO DAILY [facility] Last Admin: 07/22/21 08:57 Dose: 100 mg Documented by: Home Medications Medication Instructions Recorded Confirmed Type albuterol sulfate 90 mcg/actuation 2 puff INHALATION Q6H PRN 03/10/21 07/20/21 History aerosol inhaler (ProAir HFA) cyanocobalamin (vitamin B-12) 1,000 mcg PO DAILY 03/10/21 07/20/21 History 1,000 mcg tablet famotidine 40 mg tablet 40 mg PO DAILY 03/10/21 07/20/21 History fluticasone propionate 110 2 puff INHALATION BID 03/10/21 07/20/21 History mcg/actuation HFA aerosol inhaler (Flovent HFA) folic acid 1 mg tablet 1 mg PO DAILY 03/10/21 07/20/21 History magnesium oxide 400 mg (241.3 mg 1,600 mg PO DAILY 03/10/21 07/20/21 History magnesium) tablet mesalamine 1.2 gram tablet,delayed 4 tab PO DAILY 03/10/21 07/20/21 History release (Lialda) thiamine mononitrate (vit B1) 100 100 mg PO DAILY 03/10/21 07/20/21 History mg tablet (Vitamin B-1 (mononitrate)) metoprolol succinate 25 mg 12.5 mg PO DAILY 07/17/21 07/20/21 History tablet,extended release 24 hr potassium chloride 10 mEq 120 meq PO DAILY tab 07/17/21 07/20/21 History tablet,extended release(part/cryst) prednisone 10 mg tablet 40 mg PO DAILY 07/20/21 07/20/21 History Allergies Allergy/AdvReac Type Severity Reaction Status Date / Time lactose Allergy Gastrointestinal Verified 07/21/21 11:42 Upset aspirin [ASPIRIN] AdvReac Unknown BLOOD IN Verified 03/11/21 09:34 STOOL Physical Exam Vital signs: Vital Signs Temp 98.6 F 07/22/21 01:59 Pulse 90 07/22/21 07:34 Resp 16 07/22/21 07:34 BP 114/67 07/22/21 07:34 Pulse Ox 96 07/22/21 07:34 Intake & Output 07/21/21 07/22/21 07/22/21 18:59 06:59 18:59 Intake Total 849.333 / 3122.333 2273 / 3122.333 321 / 321 Balance 849.333 / 3122.333 2273 / 3122.333 321 / 321 Intake: Intake (Blood Product) Amount 1273 / 1273 Aph Plts Pas Lvds (Ea138) Unit 321 / 321 [id number] Red Blood Cells (E0382) Unit 350 / 350 [id number] Thawed Plasma (E2720) Unit 281 / 281 [id number] Thawed Plasma (E2720) Unit 321 / 321 [id number] Intake, IV Amount 849.333 / 9504.805 0178 / 1849.333 321 / 321 Phytonadione (Vit K1) 10 mg In 51 / 51 51 / 51 0.9 % Sodium Chloride 50 ml @ 51 mls/hr IV DAILY [facility] Rx#: [id number] cefTRIAXone sodium 1 gm In 0.9 50 / 50 % Sodium Chloride 50 ml @ 100 mls/hr IV Q24H [facility] Rx#: [id number] vancomycin HCL 1,000 mg In 0.9 270 / 270 % Sodium Chloride 250 ml @ 270 mls/hr IV Q12H [facility] Rx#: [id number] Dextrose 5 % and 0.45 % NaCl 1, 748.333 / 1984.771 4315 / 1748.333 000 ml @ 100 mls/hr IVCONT . Q10H [facility] Rx#:[id number] Weight 65.771 kg - Constitutional Present: no acute distress, cooperative - Routine HEENT Exam Head: Present: normal inspection Eye: Present: EOMI, scleral icterus - Routine Neck Exam Comments: Fullness of neck bilaterally which is chronic. - Routine Respiratory Exam Absent: accessory muscle use, rhonchi, wheezes - Routine Cardiovascular Exam Cardiovascular: Present: S1, S2 - Routine Abdominal Exam Present: soft Hem/Onc Consult Result - Labs CBC & Chem 7: 07/22/21 07:35 07/22/21 04:03 Labs: Short CBC 07/21/21 07/22/21 07/22/21 Range/Units 20:09 04:03 07:35 WBC 7.4 6.4 6.3 (4.8-10.8) X10*3/uL Hgb 7.4 L 7.6 L 7.5 L (14.0-18.0) g/dl Hct 22.5 L 22.1 L 22.7 L (42.0-52.0) % Plt Count 27 L 34 L D 35 L (160-400) X10*3/uL BMP 07/22/21 04:03 Sodium 133 L Potassium 3.7 Chloride 100 Carbon Dioxide 26 BUN 10 Creatinine 0.69 Calcium 7.9 L Liver Function 07/22/21 Range/Units 04:03 Total Bilirubin 16.0 H (0.0-1.0) mg/dL AST 37 (5-37) U/L ALT 30 (0-40) U/L Alkaline Phosphatase 87 (39-117) U/L Albumin 2.2 L (3.5-5.0) g/dL Assessment and Plan Patient Active problem list reviewed?: Yes (1) Bicytopenia Status: Chronic Assessment and plan: 1. This is a 55-year-old male with chronic liver cirrhosis, anemia and thrombocytopenia who is admitted for possible SBP and being treated for MSSA bacteremia. He developed GI bleeding overnight. He has anemia and thrombocytopenia which is multifactorial. Liver disease with hypersplenism /splenic sequestration, suppression of bone marrow related to alcoholism, sepsis related cytopenias, gastrointestinal blood losses and hemolysis are all possible etiologies. He has chronic macrocytic anemia. Repeat vitamin B12 and folic acid levels. These were normal in the past. Agree with blood and platelet transfusion as needed to keep hemoglobin above 8 gram/dL and platelets above 30. 2. Coagulopathy of liver disease. Possible DIC. He has been given vitamin K and 2 units FFP. Fibrinogen level is above 100. Monitor coags and continue with supportive care. Treating underlying cause should help coagulopathy if it is DIC related to infection. Acute hepatic failure can also cause DIC. I thank you for this consultation. - Time Spent With Patient Time Spent with Patient (in minutes): 20
[2021-07-22] MEDS: cefTRIAXone sodium 1 GM in 0.9 % Sodium Chloride 50 ML IV (15:10)
--- NOTE | 2021-07-22 15:51 | W.PM.IDCN ---
History of Present Illness Data of Consult Service Date: 07/22/21 Requesting physician: Ceci Kirkpatrick Primary Care Provider: Thierno Browne MD HPI Reason for consult: staph aureus bacteremia He presents to ER with 8/10 LLQ pain as well as fatigue. He has staph aureus bacteremia,sensitivities pending and urine culture staph aureus. He has no fever or chills CT shows varices and no diverticulitis. Review of Systems Review of Systems: Yes all other systems are reviewed and are negative [facility] Past Medical History Medical History (Updated 07/22/21 @ 15:54 by Elizabeth Muse MD) Anemia Asthma CAD (coronary artery disease) Cirrhosis Glaucoma Liver disease Liver disease Staph aureus infection Family History Family history: reviewed and not pertinent Social History Social History Household Members: Significant Other Housing: House Housing Other:: duplex Do you presently have visiting nurse or other home services: No Alcohol intake: current Alcohol intake frequency: does not drink Alcohol type: beer Patient Tobacco Use Status: Never used Tobacco Substance Use Type: Marijuana Advance Directives: Yes Advance Directives Information Provided: Yes Advance Directives on File: No service: No Current occupational status: unemployed Meds Allergies Allergy/AdvReac Type Severity Reaction Status Date / Time lactose Allergy Gastrointestinal Verified 07/21/21 11:42 Upset aspirin [ASPIRIN] AdvReac Unknown BLOOD IN Verified 03/11/21 09:34 STOOL Active Medications: Current Medications Albuterol Sulfate (Albuterol Sulfate 90 Mcg 8 Gm Inhaler) 2 puff INHALE RQ4H PRN PRN Reason: shortness of breath or wheeze Cyanocobalamin (Cyanocobalamin (Vitamin B-12) 1,000 Mcg Tablet) 1,000 mcg PO DAILY [facility] Last Admin: 07/22/21 08:57 Dose: 1,000 mcg Documented by: Famotidine (Famotidine 20 Mg Tablet) 40 mg PO DAILY [facility] Last Admin: 07/22/21 08:57 Dose: 40 mg Documented by: Folic Acid (Folic Acid 1 Mg Tablet) 1 mg PO DAILY [facility] Last Admin: 07/22/21 08:57 Dose: 1 mg Documented by: Dextrose/Sodium Chloride (D51/2ns) 1,000 mls @ 100 mls/hr IVCONT .Q10H [facility] Last Admin: 07/22/21 07:31 Dose: 100 mls/hr Documented by: Vancomycin HCl 1,000 mg/ (Sodium Chloride) 270 mls @ 270 mls/hr IV Q12H [facility] Last Infusion: 07/22/21 07:35 Dose: Infused Documented by: Octreotide Acetate 500 mcg/ (Sodium Chloride) 501 mls @ 25.05 mls/hr IVCONT .Q20H [facility] Last Admin: 07/21/21 21:34 Dose: 25 mcg/hr, 25.05 mls/hr Documented by: Magnesium Oxide (Magnesium Oxide 400 Mg Tablet) 1,600 mg PO DAILY [facility] Last Admin: 07/22/21 08:57 Dose: 1,600 mg Documented by: Methylprednisolone Sodium Succinate (Methylprednisolone Sod Succ 40 Mg/Ml Vial) 40 mg IVPUSH Q24H [facility] Last Admin: 07/22/21 08:57 Dose: 40 mg Documented by: Morphine Sulfate (Morphine Sulfate 2 Mg/Ml Cartridge) 2 mg IVPUSH Q4H PRN; Protocol PRN Reason: severe pain Last Admin: 07/22/21 11:14 Dose: 2 mg Documented by: Patient Own Med ( (Flovent 110mcg)) 2 each INHALE BID [facility] Last Admin: 07/22/21 10:01 Dose: Not Given Documented by: Oxycodone HCl (Oxycodone Hcl Immed Release 5 Mg Tablet) 5 mg PO Q6H PRN PRN Reason: Pain, Moderate (Pain Scale 4-6 Last Admin: 07/20/21 21:26 Dose: 5 mg Documented by: Pantoprazole Sodium (Pantoprazole Sodium 40 Mg/10 Ml Vial) 40 mg IVPUSH BID@0630,1630 [facility] Last Admin: 07/22/21 15:10 Dose: 40 mg Documented by: Pharmacy Consult (Consult Rx Perform Med Rec) 1 each MISCELLANE ONCE PRN PRN Reason: Consult order Pharmacy Consult (Consult Rx Vancomycin Dosing) 1 each MISCELLANE DAILY [facility] Sodium Chloride (0.9 % Sodium Chloride Flush 3 Ml Syringe) 3 ml IVFLUSH QSHIFT [facility] Last Admin: 07/22/21 15:14 Dose: Not Given Documented by: Thiamine HCl (Thiamine Hcl 100 Mg Tablet) 100 mg PO DAILY [facility] Last Admin: 07/22/21 08:57 Dose: 100 mg Documented by: Home Medications Medication Instructions Recorded Confirmed Last Taken Type albuterol sulfate 90 mcg/actuation 2 puff INHALATION Q6H PRN 03/10/21 07/20/21 03/09/21 History aerosol inhaler (ProAir HFA) cyanocobalamin (vitamin B-12) 1,000 mcg PO DAILY 03/10/21 07/20/21 03/09/21 History 1,000 mcg tablet famotidine 40 mg tablet 40 mg PO DAILY 03/10/21 07/20/21 07/19/21 History fluticasone propionate 110 2 puff INHALATION BID 03/10/21 07/20/21 03/09/21 History mcg/actuation HFA aerosol inhaler (Flovent HFA) folic acid 1 mg tablet 1 mg PO DAILY 03/10/21 07/20/21 07/19/21 History magnesium oxide 400 mg (241.3 mg 1,600 mg PO DAILY 03/10/21 07/20/21 07/19/21 History magnesium) tablet mesalamine 1.2 gram tablet,delayed 4 tab PO DAILY 03/10/21 07/20/21 07/19/21 History release (Lialda) thiamine mononitrate (vit B1) 100 100 mg PO DAILY 03/10/21 07/20/21 07/19/21 History mg tablet (Vitamin B-1 (mononitrate)) metoprolol succinate 25 mg 12.5 mg PO DAILY 07/17/21 07/20/21 07/19/21 History tablet,extended release 24 hr potassium chloride 10 mEq 120 meq PO DAILY tab 07/17/21 07/20/21 07/19/21 History tablet,extended release(part/cryst) prednisone 10 mg tablet 40 mg PO DAILY 07/20/21 07/20/21 07/19/21 History Physical Exam Vital Signs: Vital Signs: Last Vital Signs Temp 98.6 F 07/22/21 01:59 Pulse 90 07/22/21 07:34 Resp 16 07/22/21 07:34 BP 114/67 07/22/21 07:34 Pulse Ox 96 07/22/21 07:34 BMI result Body Mass Index 24.9 Const: General: cooperative HEENT: Head: Yes normal to inspection Mouth: Normal oral and palatal mucosa present Eyes: General: appearance normal, both eyes and all related structures Pupils: Equal, round and reactive pupils present Resp: Effort & Inspection: normal respiratory effort Cardio: Rate: regular rate Rhythm: regular rhythm GI: Palpation (GI): Soft to palpation and nontender Skin: General skin exam: no rashes or lesions noted Neuro: Cranial nerves: Yes Equal, round and reactive pupils present Results Labs CBC & Chem 7: 07/22/21 07:35 07/22/21 04:03 Labs: Short CBC 07/21/21 07/22/21 07/22/21 Range/Units 20:09 04:03 07:35 WBC 7.4 6.4 6.3 (4.8-10.8) X10*3/uL Hgb 7.4 L 7.6 L 7.5 L (14.0-18.0) g/dl Hct 22.5 L 22.1 L 22.7 L (42.0-52.0) % Plt Count 27 L 34 L D 35 L (160-400) X10*3/uL BMP 07/22/21 04:03 Sodium 133 L Potassium 3.7 Chloride 100 Carbon Dioxide 26 BUN 10 Creatinine 0.69 Calcium 7.9 L Liver Function 07/22/21 Range/Units 04:03 Total Bilirubin 16.0 H (0.0-1.0) mg/dL AST 37 (5-37) U/L ALT 30 (0-40) U/L Alkaline Phosphatase 87 (39-117) U/L Albumin 2.2 L (3.5-5.0) g/dL Microbiology Microbiology Results: Microbiology 07/20/21 13:24 Blood - Venous Blood Culture - Preliminary Staphylococcus aureus 07/20/21 13:24 Blood - Venous Blood Culture - Preliminary Staphylococcus aureus 07/20/21 Unknown Urine clean catch - Urine falk top Urine Culture - Final Staphylococcus aureus Assessment and Plan (1) Abdominal pain: Status: Acute (2) Staph aureus infection: Status: Acute He has staph aureus bacteremia likely from urine source. He has immunosuppression from liver disease He has no allergies Plan Vancomycin Check echo Await culture and sensitivities
[2021-07-22] MEDS: Octreotide Acetate 500 MCG in 0.9 % Sodium Chloride 500 ML 25.05 MCG IVCONT (16:35)
[2021-07-23] VITALS (15 sets, daily range): BP systolic 110–139; BP diastolic 57–74; PULSE 70–107; RESP 4–20; TEMP 36.4–37.4; O2SAT 94–962
[2021-07-23] MEDS: Morphine Sulfate 2 MG/ML CARTRIDGE IVPUSH ×5 (00:01→21:31)
[2021-07-23 04:15] LABS: MANUAL DIFF FLAG NO
[2021-07-23 04:16] LABS: Basophils Percent Auto 0.1 % (0-2); Hematocrit 22.8 % (42.0-52.0); Hemoglobin 7.7 g/dl (14.0-18.0); Imm Gran Pct Auto 2.9 % (0.0-0.4); Lymphocytes Absolute Auto 0.4 X10*3/uL (1.2-4.9); Lymphocytes Percent Auto 5.8 % (20-40); Mean Corpuscular HGB Conc 33.8 g/dl (31.0-36.0); Mean Corpuscular Hemoglobin 38.3 pg (27.0-33.0); Mean Platelet Volume 8.5 fL (9.4-12.4); Monocytes Absolute Auto 0.7 X10*3/uL (0.1-1.2); Monocytes Percent Auto 9.4 % (2-11); Neutrophils Absolute Auto 5.6 x10*3/uL (2.0-8.3); Neutrophils Percent Auto 81.8 % (45-73); Red Blood Count 2.01 X10*6/uL (4.60-5.80); Red Cell Distribution Width 19.8 % (11.0-16.0); White Blood Count 6.9 X10*3/uL (4.8-10.8)
[2021-07-23 04:19] LABS: Mean Corpuscular Volume 113.4 fL (80.0-98.0); Platelet Count 33 X10*3/uL (160-400)
[2021-07-23 04:32] LABS: INTERNATIONAL NORM RATIO 2.5 (0.9-1.1); Prothrombin Time 28.8 SEC (9.9-13.0)
[2021-07-23 04:33] LABS: Alanine Aminotransferase 30 U/L (0-40); Albumin Level 2.3 g/dL (3.5-5.0); Alkaline Phosphatase 90 U/L (39-117); Anion Gap 13 (12-20); Aspartate Amino Transferase 40 U/L (5-37); Bilirubin Total 17.4 mg/dL (0.0-1.0); Blood Urea Nitrogen 13 mg/dL (9-16); Calcium 8.1 mg/dL (8.4-10.2); Carbon Dioxide 25 mmol/L (22-29); Chloride 101 mmol/L (96-108); Creatinine Clr Calc Pharmacy 89.7; Estimated Glomerular Filt Rate > 60; Glucose Fasting 139 mg/dL (60-99); Potassium 4.2 mmol/L (3.3-5.1); Sodium 135 mmol/L (135-145); Total Protein 5.2 g/dL (6.5-8.0)
[2021-07-23 04:37] LABS: Vancomycin Trough 12.6 mcg/mL (10.0-20.0)
[2021-07-23] MEDS: Dextrose 5 % and 0.45 % NaCl 1,000 ML 100 ML IVCONT (05:51)
[2021-07-23] MEDS: Pantoprazole Sodium 40 MG/10 ML VIAL IVPUSH ×2 (05:51→15:55)
[2021-07-23] MEDS: vancomycin HCL 1,000 MG in 0.9 % Sodium Chloride 250 ML 270 MG IV ×2 (05:52→18:00)
--- NOTE | 2021-07-23 06:29 | HE.PHANOTE ---
Vancomycin Dosing Addendum Trough this morning 12.6. Continue with current regimen of 1000 mg q12h with predicted AUC of 497. next trough 07/24/21 @1600.
[2021-07-23] MEDS: methylPREDNISolone Sod Succ 40 MG/ML VIAL IVPUSH (10:07)
[2021-07-23] MEDS: Cyanocobalamin (Vitamin B-12) 1,000 MCG TABLET 1000 MCG PO (10:07)
[2021-07-23] MEDS: Famotidine 20 MG TABLET 40 MG PO (10:07)
[2021-07-23] MEDS: Folic Acid 1 MG TABLET PO (10:08)
[2021-07-23] MEDS: Magnesium Oxide 400 MG TABLET 1600 MG PO (10:08)
[2021-07-23] MEDS: Thiamine HCL 100 MG TABLET PO (10:08)
[2021-07-23] MEDS: 0.9 % Sodium Chloride Flush 3 ML SYRINGE IVFLUSH ×3 (10:09→15:55)
--- NOTE | 2021-07-23 11:25 | P.PNIM_ITS ---
Subjective Subjective Date of Service: 07/23/21 Interval History: no further GI bleeding intermittent groin pain no N/V no fever Review of Systems Review of Systems: Yes all other systems are reviewed and are negative Physical Exam Vital Signs: Vital Signs: Last Vital Signs Temp 97.5 F 07/23/21 07:58 Pulse 104 H 07/23/21 08:46 Resp 4 L 07/23/21 08:23 BP 139/67 07/23/21 08:46 Pulse Ox 96 07/23/21 08:46 BMI result Body Mass Index 24.9 Gen: in no acute distress HEENT: sclera icteric, moist mucus membranes Neck: supple, extensive lipodystrophy Lungs: clear to auscultation bilaterally Heart: regular rate and rhythm, no murmurs Abd: soft, non-tender, non-distended, tender L groin Ext: trace edema Skin: warm/well-perfused, jaundiced Neuro: alert and oriented x3, no focal findings Psych: appropriate affect Objective Data Active Medications Albuterol Sulfate (Albuterol Sulfate 90 Mcg 8 Gm Inhaler) 2 puff INHALE RQ4H PRN PRN Reason: shortness of breath or wheeze Cyanocobalamin (Cyanocobalamin (Vitamin B-12) 1,000 Mcg Tablet) 1,000 mcg PO DAILY [facility] Last Admin: 07/23/21 10:07 Dose: 1,000 mcg Documented by: GORDON Famotidine (Famotidine 20 Mg Tablet) 40 mg PO DAILY [facility] Last Admin: 07/23/21 10:07 Dose: 40 mg Documented by: GORDON Folic Acid (Folic Acid 1 Mg Tablet) 1 mg PO DAILY [facility] Last Admin: 07/23/21 10:08 Dose: 1 mg Documented by: GORDON Vancomycin HCl 1,000 mg/ (Sodium Chloride) 270 mls @ 270 mls/hr IV Q12H [facility] Last Infusion: 07/23/21 07:22 Dose: 0 mls/hr Documented by: GORDON Octreotide Acetate 500 mcg/ (Sodium Chloride) 501 mls @ 25.05 mls/hr IVCONT .Q20H [facility] Last Infusion: 07/23/21 11:15 Dose: 25 mcg/hr, 25.05 mls/hr Documented by: GORDON Magnesium Oxide (Magnesium Oxide 400 Mg Tablet) 1,600 mg PO DAILY [facility] Last Admin: 07/23/21 10:08 Dose: 1,600 mg Documented by: GORDON Methylprednisolone Sodium Succinate (Methylprednisolone Sod Succ 40 Mg/Ml Vial) 40 mg IVPUSH Q24H [facility] Last Admin: 07/23/21 10:07 Dose: 40 mg Documented by: GORDON Morphine Sulfate (Morphine Sulfate 2 Mg/Ml Cartridge) 2 mg IVPUSH Q4H PRN; Protocol PRN Reason: severe pain Last Admin: 07/23/21 10:08 Dose: 2 mg Documented by: GORDON Patient Own Med ( (Flovent 110mcg)) 2 each INHALE BID [facility] Last Admin: 07/23/21 08:21 Dose: 2 each Documented by: STANISLAW Oxycodone HCl (Oxycodone Hcl Immed Release 5 Mg Tablet) 5 mg PO Q6H PRN PRN Reason: Pain, Moderate (Pain Scale 4-6 Last Admin: 07/20/21 21:26 Dose: 5 mg Documented by: GABINO Pantoprazole Sodium (Pantoprazole Sodium 40 Mg/10 Ml Vial) 40 mg IVPUSH BID@0630,1630 [facility] Last Admin: 07/23/21 05:51 Dose: 40 mg Documented by: GALI Pharmacy Consult (Consult Rx Perform Med Rec) 1 each MISCELLANE ONCE PRN PRN Reason: Consult order Pharmacy Consult (Consult Rx Vancomycin Dosing) 1 each MISCELLANE DAILY [facility] Sodium Chloride (0.9 % Sodium Chloride Flush 3 Ml Syringe) 3 ml IVFLUSH QSHIFT [facility] Last Admin: 07/23/21 10:09 Dose: 3 ml Documented by: GORDON Thiamine HCl (Thiamine Hcl 100 Mg Tablet) 100 mg PO DAILY [facility] Last Admin: 07/23/21 10:08 Dose: 100 mg Documented by: GORDON Labs CBC & Chem 7: 07/23/21 04:05 07/23/21 04:05 Labs: Laboratory Results - last 24 hr 07/21/21 07/22/21 07/23/21 21:17 12:00 04:05 MCV MCH MCHC RDW Plt Count MPV Immature Gran % (Auto) Neut % (Auto) Lymph % (Auto) [place] % (Auto) Eos % (Auto) Baso % (Auto) Lymph # (Auto) [place] # (Auto) Eos # (Auto) Baso # (Auto) Abs Immat Gran (auto) Absolute Neuts (auto) Absolute Nucleated RBC Nucleated RBC % (auto) PT INR Fibrinogen 148 L D-Dimer High Sensitivty 845 Anion Gap Estim Creat Clear Calc Estimated GFR Fasting Glucose Calcium Total Bilirubin AST ALT Alkaline Phosphatase Total Protein Albumin Vancomycin Trough 12.6 Blood Type A Positive Antibody Screen NEGATIVE Crossmatch See Detail 07/23/21 07/23/21 07/23/21 04:05 04:05 04:05 MCV 113.4 H MCH 38.3 H MCHC 33.8 RDW 19.8 H Plt Count 33 L MPV 8.5 L Immature Gran % (Auto) 2.9 H Neut % (Auto) 81.8 H Lymph % (Auto) 5.8 L [place] % (Auto) 9.4 Eos % (Auto) 0.0 Baso % (Auto) 0.1 Lymph # (Auto) 0.4 L [place] # (Auto) 0.7 Eos # (Auto) 0.0 Baso # (Auto) 0.0 Abs Immat Gran (auto) 0.20 H Absolute Neuts (auto) 5.6 Absolute Nucleated RBC 0.000 Nucleated RBC % (auto) 0.0 PT 28.8 H INR 2.5 H Fibrinogen D-Dimer High Sensitivty Anion Gap 13 Estim Creat Clear Calc 89.7 Estimated GFR > 60 Fasting Glucose 139 H Calcium 8.1 L Total Bilirubin 17.4 H AST 40 H ALT 30 Alkaline Phosphatase 90 Total Protein 5.2 L Albumin 2.3 L Vancomycin Trough Blood Type Antibody Screen Crossmatch TTE 07/22/21 - The left ventricular systolic function is low normal.? The ? ? calculated ejection fraction is 52% by biplane method. ? - There is evidence of regional wall motion abnormalities. ? ? ? - Mildly increased right ventricular cavity size.? - No obvious valvular pathology seen on this study.? Microbiology Microbiology Results: Microbiology 07/20/21 13:24 Blood Culture - Final Blood - Venous Staphylococcus aureus 07/20/21 13:24 Blood Culture - Final Blood - Venous Staphylococcus aureus 07/20/21 Unknown Urine Culture - Final Urine clean catch - Urine falk top Staphylococcus aureus Assessment and Plan (1) Abdominal pain: Status: Acute Plan hospital d#4 55yo M with EtOH cirrhosis presenting with groin/lower abd pain, mild ascites found to have MSSA bacteremia # abd/groin pain - suspect due to hernia- reducible and small- not operative candidate per surgery - on ceftriaxone d#4/5 for possible SBP though ascites is too small to tap # MSSA bacteremia - vanco d#3, ID consulted, no vegetation on TTE, surveillance BCx from today drawn, PICC if clear, duration as per ID # EtOH hepatitis - continue methylprednisolone. GI following. 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 splenorenal shunt on imaging should reduce risk of varices. no EGD for now. # portal vein thrombosis - too risky to anticoagulate per GI. hope for recanalization. 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
--- NOTE | 2021-07-23 11:37 | P.CDIC_ITS ---
CDI Concurrent Query Documentation Clarification: PHYSICIAN'S DOCUMENTATION REQUEST Date of Query: 07/23/21 1138 Patient Name: Jalen Pemberton Admit Date: 07/20/21 Dear Doctor, A review of the medical record indicates additional documentation may be needed. Please review below and update the documentation accordingly. Clinical Indicators: Risk Factors/Clinical Indicators/Treatments ID 07/22 - Staph aureus bacteremia likely urinary source. GI note 07/22 - May also have DIC w low plts and high INR possibly from UTI (pos gram pos, also pos BC's). PN 07/23 - MSSA bacteremia. Vancomycin, Ceftriaxone. UA - pos nitrite, leukocyte Trace H, urine rbc 5-9 H Please clarify which, if any, of the following is the most likely etiology of the above symptoms and treatment rendered: MSSA Bacteremia related to, due to, associated with: * Localized infection only, without systemic illness - indicate the site/source, such as UTI, pneumonia, etc. * Bacteremia (abnormal lab finding only, does not indicate systemic illness) * Other (please specify) * Unable to determine Use of terms such as suspected, likely, concern for, or probable (associated with a specific diagnosis that is being evaluated, monitored, or treated as if it exists) are acceptable and can be coded in the inpatient setting, when documented at the time of discharge. Thank you, Cathy Osman [facility], CDIS Extension: [phone] Please use your independent medical judgment in providing your response. THIS QUERY IS PART OF THE PERMANENT MEDICAL RECORD Provider Response: Other Other Diagnosis: bacteremia, unclear source
[2021-07-23] MEDS: Octreotide Acetate 500 MCG in 0.9 % Sodium Chloride 500 ML 25.05 MCG IVCONT (12:37)
[2021-07-23 21:35] LABS: Haptoglobin <8 mg/dL (43-212)
[2021-07-24] VITALS (7 sets, daily range): BP systolic 116–137; BP diastolic 64–73; PULSE 79–107; RESP 16–18; TEMP 36.6–37.3; O2SAT 94–97
[2021-07-24] MEDS: vancomycin HCL 1,000 MG in 0.9 % Sodium Chloride 250 ML 270 MG IV (05:07)
[2021-07-24] MEDS: Pantoprazole Sodium 40 MG/10 ML VIAL IVPUSH ×2 (05:08→17:38)
[2021-07-24 06:04] LABS: Hematocrit 27.1 % (42.0-52.0); Mean Corpuscular HGB Conc 33.2 g/dl (31.0-36.0); Mean Corpuscular Hemoglobin 37.2 pg (27.0-33.0); Mean Platelet Volume 9.6 fL (9.4-12.4); Red Blood Count 2.42 X10*6/uL (4.60-5.80); Red Cell Distribution Width 20.8 % (11.0-16.0); White Blood Count 8.3 X10*3/uL (4.8-10.8)
[2021-07-24 06:07] LABS: Platelet Count 31 X10*3/uL (160-400)
[2021-07-24 06:12] LABS: Fibrinogen 122 MG/DL (259-690); INTERNATIONAL NORM RATIO 2.4 (0.9-1.1)
[2021-07-24 06:31] LABS: Alanine Aminotransferase 31 U/L (0-40); Albumin Level 2.3 g/dL (3.5-5.0); Alkaline Phosphatase 96 U/L (39-117); Anion Gap 10 (12-20); Aspartate Amino Transferase 49 U/L (5-37); Bilirubin Total 19.7 mg/dL (0.0-1.0); Blood Urea Nitrogen 15 mg/dL (9-16); Calcium 8.3 mg/dL (8.4-10.2); Carbon Dioxide 26 mmol/L (22-29); Chloride 102 mmol/L (96-108); Creatinine Clr Calc Pharmacy 93.4; Estimated Glomerular Filt Rate > 60; Glucose Random 137 mg/dL (60-115); Magnesium 1.8 mg/dL (1.6-2.6); Potassium 4.1 mmol/L (3.3-5.1); Sodium 134 mmol/L (135-145); Total Protein 5.3 g/dL (6.5-8.0)
[2021-07-24] MEDS: Morphine Sulfate 2 MG/ML CARTRIDGE IVPUSH ×4 (07:44→22:21)
[2021-07-24] MEDS: Magnesium Oxide 400 MG TABLET 1600 MG PO (07:45)
[2021-07-24] MEDS: Folic Acid 1 MG TABLET PO (07:45)
[2021-07-24] MEDS: Thiamine HCL 100 MG TABLET PO (07:45)
[2021-07-24] MEDS: Cyanocobalamin (Vitamin B-12) 1,000 MCG TABLET 1000 MCG PO (07:45)
[2021-07-24] MEDS: Famotidine 20 MG TABLET 40 MG PO (07:45)
[2021-07-24] MEDS: Octreotide Acetate 500 MCG in 0.9 % Sodium Chloride 500 ML 25.05 MCG IVCONT (08:39)
[2021-07-24] MEDS: methylPREDNISolone Sod Succ 40 MG/ML VIAL IVPUSH (08:39)
--- NOTE | 2021-07-24 09:59 | HO.PM.IMPN ---
Subjective Subjective Date of Service: 07/24/21 Interval History: Tolerated transfusion No Gi bleeding Intermittent groin pain, no upper abd pain No fever/chills Review of Systems Review of Systems: Yes all other systems are reviewed and are negative Physical Exam Vital Signs: Vital Signs: Last Vital Signs Temp 98.3 F 07/24/21 08:00 Pulse 79 07/24/21 08:00 Resp 18 07/24/21 08:00 BP 118/67 07/24/21 08:00 Pulse Ox 95 07/24/21 08:00 BMI result Body Mass Index 24.9 Gen: in no acute distress HEENT: sclera icteric, moist mucus membranes Neck: supple, extensive lipodystrophy Lungs: clear to auscultation bilaterally Heart: regular rate and rhythm, no murmurs Abd: soft, non-tender, non-distended, tender L groin Ext: trace edema Skin: warm/well-perfused, jaundiced Neuro: alert and oriented x3, no focal findings Psych: appropriate affect Objective Data Active Medications Albuterol Sulfate (Albuterol Sulfate 90 Mcg 8 Gm Inhaler) 2 puff INHALE RQ4H PRN PRN Reason: shortness of breath or wheeze Cyanocobalamin (Cyanocobalamin (Vitamin B-12) 1,000 Mcg Tablet) 1,000 mcg PO DAILY [facility] Last Admin: 07/24/21 07:45 Dose: 1,000 mcg Documented by: JAVAD Famotidine (Famotidine 20 Mg Tablet) 40 mg PO DAILY [facility] Last Admin: 07/24/21 07:45 Dose: 40 mg Documented by: JAVAD Folic Acid (Folic Acid 1 Mg Tablet) 1 mg PO DAILY [facility] Last Admin: 07/24/21 07:45 Dose: 1 mg Documented by: JAVAD Vancomycin HCl 1,000 mg/ (Sodium Chloride) 270 mls @ 270 mls/hr IV Q12H [facility] Last Infusion: 07/24/21 06:07 Dose: 0 mls/hr Documented by: RUBI Octreotide Acetate 500 mcg/ (Sodium Chloride) 501 mls @ 25.05 mls/hr IVCONT .Q20H [facility] Last Admin: 07/24/21 08:39 Dose: 25 mcg/hr, 25.05 mls/hr Documented by: JAVAD Magnesium Oxide (Magnesium Oxide 400 Mg Tablet) 1,600 mg PO DAILY [facility] Last Admin: 07/24/21 07:45 Dose: 1,600 mg Documented by: JAVAD Methylprednisolone Sodium Succinate (Methylprednisolone Sod Succ 40 Mg/Ml Vial) 40 mg IVPUSH Q24H [facility] Last Admin: 07/24/21 08:39 Dose: 40 mg Documented by: JAVAD Morphine Sulfate (Morphine Sulfate 2 Mg/Ml Cartridge) 2 mg IVPUSH Q4H PRN; Protocol PRN Reason: severe pain Last Admin: 07/24/21 07:44 Dose: 2 mg Documented by: JAVAD Patient Own Med ( (Flovent 110mcg)) 2 each INHALE BID [facility] Last Admin: 07/24/21 07:46 Dose: 2 each Documented by: JAVAD Oxycodone HCl (Oxycodone Hcl Immed Release 5 Mg Tablet) 5 mg PO Q6H PRN PRN Reason: Pain, Moderate (Pain Scale 4-6 Last Admin: 07/20/21 21:26 Dose: 5 mg Documented by: GABINO Pantoprazole Sodium (Pantoprazole Sodium 40 Mg/10 Ml Vial) 40 mg IVPUSH BID@0630,1630 [facility] Last Admin: 07/24/21 05:08 Dose: 40 mg Documented by: RUBI Pharmacy Consult (Consult Rx Perform Med Rec) 1 each MISCELLANE ONCE PRN PRN Reason: Consult order Pharmacy Consult (Consult Rx Vancomycin Dosing) 1 each MISCELLANE DAILY [facility] Sodium Chloride (0.9 % Sodium Chloride Flush 3 Ml Syringe) 3 ml IVFLUSH QSHIFT [facility] Last Admin: 07/24/21 07:41 Dose: Not Given Documented by: JAVAD Non-Admin Reason: IV Running Thiamine HCl (Thiamine Hcl 100 Mg Tablet) 100 mg PO DAILY [facility] Last Admin: 07/24/21 07:45 Dose: 100 mg Documented by: JAVAD Labs CBC & Chem 7: 07/24/21 05:31 07/24/21 05:31 Labs: Laboratory Results - last 24 hr 07/21/21 07/21/21 07/24/21 08:49 21:17 05:31 MCV 112.0 H MCH 37.2 H MCHC 33.2 RDW 20.8 H Plt Count 31 L MPV 9.6 Absolute Nucleated RBC 0.000 Nucleated RBC % (auto) 0.0 Haptoglobin <8 L PT INR Fibrinogen Anion Gap Estim Creat Clear Calc Estimated GFR Random Glucose Calcium Magnesium Total Bilirubin AST ALT Alkaline Phosphatase Total Protein Albumin Blood Type A Positive Antibody Screen NEGATIVE Crossmatch See Detail 07/24/21 07/24/21 05:31 05:31 MCV MCH MCHC RDW Plt Count MPV Absolute Nucleated RBC Nucleated RBC % (auto) Haptoglobin PT 28.0 H INR 2.4 H Fibrinogen 122 L Anion Gap 10 L Estim Creat Clear Calc 93.4 Estimated GFR > 60 Random Glucose 137 H D Calcium 8.3 L Magnesium 1.8 Total Bilirubin 19.7 H AST 49 H ALT 31 Alkaline Phosphatase 96 Total Protein 5.3 L Albumin 2.3 L Blood Type Antibody Screen Crossmatch TTE 07/23/21 - The left ventricular systolic function is low normal.? The ? ? calculated ejection fraction is 52% by biplane method. ? - There is evidence of regional wall motion abnormalities. ? ? ? - Mildly increased right ventricular cavity size.? - No obvious valvular pathology seen on this study.? ? Microbiology Microbiology Results: Microbiology 07/23/21 04:05 Blood Culture - Preliminary Blood - Venous No growth after 24 hours. 07/23/21 04:05 Blood Culture - Preliminary Blood - Venous No growth after 24 hours. 07/20/21 13:24 Blood Culture - Final Blood - Venous Staphylococcus aureus 07/20/21 13:24 Blood Culture - Final Blood - Venous Staphylococcus aureus Assessment and Plan (1) Abdominal pain: Status: Acute Plan hospital d#5 55yo M with EtOH cirrhosis presenting with groin/lower abd pain, mild ascites found to have MSSA bacteremia # abd/groin pain - suspect due to hernia- reducible and small- not operative candidate per surgery - completed ceftriaxone for possible SBP though ascites is too small to tap # MSSA bacteremia/bacteruria - vanco d#4, ID consulted, no vegetation on TTE, surveillance BCx from 07/23/21 drawn, PICC if clear, duration as per ID. ?source- urine, skin [pt has eczema] # EtOH hepatitis - continue methylprednisolone. GI following. 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 splenorenal shunt on imaging should reduce risk of varices. no EGD for now. # portal vein thrombosis - too risky to anticoagulate per GI. hope for recanalization. 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
--- NOTE | 2021-07-24 15:50 | MHC.CM.PN ---
CURRENTLY AWAITING NEGATIVE CX AND PLAN IS FOR PICC PLACEMENT ON Tuesday07/27/21
[2021-07-24 16:36] LABS: Creatinine Clr Calc Pharmacy 96.1; Estimated Glomerular Filt Rate > 60
[2021-07-24 16:37] LABS: Vancomycin Trough 6.3 mcg/mL (10.0-20.0)
--- NOTE | 2021-07-24 16:47 | HE.PHANOTE ---
Vancomycin Dosing Addendum Trough today was subtherapeutic at 6.3. Renal function is stable. Will increase dose to 1250 mg Q12H. Next trough will be drawn in 24 hours on 07/25/21 @ 1600. Guillermina RodriguezD
[2021-07-24] MEDS: vancomycin HCL 1,250 MG in 0.9 % Sodium Chloride 250 ML 166.67 MG IV (17:38)
[2021-07-24] MEDS: 0.9 % Sodium Chloride Flush 3 ML SYRINGE IVFLUSH (17:38)
[2021-07-25] VITALS: BP 115/58; PULSE 76; RESP 16; TEMP 37.1; O2SAT 94
[2021-07-25] MEDS: Octreotide Acetate 500 MCG in 0.9 % Sodium Chloride 500 ML 25.05 MCG IVCONT (04:27)
[2021-07-25 06:02] LABS: Hemoglobin 8.9 g/dl (14.0-18.0); PLT CLUMP 1
[2021-07-25 06:04] LABS: Hematocrit 26.7 % (42.0-52.0); Mean Corpuscular HGB Conc 33.3 g/dl (31.0-36.0); Mean Corpuscular Hemoglobin 37.1 pg (27.0-33.0); Mean Platelet Volume 9.5 fL (9.4-12.4); Red Cell Distribution Width 20.2 % (11.0-16.0)
[2021-07-25] MEDS: Pantoprazole Sodium 40 MG/10 ML VIAL IVPUSH ×2 (06:12→15:56)
[2021-07-25] MEDS: vancomycin HCL 1,250 MG in 0.9 % Sodium Chloride 250 ML 166.67 MG IV ×2 (06:12→17:55)
[2021-07-25 06:14] LABS: Fibrinogen 122 MG/DL (259-690); INTERNATIONAL NORM RATIO 2.9 (0.9-1.1)
[2021-07-25 06:17] LABS: Mean Corpuscular Volume 111.3 fL (80.0-98.0); Platelet Count 31 X10*3/uL (160-400); White Blood Count 7.6 X10*3/uL (4.8-10.8)
[2021-07-25 06:25] LABS: Alanine Aminotransferase 32 U/L (0-40); Albumin Level 2.1 g/dL (3.5-5.0); Alkaline Phosphatase 101 U/L (39-117); Anion Gap 10 (12-20); Aspartate Amino Transferase 54 U/L (5-37); Blood Urea Nitrogen 17 mg/dL (9-16); Carbon Dioxide 26 mmol/L (22-29); Chloride 101 mmol/L (96-108); Creatinine Clr Calc Pharmacy 96.1; Estimated Glomerular Filt Rate > 60; Glucose Random 139 mg/dL (60-115); Magnesium 1.8 mg/dL (1.6-2.6); Sodium 133 mmol/L (135-145); Total Protein 4.9 g/dL (6.5-8.0)
[2021-07-25 06:33] LABS: Bilirubin Total 21.5 mg/dL (0.0-1.0)
[2021-07-25 07:51] VITALS: BP 131/65; PULSE 77; RESP 17; TEMP 37.2; O2SAT 94
[2021-07-25] MEDS: Magnesium Oxide 400 MG TABLET 1600 MG PO (08:03)
[2021-07-25] MEDS: Thiamine HCL 100 MG TABLET PO (08:03)
[2021-07-25] MEDS: 0.9 % Sodium Chloride Flush 3 ML SYRINGE IVFLUSH ×3 (08:03→20:51)
[2021-07-25] MEDS: Cyanocobalamin (Vitamin B-12) 1,000 MCG TABLET 1000 MCG PO (08:03)
[2021-07-25] MEDS: Famotidine 20 MG TABLET 40 MG PO (08:03)
[2021-07-25] MEDS: Folic Acid 1 MG TABLET PO (08:03)
--- NOTE | 2021-07-25 08:48 | HE.PHANOTE ---
Vancomycin Dosing Addendum continue with current regimen, vanco trough tonight at 1600.
[2021-07-25] MEDS: Morphine Sulfate 2 MG/ML CARTRIDGE IVPUSH ×3 (08:49→23:01)
[2021-07-25] MEDS: methylPREDNISolone Sod Succ 40 MG/ML VIAL IVPUSH (08:50)
--- NOTE | 2021-07-25 09:38 | HO.PM.IMPN ---
Subjective Subjective Date of Service: 07/25/21 Interval History: No fever/chills No dyspnea No GI bleeding C/o leg swelling Review of Systems Review of Systems: Yes all other systems are reviewed and are negative Physical Exam Vital Signs: Vital Signs: Last Vital Signs Temp 99.0 F 07/25/21 07:51 Pulse 77 07/25/21 07:51 Resp 17 07/25/21 07:51 BP 131/65 07/25/21 07:51 Pulse Ox 94 07/25/21 07:51 BMI result Body Mass Index 24.9 Gen: in no acute distress HEENT: sclera icteric, moist mucus membranes Neck: supple, extensive lipodystrophy Lungs: clear to auscultation bilaterally Heart: regular rate and rhythm, no murmurs Abd: soft, non-tender, non-distended, non-tense ascites, tender L groin Ext: 1+ edema of legs Skin: warm/well-perfused, jaundiced Neuro: alert and oriented x3, no focal findings Psych: appropriate affect Objective Data Active Medications Albuterol Sulfate (Albuterol Sulfate 90 Mcg 8 Gm Inhaler) 2 puff INHALE RQ4H PRN PRN Reason: shortness of breath or wheeze Cyanocobalamin (Cyanocobalamin (Vitamin B-12) 1,000 Mcg Tablet) 1,000 mcg PO DAILY [facility] Last Admin: 07/25/21 08:03 Dose: 1,000 mcg Documented by: RAYNA Famotidine (Famotidine 20 Mg Tablet) 40 mg PO DAILY [facility] Last Admin: 07/25/21 08:03 Dose: 40 mg Documented by: RAYNA Folic Acid (Folic Acid 1 Mg Tablet) 1 mg PO DAILY [facility] Last Admin: 07/25/21 08:03 Dose: 1 mg Documented by: RAYNA Vancomycin HCl 1,250 mg/ (Sodium Chloride) 250 mls @ 166.667 mls/hr IV Q12H [facility] Last Infusion: 07/25/21 08:00 Dose: 0 mls/hr Documented by: RAYNA Magnesium Oxide (Magnesium Oxide 400 Mg Tablet) 1,600 mg PO DAILY [facility] Last Admin: 07/25/21 08:03 Dose: 1,600 mg Documented by: RAYNA Methylprednisolone Sodium Succinate (Methylprednisolone Sod Succ 40 Mg/Ml Vial) 40 mg IVPUSH Q24H [facility] Last Admin: 07/25/21 08:50 Dose: 40 mg Documented by: RAYNA Morphine Sulfate (Morphine Sulfate 2 Mg/Ml Cartridge) 2 mg IVPUSH Q4H PRN; Protocol PRN Reason: severe pain Last Admin: 07/25/21 08:49 Dose: 2 mg Documented by: RAYNA Patient Own Med ( (Flovent 110mcg)) 2 each INHALE BID [facility] Last Admin: 07/25/21 08:51 Dose: 2 each Documented by: RAYNA Oxycodone HCl (Oxycodone Hcl Immed Release 5 Mg Tablet) 5 mg PO Q6H PRN PRN Reason: Pain, Moderate (Pain Scale 4-6 Last Admin: 07/20/21 21:26 Dose: 5 mg Documented by: GABINO Pantoprazole Sodium (Pantoprazole Sodium 40 Mg/10 Ml Vial) 40 mg IVPUSH BID@0630,1630 [facility] Last Admin: 07/25/21 06:12 Dose: 40 mg Documented by: SVITLANA Pharmacy Consult (Consult Rx Perform Med Rec) 1 each MISCELLANE ONCE PRN PRN Reason: Consult order Pharmacy Consult (Consult Rx Vancomycin Dosing) 1 each MISCELLANE DAILY [facility] Sodium Chloride (0.9 % Sodium Chloride Flush 3 Ml Syringe) 3 ml IVFLUSH QSHIFT [facility] Last Admin: 07/25/21 08:03 Dose: 3 ml Documented by: RAYNA Thiamine HCl (Thiamine Hcl 100 Mg Tablet) 100 mg PO DAILY [facility] Last Admin: 07/25/21 08:03 Dose: 100 mg Documented by: RAYNA Labs CBC & Chem 7: 07/25/21 05:43 07/25/21 05:43 Labs: Laboratory Results - last 24 hr 07/24/21 07/24/21 07/25/21 15:56 15:56 05:43 MCV 111.3 H MCH 37.1 H MCHC 33.3 RDW 20.2 H Plt Count 31 L MPV 9.5 Absolute Nucleated RBC 0.000 Nucleated RBC % (auto) 0.0 PT INR Fibrinogen Anion Gap Estim Creat Clear Calc 96.1 Estimated GFR > 60 Random Glucose Calcium Magnesium Total Bilirubin AST ALT Alkaline Phosphatase Total Protein Albumin Vancomycin Trough 6.3 L 07/25/21 07/25/21 05:43 05:43 MCV MCH MCHC RDW Plt Count MPV Absolute Nucleated RBC Nucleated RBC % (auto) PT 34.0 H INR 2.9 H Fibrinogen 122 L Anion Gap 10 L Estim Creat Clear Calc 96.1 Estimated GFR > 60 Random Glucose 139 H Calcium 8.0 L Magnesium 1.8 Total Bilirubin 21.5 H AST 54 H ALT 32 Alkaline Phosphatase 101 Total Protein 4.9 L Albumin 2.1 L Vancomycin Trough Microbiology Microbiology Results: Microbiology 07/23/21 04:05 Blood Culture - Preliminary Blood - Venous No growth after 48 hours. 07/23/21 04:05 Blood Culture - Preliminary Blood - Venous No growth after 48 hours. Assessment and Plan (1) Abdominal pain: Status: Acute Plan hospital d#6 55yo M with EtOH cirrhosis presenting with groin/lower abd pain, mild ascites found to have MSSA bacteremia # abd/groin pain - suspect due to hernia- reducible and small- not operative candidate per surgery - completed ceftriaxone for possible SBP though ascites is too small to tap # MSSA bacteremia/bacteruria - vanco d#5, ID consulted, no vegetation on TTE, surveillance BCx from 07/23/21 negative, PICC 07/27, duration as per ID. ?source- urine, skin [pt has eczema] # ascites - start furosemide + spironolactone # EtOH hepatitis - continue methylprednisolone. GI following. 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 splenorenal shunt on imaging should reduce risk of varices. no EGD for now. # portal vein thrombosis - too risky to anticoagulate per GI. hope for recanalization. 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
[2021-07-25] MEDS: Spironolactone 25 MG TABLET 50 MG PO (10:24)
[2021-07-25] MEDS: Furosemide 20 MG TABLET PO (10:24)
[2021-07-25 15:57] VITALS: BP 121/69; PULSE 82; RESP 19; TEMP 36.9; O2SAT 95
[2021-07-25 16:58] LABS: Vancomycin Trough 14.7 mcg/mL (10.0-20.0)
[2021-07-25 23:36] VITALS: BP 130/67; PULSE 70; RESP 18; TEMP 37.4; O2SAT 95
[2021-07-26 06:07] LABS: Hematocrit 29.9 % (42.0-52.0); Hemoglobin 10.1 g/dl (14.0-18.0); Mean Corpuscular HGB Conc 33.8 g/dl (31.0-36.0); Mean Corpuscular Volume 109.5 fL (80.0-98.0); Mean Platelet Volume 9.1 fL (9.4-12.4); Red Blood Count 2.73 X10*6/uL (4.60-5.80); Red Cell Distribution Width 19.8 % (11.0-16.0)
[2021-07-26] MEDS: Pantoprazole Sodium 40 MG/10 ML VIAL IVPUSH ×2 (06:07→17:56)
[2021-07-26] MEDS: vancomycin HCL 1,250 MG in 0.9 % Sodium Chloride 250 ML 166.67 MG IV (06:07)
[2021-07-26 06:09] LABS: Platelet Count 28 X10*3/uL (160-400)
[2021-07-26 06:11] LABS: INTERNATIONAL NORM RATIO 2.9 (0.9-1.1); Prothrombin Time 33.2 SEC (9.9-13.0)
[2021-07-26] MEDS: Morphine Sulfate 2 MG/ML CARTRIDGE IVPUSH ×4 (06:28→23:56)
[2021-07-26 07:03] LABS: Alanine Aminotransferase 42 U/L (0-40); Albumin Level 2.4 g/dL (3.5-5.0); Alkaline Phosphatase 106 U/L (39-117); Anion Gap 10 (12-20); Aspartate Amino Transferase 72 U/L (5-37); Blood Urea Nitrogen 18 mg/dL (9-16); Calcium 8.2 mg/dL (8.4-10.2); Carbon Dioxide 27 mmol/L (22-29); Chloride 101 mmol/L (96-108); Creatinine Clr Calc Pharmacy 97.4; Estimated Glomerular Filt Rate > 60; Glucose Random 110 mg/dL (60-115); Sodium 134 mmol/L (135-145); Total Protein 5.3 g/dL (6.5-8.0)
[2021-07-26 07:20] LABS: Bilirubin Total 25.1 mg/dL (0.0-1.0)
[2021-07-26 07:58] VITALS: BP 123/64; PULSE 84; RESP 18; TEMP 36.4; O2SAT 94
[2021-07-26] MEDS: Cyanocobalamin (Vitamin B-12) 1,000 MCG TABLET 1000 MCG PO (07:59)
[2021-07-26] MEDS: Famotidine 20 MG TABLET 40 MG PO (07:59)
[2021-07-26] MEDS: Spironolactone 25 MG TABLET 50 MG PO (07:59)
[2021-07-26] MEDS: Magnesium Oxide 400 MG TABLET 1600 MG PO (07:59)
[2021-07-26] MEDS: Folic Acid 1 MG TABLET PO (07:59)
[2021-07-26] MEDS: Metoprolol Succinate ER 25 MG TAB.ER.24H 12.5 MG PO (08:00)
[2021-07-26] MEDS: Furosemide 20 MG TABLET PO (08:00)
[2021-07-26] MEDS: 0.9 % Sodium Chloride Flush 3 ML SYRINGE IVFLUSH ×3 (08:00→23:56)
[2021-07-26] MEDS: Thiamine HCL 100 MG TABLET PO (08:00)
--- NOTE | 2021-07-26 09:47 | HO.PM.IMPN ---
Subjective Subjective Date of Service: 07/26/21 Interval History: No bleeding. Groin pain improved. Nervous about PICC line. Review of Systems Review of Systems: Yes all other systems are reviewed and are negative Physical Exam Vital Signs: Vital Signs: Last Vital Signs Temp 97.6 F 07/26/21 07:58 Pulse 84 07/26/21 07:58 Resp 18 07/26/21 07:58 BP 123/64 07/26/21 07:58 Pulse Ox 94 07/26/21 07:58 BMI result Body Mass Index 24.9 Gen: in no acute distress HEENT: sclera icteric, moist mucus membranes Neck: supple, extensive lipodystrophy Lungs: clear to auscultation bilaterally Heart: regular rate and rhythm, no murmurs Abd: soft, non-tender, non-distended, non-tense ascites, tender L groin Ext: 1+ edema of legs Skin: warm/well-perfused, jaundiced Neuro: alert and oriented x3, no focal findings Psych: appropriate affect Objective Data Active Medications Albuterol Sulfate (Albuterol Sulfate 90 Mcg 8 Gm Inhaler) 2 puff INHALE RQ4H PRN PRN Reason: shortness of breath or wheeze Cyanocobalamin (Cyanocobalamin (Vitamin B-12) 1,000 Mcg Tablet) 1,000 mcg PO DAILY [facility] Last Admin: 07/26/21 07:59 Dose: 1,000 mcg Documented by: RAYNA Famotidine (Famotidine 20 Mg Tablet) 40 mg PO DAILY [facility] Last Admin: 07/26/21 07:59 Dose: 40 mg Documented by: RAYNA Folic Acid (Folic Acid 1 Mg Tablet) 1 mg PO DAILY [facility] Last Admin: 07/26/21 07:59 Dose: 1 mg Documented by: RAYNA Furosemide (Furosemide 20 Mg Tablet) 20 mg PO DAILY [facility]; Protocol Last Admin: 07/26/21 08:00 Dose: 20 mg Documented by: RAYNA Vancomycin HCl 1,250 mg/ (Sodium Chloride) 250 mls @ 166.667 mls/hr IV Q12H [facility] Last Infusion: 07/26/21 08:08 Dose: 0 mls/hr Documented by: RAYNA Magnesium Oxide (Magnesium Oxide 400 Mg Tablet) 1,600 mg PO DAILY [facility] Last Admin: 07/26/21 07:59 Dose: 1,600 mg Documented by: RAYNA Methylprednisolone Sodium Succinate (Methylprednisolone Sod Succ 40 Mg/Ml Vial) 40 mg IVPUSH Q24H [facility] Last Admin: 07/25/21 08:50 Dose: 40 mg Documented by: RAYNA Metoprolol Succinate (Metoprolol Succinate Er 25 Mg Tab.Er.24h) 12.5 mg PO DAILY [facility]; Protocol Last Admin: 07/26/21 08:00 Dose: 12.5 mg Documented by: RAYNA Morphine Sulfate (Morphine Sulfate 2 Mg/Ml Cartridge) 2 mg IVPUSH Q4H PRN; Protocol PRN Reason: severe pain Last Admin: 07/26/21 06:28 Dose: 2 mg Documented by: SVITLANA Patient Own Med ( (Flovent 110mcg)) 2 each INHALE BID [facility] Last Admin: 07/26/21 08:01 Dose: 2 each Documented by: RAYNA Patient Own Medication ( Mesalamine [Lialda] 1.2 Gram Tablet, Delayed Release (Dr/Ec)) 4 each PO DAILY [facility] Last Admin: 07/26/21 08:00 Dose: 4 each Documented by: RAYNA Oxycodone HCl (Oxycodone Hcl Immed Release 5 Mg Tablet) 5 mg PO Q6H PRN PRN Reason: Pain, Moderate (Pain Scale 4-6 Last Admin: 07/20/21 21:26 Dose: 5 mg Documented by: GABINO Pantoprazole Sodium (Pantoprazole Sodium 40 Mg/10 Ml Vial) 40 mg IVPUSH BID@0630,1630 [facility] Last Admin: 07/26/21 06:07 Dose: 40 mg Documented by: SVITLANA Pharmacy Consult (Consult Rx Perform Med Rec) 1 each MISCELLANE ONCE PRN PRN Reason: Consult order Pharmacy Consult (Consult Rx Vancomycin Dosing) 1 each MISCELLANE DAILY [facility] Sodium Chloride (0.9 % Sodium Chloride Flush 3 Ml Syringe) 3 ml IVFLUSH QSHIFT [facility] Last Admin: 07/26/21 08:00 Dose: 3 ml Documented by: RAYNA Spironolactone (Spironolactone 25 Mg Tablet) 50 mg PO DAILY [facility]; Protocol Last Admin: 07/26/21 07:59 Dose: 50 mg Documented by: RAYNA Thiamine HCl (Thiamine Hcl 100 Mg Tablet) 100 mg PO DAILY [facility] Last Admin: 07/26/21 08:00 Dose: 100 mg Documented by: RAYNA Labs CBC & Chem 7: 07/26/21 05:56 07/26/21 05:56 Labs: Laboratory Results - last 24 hr 07/25/21 07/26/21 07/26/21 15:56 05:56 05:56 MCV 109.5 H MCH 37.0 H MCHC 33.8 RDW 19.8 H Plt Count 28 L MPV 9.1 L Absolute Nucleated RBC 0.000 Nucleated RBC % (auto) 0.0 PT 33.2 H INR 2.9 H Anion Gap Estim Creat Clear Calc Estimated GFR Random Glucose Calcium Total Bilirubin AST ALT Alkaline Phosphatase Total Protein Albumin Vancomycin Trough 14.7 Blood Type Antibody Screen 07/26/21 07/26/21 05:56 07:48 MCV MCH MCHC RDW Plt Count MPV Absolute Nucleated RBC Nucleated RBC % (auto) PT INR Anion Gap 10 L Estim Creat Clear Calc 97.4 Estimated GFR > 60 Random Glucose 110 Calcium 8.2 L Total Bilirubin 25.1 H AST 72 H ALT 42 H Alkaline Phosphatase 106 Total Protein 5.3 L Albumin 2.4 L Vancomycin Trough Blood Type A Positive Antibody Screen NEGATIVE Microbiology Microbiology Results: Microbiology 07/23/21 04:05 Blood Culture - Preliminary Blood - Venous No growth after 48 hours. 07/23/21 04:05 Blood Culture - Preliminary Blood - Venous No growth after 48 hours. Assessment and Plan (1) Abdominal pain: Status: Acute Plan hospital d#7 55yo M with EtOH cirrhosis presenting with groin/lower abd pain, mild ascites found to have MSSA bacteremia # abd/groin pain - suspect due to hernia- reducible and small- not operative candidate per surgery - completed ceftriaxone for possible SBP though ascites is too small to tap # MSSA bacteremia/bacteruria - vanco d#6, ID consulted, no vegetation on TTE, surveillance BCx from 07/23/21 negative, PICC tomorrow, duration 28d with start date 07/23/21 so end date 08/19/21. ?source- urine, skin [pt has eczema]. discuss with ID ?change to daptomycin # ascites - started furosemide + spironolactone, monitor electrlytes # EtOH hepatitis - continue methylprednisolone. GI following. 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 splenorenal shunt on imaging should reduce risk of varices. no EGD for now. # portal vein thrombosis - too risky to anticoagulate per GI. hope for recanalization. 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
[2021-07-26] MEDS: methylPREDNISolone Sod Succ 40 MG/ML VIAL IVPUSH (10:43)
[2021-07-26 14:55] VITALS: BP 139/71; PULSE 82; RESP 18; TEMP 37
[2021-07-26 15:14] VITALS: BP 119/71; PULSE 83; RESP 18; TEMP 36.9
[2021-07-26 16:00] VITALS: BP 117/69; PULSE 84; RESP 18; TEMP 37.4; O2SAT 94
[2021-07-26 16:47] LABS: Vancomycin Trough 17.6 mcg/mL (10.0-20.0)
--- NOTE | 2021-07-26 17:05 | HE.PHANOTE ---
Vancomycin Addendum Trough 17.6 today which increased from 14.7 yesterday. Due to the increasing trough with no change in renal function, will decrease dose to 1000 mg Q12H. Redrawn trough in 24 hours on 07/27 @ 1600. Danielle Taylor, PharmD
[2021-07-26 17:20] VITALS: BP 116/66; PULSE 83; RESP 18; TEMP 37
[2021-07-26] MEDS: vancomycin HCL 1,000 MG in 0.9 % Sodium Chloride 250 ML 270 MG IV (17:56)
[2021-07-26 20:04] VITALS: PULSE 107; RESP 18
[2021-07-27] VITALS (9 sets, daily range): BP systolic 114–133; BP diastolic 60–78; PULSE 56–98; RESP 14–20; TEMP 35.6–36.9; O2SAT 95–99
[2021-07-27 06:07] LABS: Hematocrit 24.7 % (42.0-52.0); Hemoglobin 8.5 g/dl (14.0-18.0); Mean Corpuscular HGB Conc 34.4 g/dl (31.0-36.0); Mean Corpuscular Hemoglobin 37.8 pg (27.0-33.0); Mean Corpuscular Volume 109.8 fL (80.0-98.0); Mean Platelet Volume 10.5 fL (9.4-12.4); Red Blood Count 2.25 X10*6/uL (4.60-5.80); Red Cell Distribution Width 19.7 % (11.0-16.0); White Blood Count 8.3 X10*3/uL (4.8-10.8)
[2021-07-27 06:08] LABS: Platelet Count 26 X10*3/uL (160-400)
[2021-07-27 06:10] LABS: Fibrinogen 139 MG/DL (259-690); INTERNATIONAL NORM RATIO 3.2 (0.9-1.1); Prothrombin Time 37.7 SEC (9.9-13.0)
[2021-07-27] MEDS: Pantoprazole Sodium 40 MG/10 ML VIAL IVPUSH ×2 (06:24→16:57)
[2021-07-27] MEDS: vancomycin HCL 1,000 MG in 0.9 % Sodium Chloride 250 ML 270 MG IV (06:26)
[2021-07-27] MEDS: Morphine Sulfate 2 MG/ML CARTRIDGE IVPUSH ×4 (06:35→22:15)
[2021-07-27 06:49] LABS: Alanine Aminotransferase 41 U/L (0-40); Alkaline Phosphatase 101 U/L (39-117); Anion Gap 10 (12-20); Aspartate Amino Transferase 71 U/L (5-37); Bilirubin Total 23.1 mg/dL (0.0-1.0); Blood Urea Nitrogen 17 mg/dL (9-16); Calcium 7.8 mg/dL (8.4-10.2); Carbon Dioxide 27 mmol/L (22-29); Chloride 101 mmol/L (96-108); Creatinine Clr Calc Pharmacy 101.8; Estimated Glomerular Filt Rate > 60; Glucose Random 139 mg/dL (60-115); Potassium 3.7 mmol/L (3.3-5.1); Sodium 134 mmol/L (135-145); Total Protein 4.4 g/dL (6.5-8.0)
[2021-07-27] MEDS: Metoprolol Succinate ER 25 MG TAB.ER.24H 12.5 MG PO (08:02)
[2021-07-27] MEDS: Thiamine HCL 100 MG TABLET PO (08:02)
[2021-07-27] MEDS: Spironolactone 25 MG TABLET 50 MG PO (08:02)
[2021-07-27] MEDS: Famotidine 20 MG TABLET 40 MG PO (08:02)
[2021-07-27] MEDS: Furosemide 20 MG TABLET PO (08:02)
[2021-07-27] MEDS: methylPREDNISolone Sod Succ 40 MG/ML VIAL IVPUSH (08:02)
[2021-07-27] MEDS: Folic Acid 1 MG TABLET PO (08:03)
[2021-07-27] MEDS: Magnesium Oxide 400 MG TABLET 1600 MG PO (08:03)
[2021-07-27] MEDS: 0.9 % Sodium Chloride Flush 3 ML SYRINGE IVFLUSH ×3 (08:03→20:12)
[2021-07-27] MEDS: Cyanocobalamin (Vitamin B-12) 1,000 MCG TABLET 1000 MCG PO (08:03)
--- NOTE | 2021-07-27 10:03 | HO.PM.IMPN ---
Subjective Subjective Date of Service: 07/27/21 Interval History: Abd pain + swelling in abd/legs improved No fever Tolerated plt transfusion Review of Systems Review of Systems: Yes all other systems are reviewed and are negative Physical Exam Vital Signs: Vital Signs: Last Vital Signs Temp 97.2 F 07/27/21 07:34 Pulse 56 07/27/21 07:34 Resp 20 07/27/21 07:34 BP 114/60 07/27/21 07:34 Pulse Ox 97 07/27/21 07:34 BMI result Body Mass Index 24.9 Gen: in no acute distress HEENT: sclera icteric, moist mucus membranes Neck: supple, extensive lipodystrophy/fat accumulation anterior neck Lungs: clear to auscultation bilaterally Heart: regular rate and rhythm, no murmurs Abd: soft, non-tender, non-distended, non-tense ascites, tender L groin Ext: 1+ edema of legs Skin: warm/well-perfused, jaundiced Neuro: alert and oriented x3, no focal findings Psych: appropriate affect Objective Data Active Medications Albuterol Sulfate (Albuterol Sulfate 90 Mcg 8 Gm Inhaler) 2 puff INHALE RQ4H PRN PRN Reason: shortness of breath or wheeze Cyanocobalamin (Cyanocobalamin (Vitamin B-12) 1,000 Mcg Tablet) 1,000 mcg PO DAILY [facility] Last Admin: 07/27/21 08:03 Dose: 1,000 mcg Documented by: DOYLE Famotidine (Famotidine 20 Mg Tablet) 40 mg PO DAILY [facility] Last Admin: 07/27/21 08:02 Dose: 40 mg Documented by: DOYLE Folic Acid (Folic Acid 1 Mg Tablet) 1 mg PO DAILY [facility] Last Admin: 07/27/21 08:03 Dose: 1 mg Documented by: DOYLE Furosemide (Furosemide 20 Mg Tablet) 20 mg PO DAILY [facility]; Protocol Last Admin: 07/27/21 08:02 Dose: 20 mg Documented by: DOYLE Vancomycin HCl 1,000 mg/ (Sodium Chloride) 270 mls @ 270 mls/hr IV Q12H [facility] Last Infusion: 07/27/21 08:03 Dose: 0 mls/hr Documented by: DOYLE Magnesium Oxide (Magnesium Oxide 400 Mg Tablet) 1,600 mg PO DAILY [facility] Last Admin: 07/27/21 08:03 Dose: 1,600 mg Documented by: DOYLE Methylprednisolone Sodium Succinate (Methylprednisolone Sod Succ 40 Mg/Ml Vial) 40 mg IVPUSH Q24H [facility] Last Admin: 07/27/21 08:02 Dose: 40 mg Documented by: DOYLE Metoprolol Succinate (Metoprolol Succinate Er 25 Mg Tab.Er.24h) 12.5 mg PO DAILY [facility]; Protocol Last Admin: 07/27/21 08:02 Dose: 12.5 mg Documented by: DOYLE Morphine Sulfate (Morphine Sulfate 2 Mg/Ml Cartridge) 2 mg IVPUSH Q4H PRN; Protocol PRN Reason: severe pain Last Admin: 07/27/21 06:35 Dose: 2 mg Documented by: KARL Patient Own Med ( (Flovent 110mcg)) 2 each INHALE BID [facility] Last Admin: 07/27/21 08:12 Dose: 2 each Documented by: DOYLE Patient Own Medication ( Mesalamine [Lialda] 1.2 Gram Tablet, Delayed Release (Dr/Ec)) 4 each PO DAILY [facility] Last Admin: 07/27/21 08:11 Dose: 4 each Documented by: DOYLE Oxycodone HCl (Oxycodone Hcl Immed Release 5 Mg Tablet) 5 mg PO Q6H PRN PRN Reason: Pain, Moderate (Pain Scale 4-6 Last Admin: 07/20/21 21:26 Dose: 5 mg Documented by: GABINO Pantoprazole Sodium (Pantoprazole Sodium 40 Mg/10 Ml Vial) 40 mg IVPUSH BID@0630,1630 [facility] Last Admin: 07/27/21 06:24 Dose: 40 mg Documented by: KARL Pharmacy Consult (Consult Rx Perform Med Rec) 1 each MISCELLANE ONCE PRN PRN Reason: Consult order Pharmacy Consult (Consult Rx Vancomycin Dosing) 1 each MISCELLANE DAILY [facility] Sodium Chloride (0.9 % Sodium Chloride Flush 3 Ml Syringe) 3 ml IVFLUSH QSHIFT [facility] Last Admin: 07/27/21 08:03 Dose: 3 ml Documented by: DOYLE Spironolactone (Spironolactone 25 Mg Tablet) 50 mg PO DAILY [facility]; Protocol Last Admin: 07/27/21 08:02 Dose: 50 mg Documented by: DOYLE Thiamine HCl (Thiamine Hcl 100 Mg Tablet) 100 mg PO DAILY [facility] Last Admin: 07/27/21 08:02 Dose: 100 mg Documented by: DOYLE Labs CBC & Chem 7: 07/27/21 05:47 07/27/21 05:47 Labs: Laboratory Results - last 24 hr 07/21/21 07/21/21 07/26/21 08:49 21:17 07:48 MCV MCH MCHC RDW Plt Count MPV Absolute Nucleated RBC Nucleated RBC % (auto) PT INR Fibrinogen Anion Gap Estim Creat Clear Calc Estimated GFR Random Glucose Calcium Total Bilirubin AST ALT Alkaline Phosphatase Total Protein Albumin Vancomycin Trough Ref Lab Test Result Cancelled Blood Type A Positive Antibody Screen NEGATIVE Crossmatch See Detail 07/26/21 07/27/21 07/27/21 16:18 05:47 05:47 MCV 109.8 H MCH 37.8 H MCHC 34.4 RDW 19.7 H Plt Count 26 L MPV 10.5 Absolute Nucleated RBC 0.000 Nucleated RBC % (auto) 0.0 PT 37.7 H INR 3.2 H Fibrinogen 139 L Anion Gap Estim Creat Clear Calc Estimated GFR Random Glucose Calcium Total Bilirubin AST ALT Alkaline Phosphatase Total Protein Albumin Vancomycin Trough 17.6 Ref Lab Test Result Blood Type Antibody Screen Crossmatch 07/27/21 05:47 MCV MCH MCHC RDW Plt Count MPV Absolute Nucleated RBC Nucleated RBC % (auto) PT INR Fibrinogen Anion Gap 10 L Estim Creat Clear Calc 101.8 Estimated GFR > 60 Random Glucose 139 H Calcium 7.8 L Total Bilirubin 23.1 H AST 71 H ALT 41 H Alkaline Phosphatase 101 Total Protein 4.4 L Albumin 2.0 L Vancomycin Trough Ref Lab Test Result Blood Type Antibody Screen Crossmatch Assessment and Plan (1) Abdominal pain: Status: Acute Plan hospital d#8 55yo M with EtOH cirrhosis presenting with groin/lower abd pain, mild ascites found to have MSSA bacteremia- ?urinary vs skin source # abd/groin pain - suspect due to hernia- reducible and small- not operative candidate per surgery - completed ceftriaxone for possible SBP though ascites is too small to tap # MSSA bacteremia/bacteruria - vanco d#7, ID consulted, no vegetation on TTE, surveillance BCx from 07/23/21 negative, PICC today, duration 28d with start date 07/23/21 so end date 08/19/21. ?source- urine, skin [pt has eczema]. discuss with ID ?change to daptomycin today # ascites, non-tense and non-tapable # peripheral edema - improving after started furosemide + spironolactone, monitor electrolytes # EtOH hepatitis - continue methylprednisolone -> prednisone 40 mg d# [then taper by 5 mg q3d]. GI following. 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 splenorenal shunt on imaging should reduce risk of varices. no EGD for now. # portal vein thrombosis - too risky to anticoagulate per GI. hope for recanalization. 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 # Crohn's disease - resumed mesalamine # CAD - resumed metoprolol - MPS in April was negative for ischemia # AUD - out of withdrawal window, no seizures - continue vitamins # mild persistent asthma - continue ICS, prn DAYDAY # VTE ppx - SCDs In my clinical judgment, the patient requires continued hospitalization for the following reasons: IV ABX for bacteremia, platelet transfusion for thrombocytopenia Quality Stroke Does the patient have a stroke diagnosis?: No VTE Prior VTE?: No VTE Risk Level:: Medical - moderate - high VTE Device Contraindication: Treatment Not Indicated VTE Drug Contraindication: N/A - Med Ordered
--- NOTE | 2021-07-27 15:18 | HO.PICC ---
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 Following completion of Mcgraws Protocol the skin and soft tissues were anesthetized with 1% Lidocaine plain. Using ultrasound guidance, BRACHIAL vein access was obtained IN SINGLE ATTEMPT BY THIS RN. Over an 0.018 wire through peel-away sheath, a 4-KYRGYZ, SINGLE LUMEN, PASV PICC line was positioned. Catheter length is 39 CM internal length, 2 CM external length, for a total trimmed length of 41 CM. The procedure was performed in S-272. Tip verification was performed by Trell Oro with Garo 3CG. Tip located in SVC. Ultrasound was used to document vein patency and for needle entry. A formal ultrasound picture and cardiac rhythm strip was recorded. [employer] has released the line for use and it is currently dressed with a StatLock, Tegaderm, and CHG disc. Verification has been performed for blood return and line patency. Arm Circumference: 26 CM Equipment: [employer] POWERPICC SOLO Catheter Type: SINGLE LUMEN, 4-KYRGYZ, PASV Lot #: [id number]
--- NOTE | 2021-07-27 15:43 | MHC.CM.PN ---
PER MD ROUNDS AND NOTES, PT WILL NEED 28 DAYS OF DAPTO WITH A START DATE OF 07/23/21 AND END DATE OF 08/19/21. PICC PLACED TODAY [facility]. AWAITING RESPONSES
[2021-07-27] MEDS: 0.9 % Sodium Chloride Flush 10 ML SYRINGE 5 ML IVFLUSH ×2 (16:57→20:06)
[2021-07-27 17:01] LABS: Vancomycin Trough 11.8 mcg/mL (10.0-20.0)
--- NOTE | 2021-07-27 17:11 | HE.PHANOTE ---
RE Vanco Increase in dose t0 1250mg q12h, with next trough scheduled after TWO doses to assess safety (last increase yielded a large change in trough) Per note, patient may be changed to daptomycin x 28 days with insertion of PICC line. Thanks Ervin
[2021-07-27] MEDS: vancomycin HCL 1,250 MG in 0.9 % Sodium Chloride 250 ML 166.67 MG IV (18:26)
[2021-07-28] MEDS: Morphine Sulfate 2 MG/ML CARTRIDGE IVPUSH ×4 (03:55→21:52)
[2021-07-28 05:54] LABS: PLT CLUMP 1
[2021-07-28 05:55] LABS: Hematocrit 25.6 % (42.0-52.0); Hemoglobin 8.7 g/dl (14.0-18.0); Mean Corpuscular Hemoglobin 37.8 pg (27.0-33.0); Mean Platelet Volume 10.6 fL (9.4-12.4); Red Cell Distribution Width 19.6 % (11.0-16.0)
[2021-07-28] MEDS: Pantoprazole Sodium 40 MG/10 ML VIAL IVPUSH ×2 (06:00→16:08)
[2021-07-28 06:01] LABS: Mean Corpuscular Volume 111.3 fL (80.0-98.0); White Blood Count 8.9 X10*3/uL (4.8-10.8)
[2021-07-28 06:02] LABS: Platelet Count 31 X10*3/uL (160-400)
[2021-07-28] MEDS: vancomycin HCL 1,250 MG in 0.9 % Sodium Chloride 250 ML 166.67 MG IV (06:03)
[2021-07-28 06:23] LABS: Alanine Aminotransferase 58 U/L (0-40); Albumin Level 2.2 g/dL (3.5-5.0); Alkaline Phosphatase 121 U/L (39-117); Anion Gap 11 (12-20); Aspartate Amino Transferase 91 U/L (5-37); Blood Urea Nitrogen 18 mg/dL (9-16); Calcium 8.1 mg/dL (8.4-10.2); Carbon Dioxide 28 mmol/L (22-29); Chloride 102 mmol/L (96-108); Creatinine Clr Calc Pharmacy 94.7; Estimated Glomerular Filt Rate > 60; Glucose Random 138 mg/dL (60-115); Potassium 3.5 mmol/L (3.3-5.1); Sodium 137 mmol/L (135-145); Total Protein 4.7 g/dL (6.5-8.0)
[2021-07-28 06:29] LABS: Bilirubin Total 26.8 mg/dL (0.0-1.0)
[2021-07-28 07:30] VITALS: BP 114/59; PULSE 87; RESP 16; TEMP 36.7; O2SAT 95
--- NOTE | 2021-07-28 10:05 | MHC.CM.PN ---
NURSE MANAGER HUMAN RESOURCES NOTE ELECTRONIC MEDICAL RECORD REVIEWED ALONG WITH CASE DISCUSSED WITH STAFF NURSE AND HOSPITLAIT PATIENT WILL BE GOIMNG HOME ON IV DAPTOMYCIN 500MG QD , HE WILL GET HIS FIRST DOESE THROUGH HIS PIC LINE TODAY AT O9:00, HE HAS MET WITH THE [facility] INFUSION NURSE AND HAS HAD TEACHING FOR IV ABX ADMINISTRATION THROUGH HIS PIC LINE, (SHE REPORTED BACK TO ME THAT HE DID WELL, THEY WILL DELIVER THE SUPPLIES TOMORROW) CHQNGE OF ADDRESS [address] [facility] HOME OF S/O HEMALATHA) HIS LABS ARE A [facility] HOSPITALIST HE MAY NEED TO STAY HERE ANOTHER DAY. DISCHARGE PLAN VNA FOR NURSING FOR IV ABX ADMINISTRATION/ PIC LINE FLUSHES TEACHING TO PATIENT AND HIS S/O HEMALATHA AT HOME , LAB DRAWS ORDERED , AND PIC LINE DRESSING CHANGE EACH WEEK PCP DR ALAN PEÑA PATIENT TO CALL FOR POST HOSPITAL D/C FOLLOW UP DIAGNOSIS SIGN AND SYMPTOM MANAGEMENT DR PASQUALE BALDWIN ID SPECIALIST AUGUST 12 11 AM 11 AM GI PHYSICIAN FOLLOW UP PER D/C INSTRUCTIONS TRANSPOERTATION PATIENT TO SELF ARRANGE
[2021-07-28] MEDS: methylPREDNISolone Sod Succ 40 MG/ML VIAL IVPUSH (10:15)
[2021-07-28] MEDS: DAPTOmycin 500 MG in 0.9 % Sodium Chloride 50 ML 99.13 MG IV (10:15)
[2021-07-28] MEDS: Metoprolol Succinate ER 25 MG TAB.ER.24H 12.5 MG PO (10:15)
[2021-07-28] MEDS: Magnesium Oxide 400 MG TABLET 1600 MG PO (10:16)
[2021-07-28] MEDS: Spironolactone 25 MG TABLET 50 MG PO (10:16)
[2021-07-28] MEDS: Furosemide 20 MG TABLET PO (10:16)
[2021-07-28] MEDS: Cyanocobalamin (Vitamin B-12) 1,000 MCG TABLET 1000 MCG PO (10:16)
[2021-07-28] MEDS: Famotidine 20 MG TABLET 40 MG PO (10:16)
[2021-07-28] MEDS: Thiamine HCL 100 MG TABLET PO (10:16)
[2021-07-28] MEDS: Folic Acid 1 MG TABLET PO (10:16)
[2021-07-28] MEDS: 0.9 % Sodium Chloride Flush 10 ML SYRINGE 5 ML IVFLUSH ×3 (10:17→21:53)
[2021-07-28] MEDS: 0.9 % Sodium Chloride Flush 3 ML SYRINGE IVFLUSH (10:17)
--- NOTE | 2021-07-28 13:11 | HO.PM.IMPN ---
Subjective Subjective Date of Service: 07/28/21 Interval History: Edema + jaundice worse Intermittent groin pain PICC line oozing NO fever Review of Systems Review of Systems: Yes all other systems are reviewed and are negative Physical Exam Vital Signs: Vital Signs: Last Vital Signs Temp 98.0 F 07/28/21 07:30 Pulse 87 07/28/21 07:30 Resp 16 07/28/21 07:30 BP 114/59 L 07/28/21 07:30 Pulse Ox 95 07/28/21 07:30 BMI result Body Mass Index 24.9 Gen: in no acute distress HEENT: sclera icteric, moist mucus membranes Neck: supple, extensive lipodystrophy/fat accumulation anterior neck Lungs: clear to auscultation bilaterally Heart: regular rate and rhythm, no murmurs Abd: soft, non-tender, non-distended, non-tense ascites, tender L groin Ext: 2+ edema of legs, PICC line LUE oozing from site Skin: warm/well-perfused, jaundiced Neuro: alert and oriented x3, no focal findings Psych: appropriate affect Objective Data Active Medications Albuterol Sulfate (Albuterol Sulfate 90 Mcg 8 Gm Inhaler) 2 puff INHALE RQ4H PRN PRN Reason: shortness of breath or wheeze Calcium Carbonate (Calcium Carbonate 750 Mg Tab.Chew) 750 mg PO Q4H PRN PRN Reason: dyspepsia Cyanocobalamin (Cyanocobalamin (Vitamin B-12) 1,000 Mcg Tablet) 1,000 mcg PO DAILY [facility] Last Admin: 07/28/21 10:16 Dose: 1,000 mcg Documented by: DOYLE Famotidine (Famotidine 20 Mg Tablet) 40 mg PO DAILY [facility] Last Admin: 07/28/21 10:16 Dose: 40 mg Documented by: DOYLE Folic Acid (Folic Acid 1 Mg Tablet) 1 mg PO DAILY [facility] Last Admin: 07/28/21 10:16 Dose: 1 mg Documented by: DOYLE Furosemide (Furosemide 20 Mg Tablet) 20 mg PO DAILY [facility]; Protocol Last Admin: 07/28/21 10:16 Dose: 20 mg Documented by: DOYLE Daptomycin 500 mg/ Sodium (Chloride) 60 mls @ 99.128 mls/hr IV Q24H [facility] Last Infusion: 07/28/21 11:00 Dose: 0 mls/hr Documented by: DOYLE Magnesium Oxide (Magnesium Oxide 400 Mg Tablet) 1,600 mg PO DAILY [facility] Last Admin: 07/28/21 10:16 Dose: 1,600 mg Documented by: DOYLE Methylprednisolone Sodium Succinate (Methylprednisolone Sod Succ 40 Mg/Ml Vial) 40 mg IVPUSH Q24H [facility] Last Admin: 07/28/21 10:15 Dose: 40 mg Documented by: DOYLE Metoprolol Succinate (Metoprolol Succinate Er 25 Mg Tab.Er.24h) 12.5 mg PO DAILY [facility]; Protocol Last Admin: 07/28/21 10:15 Dose: 12.5 mg Documented by: DOYLE Morphine Sulfate (Morphine Sulfate 2 Mg/Ml Cartridge) 2 mg IVPUSH Q4H PRN; Protocol PRN Reason: severe pain Last Admin: 07/28/21 10:32 Dose: 2 mg Documented by: DOYLE Patient Own Med ( (Flovent 110mcg)) 2 each INHALE BID [facility] Last Admin: 07/28/21 10:17 Dose: 2 each Documented by: DOYLE Patient Own Medication ( Mesalamine [Lialda] 1.2 Gram Tablet, Delayed Release (Dr/Ec)) 4 each PO DAILY [facility] Last Admin: 07/28/21 10:15 Dose: 4 each Documented by: DOYLE Oxycodone HCl (Oxycodone Hcl Immed Release 5 Mg Tablet) 5 mg PO Q6H PRN PRN Reason: Pain, Moderate (Pain Scale 4-6 Last Admin: 07/20/21 21:26 Dose: 5 mg Documented by: GABINO Pantoprazole Sodium (Pantoprazole Sodium 40 Mg/10 Ml Vial) 40 mg IVPUSH BID@0630,1630 [facility] Last Admin: 07/28/21 06:00 Dose: 40 mg Documented by: ESPERANZA Pharmacy Consult (Consult Rx Perform Med Rec) 1 each MISCELLANE ONCE PRN PRN Reason: Consult order Sodium Chloride (0.9 % Sodium Chloride Flush 3 Ml Syringe) 3 ml IVFLUSH QSHIFT [facility] Last Admin: 07/28/21 10:17 Dose: 3 ml Documented by: DOYLE Sodium Chloride (0.9 % Sodium Chloride Flush 10 Ml Syringe) 5 ml IVFLUSH TID [facility] Last Admin: 07/28/21 10:17 Dose: 5 ml Documented by: DOYLE Spironolactone (Spironolactone 25 Mg Tablet) 50 mg PO DAILY [facility]; Protocol Last Admin: 07/28/21 10:16 Dose: 50 mg Documented by: DOYLE Thiamine HCl (Thiamine Hcl 100 Mg Tablet) 100 mg PO DAILY [facility] Last Admin: 07/28/21 10:16 Dose: 100 mg Documented by: DOYLE Labs CBC & Chem 7: 07/28/21 05:38 07/28/21 05:38 Labs: Laboratory Results - last 24 hr 07/27/21 07/28/21 07/28/21 16:28 05:38 05:38 MCV 111.3 H MCH 37.8 H MCHC 34.0 RDW 19.6 H Plt Count 31 L MPV 10.6 Absolute Nucleated RBC 0.000 Nucleated RBC % (auto) 0.0 Anion Gap 11 L Estim Creat Clear Calc 94.7 Estimated GFR > 60 Random Glucose 138 H Calcium 8.1 L Total Bilirubin 26.8 H AST 91 H ALT 58 H Alkaline Phosphatase 121 H Total Creatine Kinase 66 Total Protein 4.7 L Albumin 2.2 L Vancomycin Trough 11.8 Microbiology Microbiology Results: Microbiology 07/23/21 04:05 Blood Culture - Final Blood - Venous No growth after 5 days. 07/23/21 04:05 Blood Culture - Final Blood - Venous No growth after 5 days. Assessment and Plan (1) Abdominal pain: Status: Acute Plan hospital d#9 55yo M with EtOH cirrhosis presenting with groin/lower abd pain, mild ascites found to have MSSA bacteremia- ?urinary vs skin source # abd/groin pain - suspect due to hernia- reducible and small- not operative candidate per surgery - completed ceftriaxone for possible SBP though ascites is too small to tap # MSSA bacteremia/bacteruria - got 7d of vancomycin, ID consulted, no vegetation on TTE, surveillance BCx from 07/23/21 negative, PICC placed 07/27/21, switched to daptomycin 8 mg/kg daily, duration 28d with start date 07/23/21 so end date 08/19/21. ?source- urine, skin [pt has eczema]. # ascites, non-tense and non-tapable # peripheral edema - increase furosemide + spironolactone, monitor electrolytes # EtOH hepatitis - continue methylprednisolone -> prednisone 40 mg d# [then taper by 5 mg q3d]. GI following. 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 splenorenal shunt on imaging should reduce risk of varices. no EGD for now. # portal vein thrombosis - too risky to anticoagulate per GI. hope for recanalization. 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; yesterday's pending # Crohn's disease - resumed mesalamine # CAD - resumed metoprolol - MPS in April was negative for ischemia # AUD - out of withdrawal window, no seizures - continue vitamins # mild persistent asthma - continue ICS, prn DAYDAY # VTE ppx - SCDs In my clinical judgment, the patient requires continued hospitalization for the following reasons: IV ABX for bacteremia, worsening liver failure Quality Stroke Does the patient have a stroke diagnosis?: No VTE Prior VTE?: No VTE Risk Level:: Medical - moderate - high VTE Device Contraindication: Treatment Not Indicated VTE Drug Contraindication: N/A - Med Ordered
[2021-07-28 15:40] VITALS: BP 124/68; PULSE 91; RESP 18; TEMP 37; O2SAT 95
[2021-07-28 18:06] VITALS: BP 127/65; PULSE 90; RESP 20; O2SAT 96
[2021-07-28 23:49] VITALS: BP 109/60; PULSE 80; RESP 20; TEMP 36.8; O2SAT 95
--- NOTE | 2021-07-29 00:07 | PC.NURSE ---
P bleeding from PICC line site I drsg removed,new drsg applied,pressure drsg applied,ice packs applied for 20 min E no further bleeding
[2021-07-29] MEDS: Pantoprazole Sodium 40 MG/10 ML VIAL IVPUSH (05:54)
[2021-07-29 07:57] VITALS: BP 122/72; PULSE 80; RESP 18; TEMP 37.2; O2SAT 92
[2021-07-29 08:38] LABS: Hepatitis A Antibody IgM 0.61 Index (0-0.79); ~Hepatitis A Antibody IgM Nonreactive (Nonreactive)
[2021-07-29] MEDS: 0.9 % Sodium Chloride Flush 3 ML SYRINGE IVFLUSH (10:18)
[2021-07-29] MEDS: Furosemide 40 MG TABLET PO (10:19)
[2021-07-29] MEDS: Folic Acid 1 MG TABLET PO (10:19)
[2021-07-29] MEDS: Spironolactone 25 MG TABLET 100 MG PO (10:19)
[2021-07-29] MEDS: 0.9 % Sodium Chloride Flush 10 ML SYRINGE 5 ML IVFLUSH (10:19)
[2021-07-29] MEDS: methylPREDNISolone Sod Succ 40 MG/ML VIAL IVPUSH (10:20)
[2021-07-29] MEDS: Famotidine 20 MG TABLET 40 MG PO (10:20)
[2021-07-29] MEDS: Thiamine HCL 100 MG TABLET PO (10:20)
[2021-07-29] MEDS: Magnesium Oxide 400 MG TABLET 1600 MG PO (10:20)
[2021-07-29] MEDS: DAPTOmycin 500 MG in 0.9 % Sodium Chloride 50 ML 99.13 MG IV (10:20)
[2021-07-29] MEDS: Cyanocobalamin (Vitamin B-12) 1,000 MCG TABLET 1000 MCG PO (10:21)
[2021-07-29] MEDS: Metoprolol Succinate ER 25 MG TAB.ER.24H 12.5 MG PO (10:21)
[2021-07-29] MEDS: Morphine Sulfate 2 MG/ML CARTRIDGE IVPUSH (10:48)
[2021-07-29 13:16] LABS: MANUAL DIFF FLAG NO
[2021-07-29 13:24] LABS: Basophils Percent Auto 0.1 % (0-2); Eosinophils Percent Auto 0.2 % (0-4); Hematocrit 26.6 % (42.0-52.0); Hemoglobin 9.1 g/dl (14.0-18.0); Imm Gran Abs Auto 0.29 X10*3/uL (0.00-0.03); Imm Gran Pct Auto 2.8 % (0.0-0.4); Lymphocytes Absolute Auto 0.2 X10*3/uL (1.2-4.9); Lymphocytes Percent Auto 2.1 % (20-40); Mean Corpuscular HGB Conc 34.2 g/dl (31.0-36.0); Mean Corpuscular Hemoglobin 37.8 pg (27.0-33.0); Mean Corpuscular Volume 110.4 fL (80.0-98.0); Mean Platelet Volume 11.2 fL (9.4-12.4); Monocytes Percent Auto 9.5 % (2-11); Neutrophils Percent Auto 85.3 % (45-73); Platelet Count 29 X10*3/uL (160-400); Red Blood Count 2.41 X10*6/uL (4.60-5.80); Red Cell Distribution Width 19.2 % (11.0-16.0); White Blood Count 10.5 X10*3/uL (4.8-10.8)
--- NOTE | 2021-07-29 14:02 | PM.DS ---
DS: Providers Provider Date of Service: 07/29/21 Date of admission: 07/20/21 15:37 Date of discharge: 07/29/21 Primary care physician: Abril Browne MD Consults: 07/20/21 13:37 Consult to Gastroenterology Routine Consulting Provider: Alex Swenson Reason for consultation: elevated LFTs Has provider been notified: Yes 07/21/21 11:18 Consult to General Surgery Routine Consulting Provider: [facility] Reason for consultation: groin pain ?inguinal hernia 07/21/21 20:44 Consult to Hematology / Oncology Routine Consulting Provider: Galina Marti Reason for consultation: Anemia; high INR; low plts; hx Cirrhosis. 07/22/21 07:59 Consult to Infectious Diseases Routine Consulting Provider: Elizabeth Baldwin Reason for consultation: MSSA bacteremia/bacteruria, cirrhosis 07/22/21 11:34 Consult for Sitter Routine Reason for consultation: agitation DS: Diagnosis Discharge Diagnosis (1) Abdominal pain: Status: Acute DS: Summary Hospital Course Hospital Course: 55-year-old male with history of known alcohol abuse and liver failure secondary cyst cirrhosis presents with 2-3 days of lower abdominal pain specifically left groin pain.? He states his pain is fine when he is laying down but the minute he gets up to ambulate it it is 9/10.? He denies nausea vomiting diarrhea.? He states his last alcoholic beverage was approximately 1 week ago.? He denies fever and chills.? CT scan done in the emergency room revealed cirrhotic liver with varices splenomegaly and a small amount ascites otherwise unremarkable.? He was seen by GI will follow and advise ceftriaxone Hospital course Patient was started on IV vancomycin to cover broadly as well as ceftriaxone. Subsequent cultures grew MSSA. Consult was placed to ID who recommended continuing vancomycin until discharge since switching to daptomycin which is due to end 08/19/2021. Liver function stabilized. Patient will be sent home on prednisone taper as well as short course of vitamin K orally. He can follow-up with PCP and Gastroenterology as scheduled Time Spent with Patient Time attestation: Total time spent providing and/or coordinating discharge services: Discharge coordination time: Greater than 30 minutes Quality: Safe Use of Opioids Does Pt have an Active Cancer Diagnosis on the Problem List?: No Quality: Stroke Does the patient have a stroke diagnosis?: No Physical Exam Vital Signs: Vital Signs: Last Vital Signs Temp 98.9 F 07/29/21 07:57 Pulse 80 07/29/21 07:57 Resp 18 07/29/21 07:57 BP 122/72 07/29/21 07:57 Pulse Ox 92 07/29/21 07:57 BMI result Body Mass Index 24.9 Const: Other: Awake alert oriented x3. Resting quietly on the stretcher Neck: Other: Fluid-filled mass around circumference of his neck submandibular in origin. Patient states this has been there for ??years Resp: Other: Clear to auscultation bilaterally no rales rhonchi or wheezes Cardio: Other: No S4; is positive S1-S2; no S3 murmurs rubs or gallops GI: Other: Distended soft nontender normoactive bowel sounds. No appreciable fluid wave. There is a fullness in the left inguinal area that is very tender to touch Extrem: Other: No edema bilaterally DS: Data Data Completed and Pending Labs on day of discharge: Laboratory Results - last 24 hr 07/27/21 07/29/21 05:47 13:11 WBC 10.5 RBC 2.41 L Hgb 9.1 L Hct 26.6 L MCV 110.4 H MCH 37.8 H MCHC 34.2 RDW 19.2 H Plt Count 29 L MPV 11.2 Immature Gran % (Auto) 2.8 H Neut % (Auto) 85.3 H Lymph % (Auto) 2.1 L Prentiss % (Auto) 9.5 Eos % (Auto) 0.2 Baso % (Auto) 0.1 Lymph # (Auto) 0.2 L Prentiss # (Auto) 1.0 Eos # (Auto) 0.0 Baso # (Auto) 0.0 Abs Immat Gran (auto) 0.29 H Absolute Neuts (auto) 9.0 H Absolute Nucleated RBC 0.000 Nucleated RBC % (auto) 0.0 Hepatitis A IgM Ab Nonreactive Discharge Plan Discharge Patient Disposition: Home Health Service Discharge Diagnosis: MSSA bacteremia Referrals: DR PASQUALE BALDWIN [Other] - 2 Weeks ( INFECTION SPECIALIST WHO FOLLOW YOUR LABS WHILE ON IV ANTIBIOTICS APPOINTMENT FOR AUGUST 12 2021 AT 11 AM PLEASE CALL AHEAD IF FOR ANY REASON YOU HAVE TO CANCEL ) HARMAN CUNHA [Other] - 1 Day (VISITING NURSE FOR HOME IV ANTIBIOTIC TEACHING ( REINFORCEMENT TO ATIENT AND S/O, MEDICATION ADMINISTRQTION, FLUSH LINE CARE LABS AND PCI LINE DRESSING CHANGES EACH WEEK BYT [facility] 2. PCP DR FABI BROWNE -PATIENT TO FOLLOW UP WITH PCP POST HOSPITAL DISCHARGE 3,TRANSPORTATION PATIENT CAN SELF ARRANGE) [facility] [Other] - 1 Day (OP[facility] CARE NURSE WILL COME TO HOSPITAL AND DO A INITIAL TEACH FOR YOU SPECIFIC IV ABX ADMINISTRATION THROUGH THE PIC LINE , (THEN YOU WILL BE FOLLOWED UP BY THE [facility] NURSE THEY WILL DELIVER THE ABX/ AND ALL RELATED SUPPLIES) TO THE ADDRESS YOU GAVE US ( [address] [place] [address] OF [place] ) PCP DR ABRIL BROWNE PATIENT TO CALL FOR FOLLOW UP APPOINTMENT POST [facility] DISCHARGE TRANSPORTATION PATIENT TO SELF ARRANGE) [facility] [Outside] - 1 Week Abril Browne MD [Primary Care Provider] - 1 Week Discharge Medications: New furosemide 40 mg Tablet 40 mg PO DAILY Qty: 30 0RF Protocol: Hold for SBP< HOLD for SBP < : 90 oxycodone 5 mg Tablet 5 mg PO Q6H PRN (Reason: Pain, Moderate (Pain Scale 4-6) Qty: 20 0RF daptomycin 500 mg Recon Soln 500 mg IV Q24H Qty: 22 0RF Continued famotidine 40 mg tablet 40 mg PO DAILY 0RF cyanocobalamin (vitamin B-12) 1,000 mcg Tablet 1,000 mcg PO DAILY 0RF magnesium oxide 400 mg (241.3 mg magnesium) tablet 1,600 mg PO DAILY 0RF folic acid 1 mg tablet 1 mg PO DAILY 0RF albuterol sulfate [ProAir HFA] 90 mcg/actuation HFA aerosol inhaler 2 puff inhalation Q6H PRN (Reason: wheezing) 0RF Flovent HFA 110 mcg/actuation HFA aerosol inhaler 2 puff inhalation BID 0RF mesalamine [Lialda] 1.2 gram tablet,delayed release (DR/EC) 4 tab PO DAILY 0RF thiamine mononitrate (vit B1) [Vitamin B-1 (mononitrate)] 100 mg tablet 100 mg PO DAILY 0RF metoprolol succinate 25 mg tablet extended release 24 hr 12.5 mg PO DAILY 0RF potassium chloride 10 mEq tablet,ER particles/crystals 120 meq PO DAILY 0RF prednisone 10 mg Tablet 40 mg PO DAILY 0RF Rx Instructions: PATIENT PRESCRIBED TO TAKE 40 MG DAILY FOR 28 DAYS THEN TAPER BY 5 MG EVERY 3 DAYS UNTIL FINISHED. PT HAS BEEN TAKING FOR ABOUT 1 WEEK Discharge Orders: Discharge Order (Routine); Ordered 07/29/21 Ordered By: Sabino Jackson Diet: advance to usual diet Activity on Discharge: As tolerated Stand Alone Forms: Patient Portal Discharge page Care Plan Goals: Complete course of daptomycin end date 08/19/2021 Health Concerns: Continue current therapies. Follow-up with GI and PCP as scheduled Plan of Treatment: Add Lasix to your regimen. Continue previous outpatient therapies Assessment: As per discharge summary
--- NOTE | 2021-07-29 14:05 | MHC.CM.PN ---
See previous CM PN. Patient has been medically cleared for dc to home today; both [facility] & [facility] have been notified of today's dc.
[2021-07-29 14:16] LABS: Alanine Aminotransferase 64 U/L (0-40); Albumin Level 2.3 g/dL (3.5-5.0); Alkaline Phosphatase 137 U/L (39-117); Anion Gap 13 (12-20); Aspartate Amino Transferase 89 U/L (5-37); Blood Urea Nitrogen 22 mg/dL (9-16); Calcium 8.3 mg/dL (8.4-10.2); Carbon Dioxide 23 mmol/L (22-29); Chloride 100 mmol/L (96-108); Creatinine Clr Calc Pharmacy 76.6; Estimated Glomerular Filt Rate > 60; Glucose Fasting 145 mg/dL (60-99); Potassium 3.3 mmol/L (3.3-5.1); Sodium 133 mmol/L (135-145)
--- NOTE | 2021-07-29 15:07 | P.F2F_ITS ---
Service Date Service Date: 07/29/21 Encounter Date of encounter: 07/29/21 Encounter: Acute admission to the hospital Reasons for Services Signs and symptoms assessed: End-stage cirrhosis with physical decompensation Reason for group home: administration of IV, SQ, or IM injection Reason for physical therapy: home safety and mobility and therapeutic exercises Homebound: Leaving the home is medically contraindicated at this time without the asist of a device and/or another person due th the listed conditions above and below. Reason homebound: unsteady gait / fall risk, leg weakness and bedbound/chairbound Homebound supporting statement: End-stage liver disease with physical deconditioning/decompensation Certification: Based on the above findings, I certify that this patient is confined to the home and needs intermittent group home care, physical therapy and/or speech therapy, or continues to need occupational therapy. The patient is under my care, and I have initiated the establishment of the plan of care. The patient will be followed by a physician who will periodically review the plan of care.
[2021-08-04 10:17] LABS: Hepatitis BE Antibody NON-REACTIVE (NON-REACTIVE); Hepatitis BE Antigen REACTIVE (NON-REACTIVE)
== END 2021-07-29 15:32 | disposition home health service (06) | DRG 280 ==
LOC: HO.ED 15:19 → HO.EDOVER 15:44 → HO.S3 07-22 14:10
PROVIDERS: Family Medicine; Hospitalist; Internal Medicine; Internal Medicine Gastroenterology; Admitting Provider Hospitalist; Emergency Provider Emergency Medicine; PCP Internal Medicine; Visit Provider Hospitalist
DX: K70.31 Alcoholic cirrhosis of liver with ascites (principal); K70.0 Alcoholic fatty liver; D65 Disseminated intravascular coagulation [defibrination syndrome]; I81 Portal vein thrombosis; D61.818 Other pancytopenia; R78.81 Bacteremia; D58.9 Hereditary hemolytic anemia, unspecified; K70.11 Alcoholic hepatitis with ascites; E83.42 Hypomagnesemia; I25.10 Atherosclerotic heart disease of native coronary artery without angina pectoris; D68.9 Coagulation defect, unspecified; K50.90 Crohn's disease, unspecified, without complications; B95.61 Methicillin susceptible Staphylococcus aureus infection as the cause of diseases classified elsewhere; J45.30 Mild persistent asthma, uncomplicated; E87.6 Hypokalemia; F10.10 Alcohol abuse, uncomplicated; Z20.822 Contact with and (suspected) exposure to COVID-19; Z88.6 Allergy status to analgesic agent; Z79.51 Long term (current) use of inhaled steroids; Z79.899 Other long term (current) drug therapy
CPT/HCPCS: 36415; 36573; 74177; 76705; 80048; 80053; 80061; 80076; 80143; 80179; 80202; 81001; 82077; 82140; 82550; 82565; 83010; 83605; 83615; 83690; 83735; 85007; 85025; 85027; 85045; 85379; 85384; 85610; 85730; 86704; 86706; 86707; 86709; 86803; 86850; 86880; 86900; 86901; 86923; 87040; 87077; 87086; 87088; 87186; 87205; 87340; 87350; 87635; 93306; 93975; 96361; 96365; 96366; 96375; 97162; 99285; C1751; J0696; J0878; J1650; J2270; J2354; J2405; J2920; J3370; J3430; J3475; P9016; P9017; P9035; P9073; Q9967

== ENCOUNTER 2021-08-05 10:22 | Outpatient (REF) | payer MEDICAID, SELFPAY ==
[2021-08-05 10:48] LABS: Mean Corpuscular HGB Conc 34.9 g/dl (31.0-36.0); Mean Corpuscular Hemoglobin 37.8 pg (27.0-33.0); Mean Corpuscular Volume 108.3 fL (80.0-98.0); Mean Platelet Volume 10.4 fL (9.4-12.4); Red Cell Distribution Width 17.8 % (11.0-16.0); White Blood Count 19.6 X10*3/uL (4.8-10.8)
[2021-08-05 10:52] LABS: INTERNATIONAL NORM RATIO 2.6 (0.9-1.1)
[2021-08-05 11:09] LABS: Platelet Count 47 X10*3/uL (160-400)
[2021-08-05 11:10] LABS: Hemoglobin 6.8 g/dl (14.0-18.0)
[2021-08-05 11:11] LABS: Hematocrit 19.5 % (42.0-52.0)
[2021-08-05 11:19] LABS: Band Neutrophils Percent 2 % (3-5); Eosinophils Absolute Manual 0.2 X10*3/uL (0.0-0.4); Eosinophils Percent Manual 1 % (0-4); Lymphocytes Absolute Manual 1.6 X10*3/uL (1.2-4.9); Lymphocytes Percent Manual 8 % (20-40); Monocytes Absolute Manual 1.8 X10*3/uL (0.1-1.2); Monocytes Percent Manual 9 % (2-11)
[2021-08-05 11:21] LABS: Neutrophils Absolute Manual 16.1 X10*3/uL (2.0-8.3); Neutrophils Percent Manual 80 % (45-73); RBC Morphology NOTED
[2021-08-05 11:22] LABS: Macrocytosis 1+ (5-14) /OIF; Microcytosis 1+ (5-14) /OIF; Tear Drop Cells 1+ (0-2) /OIF
[2021-08-05 11:23] LABS: Burr Cells 1+ (0-2) /OIF
[2021-08-05 11:25] LABS: Platelet Estimate DECREASED (NORMAL); Platelet Morphology Comment NORMAL
[2021-08-05 12:23] LABS: Alanine Aminotransferase 80 U/L (0-40); Albumin Level 1.8 g/dL (3.5-5.0); Alkaline Phosphatase 140 U/L (39-117); Anion Gap 15 (12-20); Aspartate Amino Transferase 117 U/L (5-37); Blood Urea Nitrogen 68 mg/dL (9-16); Calcium 8.3 mg/dL (8.4-10.2); Carbon Dioxide 23 mmol/L (22-29); Chloride 92 mmol/L (96-108); Estimated Glomerular Filt Rate 27; Glucose Random 118 mg/dL (60-115); Magnesium 2.4 mg/dL (1.6-2.6); Potassium 3.4 mmol/L (3.3-5.1); Sodium 127 mmol/L (135-145); Total Protein 4.2 g/dL (6.5-8.0)
[2021-08-05 12:48] LABS: Bilirubin Total 26.7 mg/dL (0.0-1.0)
== END 2021-08-05 10:23 | disposition home or self-care (01) ==
LOC: HO.HVNA 10:22
PROVIDERS: Visit Provider Internal Medicine
DX: K70.31 Alcoholic cirrhosis of liver with ascites (principal); Z79.01 Long term (current) use of anticoagulants
CPT/HCPCS: 36415; 80053; 82550; 83735; 85007; 85025; 85027; 85610

== ENCOUNTER 2021-08-05 14:20 | Inpatient (IN) | payer MEDICAID, SELFPAY ==
[2021-08-05] VITALS (7 sets, daily range): BP systolic 98–127; BP diastolic 52–67; PULSE 72–94; RESP 14–18; TEMP 36.2–36.7; O2SAT 94–97; BMI 26.9
--- NOTE | ~2021-08-05 | XR_ITS ---
EXAMINATION: XR CHEST CLINICAL INFORMATION: Hypoxia COMPARISON: 03/20/2021 TECHNIQUE: AP portable upright view of the chest was obtained. FINDINGS: Multifocal bilateral confluent airspace opacities increasing in severity towards the lung bases. Leading consideration is acute pneumonia. Other considerations include pulmonary aspiration or hemorrhage. Clinical correlation is required. Abnormal lucency in the upper abdomen. Dilated bowel loops. Free intraperitoneal air should be excluded. Recommend either upright/decubitus abdominal imaging or CT of the abdomen and pelvis. Low lung volumes. Left PICC line tip projects at approximately the level of the cavoatrial junction. Grossly unchanged heart and mediastinum. No acute osseous abnormality XR/XR chest 1V IMPRESSION: 1. Extensive bilateral confluent airspace opacities. 2. Possible [place] peritoneal air. Further imaging required.
--- NOTE | 2021-08-05 15:03 | ECG_ITS ---
Test Reason : WEAKNESS Blood Pressure : / mmHG Vent. Rate : 085 BPM Atrial Rate : 085 BPM P-R Int : 134 ms QRS Dur : 108 ms QT Int : 388 ms P-R-T Axes : 006 -18 022 degrees QTc Int : 461 ms Normal sinus rhythm Cannot rule out Anterior infarct , age undetermined Abnormal ECG When compared with ECG of 20-MAR-2021 11:26, No significant change was found Referred By: Cade Farley Electronically Signed By:Devaughn Deluna
--- NOTE | 2021-08-05 15:25 | ED.GENADULT ---
HPI - General Adult General Chief complaint: Recheck/Abnormal Lab/Rx Stated complaint: Abnormal labs Time Seen by Provider: 08/05/21 14:57 Source: patient and old records reviewed History of Present Illness HPI narrative: Patient with a history of cirrhosis of the liver with a recent hospitalization for liver failure and MRSA bacteremia. He presents today after having his labs checked as an outpatient which showed severe anemia and acute renal failure. He states he has been feeling very fatigue since discharge home. No chest pain. Positive dyspnea with exertion. Positive jaundice which is worse per patient. Positive abdominal distension as well as bilateral lower extremities edema and groin edema. His original chief complaint prior to his last admission was left groin pain and that persists. No fevers or chills. He currently has a PICC line in for outpatient antibiotics. Related Data Home Medications Medication Instructions Recorded Confirmed albuterol sulfate 90 mcg/actuation 2 puff INHALATION Q6H PRN 03/10/21 07/20/21 aerosol inhaler (ProAir HFA) cyanocobalamin (vitamin B-12) 1,000 mcg PO DAILY 03/10/21 07/20/21 1,000 mcg tablet famotidine 40 mg tablet 40 mg PO DAILY 03/10/21 07/20/21 fluticasone propionate 110 2 puff INHALATION BID 03/10/21 07/20/21 mcg/actuation HFA aerosol inhaler (Flovent HFA) folic acid 1 mg tablet 1 mg PO DAILY 03/10/21 07/20/21 magnesium oxide 400 mg (241.3 mg 1,600 mg PO DAILY 03/10/21 07/20/21 magnesium) tablet mesalamine 1.2 gram tablet,delayed 4 tab PO DAILY 03/10/21 07/20/21 release (Lialda) thiamine mononitrate (vit B1) 100 100 mg PO DAILY 03/10/21 07/20/21 mg tablet (Vitamin B-1 (mononitrate)) metoprolol succinate 25 mg 12.5 mg PO DAILY 07/17/21 07/20/21 tablet,extended release 24 hr potassium chloride 10 mEq 120 meq PO DAILY tab 07/17/21 07/20/21 tablet,extended release(part/cryst) prednisone 10 mg tablet 40 mg PO DAILY 07/20/21 07/20/21 Previous Rx's Medication Instructions Recorded daptomycin 500 mg intravenous 500 mg IV Q24H #22 ea 07/29/21 solution furosemide 40 mg tablet 40 mg PO DAILY #30 tab 07/29/21 oxycodone 5 mg tablet 5 mg PO Q6H PRN #20 tab 07/29/21 phytonadione (vitamin K1) 5 mg 5 mg PO DAILY #5 tab 07/29/21 tablet Allergies Allergy/AdvReac Type Severity Reaction Status Date / Time aspirin [ASPIRIN] AdvReac Unknown BLOOD IN Verified 03/11/21 09:34 STOOL Review of Systems Constitutional: Comments: General malaise without fevers or chills Eyes: Comments: Scleral icterus Cardiovascular: Comments: No chest pain Respiratory: Comments: No cough or shortness of breath Gastrointestinal: Comments: Abdominal distension Musculoskeletal: Comments: Bilateral pedal edema Integumentary/Breasts: Comments: Jaundice Neurologic: Comments: No focal weakness [facility] Past Medical History Medical History (Updated 08/05/21 @ 15:34 by Cade Farley MD) Anemia Asthma CAD (coronary artery disease) Cirrhosis Glaucoma Liver disease Liver disease Staph aureus infection Social History Social History Household Members: Significant Other Housing: House Housing Other:: duplex Do you presently have visiting nurse or other home services: No Alcohol intake: current Alcohol intake frequency: does not drink Alcohol type: beer Patient Tobacco Use Status: Never used Tobacco Substance Use Type: Marijuana Advance Directives: Yes Advance Directives on File: Yes Advance Directives Date on File: 07/22/21 service: No Current occupational status: unemployed Physical Exam ED Vital Signs: Vital Signs - 24 hr 08/05/21 14:40 08/05/21 16:33 Temperature 97.2 F 98.1 F Pulse Rate 94 75 Respiratory Rate 18 14 Blood Pressure 119/60 127/67 Pulse Oximetry 95 95 BMI result Body Mass Index 26.9 Const Other: Awake and alert. Eyes Other: Obvious scleral icterus Resp Other: Clear and equal bilaterally without wheezes rales rhonchi. No respiratory distress Cardio Other: Regular rate and rhythm GI Other: Distended abdomen with fluid wave. Nontender Rectal Exam - Male: Yes other Other: Penile and scrotal edema without erythema or induration or abscess. Left groin tenderness also without abscess or evidence of infectious cause Skin Other: Severe jaundice Neuro Other: Nonfocal Course Course Course Narrative: Liver failure secondary to cirrhosis. Acute kidney injury Anemia likely secondary to GI bleed likely secondary to esophageal varices. Rectal exam shows hemorrhoids without evidence of acute bleeding. No significant stool in the vault. Scant brown stool noted. No melena. Guaiac-positive however. Review of labs drawn earlier today show a hemoglobin [place] 6.[place] [address]. These are new since the 29 of July, 7 days ago. Creatinine is 2.4. Baseline is 0.89 Sodium is 127. Baseline is 137. Transfusion ordered. Total bilirubin is 26.7 which is approximately baseline for this patient Ceftriaxone and Protonix ordered for presumable esophageal varices bleed. No evidence of active current bleeding however. 17:23. Lab work essentially similar to earlier lab work confirming all results. Planned hospitalized for further treatment Medical Decision Making Lab Data Result diagrams: 08/05/21 16:20 08/05/21 16:19 Labs: Lab Results 08/05/21 08/05/21 08/05/21 Range/Units 16:19 16:19 16:19 WBC (4.8-10.8) X10*3/uL RBC (4.60-5.80) X10*6/uL Hgb (14.0-18.0) g/dl Hct (42.0-52.0) % MCV (80.0-98.0) fL MCH (27.0-33.0) pg MCHC (31.0-36.0) g/dl RDW (11.0-16.0) % Plt Count (160-400) X10*3/uL MPV (9.4-12.4) fL Immature Gran % (Auto) Neut % (Auto) Lymph % (Auto) [place] % (Auto) Eos % (Auto) Baso % (Auto) Lymph # (Auto) [place] # (Auto) Eos # (Auto) Baso # (Auto) Abs Immat Gran (auto) Absolute Neuts (auto) Absolute Nucleated RBC (0.0-0.012) X10*3/uL Nucleated RBC % (auto) (0.0-0.2) /100WBC Neutrophils % (Manual) (45-73) % Band Neutrophils % (3-5) % Lymphocytes % (Manual) (20-40) % Monocytes % (Manual) (2-11) % Myelocytes % % Abs Neuts (Manual) (2.0-8.3) X10*3/uL Lymphocytes # (Manual) (1.2-4.9) X10*3/uL Monocytes # (Manual) (0.1-1.2) X10*3/uL Myelocytes # X10*/uL Toxic Vacuolation Platelet Estimate (NORMAL) Plt Morphology Comment RBC Morphology Macrocytosis /OIF Tear Drop Cells /OIF [place] Cells /OIF Acanthocytes (Spur) /OIF Sodium 124 L (135-145) mmol/L Potassium 4.0 (3.3-5.1) mmol/L Chloride 92 L (96-108) mmol/L Carbon Dioxide 23 (22-29) mmol/L Anion Gap 13 (12-20) BUN 68 H (9-16) mg/dL Creatinine 2.54 H (0.5-1.4) mg/dL Estim Creat Clear Calc 26.8 Estimated GFR 26 Random Glucose 141 H (60-115) mg/dL Lactic Acid (0.5-2.0) mmol/L Calcium 8.3 L (8.4-10.2) mg/dL Total Bilirubin 28.8 H (0.0-1.0) mg/dL AST 121 H (5-37) U/L ALT 87 H (0-40) U/L Alkaline Phosphatase 138 H (39-117) U/L Ammonia (13-55) umol/L Troponin I High Sens 31.7 (<3.5-35.0) ng/L B-Natriuretic Peptide (<100) pg/mL Total Protein 4.5 L (6.5-8.0) g/dL Albumin 1.9 L (3.5-5.0) g/dL Urine Color Urine Appearance Urine pH (5.0-8.0) Ur Specific [place] (1.005-1.025) Urine Protein (NEG-TRACE) MG/DL Urine Glucose (UA) (NEG) MG/DL Urine Ketones (NEG) MG/DL Urine Blood (NEG) Urine Nitrite (NEG) Ur Leukocyte Esterase (NEG) COVID-19 (ROXY) Negative (Negative) COVID-19 Clin Com See Note Blood Type Antibody Screen Crossmatch 08/05/21 08/05/21 08/05/21 Range/Units 16:19 16:19 16:20 WBC (4.8-10.8) X10*3/uL RBC (4.60-5.80) X10*6/uL Hgb (14.0-18.0) g/dl Hct (42.0-52.0) % MCV (80.0-98.0) fL MCH (27.0-33.0) pg MCHC (31.0-36.0) g/dl RDW (11.0-16.0) % Plt Count (160-400) X10*3/uL MPV (9.4-12.4) fL Immature Gran % (Auto) Neut % (Auto) Lymph % (Auto) [place] % (Auto) Eos % (Auto) Baso % (Auto) Lymph # (Auto) [place] # (Auto) Eos # (Auto) Baso # (Auto) Abs Immat Gran (auto) Absolute Neuts (auto) Absolute Nucleated RBC (0.0-0.012) X10*3/uL Nucleated RBC % (auto) (0.0-0.2) /100WBC Neutrophils % (Manual) (45-73) % Band Neutrophils % (3-5) % Lymphocytes % (Manual) (20-40) % Monocytes % (Manual) (2-11) % Myelocytes % % Abs Neuts (Manual) (2.0-8.3) X10*3/uL Lymphocytes # (Manual) (1.2-4.9) X10*3/uL Monocytes # (Manual) (0.1-1.2) X10*3/uL Myelocytes # X10*/uL Toxic Vacuolation Platelet Estimate (NORMAL) Plt Morphology Comment RBC Morphology Macrocytosis /OIF Tear Drop Cells /OIF [place] Cells /OIF Acanthocytes (Spur) /OIF Sodium (135-145) mmol/L Potassium (3.3-5.1) mmol/L Chloride (96-108) mmol/L Carbon Dioxide (22-29) mmol/L Anion Gap (12-20) BUN (9-16) mg/dL Creatinine (0.5-1.4) mg/dL Estim Creat Clear Calc Estimated GFR Random Glucose (60-115) mg/dL Lactic Acid (0.5-2.0) mmol/L Calcium (8.4-10.2) mg/dL Total Bilirubin (0.0-1.0) mg/dL AST (5-37) U/L ALT (0-40) U/L Alkaline Phosphatase (39-117) U/L Ammonia 65 H (13-55) umol/L Troponin I High Sens (<3.5-35.0) ng/L B-Natriuretic Peptide 69 (<100) pg/mL Total Protein (6.5-8.0) g/dL Albumin (3.5-5.0) g/dL Urine Color YELLOW Urine Appearance HAZY Urine pH 5.5 (5.0-8.0) Ur Specific [place] 1.015 (1.005-1.025) Urine Protein NEG (NEG-TRACE) MG/DL Urine Glucose (UA) NEG (NEG) MG/DL Urine Ketones NEG (NEG) MG/DL Urine Blood NEG (NEG) Urine Nitrite NEG (NEG) Ur Leukocyte Esterase NEG (NEG) COVID-19 (ROXY) (Negative) COVID-19 Clin Com Blood Type Antibody Screen Crossmatch 08/05/21 08/05/21 08/05/21 Range/Units 16:20 16:20 16:27 WBC 21.7 H (4.8-10.8) X10*3/uL RBC 1.88 L (4.60-5.80) X10*6/uL Hgb 7.2 L (14.0-18.0) g/dl Hct 20.1 L* (42.0-52.0) % MCV 106.9 H (80.0-98.0) fL MCH 38.3 H (27.0-33.0) pg MCHC 35.8 (31.0-36.0) g/dl RDW 17.8 H (11.0-16.0) % Plt Count 45 L (160-400) X10*3/uL MPV 9.9 (9.4-12.4) fL Immature Gran % (Auto) Cancelled Neut % (Auto) Cancelled Lymph % (Auto) Cancelled [place] % (Auto) Cancelled Eos % (Auto) Cancelled Baso % (Auto) Cancelled Lymph # (Auto) Cancelled [place] # (Auto) Cancelled Eos # (Auto) Cancelled Baso # (Auto) Cancelled Abs Immat Gran (auto) Cancelled Absolute Neuts (auto) Cancelled Absolute Nucleated RBC 0.000 (0.0-0.012) X10*3/uL Nucleated RBC % (auto) 0.0 (0.0-0.2) /100WBC Neutrophils % (Manual) 88 H (45-73) % Band Neutrophils % 6 H (3-5) % Lymphocytes % (Manual) 4 L (20-40) % Monocytes % (Manual) 1 L (2-11) % Myelocytes % 1 % Abs Neuts (Manual) 20.4 H (2.0-8.3) X10*3/uL Lymphocytes # (Manual) 0.9 L (1.2-4.9) X10*3/uL Monocytes # (Manual) 0.2 (0.1-1.2) X10*3/uL Myelocytes # 0.2 X10*/uL Toxic Vacuolation PRESENT Platelet Estimate DECREASED (NORMAL) Plt Morphology Comment NORMAL RBC Morphology NOTED Macrocytosis 2+ (15-30) /OIF Tear Drop Cells 1+ (0-2) /OIF [place] Cells 3+ (>5) /OIF Acanthocytes (Spur) 2+ (3-5) /OIF Sodium (135-145) mmol/L Potassium (3.3-5.1) mmol/L Chloride (96-108) mmol/L Carbon Dioxide (22-29) mmol/L Anion Gap (12-20) BUN (9-16) mg/dL Creatinine (0.5-1.4) mg/dL Estim Creat Clear Calc Estimated GFR Random Glucose (60-115) mg/dL Lactic Acid 1.7 (0.5-2.0) mmol/L Calcium (8.4-10.2) mg/dL Total Bilirubin (0.0-1.0) mg/dL AST (5-37) U/L ALT (0-40) U/L Alkaline Phosphatase (39-117) U/L Ammonia (13-55) umol/L Troponin I High Sens (<3.5-35.0) ng/L B-Natriuretic Peptide (<100) pg/mL Total Protein (6.5-8.0) g/dL Albumin (3.5-5.0) g/dL Urine Color Urine Appearance Urine pH (5.0-8.0) Ur Specific [place] (1.005-1.025) Urine Protein (NEG-TRACE) MG/DL Urine Glucose (UA) (NEG) MG/DL Urine Ketones (NEG) MG/DL Urine Blood (NEG) Urine Nitrite (NEG) Ur Leukocyte Esterase (NEG) COVID-19 (ROXY) (Negative) COVID-19 Clin Com Blood Type A Positive Antibody Screen NEGATIVE Crossmatch See Detail Discharge Plan Discharge Prescriptions: No Action famotidine 40 mg tablet 40 mg PO DAILY 0RF cyanocobalamin (vitamin B-12) 1,000 mcg Tablet 1,000 mcg PO DAILY 0RF magnesium oxide 400 mg (241.3 mg magnesium) tablet 1,600 mg PO DAILY 0RF folic acid 1 mg tablet 1 mg PO DAILY 0RF albuterol sulfate [ProAir HFA] 90 mcg/actuation HFA aerosol inhaler 2 puff inhalation Q6H PRN (Reason: wheezing) 0RF Flovent HFA 110 mcg/actuation HFA aerosol inhaler 2 puff inhalation BID 0RF mesalamine [Lialda] 1.2 gram tablet,delayed release (DR/EC) 4 tab PO DAILY 0RF thiamine mononitrate (vit B1) [Vitamin B-1 (mononitrate)] 100 mg tablet 100 mg PO DAILY 0RF metoprolol succinate 25 mg tablet extended release 24 hr 12.5 mg PO DAILY 0RF potassium chloride 10 mEq tablet,ER particles/crystals 120 meq PO DAILY 0RF prednisone 10 mg Tablet 40 mg PO DAILY 0RF Rx Instructions: PATIENT PRESCRIBED TO TAKE 40 MG DAILY FOR 28 DAYS THEN TAPER BY 5 MG EVERY 3 DAYS UNTIL FINISHED. PT HAS BEEN TAKING FOR ABOUT 1 WEEK furosemide 40 mg Tablet 40 mg PO DAILY Qty: 30 0RF Protocol: Hold for SBP< HOLD for SBP < : 90 oxycodone 5 mg Tablet 5 mg PO Q6H PRN (Reason: Pain, Moderate (Pain Scale 4-6) Qty: 20 0RF daptomycin 500 mg Recon Soln 500 mg IV Q24H Qty: 22 0RF phytonadione (vitamin K1) 5 mg tablet 5 mg PO DAILY Qty: 5 0RF
[2021-08-05 16:31] LABS: Appearance Urine HAZY; Color Urine YELLOW; Glucose Urine UA NEG (NEG); Leukocyte Esterase Urine NEG (NEG); Nitrite Urine NEG (NEG); PH 5.5 (5.0-8.0); Specific Gravity - Urine 1.015 (1.005-1.025); Urine Blood NEG (NEG); Urine Ketones NEG (NEG); Urine Protein NEG (NEG-TRACE)
[2021-08-05 16:31] LABS: Hemoglobin 7.2 g/dl (14.0-18.0); Mean Corpuscular HGB Conc 35.8 g/dl (31.0-36.0); Mean Corpuscular Hemoglobin 38.3 pg (27.0-33.0); Mean Corpuscular Volume 106.9 fL (80.0-98.0); Mean Platelet Volume 9.9 fL (9.4-12.4); Red Blood Count 1.88 X10*6/uL (4.60-5.80); Red Cell Distribution Width 17.8 % (11.0-16.0); White Blood Count 21.7 X10*3/uL (4.8-10.8)
[2021-08-05 16:32] LABS: Platelet Count 45 X10*3/uL (160-400)
[2021-08-05 16:33] LABS: Hematocrit 20.1 % (42.0-52.0)
[2021-08-05] MEDS: cefTRIAXone sodium 1 GM in 0.9 % Sodium Chloride 50 ML IV (16:45)
[2021-08-05] MEDS: Pantoprazole Sodium 40 MG/10 ML VIAL IVPUSH (16:45)
[2021-08-05 16:47] LABS: Lactic Acid 1.7 mmol/L (0.5-2.0)
[2021-08-05 16:54] LABS: Band Neutrophils Percent 6 % (3-5); Lymphocytes Absolute Manual 0.9 X10*3/uL (1.2-4.9); Lymphocytes Percent Manual 4 % (20-40); Monocytes Absolute Manual 0.2 X10*3/uL (0.1-1.2); Monocytes Percent Manual 1 % (2-11); Myelocytes Absolute 0.2 X10*/uL; Myelocytes Percent 1 %; Neutrophils Absolute Manual 20.4 X10*3/uL (2.0-8.3); Neutrophils Percent Manual 88 % (45-73); RBC Morphology NOTED
[2021-08-05 16:54] LABS: Ammonia 65 umol/L (13-55)
[2021-08-05 16:55] LABS: Acanthocytes 2+ (3-5) /OIF; Burr Cells 3+ (>5) /OIF; Macrocytosis 2+ (15-30) /OIF; Platelet Estimate DECREASED (NORMAL); Platelet Morphology Comment NORMAL; Tear Drop Cells 1+ (0-2) /OIF; Toxic Vacuolation PRESENT
[2021-08-05 16:56] LABS: Alanine Aminotransferase 87 U/L (0-40); Albumin Level 1.9 g/dL (3.5-5.0); Alkaline Phosphatase 138 U/L (39-117); Aspartate Amino Transferase 121 U/L (5-37); Blood Urea Nitrogen 68 mg/dL (9-16); Calcium 8.3 mg/dL (8.4-10.2); Creatinine Clr Calc Pharmacy 26.8; Estimated Glomerular Filt Rate 26; Glucose Random 141 mg/dL (60-115); Total Protein 4.5 g/dL (6.5-8.0); Troponin-I High Sensitivity 31.7 ng/L (<3.5-35.0)
[2021-08-05 16:58] LABS: COVID-19 Test Negative (Negative); IDNOW Serial# 16C4AD1C
[2021-08-05 16:59] LABS: B Type Natriuretic Peptide 69 pg/mL (<100)
[2021-08-05 17:09] LABS: Anion Gap 13 (12-20); Bilirubin Total 28.8 mg/dL (0.0-1.0); Carbon Dioxide 23 mmol/L (22-29); Chloride 92 mmol/L (96-108); Sodium 124 mmol/L (135-145)
[2021-08-05] MEDS: HYDROmorphone HCl 1 MG/ML SYRINGE IVPUSH (18:08)
--- NOTE | 2021-08-05 18:10 | PHA.MEDREC ---
Pharmacy Consult ? Medication Reconciliation Pharmacy has completed the medication reconciliation.
--- NOTE | 2021-08-05 23:05 | P.HPHOSP_ITS ---
History of Present Illness Date of Service: 08/05/21 Chief Complaint: Generalized weakness 57-year-old male with a past medical history of hypertension, hyperlipidemia, CAD, alcohol abuse, alcoholic hepatitis, alcoholic liver cirrhosis, history of esophageal varices, ascites, anemia, thrombocytopenia, hepatitis-C A positive, Crohn's disease, asthma; recently discharged from the hospital on 07/28/2021 after being treated for alcoholic hepatitis/MSSA bacteremia-discharged on daptomycin to be finished on 08/19/2021; was also on prednisone to finish 28 day course; presented back to the hospital today with a chief complaint of abnormal labs showing hemoglobin of 6.8.; patient mentioned that he has been weak in general; denies any abdominal pain, nausea vomiting or diarrhea. Denies any fever chills cough. Mentions that his appetite has been okay. Denies any chest pain palpitations lightheadedness or dizziness. Denies any shortness of breath. Patient is a poor historian Review of all other systems is negative except mentioned above ER course: Per ER team patient noted to have hemoglobin of 7.2; being transfused PRBCs; given ceftriaxone. On labs also noted to have creatinine of 2.5. On rectal exa m noted to have brown stool with guaiac positive stool. Admitted for further management. [facility] Medical History Anemia Asthma CAD (coronary artery disease) Cirrhosis Glaucoma Liver disease Liver disease Staph aureus infection Pertinent family history: Father had Crohn's disease Social History Household Members: Friend(s) Housing: House Housing Other:: duplex Do you presently have visiting nurse or other home services: Yes Alcohol intake: current Alcohol intake frequency: former alcohol drinker Alcohol type: beer Patient Tobacco Use Status: Never used Tobacco Substance Use Type: Marijuana Advance Directives Date on File: 07/22/21 service: No Current occupational status: retired Meds Allergies Allergy/AdvReac Type Severity Reaction Status Date / Time aspirin [ASPIRIN] AdvReac Unknown BLOOD IN Verified 03/11/21 09:34 STOOL Active Medications: Current Medications Melatonin (Melatonin 3 Mg Tablet) 6 mg PO BEDTIME PRN PRN Reason: Insomnia Pantoprazole Sodium (Pantoprazole Sodium 40 Mg/10 Ml Vial) 40 mg IVPUSH DAILY@0630 [facility] Senna (Sennosides 8.6 Mg Tablet) 17.2 mg PO BEDTIME PRN PRN Reason: Constipation Sodium Chloride (0.9 % Sodium Chloride Flush 3 Ml Syringe) 3 ml IVFLUSH QSHIFT [facility] Home Medications Medication Instructions Recorded Confirmed Last Taken Type albuterol sulfate 90 mcg/actuation 2 puff inhalation Q6H PRN wheezing 03/10/21 08/05/21 03/09/21 History aerosol inhaler (ProAir HFA) cyanocobalamin (vitamin B-12) 1,000 mcg PO DAILY 03/10/21 08/05/21 08/05/21 History 1,000 mcg tablet famotidine 40 mg tablet 40 mg PO DAILY 03/10/21 08/05/21 08/05/21 History fluticasone propionate 110 2 puff inhalation BID 03/10/21 08/05/21 08/05/21 History mcg/actuation HFA aerosol inhaler (Flovent HFA) folic acid 1 mg tablet 1 mg PO DAILY 03/10/21 08/05/21 08/05/21 History magnesium oxide 400 mg (241.3 mg 1,600 mg PO DAILY 03/10/21 08/05/21 08/05/21 History magnesium) tablet mesalamine 1.2 gram tablet,delayed 4 tab PO DAILY 03/10/21 08/05/21 08/05/21 History release (Lialda) thiamine mononitrate (vit B1) 100 100 mg PO DAILY 03/10/21 08/05/21 08/05/21 History mg tablet (Vitamin B-1 (mononitrate)) metoprolol succinate 25 mg 12.5 mg PO DAILY 07/17/21 08/05/21 08/05/21 History tablet,extended release 24 hr potassium chloride 10 mEq 120 meq PO DAILY 07/17/21 08/05/21 08/05/21 History tablet,extended release(part/cryst) prednisone 10 mg tablet 40 mg PO DAILY 07/20/21 08/05/21 08/05/21 History Physical Exam Vital Signs and Narrative: Vital Signs: Last Vital Signs Temp 97.7 F 08/05/21 20:50 Pulse 74 08/05/21 20:50 Resp 15 08/05/21 20:50 BP 98/53 L 08/05/21 20:50 Pulse Ox 94 08/05/21 20:50 BMI result Body Mass Index 26.9 Gen: Appears be in no acute distress HEENT: NCAT, Moist mucosa. Icteric; swelling of the neck-chronic; protecting airways Pulmonary: Slightly diminished breath sounds CVS: Normal S1-S2 Abdomen: BS+, Soft, Nontender Extremities: Warm well perfused; 3+ pitting edema Neuro: Alert and awake. Moves all extremities equally Results Labs CBC and Chem 7: 08/08/21 08:13 08/08/21 08:13 Labs: Laboratory Results - last 24 hr 08/05/21 08/05/21 08/05/21 16:19 16:19 16:19 MCV MCH MCHC RDW Plt Count MPV Immature Gran % (Auto) Neut % (Auto) Lymph % (Auto) [place] % (Auto) Eos % (Auto) Baso % (Auto) Lymph # (Auto) [place] # (Auto) Eos # (Auto) Baso # (Auto) Abs Immat Gran (auto) Absolute Neuts (auto) Absolute Nucleated RBC Nucleated RBC % (auto) Neutrophils % (Manual) Band Neutrophils % Lymphocytes % (Manual) Monocytes % (Manual) Myelocytes % Abs Neuts (Manual) Lymphocytes # (Manual) Monocytes # (Manual) Myelocytes # Toxic Vacuolation Platelet Estimate Plt Morphology Comment RBC Morphology Macrocytosis Tear Drop Cells [place] Cells Acanthocytes (Spur) Anion Gap 13 Estim Creat Clear Calc 26.8 Estimated GFR 26 Random Glucose 141 H Lactic Acid Calcium 8.3 L Total Bilirubin 28.8 H AST 121 H ALT 87 H Alkaline Phosphatase 138 H Ammonia Troponin I High Sens 31.7 B-Natriuretic Peptide Total Protein 4.5 L Albumin 1.9 L Urine Color Urine Appearance Urine pH Ur Specific [place] Urine Protein Urine Glucose (UA) Urine Ketones Urine Blood Urine Nitrite Ur Leukocyte Esterase COVID-19 (ROXY) Negative COVID-19 Clin Com See Note Blood Type Antibody Screen Crossmatch 08/05/21 08/05/21 08/05/21 16:19 16:19 16:20 MCV MCH MCHC RDW Plt Count MPV Immature Gran % (Auto) Neut % (Auto) Lymph % (Auto) [place] % (Auto) Eos % (Auto) Baso % (Auto) Lymph # (Auto) [place] # (Auto) Eos # (Auto) Baso # (Auto) Abs Immat Gran (auto) Absolute Neuts (auto) Absolute Nucleated RBC Nucleated RBC % (auto) Neutrophils % (Manual) Band Neutrophils % Lymphocytes % (Manual) Monocytes % (Manual) Myelocytes % Abs Neuts (Manual) Lymphocytes # (Manual) Monocytes # (Manual) Myelocytes # Toxic Vacuolation Platelet Estimate Plt Morphology Comment RBC Morphology Macrocytosis Tear Drop Cells [place] Cells Acanthocytes (Spur) Anion Gap Estim Creat Clear Calc Estimated GFR Random Glucose Lactic Acid Calcium Total Bilirubin AST ALT Alkaline Phosphatase Ammonia 65 H Troponin I High Sens B-Natriuretic Peptide 69 Total Protein Albumin Urine Color YELLOW Urine Appearance HAZY Urine pH 5.5 Ur Specific [place] 1.015 Urine Protein NEG Urine Glucose (UA) NEG Urine Ketones NEG Urine Blood NEG Urine Nitrite NEG Ur Leukocyte Esterase NEG COVID-19 (ROXY) COVID-19 Clin Com Blood Type Antibody Screen Crossmatch 08/05/21 08/05/21 08/05/21 16:20 16:20 16:27 MCV 106.9 H MCH 38.3 H MCHC 35.8 RDW 17.8 H Plt Count 45 L MPV 9.9 Immature Gran % (Auto) Cancelled Neut % (Auto) Cancelled Lymph % (Auto) Cancelled [place] % (Auto) Cancelled Eos % (Auto) Cancelled Baso % (Auto) Cancelled Lymph # (Auto) Cancelled [place] # (Auto) Cancelled Eos # (Auto) Cancelled Baso # (Auto) Cancelled Abs Immat Gran (auto) Cancelled Absolute Neuts (auto) Cancelled Absolute Nucleated RBC 0.000 Nucleated RBC % (auto) 0.0 Neutrophils % (Manual) 88 H Band Neutrophils % 6 H Lymphocytes % (Manual) 4 L Monocytes % (Manual) 1 L Myelocytes % 1 Abs Neuts (Manual) 20.4 H Lymphocytes # (Manual) 0.9 L Monocytes # (Manual) 0.2 Myelocytes # 0.2 Toxic Vacuolation PRESENT Platelet Estimate DECREASED Plt Morphology Comment NORMAL RBC Morphology NOTED Macrocytosis 2+ (15-30) Tear Drop Cells 1+ (0-2) [place] Cells 3+ (>5) Acanthocytes (Spur) 2+ (3-5) Anion Gap Estim Creat Clear Calc Estimated GFR Random Glucose Lactic Acid 1.7 Calcium Total Bilirubin AST ALT Alkaline Phosphatase Ammonia Troponin I High Sens B-Natriuretic Peptide Total Protein Albumin Urine Color Urine Appearance Urine pH Ur Specific [place] Urine Protein Urine Glucose (UA) Urine Ketones Urine Blood Urine Nitrite Ur Leukocyte Esterase COVID-19 (ROXY) COVID-19 Clin Com Blood Type A Positive Antibody Screen NEGATIVE Crossmatch See Detail Assessment and Plan (1) Anemia: Status: Acute Plan 57-year-old male with a past medical history of hypertension, hyperlipidemia, CAD, alcohol abuse, alcoholic hepatitis, alcoholic liver cirrhosis, history of esophageal varices, ascites, anemia, thrombocytopenia, hepatitis-C A positive, Crohn's disease, asthma; recently discharged from the hospital on 07/28/2021 after being treated for alcoholic hepatitis/MSSA bacteremia-discharged on daptomycin to be finished on 08/19/2021; was also on prednisone to finish 28 day course; presented back to the hospital today with a chief complaint of abnormal labs showing hemoglobin of 6.8. Anemia: Guaiac positive stool Hemoglobin on presentation was 7.2 being transfused 1 unit of PRBC NPO Gastroenterology consult Patient denies any hematemesis. Noted to have brown stool with guaiac positive in the rectal vault. Serial [facility] GI consult for further management. Patient being continued on ceftriaxone empirically. MITUL: Patient's creatinine on presentation is 2.4. Baseline creatinine 0.8. Concern for hepatorenal syndrome. Nephrology consult for further recommendations. Patient is being v given PRBC. Recent history of alcoholic hepatitis: Patient is on prednisone 40 mg daily to finish 28 day course. Today is day 28. Will taper down the prednisone given concerns for GI bleed. History of alcohol abuse: No signs of withdrawal currently. Continue home multivitamins Recent history of MSSA bacteremia: Patient discharged on daptomycin to be finished on 08/19/2021. Will continue for now. Id consult. History of peripheral edema/ascites: Patient on furosemide/Aldactone. Will hold diuretics for now given GI bleed concerns. History of Crohn's disease: Continue home mesalamine History of portal vein thrombosis: Patient is not on anticoagulation secondary to high risk for GI bleed. History of CAD: Continue home metoprolol History of asthma: Continue home inhalers DVT prophylaxis: SCD boots Code status: Full code Quality Stroke Does the patient have a stroke diagnosis?: No VTE Prior VTE?: No VTE Risk Level:: Medical - moderate - high VTE Device Contraindication: N/A - Device Ordered VTE Drug Contraindication: Treatment Not Indicated
[2021-08-06] VITALS (9 sets, daily range): BP systolic 95–134; BP diastolic 51–70; PULSE 75–87; RESP 14–18; TEMP 36.3–36.8; O2SAT 91–96
--- NOTE | 2021-08-06 02:07 | PC.NURSE ---
Patient alert and oriented x 3. ambulates with stand by assistance. Patient has left arm Picc line for iv Daptomycin for MSSA at home. Patient has had [address] Correa notified pharmacy states iv daptomycin can only be ordered by infectious disease. Patient c/o 02/01 pain medicated with relief. Patient being admitted medications being ordered. 1 unit of RBC's given. no reactions, whole units given. Will continue to monitor.
--- NOTE | 2021-08-06 03:05 | PC.NURSE ---
Dr. Houston notified ammonia level 65. Will continue with plan of care.
--- NOTE | 2021-08-06 03:49 | PC.NURSE ---
pt a&o, no sob or chest pain. Took over care at 3am from on RN Besty. pt repositioned for comfort. pillows placed per pt request. Fresh water placed on the bed side.
[2021-08-06 06:07] LABS: Hematocrit 25.8 % (42.0-52.0); Hemoglobin 8.7 g/dl (14.0-18.0); Mean Corpuscular HGB Conc 33.7 g/dl (31.0-36.0); Mean Corpuscular Volume 106.6 fL (80.0-98.0); Mean Platelet Volume 9.9 fL (9.4-12.4); NRBC Pct Auto 0.1 /100WBC (0.0-0.2); Red Blood Count 2.42 X10*6/uL (4.60-5.80); Red Cell Distribution Width 20.6 % (11.0-16.0); White Blood Count 21.2 X10*3/uL (4.8-10.8)
[2021-08-06 06:10] LABS: Platelet Count 43 X10*3/uL (160-400)
[2021-08-06] MEDS: Metoprolol Succinate ER 25 MG TAB.ER.24H 12.5 MG PO (08:37)
--- NOTE | 2021-08-06 08:37 | P.PNIM_ITS ---
Subjective Subjective Date of Service: 08/06/21 Interval History: f/u on GIB, acute blood loss anemia Interval history: some confusion, and c/o of pain Review of Systems no active bleed no fever no sob Physical Exam Vital Signs: Vital Signs: Last Vital Signs Temp 97.7 F 08/06/21 08:07 Pulse 87 08/06/21 08:07 Resp 14 08/06/21 08:07 BP 95/64 08/06/21 08:07 Pulse Ox 95 08/06/21 08:07 BMI result Body Mass Index 26.9 Const: Other: General: AO X 3, no acute distress HEENT--bilateral sclear icteris very prominent chin with excess fat Resp: CTA bilateral CVS: S1,S2,RRR GI: +BS, NT, no distention Skin: No rash Neuro: motor grossly intact Psych: appropriate affect Objective Data Active Medications Albuterol Sulfate (Albuterol Sulfate 90 Mcg 8 Gm Inhaler) 2 puff INHALE Q6H PRN PRN Reason: wheezing Cyanocobalamin (Cyanocobalamin (Vitamin B-12) 1,000 Mcg Tablet) 1,000 mcg PO DAILY [facility] Fluticasone Propionate (Fluticasone Propionate 100 Mcg Blst.W.Dev) 2 puff INHALE RBID [facility] Last Admin: 08/06/21 07:55 Dose: Not Given Documented by: BISHNU Non-Admin Reason: Med Not Available Folic Acid (Folic Acid 1 Mg Tablet) 1 mg PO DAILY [facility] Daptomycin 500 mg/ Sodium (Chloride) 60 mls @ 100 mls/hr IV Q24H [facility] Magnesium Oxide (Magnesium Oxide 400 Mg Tablet) 1,600 mg PO DAILY [facility] Melatonin (Melatonin 3 Mg Tablet) 6 mg PO BEDTIME PRN PRN Reason: Insomnia Metoprolol Succinate (Metoprolol Succinate Er 25 Mg Tab.Er.24h) 12.5 mg PO DAILY [facility]; Protocol Non-Formulary Medication (Mesalamine [Lialda]) 4 tab PO DAILY [facility] Pantoprazole Sodium (Pantoprazole Sodium 40 Mg/10 Ml Vial) 40 mg IVPUSH DAILY@0800 [facility] Prednisone (Prednisone 10 Mg Tablet) 30 mg PO DAILY [facility] Senna (Sennosides 8.6 Mg Tablet) 17.2 mg PO BEDTIME PRN PRN Reason: Constipation Sodium Chloride (0.9 % Sodium Chloride Flush 3 Ml Syringe) 3 ml IVFLUSH QSHIFT [facility] Last Admin: 08/06/21 01:35 Dose: Not Given Documented by: LORENA Non-Admin Reason: Previously Administered Thiamine HCl (Thiamine Hcl 100 Mg Tablet) 100 mg PO DAILY [facility] Labs CBC & Chem 7: 08/06/21 05:59 08/05/21 16:19 Labs: Laboratory Results - last 24 hr 08/05/21 08/05/21 08/05/21 16:19 16:19 16:19 MCV MCH MCHC RDW Plt Count MPV Immature Gran % (Auto) Neut % (Auto) Lymph % (Auto) Bonner % (Auto) Eos % (Auto) Baso % (Auto) Lymph # (Auto) [place] # (Auto) Eos # (Auto) Baso # (Auto) Abs Immat Gran (auto) Absolute Neuts (auto) Absolute Nucleated RBC Nucleated RBC % (auto) Neutrophils % (Manual) Band Neutrophils % Lymphocytes % (Manual) Monocytes % (Manual) Myelocytes % Abs Neuts (Manual) Lymphocytes # (Manual) Monocytes # (Manual) Myelocytes # Toxic Vacuolation Platelet Estimate Plt Morphology Comment RBC Morphology Macrocytosis Tear Drop Cells Devin Cells Acanthocytes (Spur) Anion Gap 13 Estim Creat Clear Calc 26.8 Estimated GFR 26 Random Glucose 141 H Lactic Acid Calcium 8.3 L Total Bilirubin 28.8 H AST 121 H ALT 87 H Alkaline Phosphatase 138 H Ammonia Troponin I High Sens 31.7 B-Natriuretic Peptide Total Protein 4.5 L Albumin 1.9 L Urine Color Urine Appearance Urine pH Ur Specific [place] Urine Protein Urine Glucose (UA) Urine Ketones Urine Blood Urine Nitrite Ur Leukocyte Esterase COVID-19 (ROXY) Negative COVID-19 Clin Com See Note Blood Type Antibody Screen Crossmatch 08/05/21 08/05/21 08/05/21 16:19 16:19 16:20 MCV MCH MCHC RDW Plt Count MPV Immature Gran % (Auto) Neut % (Auto) Lymph % (Auto) Bonner % (Auto) Eos % (Auto) Baso % (Auto) Lymph # (Auto) [place]ner # (Auto) Eos # (Auto) Baso # (Auto) Abs Immat Gran (auto) Absolute Neuts (auto) Absolute Nucleated RBC Nucleated RBC % (auto) Neutrophils % (Manual) Band Neutrophils % Lymphocytes % (Manual) Monocytes % (Manual) Myelocytes % Abs Neuts (Manual) Lymphocytes # (Manual) Monocytes # (Manual) Myelocytes # Toxic Vacuolation Platelet Estimate Plt Morphology Comment RBC Morphology Macrocytosis Tear Drop Cells [place] Cells Acanthocytes (Spur) Anion Gap Estim Creat Clear Calc Estimated GFR Random Glucose Lactic Acid Calcium Total Bilirubin AST ALT Alkaline Phosphatase Ammonia 65 H Troponin I High Sens B-Natriuretic Peptide 69 Total Protein Albumin Urine Color YELLOW Urine Appearance HAZY Urine pH 5.5 Ur Specific [place] 1.015 Urine Protein NEG Urine Glucose (UA) NEG Urine Ketones NEG Urine Blood NEG Urine Nitrite NEG Ur Leukocyte Esterase NEG COVID-19 (ROXY) COVID-19 Clin Com Blood Type Antibody Screen Crossmatch 08/05/21 08/05/21 08/05/21 16:20 16:20 16:27 MCV 106.9 H MCH 38.3 H MCHC 35.8 RDW 17.8 H Plt Count 45 L MPV 9.9 Immature Gran % (Auto) Cancelled Neut % (Auto) Cancelled Lymph % (Auto) Cancelled Bonner % (Auto) Cancelled Eos % (Auto) Cancelled Baso % (Auto) Cancelled Lymph # (Auto) Cancelled [place] # (Auto) Cancelled Eos # (Auto) Cancelled Baso # (Auto) Cancelled Abs Immat Gran (auto) Cancelled Absolute Neuts (auto) Cancelled Absolute Nucleated RBC 0.000 Nucleated RBC % (auto) 0.0 Neutrophils % (Manual) 88 H Band Neutrophils % 6 H Lymphocytes % (Manual) 4 L Monocytes % (Manual) 1 L Myelocytes % 1 Abs Neuts (Manual) 20.4 H Lymphocytes # (Manual) 0.9 L Monocytes # (Manual) 0.2 Myelocytes # 0.2 Toxic Vacuolation PRESENT Platelet Estimate DECREASED Plt Morphology Comment NORMAL RBC Morphology NOTED Macrocytosis 2+ (15-30) Tear Drop Cells 1+ (0-2) Devin Cells 3+ (>5) Acanthocytes (Spur) 2+ (3-5) Anion Gap Estim Creat Clear Calc Estimated GFR Random Glucose Lactic Acid 1.7 Calcium Total Bilirubin AST ALT Alkaline Phosphatase Ammonia Troponin I High Sens B-Natriuretic Peptide Total Protein Albumin Urine Color Urine Appearance Urine pH Ur Specific [place] Urine Protein Urine Glucose (UA) Urine Ketones Urine Blood Urine Nitrite Ur Leukocyte Esterase COVID-19 (ROXY) COVID-19 [employer] Com Blood Type A Positive Antibody Screen NEGATIVE Crossmatch See Detail 08/06/21 05:59 MCV 106.6 H MCH 36.0 H MCHC 33.7 RDW 20.6 H Plt Count 43 L MPV 9.9 Immature Gran % (Auto) Cancelled Neut % (Auto) Cancelled Lymph % (Auto) Cancelled Bonner % (Auto) Cancelled Eos % (Auto) Cancelled Baso % (Auto) Cancelled Lymph # (Auto) Cancelled Bonner # (Auto) Cancelled Eos # (Auto) Cancelled Baso # (Auto) Cancelled Abs Immat Gran (auto) Cancelled Absolute Neuts (auto) Cancelled Absolute Nucleated RBC 0.030 H Nucleated RBC % (auto) 0.1 Neutrophils % (Manual) Band Neutrophils % Lymphocytes % (Manual) Monocytes % (Manual) Myelocytes % Abs Neuts (Manual) Lymphocytes # (Manual) Monocytes # (Manual) Myelocytes # Toxic Vacuolation Platelet Estimate Plt Morphology Comment RBC Morphology Macrocytosis Tear Drop Cells [place] Cells Acanthocytes (Spur) Anion Gap Estim Creat Clear Calc Estimated GFR Random Glucose Lactic Acid Calcium Total Bilirubin AST ALT Alkaline Phosphatase Ammonia Troponin I High Sens B-Natriuretic Peptide Total Protein Albumin Urine Color Urine Appearance Urine pH Ur Specific [place] Urine Protein Urine Glucose (UA) Urine Ketones Urine Blood Urine Nitrite Ur Leukocyte Esterase COVID-19 (ROXY) COVID-19 Clin Com Blood Type Antibody Screen Crossmatch Assessment and Plan (1) Acute blood loss anemia: Status: Acute (2) Hyponatremia: Status: Acute Plan 57-year-old male with a past medical history of hypertension, hyperlipidemia, CAD, alcohol abuse, alcoholic hepatitis, alcoholic liver cirrhosis, history of esophageal varices, ascites, anemia, thrombocytopenia, hepatitis-C A positive, Crohn's disease, asthma; recently discharged from the hospital on 07/28/2021 after being treated for alcoholic hepatitis/MSSA bacteremia-discharged on daptomycin to be finished on 08/19/2021; was also on prednisone to finish 28 day course; presented back to the hospital today with a chief complaint of abnormal labs showing hemoglobin of 6.8. Acute blood loss anemia on anemia of chronic disease, guaiac + s/p transfusion x 1 RBC with good effect GI eval for possible endoscopy IV PPI Monitor hct MITUL:? Patient's creatinine on presentation is 2.4.? Baseline creatinine 0.8.? Concern for hepatorenal syndrome.? Nephrology consult for further recommendation, give some some normal saline Recent history of alcoholic hepatitis:? Patient is on prednisone 40 mg daily to finish 28 day course.? Today is day 24.? Will taper down the prednisone given concerns for GI bleed. Will discuss with GI and if no further indicated stop steoid as maybe contributin to GIB Hepatic encephalopathy--ammonia was 65 yester, start lactulose Hyponatremia--worse, Nephro consult and start NS History of alcohol abuse:? No signs of withdrawal currently.? Continue home multivitamins Recent history of MSSA bacteremia: Patient discharged on daptomycin to be finished on 08/19/2021.? Will continue for now.? Id consult. Leukocysotis--likely reactive and related to steroid--Monitor History of peripheral edema/ascites: Patient on furosemide/Aldactone.? Will hold diuretics for now given MITUL History of Crohn's disease: Continue home mesalamine History of portal vein thrombosis:? Patient is not on anticoagulation secondary to high risk for GI bleed. History of CAD: Continue home metoprolol History of asthma: Continue home inhalers DVT prophylaxis: SCD boots Code status:? Full code Quality Stroke Does the patient have a stroke diagnosis?: No VTE Prior VTE?: No VTE Risk Level:: Medical - moderate - high VTE Device Contraindication: N/A - Device Ordered VTE Drug Contraindication: Treatment Not Indicated
[2021-08-06] MEDS: Thiamine HCL 100 MG TABLET PO (08:38)
[2021-08-06] MEDS: Folic Acid 1 MG TABLET PO (08:38)
[2021-08-06] MEDS: Cyanocobalamin (Vitamin B-12) 1,000 MCG TABLET 1000 MCG PO (08:38)
[2021-08-06] MEDS: Magnesium Oxide 400 MG TABLET 1600 MG PO (08:39)
[2021-08-06] MEDS: Pantoprazole Sodium 40 MG/10 ML VIAL IVPUSH (08:39)
[2021-08-06] MEDS: DAPTOmycin 500 MG in 0.9 % Sodium Chloride 50 ML 100 MG IV (08:39)
[2021-08-06] MEDS: predniSONE 10 MG TABLET 30 MG PO (08:39)
[2021-08-06] MEDS: 0.9 % Sodium Chloride Flush 3 ML SYRINGE IVFLUSH (08:50)
--- NOTE | 2021-08-06 09:34 | P.CNGI_ITS ---
History of Present Illness Data of Consult Service Date: 08/06/21 Requesting physician: Brett Frye Primary Care Provider: Thierno Browne MD HPI Reason for consult: anemia 57-year-old male with a past medical history of hypertension, hyperlipidemia, CAD, alcohol abuse, alcoholic hepatitis, alcoholic liver cirrhosis, history of esophageal varices, ascites, anemia, thrombocytopenia, hepatitis-C positive, Crohn's disease, asthma; who I am seeing for assessment for anemia. Patient had labs checked at home and HGB was 6.8 g/dl and told to come in, no overt GI bleeding. does have weakness and malaise but he blames it on sleep deprivation. denies any abdominal pain but has ongoing left inguinal hernia discomfort, no vomiting or diarrhea but does admit to nausea.? Denies any fever chills cough. Denies any shortness of breath he has been transfused 1 unit PRBC and HGB went to 8-9 g/dl. Rectal exam done by admitting team with brown stool. Review of Systems Review of Systems: Constitutional : No Weight loss, No Fever, No Chills ENT/Mouth : No sore throat, No Rhinorrhea Eyes: No Swelling, No Redness Cardiovascular : No Chest Pain, No SOB, No Edema Respiratory : No Cough, No Sputum, No Wheezing Gastrointestinal : see HPI Genitourinary : NO Dysuria, No Urinary Frequency, No Hematuria, No Urgency Musculoskeletal : No joint pain, No Myalgias, No Joint Swelling Skin : No Skin Lesions, No rash Neuro : + Weakness, No Numbness, No Dizziness, No Headache Psych : No Anxiety/Panic, No Depression Heme/Lymph: No Bruising, No Lymphadenopathy Endocrine : No Polyuria, No Polydipsia All other systems reviewed and are negative. [facility] Past Medical History Medical History (Updated 08/06/21 @ 08:44 by Brett Frye MD) Anemia Asthma CAD (coronary artery disease) Cirrhosis Glaucoma Liver disease Liver disease Staph aureus infection Family History Pertinent family history: Father had Crohn's disease Social History Social History Household Members: Significant Other Housing: House Housing Other:: duplex Do you presently have visiting nurse or other home services: No Alcohol intake: current Alcohol intake frequency: does not drink Alcohol type: beer Patient Tobacco Use Status: Never used Tobacco Substance Use Type: Marijuana Advance Directives: Yes Advance Directives on File: Yes Advance Directives Date on File: 07/22/21 service: No Current occupational status: unemployed Meds Allergies Allergy/AdvReac Type Severity Reaction Status Date / Time aspirin [ASPIRIN] AdvReac Unknown BLOOD IN Verified 03/11/21 09:34 STOOL Active Medications: Current Medications Albuterol Sulfate (Albuterol Sulfate 90 Mcg 8 Gm Inhaler) 2 puff INHALE Q6H PRN PRN Reason: wheezing Cyanocobalamin (Cyanocobalamin (Vitamin B-12) 1,000 Mcg Tablet) 1,000 mcg PO DAILY [facility] Last Admin: 08/06/21 08:38 Dose: 1,000 mcg Documented by: Fluticasone Propionate (Fluticasone Propionate 100 Mcg Blst.W.Dev) 2 puff INHALE RBID [facility] Last Admin: 08/06/21 07:55 Dose: Not Given Documented by: Folic Acid (Folic Acid 1 Mg Tablet) 1 mg PO DAILY [facility] Last Admin: 08/06/21 08:38 Dose: 1 mg Documented by: Daptomycin 500 mg/ Sodium (Chloride) 60 mls @ 100 mls/hr IV Q24H [facility] Last Admin: 08/06/21 08:39 Dose: 100 mls/hr Documented by: Sodium Chloride (Ns) 1,000 mls @ 50 mls/hr IVCONT .Q20H [facility] Stop: 08/08/21 00:44 Magnesium Oxide (Magnesium Oxide 400 Mg Tablet) 1,600 mg PO DAILY [facility] Last Admin: 08/06/21 08:39 Dose: 1,600 mg Documented by: Melatonin (Melatonin 3 Mg Tablet) 6 mg PO BEDTIME PRN PRN Reason: Insomnia Metoprolol Succinate (Metoprolol Succinate Er 25 Mg Tab.Er.24h) 12.5 mg PO DAILY [facility]; Protocol Last Admin: 08/06/21 08:37 Dose: 12.5 mg Documented by: Non-Formulary Medication (Mesalamine [Lialda]) 4 tab PO DAILY [facility] Pantoprazole Sodium (Pantoprazole Sodium 40 Mg/10 Ml Vial) 40 mg IVPUSH DAILY@0800 [facility] Last Admin: 08/06/21 08:39 Dose: 40 mg Documented by: Prednisone (Prednisone 10 Mg Tablet) 30 mg PO DAILY [facility] Last Admin: 08/06/21 08:39 Dose: 30 mg Documented by: Senna (Sennosides 8.6 Mg Tablet) 17.2 mg PO BEDTIME PRN PRN Reason: Constipation Sodium Chloride (0.9 % Sodium Chloride Flush 3 Ml Syringe) 3 ml IVFLUSH QSHIFT [facility] Last Admin: 08/06/21 08:50 Dose: 3 ml Documented by: Thiamine HCl (Thiamine Hcl 100 Mg Tablet) 100 mg PO DAILY [facility] Last Admin: 08/06/21 08:38 Dose: 100 mg Documented by: Home Medications Medication Instructions Recorded Confirmed Last Taken Type albuterol sulfate 90 mcg/actuation 2 puff INHALATION Q6H PRN 03/10/21 08/05/21 03/09/21 History aerosol inhaler (ProAir HFA) cyanocobalamin (vitamin B-12) 1,000 mcg PO DAILY 03/10/21 08/05/21 08/05/21 History 1,000 mcg tablet famotidine 40 mg tablet 40 mg PO DAILY 03/10/21 08/05/21 08/05/21 History fluticasone propionate 110 2 puff INHALATION BID 03/10/21 08/05/21 08/05/21 History mcg/actuation HFA aerosol inhaler (Flovent HFA) folic acid 1 mg tablet 1 mg PO DAILY 03/10/21 08/05/21 08/05/21 History magnesium oxide 400 mg (241.3 mg 1,600 mg PO DAILY 03/10/21 08/05/21 08/05/21 History magnesium) tablet mesalamine 1.2 gram tablet,delayed 4 tab PO DAILY 03/10/21 08/05/21 08/05/21 History release (Lialda) thiamine mononitrate (vit B1) 100 100 mg PO DAILY 03/10/21 08/05/21 08/05/21 History mg tablet (Vitamin B-1 (mononitrate)) metoprolol succinate 25 mg 12.5 mg PO DAILY 07/17/21 08/05/21 08/05/21 History tablet,extended release 24 hr potassium chloride 10 mEq 120 meq PO DAILY tab 07/17/21 08/05/21 08/05/21 History tablet,extended release(part/cryst) prednisone 10 mg tablet 40 mg PO DAILY 07/20/21 08/05/21 08/05/21 History Physical Exam Vital Signs: Vital Signs: Last Vital Signs Temp 97.7 F 08/06/21 08:07 Pulse 87 08/06/21 08:07 Resp 14 08/06/21 08:07 BP 95/64 08/06/21 08:07 Pulse Ox 95 08/06/21 08:07 BMI result Body Mass Index 26.9 EXAM: GENERAL: The patient is frail and jaundiced. VITAL SIGNS:see workflow HEENT: icteric sclerae, PERRLA, EOMI. Oropharynx clear. Moist mucous membranes. Conjunctivae appear well perfused. No thyroid mass. Chronic large cystic lesion under the jaw CHEST: Chest wall is nontender. HEART: Regular rate and rhythm without murmurs. LUNGS: Clear to auscultation bilaterally. ABDOMEN: Soft, positive bowel sounds, tender over left inguinal hernia but not incarcerated, no organomegaly.no flank tenderness SKIN: No rash, no excessive bruising, petechiae, or purpura. NEUROLOGIC: Cranial nerves II-XII intact without motor/sensory deficit. Extrem: General: Yes normal to inspection Psych: Appearance: disheveled Results Labs CBC & Chem 7: 08/06/21 05:59 08/05/21 16:19 Labs: Short CBC 08/05/21 08/06/21 Range/Units 16:20 05:59 WBC 21.7 H 21.2 H (4.8-10.8) X10*3/uL Hgb 7.2 L 8.7 L D (14.0-18.0) g/dl Hct 20.1 L* 25.8 L D (42.0-52.0) % Plt Count 45 L 43 L (160-400) X10*3/uL BMP 08/05/21 16:19 Sodium 124 L Potassium 4.0 Chloride 92 L Carbon Dioxide 23 BUN 68 H Creatinine 2.54 H Calcium 8.3 L Liver Function 08/05/21 Range/Units 16:19 Total Bilirubin 28.8 H (0.0-1.0) mg/dL AST 121 H (5-37) U/L ALT 87 H (0-40) U/L Alkaline Phosphatase 138 H (39-117) U/L Albumin 1.9 L (3.5-5.0) g/dL Urine 08/05/21 Range/Units 16:19 Urine Color YELLOW Urine Appearance HAZY Urine pH 5.5 (5.0-8.0) Ur Specific [place] 1.015 (1.005-1.025) Urine Protein NEG (NEG-TRACE) MG/DL Urine Glucose (UA) NEG (NEG) MG/DL Assessment and Plan (1) Acute blood loss anemia: Status: Acute (2) Alcoholic hepatitis with ascites: Status: Acute Plan 1/ Acute on chronic anemia, no overt GI blood loss. BUN >creat, may be suggestive of upper GI bleed vs dehydration or steroid effect vs medication effect bob as he has low Na as well. DDX: PUd, gastritis, slow variceal bleed, dieulafoy, stress ulceration, hemolytic anemia 2/ alcoholic hepatitis, with possible portal vein thrombosis from prior imaging, lower risk of DILI PLAN 1/ Cont with PPI e.g IV pantoprazole 40 mg BID 2/ can add octreotide gtt, EGD tomorrow --ok to have clears today 3/ ok to cont ceftriaxone for the meantime 4/ hold diuretics given low Na, elevated BUN/creat 5/ resuscitate with fluids and PRBC, HGB target around 9 g/dl--check hemolysis labs, peripheral smear pending 6/ taper down and stop prednisone as not really working 7/ overall prognosis is guarded Procedures Date of Service Date of Service: 08/06/21
[2021-08-06] MEDS: 0.9 % Sodium Chloride 1,000 ML 50 ML IVCONT (09:44)
--- NOTE | 2021-08-06 09:51 | PC.NURSE ---
Pt from er to ed overflow, alert and oriented, repoed as requested. LS clear, +2-+3 edema bilateral lower extremities Updated on plan of care
--- NOTE | 2021-08-06 10:15 | PC.NURSE ---
REPORT TO ANAND BEAR IN OVERFLOW. PT TRANSPORTED WITH PCT
[2021-08-06] MEDS: Morphine Sulfate 2 MG/ML CARTRIDGE IVPUSH ×3 (11:13→22:00)
[2021-08-06] MEDS: Lactulose 20 GM/30 ML SOLUTION PO (11:13)
[2021-08-06 14:45] LABS: Anion Gap 15 (12-20); Carbon Dioxide 21 mmol/L (22-29); Chloride 92 mmol/L (96-108); Potassium 3.5 mmol/L (3.3-5.1); Sodium 124 mmol/L (135-145)
--- NOTE | 2021-08-06 17:53 | P.CONNP_ITS ---
History of Present Illness Reason for Consult Consult date: 08/06/21 Reason for consult: MITUL Chief Complaint Chief complaint: Anemia History of Present Illness Narrative: 57-year-old male with H/O alcohol abuse, alcoholic hepatitis, alcoholic liver cirrhosis, history of esophageal varices, ascites, anemia, thrombocytopenia, hepatitis-C A positive, Crohn's disease, asthma; recently discharged from the hospital on 07/28/2021 after being treated for alcoholic hepatitis/MSSA bacteremia-discharged on daptomycin to be finished on 08/19/2021; was also on prednisone to finish 28 day course; presented back to the hospital with a chief complaint of abnormal labs showing hemoglobin of 6.8.; He denies any abdominal pain, nausea vomiting or diarrhea.? Denies any fever chills cough.? His creatinine was 2.5.? He was admitted for further management. Nephrology has been consulted to assist in his clinical care Review of Systems Review of Systems Yes all other systems are reviewed and are negative PMFSH Past Medical History Medical History (Updated 08/06/21 @ 17:56 by Bo Barrett MD) Anemia Asthma CAD (coronary artery disease) Cirrhosis Glaucoma Liver disease Liver disease Staph aureus infection Social History Social History Household Members: Significant Other Housing: House Housing Other:: duplex Do you presently have visiting nurse or other home services: No Alcohol intake: current Alcohol intake frequency: does not drink Alcohol type: beer Patient Tobacco Use Status: Never used Tobacco Substance Use Type: Marijuana Advance Directives Date on File: 07/22/21 service: No Current occupational status: unemployed Meds Allergies Allergy/AdvReac Type Severity Reaction Status Date / Time aspirin [ASPIRIN] AdvReac Unknown BLOOD IN Verified 03/11/21 09:34 STOOL Active Medications: Current Medications Albuterol Sulfate (Albuterol Sulfate 90 Mcg 8 Gm Inhaler) 2 puff INHALE Q6H PRN PRN Reason: wheezing Cyanocobalamin (Cyanocobalamin (Vitamin B-12) 1,000 Mcg Tablet) 1,000 mcg PO DAILY [facility] Last Admin: 08/06/21 08:38 Dose: 1,000 mcg Documented by: Folic Acid (Folic Acid 1 Mg Tablet) 1 mg PO DAILY [facility] Last Admin: 08/06/21 08:38 Dose: 1 mg Documented by: Daptomycin 500 mg/ Sodium (Chloride) 60 mls @ 100 mls/hr IV Q24H [facility] Last Infusion: 08/06/21 09:39 Dose: Infused Documented by: Sodium Chloride (Ns) 1,000 mls @ 50 mls/hr IVCONT .Q20H [facility] Stop: 08/08/21 00:44 Last Admin: 08/06/21 09:44 Dose: 50 mls/hr Documented by: Lactulose (Lactulose 20 Gm/30 Ml Solution) 20 gm PO DAILY [facility] Last Admin: 08/06/21 11:13 Dose: 20 gm Documented by: Magnesium Oxide (Magnesium Oxide 400 Mg Tablet) 1,600 mg PO DAILY [facility] Last Admin: 08/06/21 08:39 Dose: 1,600 mg Documented by: Melatonin (Melatonin 3 Mg Tablet) 6 mg PO BEDTIME PRN PRN Reason: Insomnia Metoprolol Succinate (Metoprolol Succinate Er 25 Mg Tab.Er.24h) 12.5 mg PO DAILY [facility]; Protocol Last Admin: 08/06/21 08:37 Dose: 12.5 mg Documented by: Morphine Sulfate (Morphine Sulfate 2 Mg/Ml Cartridge) 2 mg IVPUSH Q6H PRN; Protocol PRN Reason: Pain, Severe (Pain Scale 7-10) Last Admin: 08/06/21 17:24 Dose: 2 mg Documented by: Non-Formulary Medication (Mesalamine [Lialda]) 4 tab PO DAILY [facility] Patient Own Medication (Flovent Hfa 110 Mcg Oral Inhalation) 2 each INHALE RBID [facility] Pantoprazole Sodium (Pantoprazole Sodium 40 Mg/10 Ml Vial) 40 mg IVPUSH DAILY@0800 [facility] Last Admin: 08/06/21 08:39 Dose: 40 mg Documented by: Senna (Sennosides 8.6 Mg Tablet) 17.2 mg PO BEDTIME PRN PRN Reason: Constipation Sodium Chloride (0.9 % Sodium Chloride Flush 3 Ml Syringe) 3 ml IVFLUSH QSHIFT [facility] Last Admin: 08/06/21 14:56 Dose: Not Given Documented by: Thiamine HCl (Thiamine Hcl 100 Mg Tablet) 100 mg PO DAILY [facility] Last Admin: 08/06/21 08:38 Dose: 100 mg Documented by: Home Medications Medication Instructions Recorded Confirmed Last Taken Type albuterol sulfate 90 mcg/actuation 2 puff INHALATION Q6H PRN 03/10/21 08/05/21 03/09/21 History aerosol inhaler (ProAir HFA) cyanocobalamin (vitamin B-12) 1,000 mcg PO DAILY 03/10/21 08/05/21 08/05/21 History 1,000 mcg tablet famotidine 40 mg tablet 40 mg PO DAILY 03/10/21 08/05/21 08/05/21 History fluticasone propionate 110 2 puff INHALATION BID 03/10/21 08/05/21 08/05/21 History mcg/actuation HFA aerosol inhaler (Flovent HFA) folic acid 1 mg tablet 1 mg PO DAILY 03/10/21 08/05/21 08/05/21 History magnesium oxide 400 mg (241.3 mg 1,600 mg PO DAILY 03/10/21 08/05/21 08/05/21 History magnesium) tablet mesalamine 1.2 gram tablet,delayed 4 tab PO DAILY 03/10/21 08/05/21 08/05/21 History release (Lialda) thiamine mononitrate (vit B1) 100 100 mg PO DAILY 03/10/21 08/05/21 08/05/21 History mg tablet (Vitamin B-1 (mononitrate)) metoprolol succinate 25 mg 12.5 mg PO DAILY 07/17/21 08/05/21 08/05/21 History tablet,extended release 24 hr potassium chloride 10 mEq 120 meq PO DAILY tab 07/17/21 08/05/21 08/05/21 Hi story tablet,extended release(part/cryst) prednisone 10 mg tablet 40 mg PO DAILY 07/20/21 08/05/21 08/05/21 History Physical Exam Vital Signs: Last Vital Signs Temp 98.2 F 08/06/21 17:50 Pulse 84 08/06/21 17:50 Resp 16 08/06/21 16:34 BP 107/56 L 08/06/21 17:50 Pulse Ox 93 08/06/21 17:50 BMI result Body Mass Index 26.9 Const General: no acute distress Eyes EOM: EOMs intact bilaterally Resp Auscultation: diminished lung sounds Cardio Rate: regular rate GI Palpation (GI): Soft to palpation Neuro General: moves all extremities Results Lab Results Result Diagrams: 08/06/21 05:59 08/06/21 14:16 Lab results: Chemistry 08/05/21 08/06/21 16:19 14:16 Sodium 124 L 124 L Potassium 4.0 3.5 Carbon Dioxide 23 21 L BUN 68 H Creatinine 2.54 H Calcium 8.3 L Hematology 08/05/21 08/06/21 16:20 05:59 WBC 21.7 H 21.2 H Hgb 7.2 L 8.7 L D Plt Count 45 L 43 L Urinalysis 08/05/21 16:19 Urine Color YELLOW Urine Appearance HAZY Urine pH 5.5 Ur Specific [place] 1.015 Urine Protein NEG Urine Glucose (UA) NEG Urine Ketones NEG Urine Blood NEG Urine Nitrite NEG Ur Leukocyte Esterase NEG Assessment and Plan (1) Acute kidney failure: Status: Acute Plan Has normal renal function at baseline MITUL likely due to tubular injury DDx; HRS/ oscar infectious GN( had been on Dapto)/AIN Unlikely obstruction; Hyponatremic; BP soft Ordered urine Na/C3/C4/UA/CK Suggest 25 % Albumin 25 Gram 6 hourly X 3 days Midodrine 10 mg tid; Labs AM Procedures Date of Service Date of Service: 08/06/21
[2021-08-07] VITALS (14 sets, daily range): BP systolic 91–137; BP diastolic 44–67; PULSE 71–85; RESP 16–20; TEMP 35.6–37.2; O2SAT 93–99
[2021-08-07] MEDS: Morphine Sulfate 2 MG/ML CARTRIDGE IVPUSH ×2 (04:43→22:36)
[2021-08-07 07:37] LABS: Hemoglobin 7.4 g/dl (14.0-18.0); Mean Corpuscular HGB Conc 35.6 g/dl (31.0-36.0); Mean Corpuscular Hemoglobin 36.5 pg (27.0-33.0); Mean Corpuscular Volume 102.5 fL (80.0-98.0); Mean Platelet Volume 9.8 fL (9.4-12.4); Red Blood Count 2.03 X10*6/uL (4.60-5.80); White Blood Count 13.3 X10*3/uL (4.8-10.8)
[2021-08-07 07:46] LABS: Platelet Count 40 X10*3/uL (160-400)
[2021-08-07 07:47] LABS: Hematocrit 20.8 % (42.0-52.0)
[2021-08-07 07:49] LABS: Anion Gap 16 (12-20); Blood Urea Nitrogen 87 mg/dL (9-16); Calcium 7.8 mg/dL (8.4-10.2); Carbon Dioxide 20 mmol/L (22-29); Chloride 93 mmol/L (96-108); Estimated Glomerular Filt Rate 24; Glucose Random 104 mg/dL (60-115); Potassium 3.7 mmol/L (3.3-5.1); Sodium 125 mmol/L (135-145)
[2021-08-07] MEDS: DAPTOmycin 500 MG in 0.9 % Sodium Chloride 50 ML 100 MG IV (08:24)
--- NOTE | 2021-08-07 08:27 | PM.PNNEP ---
Subjective Subjective Date of Service: 08/07/21 Interval history: f/u on GIB, acute blood loss anemia Interval history: some confusion, and c/o of pain Physical Exam Vital Signs: Vital Signs: Last Vital Signs Temp 97.5 F 08/07/21 07:18 Pulse 83 08/07/21 07:18 Resp 20 08/07/21 07:18 BP 96/55 L 08/07/21 07:18 Pulse Ox 93 08/07/21 07:18 BMI result Body Mass Index 26.9 Const: Other: General: AO X 3, no acute distress HEENT--bilateral sclear icteris very prominent chin with excess fat Resp: CTA bilateral CVS: S1,S2,RRR GI: +BS, NT, no distention Skin: No rash Neuro: motor grossly intact Psych: appropriate affect General: no acute distress Eyes: Other: Obvious scleral icterus EOM: EOMs intact bilaterally Resp: Other: Clear and equal bilaterally without wheezes rales rhonchi. No respiratory distress Auscultation: diminished lung sounds Cardio: Other: Regular rate and rhythm Rate: regular rate GI: Other: Distended abdomen with fluid wave. Nontender Palpation (GI): Soft to palpation Rectal Exam - Male: Yes other : Other: Penile and scrotal edema without erythema or induration or abscess. Left groin tenderness also without abscess or evidence of infectious cause Skin: Other: Severe jaundice Neuro: Other: Nonfocal General: moves all extremities Extrem: General: Yes normal to inspection Psych: Appearance: disheveled Objective Data Labs CBC & Chem 7: 08/07/21 06:56 08/07/21 06:56 Labs: Laboratory Results - last 24 hr 08/06/21 08/07/21 08/07/21 14:16 06:56 06:56 WBC 13.3 H RBC 2.03 L Hgb 7.4 L Hct 20.8 L* MCV 102.5 H MCH 36.5 H MCHC 35.6 RDW 21.0 H Plt Count 40 L MPV 9.8 Absolute Nucleated RBC 0.000 Nucleated RBC % (auto) 0.0 Sodium 124 L 125 L Potassium 3.5 3.7 Chloride 92 L 93 L Carbon Dioxide 21 L 20 L Anion Gap 15 16 BUN 87 H D Creatinine 2.72 H Estim Creat Clear Calc 25.0 Estimated GFR 24 Random Glucose 104 Calcium 7.8 L D Procedures Date of Service Date of Service: 08/07/21 Assessment & Plan Assessment and plan (1) Acute kidney failure: Status: Acute Plan Has normal renal function at baseline MITUL pre-renal DDx; HRS/ oscar infectious GN( had been on Dapto)/AIN Unlikely obstruction; Hyponatremic; BP soft Ordered urine Na/C3/C4/UA/CK (pending) likely pre renal continue volume expand Suggest 25 % Albumin 25 Gram 6 hourly X 3 days Midodrine 10 mg tid; Labs AM Time Spent With Patient Time: Total time spent is greater than 50% in coordination of care (as documented) at patient's floor/unit and/or counseling patient: Progress Note: Quality Stroke Does the patient have a stroke diagnosis?: No
[2021-08-07] MEDS: Metoprolol Succinate ER 25 MG TAB.ER.24H 12.5 MG PO (08:32)
[2021-08-07] MEDS: Pantoprazole Sodium 40 MG/10 ML VIAL IVPUSH (08:34)
[2021-08-07 08:45] LABS: Iron 55 mcg/dL (45-160); Percent Iron Saturation 40 % (15-50); Total Iron Binding Capacity 138 mcg/dL (228-428); Unsaturated Iron Binding 83 ug/dL
[2021-08-07 09:04] LABS: Ferritin 577 ng/mL (20-250)
--- NOTE | 2021-08-07 09:10 | MHC.CM.PN ---
CM met with Patient and several family members at bedside. Patient lives with his S.O/HCP/Rose and he uses a walker to assist with mobility. Patient has a PICC and is active with [facility]; home with resumption of said services is the goal and CM has initiated and will follow for dc planning.Patient has received Moderna vax X2 and PCP is DR. Thierno Browne.
--- NOTE | 2021-08-07 10:33 | HO.PM.IMPN ---
Subjective Subjective Date of Service: 08/07/21 Interval History: f/u on GIB, acute blood loss anemia Interval history:remains confused, jaundice, H/H is lower, no active bleed Review of Systems no active bleed no fever no sob Physical Exam Vital Signs: Vital Signs: Last Vital Signs Temp 97.5 F 08/07/21 07:18 Pulse 83 08/07/21 07:18 Resp 20 08/07/21 07:18 BP 96/55 L 08/07/21 07:18 Pulse Ox 93 08/07/21 07:18 BMI result Body Mass Index 26.9 Const: Other: General: AO X 1, no acute distress HEENT--bilateral sclear icteris very prominent chin with excess fat Resp: CTA bilateral CVS: S1,S2,RRR GI: +BS, NT, mild distention Skin: No rash Neuro: motor grossly intact Psych: appropriate affect Objective Data Active Medications Albuterol Sulfate (Albuterol Sulfate 90 Mcg 8 Gm Inhaler) 2 puff INHALE Q6H PRN PRN Reason: wheezing Cyanocobalamin (Cyanocobalamin (Vitamin B-12) 1,000 Mcg Tablet) 1,000 mcg PO DAILY [facility] Last Admin: 08/07/21 10:07 Dose: Not Given Documented by: JUANA Non-Admin Reason: NPO Folic Acid (Folic Acid 1 Mg Tablet) 1 mg PO DAILY [facility] Last Admin: 08/07/21 10:07 Dose: Not Given Documented by: JUANA Non-Admin Reason: NPO Daptomycin 500 mg/ Sodium (Chloride) 60 mls @ 100 mls/hr IV Q24H [facility] Last Infusion: 08/07/21 09:20 Dose: 0 mls/hr Documented by: JUANA Sodium Chloride (Ns) 1,000 mls @ 50 mls/hr IVCONT .Q20H [facility] Stop: 08/08/21 00:44 Last Admin: 08/07/21 05:15 Dose: Not Given Documented by: ZAHIDA Non-Admin Reason: Medication Discontinued Lactulose (Lactulose 20 Gm/30 Ml Solution) 20 gm PO DAILY [facility] Last Admin: 08/07/21 08:34 Dose: Not Given Documented by: JUANA Non-Admin Reason: NPO Magnesium Oxide (Magnesium Oxide 400 Mg Tablet) 1,600 mg PO DAILY [facility] Last Admin: 08/07/21 10:07 Dose: Not Given Documented by: JUANA Non-Admin Reason: NPO Melatonin (Melatonin 3 Mg Tablet) 6 mg PO BEDTIME PRN PRN Reason: Insomnia Metoprolol Succinate (Metoprolol Succinate Er 25 Mg Tab.Er.24h) 12.5 mg PO DAILY [facility]; Protocol Last Admin: 08/07/21 08:32 Dose: 12.5 mg Documented by: JUANA Morphine Sulfate (Morphine Sulfate 2 Mg/Ml Cartridge) 2 mg IVPUSH Q6H PRN; Protocol PRN Reason: Pain, Severe (Pain Scale 7-10) Last Admin: 08/07/21 04:43 Dose: 2 mg Documented by: ZAHIDA Non-Formulary Medication (Mesalamine [Lialda]) 4 tab PO DAILY [facility] Patient Own Medication (Flovent Hfa 110 Mcg Oral Inhalation) 2 each INHALE RBID [facility] Last Admin: 08/06/21 22:03 Dose: 2 each Documented by: ZAHIDA Pantoprazole Sodium (Pantoprazole Sodium 40 Mg/10 Ml Vial) 40 mg IVPUSH DAILY@0800 [facility] Last Admin: 08/07/21 08:34 Dose: 40 mg Documented by: JUANA Senna (Sennosides 8.6 Mg Tablet) 17.2 mg PO BEDTIME PRN PRN Reason: Constipation Sodium Chloride (0.9 % Sodium Chloride Flush 3 Ml Syringe) 3 ml IVFLUSH QSHIFT [facility] Last Admin: 08/07/21 08:40 Dose: Not Given Documented by: JUANA Non-Admin Reason: IV Running Thiamine HCl (Thiamine Hcl 100 Mg Tablet) 100 mg PO DAILY [facility] Last Admin: 08/07/21 10:07 Dose: Not Given Documented by: JUANA Non-Admin Reason: NPO Labs CBC & Chem 7: 08/07/21 06:56 08/07/21 06:56 Labs: Laboratory Results - last 24 hr 08/05/21 08/06/21 08/07/21 16:27 14:16 06:56 MCV MCH MCHC RDW Plt Count MPV Absolute Nucleated RBC Nucleated RBC % (auto) Anion Gap 15 16 Estim Creat Clear Calc 25.0 Estimated GFR 24 Random Glucose 104 Calcium 7.8 L D Iron 55 TIBC 138 L % Saturation 40 Unsat Iron Binding 83 Ferritin 577 H Blood Type A Positive Antibody Screen NEGATIVE Crossmatch See Detail 08/07/21 06:56 MCV 102.5 H MCH 36.5 H MCHC 35.6 RDW 21.0 H Plt Count 40 L MPV 9.8 Absolute Nucleated RBC 0.000 Nucleated RBC % (auto) 0.0 Anion Gap Estim Creat Clear Calc Estimated GFR Random Glucose Calcium Iron TIBC % Saturation Unsat Iron Binding Ferritin Blood Type Antibody Screen Crossmatch Assessment and Plan (1) Acute blood loss anemia: Status: Acute (2) Hyponatremia: Status: Acute Plan 57-year-old male with a past medical history of hypertension, hyperlipidemia, CAD, alcohol abuse, alcoholic hepatitis, alcoholic liver cirrhosis, history of esophageal varices, ascites, anemia, thrombocytopenia, hepatitis-C A positive, Crohn's disease, asthma; recently discharged from the hospital on 07/28/2021 after being treated for alcoholic hepatitis/MSSA bacteremia-discharged on daptomycin to be finished on 08/19/2021; was also on prednisone to finish 28 day course; presented back to the hospital today with a chief complaint of abnormal labs showing hemoglobin of 6.8. Acute blood loss anemia on anemia of chronic disease, guaiac +, DDx: gastritis, varices, other s/p transfusion x 1 on admission, Hct 20, transfuse 2 units now For EGD today IV PPI Monitor hct MITUL:? Normal baseline creatine, Creatinine is resising Nephro wi the the following remarks and recommendation MITUL pre-renal DDx; HRS (Hepatorenal syndrome)/ oscar infectious GN( had been on Dapto)/AIN Unlikely obstruction; Hyponatremic; BP soft Ordered urine Na/C3/C4/UA/CK (pending) likely pre renal continue volume expand Suggest 25 % Albumin 25 Gram 6 hourly X 3 days Midodrine 10 mg tid; Labs AM Recent history of alcoholic hepatitis:? Patient is on prednisone 40 mg daily to finish 28 day course.?DC Prednisone -Attempted to transfer to [facility] liver transplant [facility], they are not taking transfers Hepatic encephalopathy--ammonia was 65 yester, continue lactulose Hyponatremia-- due to hypervolemia from liver disease, sivan cook. Fluid restriction History of alcohol abuse:? No signs of withdrawal currently.? Continue home multivitamins Recent history of MSSA bacteremia: Patient discharged on daptomycin to be finished on 08/19/2021.? Will continue for now.? Id consult. Leukocysotis--likely reactive and related to steroid--Monitor History of peripheral edema/ascites: Patient on furosemide/Aldactone.? Will hold diuretics for now given MITUL History of Crohn's disease: Continue home mesalamine History of portal vein thrombosis:? Patient is not on anticoagulation secondary to high risk for GI bleed. History of CAD: Continue home metoprolol History of asthma: Continue home inhalers Prognosis is poor DVT prophylaxis: SCD boots Code status:? Full code Inpatient need: active liver failure, acute renal insuficiency that is getting worse, gib bleeding that need intervention--high risk for mortality outside of hospital right now Quality Stroke Does the patient have a stroke diagnosis?: No VTE Prior VTE?: No VTE Risk Level:: Medical - moderate - high VTE Device Contraindication: N/A - Device Ordered VTE Drug Contraindication: Treatment Not Indicated
[2021-08-07 11:46] LABS: Alanine Aminotransferase 82 U/L (0-40); Albumin Level 1.7 g/dL (3.5-5.0); Alkaline Phosphatase 111 U/L (39-117); Aspartate Amino Transferase 105 U/L (5-37)
--- NOTE | 2021-08-07 11:47 | MHC.SHP ---
Pre-Procedural Eval Section A Date of Service: 08/07/21 The patient is an INPATIENT: Yes The History & Physical has been completed within 30 days and I have reviewed it.: Yes Section B Chief Complaint: Anemia Allergies: Allergies Allergy/AdvReac Type Severity Reaction Status Date / Time aspirin [ASPIRIN] AdvReac Unknown BLOOD IN Verified 03/11/21 09:34 STOOL Plan I have reviewed the history and physical and performed a pertinent physical examination on my patient. No changes have occurred unless specified.
[2021-08-07 11:52] LABS: Bilirubin Total 29.2 mg/dL (0.0-1.0)
[2021-08-07 11:58] LABS: Bilirubin Direct 17.1 mg/dL (0.0-0.5)
[2021-08-07] MEDS: Midodrine HCl 10 MG TABLET PO ×3 (12:39→22:22)
--- NOTE | 2021-08-07 13:17 | PC.NURSE ---
Patient arrived to preop area. Left upper arm single lumen PICC line dressing soiled with dried blood underneath. Blood products hanging not dripping correctly, blood dripping very slow with tubing wide open. Arm repositioned with no change to rate. Blood disconnected and lumen flushed with Normal Saline 10ml with no issues, patient tolerated well. Blood tubing changed completely and when reconnected to PICC, began running with no issues. PICC site redressed by Hanh Sheffield, patient tolerated well.
--- NOTE | 2021-08-07 13:43 | P.CONAN_ITS ---
[facility] Active Problems Active Problems: All Active Problems (Updated 08/06/21 @ 17:56 by Bo Barrett MD) Acute kidney failure (Acute) Hyponatremia (Acute) Acute blood loss anemia (Acute) Anemia (Acute) Bleeding esophageal varices (Acute) Acute renal failure (ARF) (Acute) Staph aureus infection (Acute) Alcoholic hepatitis with ascites (Acute) Umbilical hernia (Acute) Left inguinal hernia (Acute) Abdominal pain (Acute) Cirrhosis (Acute) CAD (coronary artery disease) (Acute) Past Medical History Medical History (Updated 08/06/21 @ 17:56 by Bo Barrett MD) Anemia Asthma CAD (coronary artery disease) Cirrhosis Glaucoma Liver disease Liver disease Staph aureus infection Family History Family history of problems with anesthesia: No Surgical History History of Problems with Anesthesia: No Social History Social History Household Members: Friend(s) Housing: House Housing Other:: duplex Do you presently have visiting nurse or other home services: Yes Alcohol intake: current Alcohol intake frequency: former alcohol drinker Alcohol type: beer Patient Tobacco Use Status: Never used Tobacco Substance Use Type: Marijuana Advance Directives Date on File: 07/22/21 service: No Current occupational status: retired Meds Allergies Allergy/AdvReac Type Severity Reaction Status Date / Time aspirin [ASPIRIN] AdvReac Unknown BLOOD IN Verified 03/11/21 09:34 STOOL Active Medications: Current Medications Albuterol Sulfate (Albuterol Sulfate 90 Mcg 8 Gm Inhaler) 2 puff INHALE Q6H PRN PRN Reason: wheezing Cyanocobalamin (Cyanocobalamin (Vitamin B-12) 1,000 Mcg Tablet) 1,000 mcg PO DAILY [facility] Last Admin: 08/07/21 10:07 Dose: Not Given Documented by: Folic Acid (Folic Acid 1 Mg Tablet) 1 mg PO DAILY [facility] Last Admin: 08/07/21 10:07 Dose: Not Given Documented by: Daptomycin 500 mg/ Sodium (Chloride) 60 mls @ 100 mls/hr IV Q24H [facility] Last Infusion: 08/07/21 09:20 Dose: Infused Documented by: Sodium Chloride (Ns) 1,000 mls @ 50 mls/hr IVCONT .Q20H [facility] Stop: 08/08/21 00:44 Last Infusion: 08/07/21 05:15 Dose: Infused Documented by: Lactulose (Lactulose 20 Gm/30 Ml Solution) 20 gm PO DAILY [facility] Last Admin: 08/07/21 08:34 Dose: Not Given Documented by: Magnesium Oxide (Magnesium Oxide 400 Mg Tablet) 1,600 mg PO DAILY [facility] Last Admin: 08/07/21 10:07 Dose: Not Given Documented by: Melatonin (Melatonin 3 Mg Tablet) 6 mg PO BEDTIME PRN PRN Reason: Insomnia Metoprolol Succinate (Metoprolol Succinate Er 25 Mg Tab.Er.24h) 12.5 mg PO DAILY [facility]; Protocol Last Admin: 08/07/21 08:32 Dose: 12.5 mg Documented by: Midodrine (Midodrine Hcl 10 Mg Tablet) 10 mg PO TID [facility] Last Admin: 08/07/21 12:39 Dose: 10 mg Documented by: Morphine Sulfate (Morphine Sulfate 2 Mg/Ml Cartridge) 2 mg IVPUSH Q6H PRN; Protocol PRN Reason: Pain, Severe (Pain Scale 7-10) Last Admin: 08/07/21 04:43 Dose: 2 mg Documented by: Non-Formulary Medication (Mesalamine [Lialda]) 4 tab PO DAILY [facility] Patient Own Medication (Flovent Hfa 110 Mcg Oral Inhalation) 2 each INHALE RBID [facility] Last Admin: 08/06/21 22:03 Dose: 2 each Documented by: Pantoprazole Sodium (Pantoprazole Sodium 40 Mg/10 Ml Vial) 40 mg IVPUSH DAILY@0800 [facility] Last Admin: 08/07/21 08:34 Dose: 40 mg Documented by: Senna (Sennosides 8.6 Mg Tablet) 17.2 mg PO BEDTIME PRN PRN Reason: Constipation Sodium Chloride (0.9 % Sodium Chloride Flush 3 Ml Syringe) 3 ml IVFLUSH QSHIFT [facility] Last Admin: 08/07/21 08:40 Dose: Not Given Documented by: Thiamine HCl (Thiamine Hcl 100 Mg Tablet) 100 mg PO DAILY [facility] Last Admin: 08/07/21 10:07 Dose: Not Given Documented by: Home Medications Medication Instructions Recorded Confirmed Last Taken Type albuterol sulfate 90 mcg/actuation 2 puff INHALATION Q6H PRN 03/10/21 08/05/21 03/09/21 History aerosol inhaler (ProAir HFA) cyanocobalamin (vitamin B-12) 1,000 mcg PO DAILY 03/10/21 08/05/21 08/05/21 History 1,000 mcg tablet famotidine 40 mg tablet 40 mg PO DAILY 03/10/21 08/05/21 08/05/21 History fluticasone propionate 110 2 puff INHALATION BID 03/10/21 08/05/21 08/05/21 History mcg/actuation HFA aerosol inhaler (Flovent HFA) folic acid 1 mg tablet 1 mg PO DAILY 03/10/21 08/05/21 08/05/21 History magnesium oxide 400 mg (241.3 mg 1,600 mg PO DAILY 03/10/21 08/05/21 08/05/21 History magnesium) tablet mesalamine 1.2 gram tablet,delayed 4 tab PO DAILY 03/10/21 08/05/21 08/05/21 History release (Lialda) thiamine mononitrate (vit B1) 100 100 mg PO DAILY 03/10/21 08/05/21 08/05/21 History mg tablet (Vitamin B-1 (mononitrate)) metoprolol succinate 25 mg 12.5 mg PO DAILY 07/17/21 08/05/21 08/05/21 History tablet,extended release 24 hr potassium chloride 10 mEq 120 meq PO DAILY tab 07/17/21 08/05/21 08/05/21 History tablet,extended release(part/cryst) prednisone 10 mg tablet 40 mg PO DAILY 07/20/21 08/05/21 08/05/21 History Exam Exam Date and Time: August 07, 2021 1343 Height,Weight and Vital Signs: Height 5 ft 4 in Weight 71 kg Last Vital Signs Temp 97.5 F 08/07/21 13:10 Pulse 80 08/07/21 13:10 Resp 16 08/07/21 13:10 BP 96/50 L 08/07/21 13:10 Pulse Ox 95 08/07/21 13:10 Pertinent Lab Results Pertinent Lab Results: Laboratory Tests 08/05/21 08/05/21 08/05/21 16:19 16:19 16:19 WBC RBC Hgb Hct MCV MCH MCHC RDW Plt Count MPV Immature Gran % (Auto) Neut % (Auto) Lymph % (Auto) [place] % (Auto) Eos % (Auto) Baso % (Auto) Lymph # (Auto) [place] # (Auto) Eos # (Auto) Baso # (Auto) Abs Immat Gran (auto) Absolute Neuts (auto) Absolute Nucleated RBC Nucleated RBC % (auto) Neutrophils % (Manual) Band Neutrophils % Lymphocytes % (Manual) Monocytes % (Manual) Myelocytes % Abs Neuts (Manual) Lymphocytes # (Manual) Monocytes # (Manual) Myelocytes # Toxic Vacuolation Platelet Estimate Plt Morphology Comment RBC Morphology Macrocytosis Tear Drop Cells Devin Cells Acanthocytes (Spur) Sodium 124 L Potassium 4.0 Chloride 92 L Carbon Dioxide 23 Anion Gap 13 BUN 68 H Creatinine 2.54 H Estim Creat Clear Calc 26.8 Estimated GFR 26 Random Glucose 141 H Lactic Acid Calcium 8.3 L Iron TIBC % Saturation Unsat Iron Binding Ferritin Total Bilirubin 28.8 H Direct Bilirubin AST 121 H ALT 87 H Alkaline Phosphatase 138 H Ammonia Troponin I High Sens 31.7 B-Natriuretic Peptide Total Protein 4.5 L Albumin 1.9 L Urine Color Urine Appearance Urine pH Ur Specific [place] Urine Protein Urine Glucose (UA) Urine Ketones Urine Blood Urine Nitrite Ur Leukocyte Esterase COVID-19 (ROXY) Negative COVID-19 Clin Com See Note Blood Type Antibody Screen Crossmatch 08/05/21 08/05/21 08/05/21 16:19 16:19 16:20 WBC RBC Hgb Hct MCV MCH MCHC RDW Plt Count MPV Immature Gran % (Auto) Neut % (Auto) Lymph % (Auto) [place] % (Auto) Eos % (Auto) Baso % (Auto) Lymph # (Auto) [place] # (Auto) Eos # (Auto) Baso # (Auto) Abs Immat Gran (auto) Absolute Neuts (auto) Absolute Nucleated RBC Nucleated RBC % (auto) Neutrophils % (Manual) Band Neutrophils % Lymphocytes % (Manual) Monocytes % (Manual) Myelocytes % Abs Neuts (Manual) Lymphocytes # (Manual) Monocytes # (Manual) Myelocytes # Toxic Vacuolation Platelet Estimate Plt Morphology Comment RBC Morphology Macrocytosis Tear Drop Cells [place] Cells Acanthocytes (Spur) Sodium Potassium Chloride Carbon Dioxide Anion Gap BUN Creatinine Estim Creat Clear Calc Estimated GFR Random Glucose Lactic Acid Calcium Iron TIBC % Saturation Unsat Iron Binding Ferritin Total Bilirubin Direct Bilirubin AST ALT Alkaline Phosphatase Ammonia 65 H Troponin I High Sens B-Natriuretic Peptide 69 Total Protein Albumin Urine Color YELLOW Urine Appearance HAZY Urine pH 5.5 Ur Specific [place] 1.015 Urine Protein NEG Urine Glucose (UA) NEG Urine Ketones NEG Urine Blood NEG Urine Nitrite NEG Ur Leukocyte Esterase NEG COVID-19 (ROXY) COVID-19 Clin Com Blood Type Antibody Screen Crossmatch 08/05/21 08/05/21 08/05/21 16:20 16:20 16:27 WBC 21.7 H RBC 1.88 L Hgb 7.2 L Hct 20.1 L* MCV 106.9 H MCH 38.3 H MCHC 35.8 RDW 17.8 H Plt Count 45 L MPV 9.9 Immature Gran % (Auto) Cancelled Neut % (Auto) Cancelled Lymph % (Auto) Cancelled [place] % (Auto) Cancelled Eos % (Auto) Cancelled Baso % (Auto) Cancelled Lymph # (Auto) Cancelled [place] # (Auto) Cancelled Eos # (Auto) Cancelled Baso # (Auto) Cancelled Abs Immat Gran (auto) Cancelled Absolute Neuts (auto) Cancelled Absolute Nucleated RBC 0.000 Nucleated RBC % (auto) 0.0 Neutrophils % (Manual) 88 H Band Neutrophils % 6 H Lymphocytes % (Manual) 4 L Monocytes % (Manual) 1 L Myelocytes % 1 Abs Neuts (Manual) 20.4 H Lymphocytes # (Manual) 0.9 L Monocytes # (Manual) 0.2 Myelocytes # 0.2 Toxic Vacuolation PRESENT Platelet Estimate DECREASED Plt Morphology Comment NORMAL RBC Morphology NOTED Macrocytosis 2+ (15-30) Tear Drop Cells 1+ (0-2) [place] Cells 3+ (>5) Acanthocytes (Spur) 2+ (3-5) Sodium Potassium Chloride Carbon Dioxide Anion Gap BUN Creatinine Estim Creat Clear Calc Estimated GFR Random Glucose Lactic Acid 1.7 Calcium Iron TIBC % Saturation Unsat Iron Binding Ferritin Total Bilirubin Direct Bilirubin AST ALT Alkaline Phosphatase Ammonia Troponin I High Sens B-Natriuretic Peptide Total Protein Albumin Urine Color Urine Appearance Urine pH Ur Specific [place] Urine Protein Urine Glucose (UA) Urine Ketones Urine Blood Urine Nitrite Ur Leukocyte Esterase COVID-19 (ROXY) COVID-19 Clin Com Blood Type A Positive Antibody Screen NEGATIVE Crossmatch See Detail 08/06/21 08/06/21 08/07/21 05:59 14:16 06:56 WBC 21.2 H RBC 2.42 L D Hgb 8.7 L D Hct 25.8 L D MCV 106.6 H MCH 36.0 H MCHC 33.7 RDW 20.6 H Plt Count 43 L MPV 9.9 Immature Gran % (Auto) Cancelled Neut % (Auto) Cancelled Lymph % (Auto) Cancelled [place] % (Auto) Cancelled Eos % (Auto) Cancelled Baso % (Auto) Cancelled Lymph # (Auto) Cancelled [place] # (Auto) Cancelled Eos # (Auto) Cancelled Baso # (Auto) Cancelled Abs Immat Gran (auto) Cancelled Absolute Neuts (auto) Cancelled Absolute Nucleated RBC 0.030 H Nucleated RBC % (auto) 0.1 Neutrophils % (Manual) Band Neutrophils % Lymphocytes % (Manual) Monocytes % (Manual) Myelocytes % Abs Neuts (Manual) Lymphocytes # (Manual) Monocytes # (Manual) Myelocytes # Toxic Vacuolation Platelet Estimate Plt Morphology Comment RBC Morphology Macrocytosis Tear Drop Cells Devin Cells Acanthocytes (Spur) Sodium 124 L 125 L Potassium 3.5 3.7 Chloride 92 L 93 L Carbon Dioxide 21 L 20 L Anion Gap 15 16 BUN 87 H D Creatinine 2.72 H Estim Creat Clear Calc 25.0 Estimated GFR 24 Random Glucose 104 Lactic Acid Calcium 7.8 L D Iron 55 TIBC 138 L % Saturation 40 Unsat Iron Binding 83 Ferritin 577 H Total Bilirubin 29.2 H Direct Bilirubin 17.1 H AST 105 H ALT 82 H Alkaline Phosphatase 111 Ammonia Troponin I High Sens B-Natriuretic Peptide Total Protein 4.0 L Albumin 1.7 L Urine Color Urine Appearance Urine pH Ur Specific [place] Urine Protein Urine Glucose (UA) Urine Ketones Urine Blood Urine Nitrite Ur Leukocyte Esterase COVID-19 (ROXY) COVID-19 Clin Com Blood Type Antibody Screen Crossmatch 08/07/21 06:56 WBC 13.3 H RBC 2.03 L Hgb 7.4 L Hct 20.8 L* MCV 102.5 H MCH 36.5 H MCHC 35.6 RDW 21.0 H Plt Count 40 L MPV 9.8 Immature Gran % (Auto) Neut % (Auto) Lymph % (Auto) [place] % (Auto) Eos % (Auto) Baso % (Auto) Lymph # (Auto) [place] # (Auto) Eos # (Auto) Baso # (Auto) Abs Immat Gran (auto) Absolute Neuts (auto) Absolute Nucleated RBC 0.000 Nucleated RBC % (auto) 0.0 Neutrophils % (Manual) Band Neutrophils % Lymphocytes % (Manual) Monocytes % (Manual) Myelocytes % Abs Neuts (Manual) Lymphocytes # (Manual) Monocytes # (Manual) Myelocytes # Toxic Vacuolation Platelet Estimate Plt Morphology Comment RBC Morphology Macrocytosis Tear Drop Cells Devin Cells Acanthocytes (Spur) Sodium Potassium Chloride Carbon Dioxide Anion Gap BUN Creatinine Estim Creat Clear Calc Estimated GFR Random Glucose Lactic Acid Calcium Iron TIBC % Saturation Unsat Iron Binding Ferritin Total Bilirubin Direct Bilirubin AST ALT Alkaline Phosphatase Ammonia Troponin I High Sens B-Natriuretic Peptide Total Protein Albumin Urine Color Urine Appearance Urine pH Ur Specific [place] Urine Protein Urine Glucose (UA) Urine Ketones Urine Blood Urine Nitrite Ur Leukocyte Esterase COVID-19 (ROXY) COVID-19 Clin Com Blood Type Antibody Screen Crossmatch Airway Mallampati Class: IV Neck ROM: Limited Assessment and Plan Assessment Anesthesia Assessment: Anesthesia Plan Discussed and Chart Reviewed Final Anesthetic Review Family History of Problems with Anesthesia: No History of Problems with Anesthesia: No NPO: Yes ASA Class: IV and Emergency Final Preanesthetic Review: Meds/Allgs Chart Reviewed, Consent Obtained/Reviewed and Anes Risks/Benef Reviewed Patient Risk: High Procedure Risk: Low Anesthetic Plan Anesthetic Plan: GA Disposition: Standard PACU
[2021-08-07] MEDS: 0.9 % Sodium Chloride 1,000 ML 50 ML IVCONT ×2 (13:52→20:09)
--- NOTE | 2021-08-07 14:23 | P.BOP_ITS ---
Brief Operative Note Date of Service: 08/07/21 Pre-op diagnosis: anemia Surgeon: Alex Swenson MD Anesthesia: GETA Was an Fire Control Mechanic used for this Procedure?: No Estimated blood loss (mL): 0 Pathology: none sent Condition: stable Disposition: PACU
--- NOTE | 2021-08-07 14:24 | W.PM.OPN ---
Operative Note Operative Note Date of Service: 08/07/21 Narrative: Procedure Description: EGD Indication: [] Anesthesia: MAC FLEXIBLE TRANSORAL UPPER GASTROINTESTINAL ENDOSCOPY UPPER ENDOSCOPY Consent: Indications for the procedure and potential complications of bleeding, perforation, reaction to medications and missed diagnosis were discussed with the patient and informed consent was obtained. Instrument: Olympus GIF H 190 J mid size upper endoscope Monitoring: Vital signs and clinical assessment, continuous EKG monitoring, Pulse oximetry, Carbon Dioxide monitoring and blood pressure monitoring were done throughout the procedure. Procedure: The patient was placed in the left lateral decubitis position and pre-procedure medications were administered and a bite block was placed. The endoscope was inserted into the mouth and advanced under direct vision to the third part of duodenum. A careful inspection was made as the upper endoscope was withdrawn including a retroflexed examination of the proximal stomach; Findings and interventions are described below. Findings: Larynx:normal Esophagus: GE junction at 38 cm, diaphragm hiatus at 38 cm, no varices seen. There were numerous thick white patches thru out the esophgeal mucosa consistent with candidal esophagitis. Stomach: Patchy gastric erythema and mosaic pattern consistent with portal hypertensive gastropathy. Grade 2 flap valve on retroflexed examination of the cardia. No gastric varices seen Duodenum: congestion and edema of the mucosa consistent with portal hypertensive enteropathy Intervention: none, no active bleeding seen Impression/Findings: portal hypertensive gastropathy and enteropathy candidal esophagitis 2/2 steroid use PLAN: treat with fluconazole, renally dosed anemia maybe due to hemolysis, check erika test, and haptoglobin again nurse did report he had a v small maroon colored blood clot this morning, cont to monitor, if further episodes like that then may need colonoscopy will sign out to Dr Beltrán. worsening renal function maybe due to hepatorenal syndrome rather than hypovolemia and blood loss, recommend albumin 25% 1g/kg in divided doses for 3 days, and if no better then octreotide and midodrine, renal evaluation, hold diuretics. prognosis is guarded
[2021-08-07] MEDS: Albumin Human 25 % 100 ML IV ×2 (16:14→20:04)
[2021-08-07] MEDS: 0.9 % Sodium Chloride Flush 3 ML SYRINGE IVFLUSH (16:20)
[2021-08-07 16:30] LABS: Ethanol < 10 mg/dL
[2021-08-07] MEDS: Octreotide Acetate 100 MCG/ML AMPUL IVPUSH ×2 (16:36→23:42)
[2021-08-08] VITALS (8 sets, daily range): BP systolic 103–121; BP diastolic 58–69; PULSE 71–82; RESP 16–28; TEMP 36.3–36.6; O2SAT 84–94
--- NOTE | 2021-08-08 00:12 | P.DN_ITS ---
Discharge Sum: Prov Provider Primary care physician: Thierno Browne MD Consults: 08/05/21 22:57 Consult to Infectious Diseases Routine Consulting Provider: Elizabeth Muse Reason for consultation: mssa bacteremia 08/05/21 23:03 Consult to Infectious Diseases Routine Consulting Provider: Elizabeth Muse Reason for consultation: bacteremia 08/05/21 23:14 Consult to Nephrology Routine Consulting Provider: Bo Barrett Reason for consultation: MITUL 08/06/21 06:29 Consult to Infectious Diseases Routine Consulting Provider: Elizabeth Muse Reason for consultation: [place] ORDER Discharge Sum: Diag Contributing Factors (1) Acute kidney failure: (2) Staph aureus infection: Discharge Sum: Summary Date and Time Date of admission: 08/05/21 22:57 Summary Details: Date of Service: 08/05/21 Chief Complaint: Generalized weakness 57-year-old male with a past medical history of hypertension, hyperlipidemia, CAD, alcohol abuse, alcoholic hepatitis, alcoholic liver cirrhosis, history of esophageal varices, ascites, anemia, thrombocytopenia, hepatitis-C A positive, Crohn's disease, asthma; recently discharged from the hospital on 07/28/2021 after being treated for alcoholic hepatitis/MSSA bacteremia-discharged on daptomycin to be finished on 08/19/2021; was also on prednisone to finish 28 day course; presented back to the hospital today with a chief complaint of abnormal labs showing hemoglobin of 6.8.; patient mentioned that he has been weak in general; denies any abdominal pain, nausea vomiting or diarrhea.? Denies any fever chills cough.? Mentions that his appetite has been okay.? Denies any chest pain palpitations lightheadedness or dizziness.? Denies any shortness of breath.? Patient is a poor historian Review of all other systems is negative except mentioned above ER course: Per ER team patient noted to have hemoglobin of 7.2; being transfused PRBCs; given ceftriaxone.? On labs also noted to have creatinine of 2.5.? On rectal exam noted to have brown stool with guaiac positive stool.? Admitted for further management. Hospital course: This patient with advanced cirrhosis of liver due to alcohol, esophageal varices, chronic anemia, ascietes , history of hep C, recent history of MSSA bacteremia presented with decompensated liver failure, ecephalopathy, anemia, acute renal failure, hyponatremia and was admitted for hepatorenalsyndrome/ATN, hepatic encephalopathy with coma, Hyponatremia, ascietes, coagulopathy, . He deteliorated despite agresive management and indeeded the only option that would have made a difference was liver transplantation. He was rejected by [facility] and [facility] for liver transplant due to ongoing alcoho use. His condition deteriorated with worsening liver failur, renal failur, coagulapathy, anemia despite trasfusion, worsening encephlopathy and after discussion with family and signficant other was made DNR/DNI, comfort measure only and just hours later Final Diagnoses: ATN (Acute tubular Necrosis) Coma Hepatic encephalopahty/[place] metabolic encephalopathy Fulminant liver Failure Alcoholic liver Cirrhosis of the liver Acute on chronic blood loss anemia Hyperbilirubinemia Hyponatremia Gracia Esophagitis Hyperbilirubinemia Pancytopenia Coagulopathy Ascietes Additional Data Attending physician: Brett Frye MD
[2021-08-08] MEDS: 0.9 % Sodium Chloride Flush 3 ML SYRINGE IVFLUSH ×2 (00:21→09:34)
[2021-08-08] MEDS: Albuterol Sulfate 90 MCG 8 GM INHALER 2 PUFF INHALE ×2 (02:06→13:12)
[2021-08-08] MEDS: Albumin Human 25 % 100 ML IV ×2 (02:07→09:28)
[2021-08-08] MEDS: Octreotide Acetate 100 MCG/ML AMPUL IVPUSH ×2 (06:41→15:11)
[2021-08-08 08:25] LABS: Hematocrit 23.6 % (42.0-52.0); Hemoglobin 8.4 g/dl (14.0-18.0); Mean Corpuscular HGB Conc 35.6 g/dl (31.0-36.0); Mean Corpuscular Hemoglobin 34.1 pg (27.0-33.0); Mean Corpuscular Volume 95.9 fL (80.0-98.0); Mean Platelet Volume 11.5 fL (9.4-12.4); Red Blood Count 2.46 X10*6/uL (4.60-5.80); White Blood Count 11.9 X10*3/uL (4.8-10.8)
[2021-08-08 08:28] LABS: Platelet Count 30 X10*3/uL (160-400)
[2021-08-08 08:34] LABS: Fibrinogen 238 MG/DL (259-690)
[2021-08-08 08:41] LABS: Anion Gap 19 (12-20); Blood Urea Nitrogen 108 mg/dL (9-16); Calcium 7.8 mg/dL (8.4-10.2); Carbon Dioxide 18 mmol/L (22-29); Chloride 96 mmol/L (96-108); Estimated Glomerular Filt Rate 21; Glucose Random 116 mg/dL (60-115); Lactate Dehydrogenase 354 U/L (118-273); Potassium 4.3 mmol/L (3.3-5.1); Sodium 129 mmol/L (135-145)
--- NOTE | 2021-08-08 09:00 | P.PNIM_ITS ---
Subjective Subjective Date of Service: 08/08/21 Interval History: f/u on GIB, acute blood loss anemia, MITUL and progressing liver failure Interval history:remains confused,persistent jaundice, H/H is slightly better following transfusion, renal function is worse. Review of Systems no active bleed no fever no sob Physical Exam Vital Signs: Vital Signs: Last Vital Signs Temp 97.8 F 08/08/21 02:29 Pulse 76 08/08/21 07:53 Resp 20 08/08/21 07:53 BP 106/59 L 08/08/21 07:53 Pulse Ox 93 08/08/21 07:53 BMI result Body Mass Index 26.9 Const: Other: General: AO X 1, no acute distress HEENT--bilateral sclear icteris very prominent chin with excess fat Resp: CTA bilateral CVS: S1,S2,RRR, 2+ rafat bipedal edema GI: +BS, NT, mild distention Skin: No rash, jaundice Neuro: motor grossly intact Psych: appropriate affect Objective Data Active Medications Albuterol Sulfate (Albuterol Sulfate 90 Mcg 8 Gm Inhaler) 2 puff INHALE Q6H PRN PRN Reason: wheezing Last Admin: 08/08/21 02:06 Dose: 1 puff Documented by: KATHLEEN Cyanocobalamin (Cyanocobalamin (Vitamin B-12) 1,000 Mcg Tablet) 1,000 mcg PO DAILY [facility] Last Admin: 08/07/21 10:07 Dose: Not Given Documented by: JUANA Non-Admin Reason: NPO Fentanyl (Fentanyl Citrate/Pf 100 Mcg/2 Ml Vial) 25 mcg IVPUSH Q5M PRN; Protocol PRN Reason: Pain, Moderate (Pain Scale 4-6 Folic Acid (Folic Acid 1 Mg Tablet) 1 mg PO DAILY [facility] Last Admin: 08/07/21 10:07 Dose: Not Given Documented by: JUANA Non-Admin Reason: NPO Daptomycin 500 mg/ Sodium (Chloride) 60 mls @ 100 mls/hr IV Q24H [facility] Last Infusion: 08/07/21 09:20 Dose: 0 mls/hr Documented by: JUANA Sodium Chloride (Ns) 1,000 mls @ 50 mls/hr IVCONT .Q20H [facility] Last Admin: 08/07/21 20:09 Dose: 50 mls/hr Documented by: DEMARCO Albumin Human (Kedbumin 25 %) 100 mls @ 100 mls/hr IV Q6H [facility] Stop: 08/08/21 09:14 Last Infusion: 08/08/21 03:39 Dose: 0 mls/hr Documented by: KATHLEEN Fluconazole (Diflucan) 200 mg in 100 mls @ 100 mls/hr IV Q24H [facility] Stop: 08/14/21 14:59 Lactulose (Lactulose 20 Gm/30 Ml Solution) 20 gm PO DAILY [facility] Last Admin: 08/07/21 08:34 Dose: Not Given Documented by: JUANA Non-Admin Reason: NPO Magnesium Oxide (Magnesium Oxide 400 Mg Tablet) 1,600 mg PO DAILY [facility] Last Admin: 08/07/21 10:07 Dose: Not Given Documented by: JUANA Non-Admin Reason: NPO Melatonin (Melatonin 3 Mg Tablet) 6 mg PO BEDTIME PRN PRN Reason: Insomnia Metoprolol Succinate (Metoprolol Succinate Er 25 Mg Tab.Er.24h) 12.5 mg PO DAILY [facility]; Protocol Last Admin: 08/07/21 08:32 Dose: 12.5 mg Documented by: JUANA Midodrine (Midodrine Hcl 10 Mg Tablet) 10 mg PO TID [facility] Last Admin: 08/07/21 22:22 Dose: 10 mg Documented by: DEMARCO Morphine Sulfate (Morphine Sulfate 2 Mg/Ml Cartridge) 2 mg IVPUSH Q6H PRN; Protocol PRN Reason: Pain, Severe (Pain Scale 7-10) Last Admin: 08/07/21 22:36 Dose: 2 mg Documented by: DEMARCO Non-Formulary Medication (Mesalamine [Lialda]) 4 tab PO DAILY [facility] Patient Own Medication (Flovent Hfa 110 Mcg Oral Inhalation) 2 each INHALE RBID [facility] Last Admin: 08/07/21 22:36 Dose: 2 each Documented by: DEMARCO Octreotide Acetate (Octreotide Acetate 100 Mcg/Ml Ampul) 100 mcg IVPUSH Q8H [facility] Last Admin: 08/08/21 06:41 Dose: 100 mcg Documented by: KATHLEEN Ondansetron HCl (Ondansetron Hcl 4 Mg/2 Ml Vial) 4 mg IVPUSH ONCE PRN PRN Reason: Nausea and Vomiting Pantoprazole Sodium (Pantoprazole Sodium 40 Mg/10 Ml Vial) 40 mg IVPUSH DAILY@0800 [facility] Last Admin: 08/07/21 08:34 Dose: 40 mg Documented by: JUANA Senna (Sennosides 8.6 Mg Tablet) 17.2 mg PO BEDTIME PRN PRN Reason: Constipation Sodium Chloride (0.9 % Sodium Chloride Flush 3 Ml Syringe) 3 ml IVFLUSH QSHIFT [facility] Last Admin: 08/08/21 00:21 Dose: 3 ml Documented by: KATHLEEN Thiamine HCl (Thiamine Hcl 100 Mg Tablet) 100 mg PO DAILY [facility] Last Admin: 08/07/21 10:07 Dose: Not Given Documented by: JUANA Non-Admin Reason: NPO Labs CBC & Chem 7: 08/08/21 08:13 08/08/21 08:13 Labs: Laboratory Results - last 24 hr 08/05/21 08/07/21 08/07/21 16:27 06:56 06:56 MCV MCH MCHC RDW Plt Count MPV Absolute Nucleated RBC Nucleated RBC % (auto) Fibrinogen Anion Gap Estim Creat Clear Calc Estimated GFR Random Glucose Calcium Ferritin 577 H Total Bilirubin 29.2 H Direct Bilirubin 17.1 H AST 105 H ALT 82 H Alkaline Phosphatase 111 Lactate Dehydrogenase Total Protein 4.0 L Albumin 1.7 L Ethyl Alcohol < 10 Blood Type A Positive Antibody Screen NEGATIVE Crossmatch See Detail 08/08/21 08/08/21 08/08/21 08:13 08:13 08:13 MCV 95.9 D MCH 34.1 H MCHC 35.6 RDW 24.0 H Plt Count 30 L MPV 11.5 Absolute Nucleated RBC 0.000 Nucleated RBC % (auto) 0.0 Fibrinogen 238 L Anion Gap 19 Estim Creat Clear Calc 22.0 Estimated GFR 21 Random Glucose 116 H Calcium 7.8 L Ferritin Total Bilirubin Direct Bilirubin AST ALT Alkaline Phosphatase Lactate Dehydrogenase 354 H Total Protein Albumin Ethyl Alcohol Blood Type Antibody Screen Crossmatch Assessment and Plan (1) Acute blood loss anemia: Status: Acute (2) Hyponatremia: Status: Acute Plan 57-year-old male with a past medical history of hypertension, hyperlipidemia, CAD, alcohol abuse, alcoholic hepatitis, alcoholic liver cirrhosis, history of esophageal varices, ascites, anemia, thrombocytopenia, hepatitis-C A positive, Crohn's disease, asthma; recently discharged from the hospital on 07/28/2021 after being treated for alcoholic hepatitis/MSSA bacteremia-discharged on daptomycin to be finished on 08/19/2021; was also on prednisone to finish 28 day course; presented back to the hospital today with a chief complaint of abnormal labs showing hemoglobin of 6.8. Acute blood loss anemia on anemia of chronic disease, guaiac +, DDx: gastritis, varices, other s/p transfusion x 1 on admission, Hct 20, transfuse 2 units on 08/07--Hgb is 8.3 today EGD 08/07, neo esophagitis and no active bleed IV PPI Monitor hct hemolysis work up underway MITUL:? Normal baseline creatine (<1), Creatinine is worst today Nephro with the the following remarks and recommendation MITUL pre-renal DDx; HRS (Hepatorenal syndrome)/ oscar infectious GN( had been on Dapto)/AIN Unlikely obstruction; Hyponatremic; BP soft Ordered urine Na/C3/C4/UA/CK (pending) likely pre renal continue volume expand Suggest 25 % Albumin 25 Gram 6 hourly X 3 days Midodrine 10 mg tid; Labs AM Ocreotide also added -Refered to liver centers at [facility], [place], [facility], and [facility] and all declined that he's not a candidate for liver transplant Recent history of alcoholic hepatitis:? Patient is on prednisone 40 mg daily to finish 28 day course.?DC Prednisone Hepatic encephalopathy--ammonia was 65 yester, continue lactulose Hyponatremia-- due to hypervolemia from liver disease, beter. Fluid restriction .. History of alcohol abuse:? No signs of withdrawal currently.? Continue home multivitamins Recent history of MSSA bacteremia: Patient discharged on daptomycin to be finished on 08/19/2021.? Will continue for now.? Id consult. Leukocysotis--likely reactive and related to steroid--Monitor History of peripheral edema/ascites: Patient on furosemide/Aldactone.? Will hold diuretics for now given MITUL History of Crohn's disease: Continue home mesalamine History of portal vein thrombosis:? Patient is not on anticoagulation secondary to high risk for GI bleed. History of CAD: Continue home metoprolol History of asthma: Continue home inhalers Neo esophagitis--Started on Diflucan renally dosed on 08/07 Prognosis is poor with high risk for mortality and will discuss with family for possible hospice care DVT prophylaxis: SCD boots Code status:? Full code Inpatient need: active liver failure, acute renal insuficiency that is getting worse, gib bleeding that need intervention--high risk for mortality outside of hospital right now Quality Stroke Does the patient have a stroke diagnosis?: No VTE Prior VTE?: No VTE Risk Level:: Medical - moderate - high VTE Device Contraindication: N/A - Device Ordered VTE Drug Contraindication: Treatment Not Indicated
[2021-08-08] MEDS: Pantoprazole Sodium 40 MG/10 ML VIAL IVPUSH (09:27)
[2021-08-08] MEDS: Magnesium Oxide 400 MG TABLET 1600 MG PO (09:27)
[2021-08-08] MEDS: Metoprolol Succinate ER 25 MG TAB.ER.24H 12.5 MG PO (09:27)
[2021-08-08] MEDS: Cyanocobalamin (Vitamin B-12) 1,000 MCG TABLET 1000 MCG PO (09:28)
[2021-08-08] MEDS: Midodrine HCl 10 MG TABLET PO ×2 (09:28→15:11)
[2021-08-08] MEDS: Lactulose 20 GM/30 ML SOLUTION PO (09:28)
[2021-08-08] MEDS: Thiamine HCL 100 MG TABLET PO (09:28)
[2021-08-08] MEDS: Folic Acid 1 MG TABLET PO (09:28)
[2021-08-08 09:36] LABS: Alanine Aminotransferase 71 U/L (0-40); Albumin Level 2.7 g/dL (3.5-5.0); Alkaline Phosphatase 94 U/L (39-117); Aspartate Amino Transferase 96 U/L (5-37); Total Protein 4.6 g/dL (6.5-8.0)
[2021-08-08 09:42] LABS: Bilirubin Total 39.8 mg/dL (0.0-1.0)
[2021-08-08 09:47] LABS: Bilirubin Direct 21.8 mg/dL (0.0-0.5)
[2021-08-08] MEDS: Morphine Sulfate 2 MG/ML CARTRIDGE IVPUSH (10:00)
[2021-08-08] MEDS: DAPTOmycin 500 MG in 0.9 % Sodium Chloride 50 ML 50 MG IV (10:08)
[2021-08-08] MEDS: 0.9 % Sodium Chloride 1,000 ML 50 ML IVCONT (13:02)
[2021-08-08] MEDS: Morphine Sulfate 4 MG/ML CARTRIDGE 3 MG IVPUSH ×4 (13:43→22:24)
--- NOTE | 2021-08-08 14:06 | HO.POSTANES ---
Post Anesthesia Evaluation Post Anesthesia Evaluation Vital Signs: Vital Signs Temp Pulse Resp BP Pulse Ox 08/08/21 11:23 97.6 F 73 16 103/63 87 L 08/08/21 07:53 76 20 106/59 L 93 08/08/21 02:29 97.8 F 71 19 109/58 L 94 Anesthesia: Monitored Pain Control: Satisfactory Nausea/Vomiting: None Hydration: Adequate Anesthesia-Related Issues: No Anes. Related Issues
[2021-08-08] MEDS: Fluconazole in NaCl,Iso-Osm 200 MG/100 ML PIGGYBACK 100 MG IV (15:09)
[2021-08-08 16:33] LABS: ABG Refer to POC result
[2021-08-08 16:34] LABS: ABG HCO3 19 mmol/L (22-26); ABG pCO2 36 mmHg (32-45); ABG pH 7.34 (7.35-7.45); ABG pO2 65 mmHg (83-108)
[2021-08-08] MEDS: HYDROmorphone HCl 1 MG/ML SYRINGE IVPUSH (17:08)
[2021-08-08] MEDS: Furosemide 40 MG/4 ML VIAL IVPUSH (17:14)
--- NOTE | 2021-08-08 17:36 | P.ACPN_ITS ---
Advanced Care Planning Note Advanced Care Planning Note Time spent (in minutes): 20 Narrative: Patient with increasing confusion, now hypoxia O2 in 80s, stat CXR show fluid overload, removed IVF causing bleeding from the site, also with nose bleed intermittent. Shay inserted, morphine given for comfort, will try Shay.. Had discusson with mother, brother and common law of 20+ years and they understand his condition to be dire with poor quality of life-liver failure is progressing, renal failure is worsening, anemia is bad, has beeding desoreder and has been rejected by 3 centers for transplant ([facility], [place] and [facility]). They understand that all available treatments is available for him including life support, intubation and CPR if need be,,. they prefer DNR, DNI and if doesn't improve they will be ok with comfort care. Conversation lasted 20 minutes Problems Discussed (1) Acute blood loss anemia: (2) Hyponatremia:
--- NOTE | 2021-08-08 22:30 | P.CNID_ITS ---
History of Present Illness Data of Consult Service Date: 08/07/21 Requesting physician: Brett Frye Primary Care Provider: Thierno Browne MD HPI Reason for consult: MSSA bacteremia He presents with weakness and fatigue and anemia He has been on Daptomycin forMSSA and to finish it 08/19. He has no fever or chill. Review of Systems Review of Systems: Yes all other systems are reviewed and are [facility] Past Medical History Medical History Anemia Asthma CAD (coronary artery disease) Cirrhosis Glaucoma Liver disease Liver disease Staph aureus infection Family History Family history: reviewed and not pertinent Social History Social History Household Members: Friend(s) Housing: House Housing Other:: duplex Do you presently have visiting nurse or other home services: Yes Alcohol intake: current Alcohol intake frequency: former alcohol drinker Alcohol type: beer Patient Tobacco Use Status: Never used Tobacco Substance Use Type: Marijuana Advance Directives Date on File: 07/22/21 service: No Current occupational status: retired Meds Allergies Allergy/AdvReac Type Severity Reaction Status Date / Time aspirin [ASPIRIN] AdvReac Unknown BLOOD IN Verified 03/11/21 09:34 STOOL Active Medications: Current Medications Albuterol Sulfate (Albuterol Sulfate 90 Mcg 8 Gm Inhaler) 2 puff INHALE Q6H PRN PRN Reason: wheezing Last Admin: 08/08/21 13:12 Dose: 2 puff Documented by: Cyanocobalamin (Cyanocobalamin (Vitamin B-12) 1,000 Mcg Tablet) 1,000 mcg PO DAILY [facility] Last Admin: 08/08/21 09:28 Dose: 1,000 mcg Documented by: Fentanyl (Fentanyl Citrate/Pf 100 Mcg/2 Ml Vial) 25 mcg IVPUSH Q5M PRN; Protocol PRN Reason: Pain, Moderate (Pain Scale 4-6 Folic Acid (Folic Acid 1 Mg Tablet) 1 mg PO DAILY [facility] Last Admin: 08/08/21 09:28 Dose: 1 mg Documented by: Daptomycin 500 mg/ Sodium (Chloride) 60 mls @ 100 mls/hr IV Q24H [facility] Last Infusion: 08/08/21 11:22 Dose: Infused Documented by: Sodium Chloride (Ns) 1,000 mls @ 50 mls/hr IVCONT .Q20H [facility] Last Infusion: 08/08/21 17:14 Dose: Infused Documented by: Fluconazole (Diflucan) 200 mg in 100 mls @ 100 mls/hr IV Q24H [facility] Stop: 08/14/21 14:59 Last Infusion: 08/08/21 17:52 Dose: Infused Documented by: Lactulose (Lactulose 20 Gm/30 Ml Solution) 20 gm PO DAILY [facility] Last Admin: 08/08/21 09:28 Dose: 20 gm Documented by: Magnesium Oxide (Magnesium Oxide 400 Mg Tablet) 1,600 mg PO DAILY [facility] Last Admin: 08/08/21 09:27 Dose: 1,600 mg Documented by: Melatonin (Melatonin 3 Mg Tablet) 6 mg PO BEDTIME PRN PRN Reason: Insomnia Metoprolol Succinate (Metoprolol Succinate Er 25 Mg Tab.Er.24h) 12.5 mg PO DAILY [facility]; Protocol Last Admin: 08/08/21 09:27 Dose: 12.5 mg Documented by: Midodrine (Midodrine Hcl 10 Mg Tablet) 10 mg PO TID [facility] Last Admin: 08/08/21 21:18 Dose: Not Given Documented by: Morphine Sulfate (Morphine Sulfate 4 Mg/Ml Cartridge) 3 mg IVPUSH Q4H PRN; Protocol PRN Reason: Pain, Severe (Pain Scale 7-10) Last Admin: 08/08/21 20:42 Dose: 3 mg Documented by: Non-Formulary Medication (Mesalamine [Lialda]) 4 tab PO DAILY [facility] Patient Own Medication (Flovent Hfa 110 Mcg Oral Inhalation) 2 each INHALE RBID [facility] Last Admin: 08/08/21 21:18 Dose: Not Given Documented by: Octreotide Acetate (Octreotide Acetate 100 Mcg/Ml Ampul) 100 mcg IVPUSH Q8H [facility] Last Admin: 08/08/21 15:11 Dose: 100 mcg Documented by: Ondansetron HCl (Ondansetron Hcl 4 Mg/2 Ml Vial) 4 mg IVPUSH ONCE PRN PRN Reason: Nausea and Vomiting Pantoprazole Sodium (Pantoprazole Sodium 40 Mg/10 Ml Vial) 40 mg IVPUSH DAILY@0800 [facility] Last Admin: 08/08/21 09:27 Dose: 40 mg Documented by: Senna (Sennosides 8.6 Mg Tablet) 17.2 mg PO BEDTIME PRN PRN Reason: Constipation Sodium Chloride (0.9 % Sodium Chloride Flush 3 Ml Syringe) 3 ml IVFLUSH QSHIFT [facility] Last Admin: 08/08/21 17:02 Dose: Not Given Documented by: Thiamine HCl (Thiamine Hcl 100 Mg Tablet) 100 mg PO DAILY [facility] Last Admin: 08/08/21 09:28 Dose: 100 mg Documented by: Home Medications Medication Instructions Recorded Confirmed Last Taken Type albuterol sulfate 90 mcg/actuation 2 puff INHALATION Q6H PRN 03/10/21 08/05/21 03/09/21 History aerosol inhaler (ProAir HFA) cyanocobalamin (vitamin B-12) 1,000 mcg PO DAILY 03/10/21 08/05/21 08/05/21 History 1,000 mcg tablet famotidine 40 mg tablet 40 mg PO DAILY 03/10/21 08/05/21 08/05/21 History fluticasone propionate 110 2 puff INHALATION BID 03/10/21 08/05/21 08/05/21 History mcg/actuation HFA aerosol inhaler (Flovent HFA) folic acid 1 mg tablet 1 mg PO DAILY 03/10/21 08/05/21 08/05/21 History magnesium oxide 400 mg (241.3 mg 1,600 mg PO DAILY 03/10/21 08/05/21 08/05/21 History magnesium) tablet mesalamine 1.2 gram tablet,delayed 4 tab PO DAILY 03/10/21 08/05/21 08/05/21 His tory release (Lialda) thiamine mononitrate (vit B1) 100 100 mg PO DAILY 03/10/21 08/05/21 08/05/21 History mg tablet (Vitamin B-1 (mononitrate)) metoprolol succinate 25 mg 12.5 mg PO DAILY 07/17/21 08/05/21 08/05/21 History tablet,extended release 24 hr potassium chloride 10 mEq 120 meq PO DAILY tab 07/17/21 08/05/21 08/05/21 History tablet,extended release(part/cryst) prednisone 10 mg tablet 40 mg PO DAILY 07/20/21 08/05/21 08/05/21 History Physical Exam Vital Signs: Vital Signs: Last Vital Signs Temp 98 F 08/08/21 19:06 Pulse 82 08/08/21 19:06 Resp 28 H 08/08/21 20:42 BP 121/69 08/08/21 19:06 Pulse Ox 86 L 08/08/21 19:06 BMI result Body Mass Index 26.9 Const: General: cooperative Eyes: General: appearance normal, both eyes and all related structures Resp: Effort & Inspection: normal respiratory effort Percussion: no dullness to percussion Results Labs CBC & Chem 7: 08/08/21 08:13 08/08/21 08:13 Labs: Short CBC 08/08/21 Range/Units 08:13 WBC 11.9 H (4.8-10.8) X10*3/uL Hgb 8.4 L (14.0-18.0) g/dl Hct 23.6 L (42.0-52.0) % Plt Count 30 L (160-400) X10*3/uL BMP 08/08/21 08:13 Sodium 129 L Potassium 4.3 Chloride 96 Carbon Dioxide 18 L BUN 108 H D Creatinine 3.10 H Calcium 7.8 L Liver Function 08/08/21 Range/Units 08:13 Total Bilirubin 39.8 H (0.0-1.0) mg/dL Direct Bilirubin 21.8 H (0.0-0.5) mg/dL AST 96 H (5-37) U/L ALT 71 H (0-40) U/L Alkaline Phosphatase 94 (39-117) U/L Albumin 2.7 L D (3.5-5.0) g/dL Assessment and Plan (1) Acute kidney failure: Status: Acute (2) Staph aureus infection: Status: Acute He has possible MSSA He has been doing well with Daptomycin Plan Finish Daptomycin if able as schedule.
--- NOTE | 2021-08-08 22:49 | PM.EVENT ---
Event Note Date of Service: 08/08/21 Event Note: Note: Patient being managed for anemia/MITUL/alcoholic hepatitis/hepatic encephalopathy/hyponatremia/fluid overload. Per primary hospitalist patient had guarded prognosis and after extensive discussion with the family, inclined towards comfort measures only. At 22:20 on 08/08/2021 RN mentioned that patient appears restless and is being given morphine. I went in to check on the patient. Patient patient noted to be found asleep; few minutes later on the monitor patient's heart rate noted to be bradycardic. When tried to communicate with the patient, patient was not responding to verbal or tactile stimuli. Patient monitor showed asystole. On exam patient had no corneal reflex; pupils are fixed and dilated. Patient pronounced at 22:35 on 08/08/2021. Patient's significant other was at bedside.
--- NOTE | 2021-08-08 23:08 | PC.NURSE ---
Patient was restless, pulling off oxygen, restless, diaphoretic, labored breathing, gasping for air and vomiting reddish liquid, like bile. Reported to Dr Rodriguez and requested order for ativan, for patient for comfort. Verbal order given for Morphine 3 mg ivp . Morphine administered IVP slowly over 3 minutes, patient breathing slowed down then stopped. HR dropped to 40s. Dr Correa came to see patient, patient HR dropped to 0 on monitor. No audible HR. Patient examined by Dr Rodriguez , time of [id number]. Called [facility] spoke to Nicolasa Case # [id number].
[2021-08-10 14:26] LABS: Haptoglobin <8 mg/dL (43-212)
[2021-08-10 17:16] LABS: Complement C3 35 mg/dL (82-185)
== END 2021-08-08 23:50 | disposition expired | DRG 279 ==
LOC: HO.ED 17:24 → HO.EDOVER 23:05 → HO.IMC 08-06 15:53
PROVIDERS: Internal Medicine Gastroenterology; Internal Medicine Nephrology; Admitting Provider Hospitalist; Emergency Provider Emergency Medicine; PCP Internal Medicine; Visit Provider Internal Medicine
PROC: 0DJ08ZZ Inspection of Upper Intestinal Tract, Via Natural or Artificial Opening Endoscopic (ICD-10-PCS; CPT 43235; principal; 2021-08-07 11:00)
DX: K72.91 Hepatic failure, unspecified with coma (principal); N17.0 Acute kidney failure with tubular necrosis; K76.7 Hepatorenal syndrome; G92.8 Other toxic encephalopathy; R78.81 Bacteremia; D61.818 Other pancytopenia; D62 Acute posthemorrhagic anemia; Z66 Do not resuscitate; K76.6 Portal hypertension; E87.1 Hypo-osmolality and hyponatremia; B37.81 Candidal esophagitis; D68.4 Acquired coagulation factor deficiency; K70.31 Alcoholic cirrhosis of liver with ascites; I25.10 Atherosclerotic heart disease of native coronary artery without angina pectoris; E78.5 Hyperlipidemia, unspecified; D72.829 Elevated white blood cell count, unspecified; F10.10 Alcohol abuse, uncomplicated; K50.90 Crohn's disease, unspecified, without complications; K70.11 Alcoholic hepatitis with ascites; E86.0 Dehydration; Z20.822 Contact with and (suspected) exposure to COVID-19; B95.61 Methicillin susceptible Staphylococcus aureus infection as the cause of diseases classified elsewhere; E87.70 Fluid overload, unspecified; J45.909 Unspecified asthma, uncomplicated; K92.2 Gastrointestinal hemorrhage, unspecified; K31.89 Other diseases of stomach and duodenum; Z86.718 Personal history of other venous thrombosis and embolism; Z79.52 Long term (current) use of systemic steroids; Z88.6 Allergy status to analgesic agent; Z79.899 Other long term (current) drug therapy
CPT/HCPCS: 36415; 36430; 36600; 71045; 80048; 80051; 80053; 80076; 81003; 82077; 82140; 82728; 82803; 83010; 83540; 83605; 83615; 83880; 84484; 85007; 85027; 85384; 86160; 86850; 86880; 86900; 86901; 86923; 87635; 93005; 96365; 96375; 99285; 99497; J0696; J0878; J1100; J1170; J1450; J1940; J2270; J2354; J2370; J2405; J3010; P9016; P9047